=== PATIENT | male | born 1985 | race Caucasian/White ===

== ENCOUNTER 2017-07-15 12:38 | Emergency (ER) | payer BC ==
[2017-07-15 12:55] VITALS: PULSE 90; TEMP 98.9
[2017-07-15] MEDS ORDERED: ONDANSETRON 4 MG/2 ML VIAL IVP STA (13:41)
[2017-07-15] MEDS ORDERED: FAMOTIDINE 20 MG/2 ML VIAL IV STA (13:41)
[2017-07-15] MEDS ORDERED: SODIUM CHLORIDE 0.9% 1,000 ML with MVI, ADULT NO.4 WITH VIT K 10 ML, THIAMINE 100 MG, F... IV ONE ×4 (13:42)
[2017-07-15] MEDS ORDERED: HYDROmorphone 1 MG/ML 1 ML SYRINGE IVP STA (13:43)
--- NOTE | 2017-07-15 13:46 | ED ---
Alcohol HPI - General Chief Complaint: Alcohol Stated Complaint: Poss ETOH poisoning Time Seen by Provider: 07/15/17 12:56 Source: patient, RN notes reviewed Mode of arrival: ambulatory Limitations: no limitations - History of Present Illness Initial Comments: This is a 31-year-old male with a history of alcoholism was a she's been sober for 3 years who does state though he started drinking over the last week or so up to 2/5 per day over last 2 days who presents with complaints of sharp burning mid epigastric abdominal pain with nausea vomiting he has vomited up some blood. He states the pain is 8/10 severity. He also states his last drink was about 14 hours prior to admission a starting go through shakes. He does state he is never had seizures never had pancreatitis or gastritis he is aware of hematuria treatment program 3 years ago and had been clean since until this last episode. He feels shaky and lightheaded he's had no food" for the last several days. He currently is nauseated. MD Complaint: alcohol withdrawal - Related Data Home Medications Medication Instructions Recorded Confirmed Multivitamins, Thera [Multivitamin 1 tab PO DAILY 07/15/17 07/15/17 (formulary)] Previous Rx's Medication Instructions Recorded LORazepam [Ativan] 0.5 mg PO BID #7 tab 07/15/17 LORazepam [Ativan] 1 mg PO TID #9 tab 07/15/17 LORazepam [Ativan] 2 mg PO TID #9 tab 07/15/17 cloNIDine HCL [Catapres] 0.1 mg PO BID #14 tab 07/15/17 Allergies Allergy/AdvReac Type Severity Reaction Status Date / Time No Known Allergies Allergy Verified 07/15/17 13:37 Review of Systems ROS Statement: Those systems with pertinent positive or pertinent negative responses have been documented in the HPI. ROS Other: All systems not noted in ROS Statement are negative. Past Medical History Past Medical History: No Reported History History of Any Multi-Drug Resistant Organisms: MRSA Date of last positivie culture/infection: 2009 MDRO Source:: right knee Past Surgical History: No Surgical Hx Reported Past Psychological History: Anxiety, Depression Smoking Status: Never smoker Past Alcohol Use History: Daily, Heavy Past Drug Use History: None Reported General Exam - General Exam Comments Initial Comments: This is a well-developed well-nourished awake alert oriented 3 male he does demonstrate extremity tremors. Limitations: no limitations General appearance: alert, anxious Head exam: Present: atraumatic, normocephalic, normal inspection Eye exam: Present: normal appearance, PERRL, EOMI. Absent: scleral icterus, conjunctival injection, periorbital swelling ENT exam: Present: mucous membranes dry Neck exam: Present: normal inspection. Absent: tenderness, meningismus, lymphadenopathy Respiratory exam: Present: normal lung sounds bilaterally. Absent: respiratory distress, wheezes, rales, rhonchi, stridor Cardiovascular Exam: Present: regular rate, normal rhythm, normal heart sounds. Absent: systolic murmur, diastolic murmur, rubs, gallop, clicks GI/Abdominal exam: Present: soft, tenderness (Epigastric tenderness palpation no definite guarding no rebound), normal bowel sounds. Absent: distended, guarding, rebound, rigid, bruit, pulsatile mass, hernia Rectal exam: Present: deferred Extremities exam: Present: normal inspection, full ROM, normal capillary refill. Absent: tenderness, pedal edema, joint swelling, calf tenderness Back exam: Present: normal inspection Neurological exam: Present: alert, oriented X3, CN II-XII intact, other ( Tremors are noted to the extremities.) Psychiatric exam: Present: normal affect, anxious Skin exam: Present: warm, dry, intact, normal color. Absent: rash Course Vital Signs 07/15/17 12:50 Temperature 98.9 F Pulse Rate 90 Respiratory 18 Rate Blood Pressure 136/80 O2 Sat by Pulse 97 Oximetry Medical Decision Making - Medical Decision Making The patient showing much improved after the treatment that was rendered thus far. He would like to try to go home in rehab outpatient. Medication for him. We discharged after the current IV is done he will be following up with his doctor return when necessary - Lab Data Result diagrams: 07/15/17 14:09 07/15/17 14:09 Lab Results 07/15/17 07/15/17 07/15/17 Range/Units 14:09 14: 14:09 WBC 11.5 H (3.8-10.6) k/uL RBC 5.37 (4.30-5.90) m/uL Hgb 18.0 H (13.0-17.5) gm/dL Hct 53.2 H (39.0-53.0) % MCV 99.0 (80.0-100.0) fL MCH 33.5 (25.0-35.0) pg MCHC 33.8 (31.0-37.0) g/dL RDW 14.3 (11.5-15.5) % Plt Count 262 (150-450) k/uL Neutrophils % 81 % Lymphocytes % 10 % Monocytes % 6 % Eosinophils % 0 % Basophils % 1 % Neutrophils # 9.3 H (1.3-7.7) k/uL Lymphocytes # 1.1 (1.0-4.8) k/uL Monocytes # 0.6 (0-1.0) k/uL Eosinophils # 0.0 (0-0.7) k/uL Basophils # 0.1 (0-0.2) k/uL Sodium 137 (137-145) mmol/L Potassium 4.3 (3.5-5.1) mmol/L Chloride 99 (98-107) mmol/L Carbon Dioxide 23 (22-30) mmol/L Anion Gap 15 mmol/L BUN 14 (9-20) mg/dL Creatinine 1.02 (0.66-1.25) mg/dL Est GFR (MDRD) Af Amer >60 (>60 ml/min/1.73 sqM) Est GFR (MDRD) Non-Af >60 (>60 ml/min/1.73 sqM) Glucose 86 (74-99) mg/dL Calcium 9.4 (8.4-10.2) mg/dL Magnesium 1.3 L (1.6-2.3) mg/dL Total Bilirubin 0.7 (0.2-1.3) mg/dL AST 38 (17-59) U/L ALT 45 (21-72) U/L Alkaline Phosphatase 62 (38-126) U/L Total Protein 7.0 (6.3-8.2) g/dL Albumin 4.3 (3.5-5.0) g/dL Amylase 68 (30-110) U/L Lipase 72 (23-300) U/L Serum Alcohol 84 mg/dL Blood Type O Positive Blood Type Recheck No Antibody Screen NEGATIVE Spec Expiration Date 07/18/2017 - 2308 Disposition Clinical Impression: Hypomagnesemia, Alcoholic gastritis, Alcohol withdrawal syndrome Disposition: HOME SELF-CARE Condition: Good Instructions: Alcohol Withdrawal (ED), Alcohol Intoxication (ED), Hypomagnesemia (ED) Prescriptions: cloNIDine HCL [Catapres] 0.1 mg PO BID #14 tab LORazepam [Ativan] 0.5 mg PO BID #7 tab LORazepam [Ativan] 1 mg PO TID #9 tab LORazepam [Ativan] 2 mg PO TID #9 tab Referrals: None,Stated [Primary Care Provider] - 1-2 days Decision Time: 14:50
[2017-07-15] MEDS ORDERED: LORazepam 2 MG/ML SYRINGE IV STA (14:11)
[2017-07-15 14:20] LABS: Basophils # (A) 0.1 k/uL (0-0.2); Basophils % (A) 1 %; CH 35.1; CHCM 35.6; Eosinophils % (A) 0 %; HCT 53.2 % (39.0-53.0); HDW 2.33; Luc # (Auto) 0.33; Luc % (Auto) 3; Lymphocytes # (A) 1.1 k/uL (1.0-4.8); Lymphocytes % (A) 10 %; MCH 33.5 pg (25.0-35.0); MCHC 33.8 g/dL (31.0-37.0); Monocytes # (A) 0.6 k/uL (0-1.0); Monocytes % (A) 6 %; Neutrophils # (A) 9.3 k/uL (1.3-7.7); Neutrophils % (A) 81 %; RBC 5.37 m/uL (4.30-5.90); RDW 14.3 % (11.5-15.5); WBC 11.5 k/uL (3.8-10.6); WBC (Perox) 11.02
[2017-07-15 14:35] LABS: ALT 45 U/L (21-72); AST 38 U/L (17-59); Alkaline Phosphatase 62 U/L (38-126); Amylase 68 U/L (30-110); Anion Gap 15 mmol/L; Blood Urea Nitrogen 14 mg/dL (9-20); Calcium 9.4 mg/dL (8.4-10.2); Carbon Dioxide 23 mmol/L (22-30); Chloride 99 mmol/L (98-107); Glucose 86 mg/dL (74-99); Magnesium 1.3 mg/dL (1.6-2.3); Non-African American GFR(MDRD) >60 (>60 ml/min/1.73 sqM); Potassium 4.3 mmol/L (3.5-5.1); Sodium 137 mmol/L (137-145); Total Bilirubin 0.7 mg/dL (0.2-1.3)
[2017-07-15 14:37] LABS: Alcohol 84 mg/dL
--- NOTE | 2017-07-15 14:48 | XR ---
EXAMINATION TYPE: XR abdomen 1V DATE OF EXAM: 07/15/2017 COMPARISON: NONE HISTORY: Abdominal pain TECHNIQUE: 2 views FINDINGS: The bowel gas pattern is normal. There is no sign of intestinal obstruction or pneumoperito neum. Fecal pattern is normal. There are no pathologic calcifications over the kidneys. Lung bases ar e clear. Bony structures appear intact. IMPRESSION: Nonacute abdomen.
[2017-07-15 15:56] VITALS: BP 141/67; RESP 16
== END 2017-07-15 16:06 | disposition home or self-care (01) ==
LOC: EC 12:38
DX: K29.20 Alcoholic gastritis without bleeding (principal); F10.239 Alcohol dependence with withdrawal, unspecified; E83.42 Hypomagnesemia; Z79.899 Other long term (current) drug therapy
CPT/HCPCS: 82075; 36415; 86900; 86901; 80053; 82150; 83690; 83735; 85025; 86850; 80320; 74000; 99284; 96375 ×4; 96365; 96366; J2060; J3411; J2405; J1170

== ENCOUNTER 2017-07-27 14:56 | Inpatient (IN) | payer BC ==
[2017-07-27] MEDS ORDERED: LORazepam 2 MG/ML SYRINGE IV STA (15:17)
[2017-07-27] MEDS ORDERED: SODIUM CHLORIDE 0.9% 1,000 ML IV STA ×2 (15:17)
--- NOTE | 2017-07-27 15:27 | ED ---
General Adult HPI - General Chief complaint: Psychiatric Symptoms Stated complaint: ETOH Time Seen by Provider: 07/27/17 15:05 Source: patient, RN notes reviewed, old records reviewed Mode of arrival: ambulatory Limitations: no limitations - History of Present Illness Initial comments: Is a 31-year-old male chief complaint of severe alcohol abuse or the past 3 weeks. Patient reports this started after he had a dental procedure. Patient reports that he was discharged from the dental procedure with Motrin and Tylenol with codeine. Patient did not want to take pain medication, so he took multiple Motrin. Patient reports that he is having severe abdominal pain at that point. Patient reports that he decided he didn't want to deal with the pain in his teeth or stomach anymore sinusitis started drinking again. Patient reports that since he started drinking his abdominal pain is continue to worsen. Patient reports he is drinking approximately fifth day for the past 3 weeks. Patient reports his last drink was a few R's prior to arrival however he started surgical to withdrawals. Patient reports that he's had occasional visual hallucinations due to withdrawals for the past hour. Patient denies any suicidal or homicidal thoughts. He was sober for the past 15 months after going through alcohol rehab before this past 3 weeks. - Related Data Home Medications Medication Instructions Recorded Confirmed No Known Home Medications [No 07/27/17 07/27/17 Known Home Medications] Allergies Allergy/AdvReac Type Severity Reaction Status Date / Time No Known Allergies Allergy Verified 07/27/17 15:01 Review of Systems ROS Statement: Those systems with pertinent positive or pertinent negative responses have been documented in the HPI. ROS Other: All systems not noted in ROS Statement are negative. Past Medical History Past Medical History: No Reported History History of Any Multi-Drug Resistant Organisms: MRSA Date of last positivie culture/infection: 2009 MDRO Source:: right knee Past Surgical History: No Surgical Hx Reported Past Psychological History: Anxiety, Depression Smoking Status: Never smoker Past Alcohol Use History: Daily, Heavy Past Drug Use History: None Reported General Exam - General Exam Comments Initial Comments: 31-year-old male. Patient is shaking. Patient is actively going through withdrawals. Limitations: no limitations General appearance: alert, appears intoxicated Head exam: Present: atraumatic Eye exam: Present: normal appearance, PERRL, EOMI. Absent: scleral icterus, conjunctival injection, periorbital swelling ENT exam: Present: normal exam, normal oropharynx, mucous membranes moist Neck exam: Present: normal inspection. Absent: tenderness, meningismus, lymphadenopathy Respiratory exam: Present: normal lung sounds bilaterally. Absent: respiratory distress, wheezes, rales, rhonchi, stridor Cardiovascular Exam: Present: regular rate, normal rhythm, normal heart sounds. Absent: systolic murmur, diastolic murmur, rubs, gallop, clicks GI/Abdominal exam: Present: soft, tenderness (Severe epigastric tenderness. Patient is actively vomiting when entering the room.), normal bowel sounds. Absent: distended, guarding, rebound, rigid Extremities exam: Present: normal inspection, full ROM, normal capillary refill. Absent: tenderness, pedal edema, joint swelling, calf tenderness Back exam: Present: normal inspection Neurological exam: Present: alert, oriented X3, CN II-XII intact Psychiatric exam: Present: normal affect, normal mood, anxious Skin exam: Present: warm, dry, intact, normal color. Absent: rash Course Vital Signs 07/27/17 14:58 Temperature 98.5 F Pulse Rate 120 H Respiratory 20 Rate Blood Pressure 164/79 O2 Sat by Pulse 97 Oximetry Medical Decision Making - Medical Decision Making 31-year-old male chief complaint alcohol intoxication started to go through withdrawals as well as severe abdominal pain. Patient has evidence of alcohol- induced gastritis. Patient's occult blood was positive for vomit. Patient has an upper GI bleed. Vomiting is controlled this time after Zofran. Patient is given 2 L of IV fluids, as well as banana bag started. Patient was given GI cocktail, and Protonix. Discussed with Dr. Mcelroy. Patient will be admitted under Dr. Moss service. Consult to GI specialist. Patient was informed of his results. - Lab Data Result diagrams: 07/27/17 15:55 07/27/17 15:55 Lab Results 07/27/17 07/27/17 07/27/17 Range/Units 15:49 15:55 15:55 WBC 8.5 (3.8-10.6) k/uL RBC 5.99 H (4.30-5.90) m/uL Hgb 20.2 H (13.0-17.5) gm/dL Hct 57.4 H (39.0-53.0) % MCV 95.8 (80.0-100.0) fL MCH 33.8 (25.0-35.0) pg MCHC 35.2 (31.0-37.0) g/dL RDW 13.7 (11.5-15.5) % Plt Count 186 (150-450) k/uL Neutrophils % (Manual) 64 % Lymphocytes % (Manual) 28 % Monocytes % (Manual) 8 % Neutrophils # (Manual) 5.44 (1.3-7.7) k/uL Lymphocytes # (Manual) 2.38 (1.0-4.8) k/uL Monocytes # (Manual) 0.68 (0-1.0) k/uL Nucleated RBCs 0 (0-0) /100 WBC Manual Slide Review Performed RBC Morphology Normal PT (9.0-12.0) sec INR (<1.2) Sodium 142 (137-145) mmol/L Potassium 4.5 (3.5-5.1) mmol/L Chloride 99 (98-107) mmol/L Carbon Dioxide 22 (22-30) mmol/L Anion Gap 21 mmol/L BUN 17 (9-20) mg/dL Creatinine 1.20 (0.66-1.25) mg/dL Est GFR (MDRD) Af Amer >60 (>60 ml/min/1.73 sqM) Est GFR (MDRD) Non-Af >60 (>60 ml/min/1.73 sqM) Glucose 115 H (74-99) mg/dL Calcium 9.5 (8.4-10.2) mg/dL Magnesium 1.7 (1.6-2.3) mg/dL Total Bilirubin 0.9 (0.2-1.3) mg/dL AST 88 H (17-59) U/L ALT 68 (21-72) U/L Alkaline Phosphatase 85 (38-126) U/L Total Protein 8.2 (6.3-8.2) g/dL Albumin 4.8 (3.5-5.0) g/dL Amylase 95 (30-110) U/L Lipase 200 (23-300) U/L Urine Color Yellow Urine Appearance Clear (Clear) Urine pH 6.0 (5.0-8.0) Ur Specific [place] 1.020 (1.001-1.035) Urine Protein 2+ H (Negative) Urine Glucose (UA) Negative (Negative) Urine Ketones 1+ H (Negative) Urine Blood Trace H (Negative) Urine Nitrite Negative (Negative) Urine Bilirubin Negative (Negative) Urine Urobilinogen <2.0 (<2.0) mg/dL Ur Leukocyte Esterase Negative (Negative) Urine RBC 2 (0-5) /hpf Urine WBC 1 (0-5) /hpf Ur Squamous Epith Cells <1 (0-4) /hpf Amorphous Sediment Occasional H (None) /hpf Urine Bacteria Rare H (None) /hpf Hyaline Casts 4 H (0-2) /lpf Urine Mucus Moderate H (None) /hpf Stool Occult Blood (Negative) Urine Opiates Screen Not Detected (NotDetected) Ur Oxycodone Screen Not Detected (NotDetected) Urine Methadone Screen Not Detected (NotDetected) Ur Propoxyphene Screen Not Detected (NotDetected) Ur Barbiturates Screen Not Detected (NotDetected) U Tricyclic Antidepress Not Detected (NotDetected) Ur Phencyclidine Scrn Not Detected (NotDetected) Ur Amphetamines Screen Not Detected (NotDetected) U Methamphetamines Scrn Not Detected (NotDetected) U Benzodiazepines Scrn Detected H (NotDetected) Urine Cocaine Screen Not Detected (NotDetected) U Marijuana (THC) Screen Not Detected (NotDetected) Serum Alcohol 290 mg/dL 07/27/17 07/27/17 Range/Units 15:55 15:55 WBC (3.8-10.6) k/uL RBC (4.30-5.90) m/uL Hgb (13.0-17.5) gm/dL Hct (39.0-53.0) % MCV (80.0-100.0) fL MCH (25.0-35.0) pg MCHC (31.0-37.0) g/dL RDW (11.5-15.5) % Plt Count (150-450) k/uL Neutrophils % (Manual) % Lymphocytes % (Manual) % Monocytes % (Manual) % Neutrophils # (Manual) (1.3-7.7) k/uL Lymphocytes # (Manual) (1.0-4.8) k/uL Monocytes # (Manual) (0-1.0) k/uL Nucleated RBCs (0-0) /100 WBC Manual Slide Review RBC Morphology PT 11.2 (9.0-12.0) sec INR 1.1 (<1.2) Sodium (137-145) mmol/L Potassium (3.5-5.1) mmol/L Chloride (98-107) mmol/L Carbon Dioxide (22-30) mmol/L Anion Gap mmol/L BUN (9-20) mg/dL Creatinine (0.66-1.25) mg/dL Est GFR (MDRD) Af Amer (>60 ml/min/1.73 sqM) Est GFR (MDRD) Non-Af (>60 ml/min/1.73 sqM) Glucose (74-99) mg/dL Calcium (8.4-10.2) mg/dL Magnesium (1.6-2.3) mg/dL Total Bilirubin (0.2-1.3) mg/dL AST (17-59) U/L ALT (21-72) U/L Alkaline Phosphatase (38-126) U/L Total Protein (6.3-8.2) g/dL Albumin (3.5-5.0) g/dL Amylase (30-110) U/L Lipase (23-300) U/L Urine Color Urine Appearance (Clear) Urine pH (5.0-8.0) Ur Specific [place] (1.001-1.035) Urine Protein (Negative) Urine Glucose (UA) (Negative) Urine Ketones (Negative) Urine Blood (Negative) Urine Nitrite (Negative) Urine Bilirubin (Negative) Urine Urobilinogen (<2.0) mg/dL Ur Leukocyte Esterase (Negative) Urine RBC (0-5) /hpf Urine WBC (0-5) /hpf Ur Squamous Epith Cells (0-4) /hpf Amorphous Sediment (None) /hpf Urine Bacteria (None) /hpf Hyaline Casts (0-2) /lpf Urine Mucus (None) /hpf Stool Occult Blood Positive (Negative) Urine Opiates Screen (NotDetected) Ur Oxycodone Screen (NotDetected) Urine Methadone Screen (NotDetected) Ur Propoxyphene Screen (NotDetected) Ur Barbiturates Screen (NotDetected) U Tricyclic Antidepress (NotDetected) Ur Phencyclidine Scrn (NotDetected) Ur Amphetamines Screen (NotDetected) U Methamphetamines Scrn (NotDetected) U Benzodiazepines Scrn (NotDetected) Urine Cocaine Screen (NotDetected) U Marijuana (THC) Screen (NotDetected) Serum Alcohol mg/dL Disposition Clinical Impression: Alcohol abuse, Alcohol withdrawal, Alcoholic gastritis, Upper GI bleed Disposition: ADMITTED IP TO THIS [facility] Condition: Stable Referrals: None,Stated [Primary Care Provider] - 1-2 days Time of Disposition: 17:07
[2017-07-27] MEDS ORDERED: SODIUM CHLORIDE 0.9% 1,000 ML with MVI, ADULT NO.4 WITH VIT K 10 ML, THIAMINE 100 MG, F... IV ONE ×4 (15:30)
[2017-07-27 16:10] LABS: Amorphous Sediment,Urine Occasional /hpf; Appearance,Urine Clear (Clear); Bacteria,Urine Rare /hpf; Bilirubin,Urine Negative (Negative); Glucose,Urine (UA) Negative (Negative); Ketones,Urine 1+ (Negative); Leukocyte Esterase,Urine Negative (Negative); Mucus,Urine Moderate /hpf; Nitrite,Urine Negative (Negative); Particle Count 7429; Protein,Urine 2+ (Negative); RBC,Urine 2 /hpf (0-5); Squamous Epithelial Cell,Urine <1 /hpf (0-4); UA Billing (MACRO vs. MICRO) MICRO; Urobilinogen,Urine <2.0 mg/dL (<2.0); WBC,Urine 1 /hpf (0-5)
[2017-07-27 16:18] LABS: INR 1.1 (<1.2); Prothrombin Time 11.2 sec (9.0-12.0)
[2017-07-27 16:19] LABS: ALT 68 U/L (21-72); AST 88 U/L (17-59); Alkaline Phosphatase 85 U/L (38-126); Amylase 95 U/L (30-110); Anion Gap 21 mmol/L; Aty Lym Flag Slight; Blood Urea Nitrogen 17 mg/dL (9-20); CH 34.5; CHCM 36.1; Calcium 9.5 mg/dL (8.4-10.2); Carbon Dioxide 22 mmol/L (22-30); Chloride 99 mmol/L (98-107); Glucose 115 mg/dL (74-99); HCT 57.4 % (39.0-53.0); HDW 2.45; HGB 20.2 gm/dL (13.0-17.5); MCH 33.8 pg (25.0-35.0); MCHC 35.2 g/dL (31.0-37.0); MCV 95.8 fL (80.0-100.0); Magnesium 1.7 mg/dL (1.6-2.3); Mean Platelet Volume 6.7; Non-African American GFR(MDRD) >60 (>60 ml/min/1.73 sqM); Potassium 4.5 mmol/L (3.5-5.1); RBC 5.99 m/uL (4.30-5.90); RDW 13.7 % (11.5-15.5); Sodium 142 mmol/L (137-145); Total Bilirubin 0.9 mg/dL (0.2-1.3); Total Protein 8.2 g/dL (6.3-8.2); WBC 8.5 k/uL (3.8-10.6); WBC (Perox) 9.01
[2017-07-27] MEDS ORDERED: ONDANSETRON 4 MG/2 ML VIAL IVP STA (16:23)
[2017-07-27 16:41] LABS: Alcohol 290 mg/dL
[2017-07-27 16:45] LABS: Add Differential Manual Differential
[2017-07-27 16:48] LABS: Manual Review Performed; Nucleated Red Blood Cells 0 /100 WBC (0-0); RBC Morphology Normal; Total Cells Counted 100
[2017-07-27] MEDS ORDERED: PANTOPRAZOLE 40 MG/10 ML VIAL IVP STA (16:50)
[2017-07-27] MEDS ORDERED: MAG HYDROX/AL HYDROX/SIMETH 30 ML, HYOSCYAMINE ELIXIR 10 ML, CIMETIDINE HCL 300 MG, LID... PO STA ×4 (17:03)
[2017-07-27] MEDS ORDERED: THIAMINE 100 MG/ML 2 ML VIAL IM STA (17:06)
[2017-07-27] MEDS ORDERED: LORazepam 2 MG/ML SYRINGE IV PRN ×2 (17:06)
[2017-07-27] MEDS ORDERED: NALOXONE 0.4 MG/ML 1 ML VIAL IV PRN (17:08)
[2017-07-27] MEDS: LORazepam 2 MG/ML SYRINGE IV PRN ×2 (21:30→23:31)
[2017-07-27] MEDS: ONDANSETRON 4 MG/2 ML VIAL IVP PRN (23:04)
[2017-07-28] MEDS: SODIUM CHLORIDE 0.9% 1,000 ML IV SCH ×4 (01:21→18:17)
[2017-07-28] MEDS: LORazepam 2 MG/ML SYRINGE IV PRN ×6 (01:21→20:23)
[2017-07-28] MEDS: ONDANSETRON 4 MG/2 ML VIAL IVP PRN (04:38)
[2017-07-28 07:49] LABS: Aty Lym Flag Slight; CH 35.4; CHCM 36.4; HCT 45.4 % (39.0-53.0); HDW 2.39; HGB 15.7 gm/dL (13.0-17.5); MCH 33.7 pg (25.0-35.0); MCHC 34.6 g/dL (31.0-37.0); MCV 97.5 fL (80.0-100.0); Mean Platelet Volume 7.2; RBC 4.66 m/uL (4.30-5.90); RDW 14.1 % (11.5-15.5); WBC 7.3 k/uL (3.8-10.6); WBC (Perox) 7.34
--- NOTE | 2017-07-28 08:06 | P.CONS ---
History of Present Illness - Reason for Consult Consult date: 07/28/17 Upper GI bleed Requesting physician: Chiki Moss - History of Present Illness 31-year-old gentleman with a history of alcohol abuse sober over for 3 years started drinking 3 weeks ago multiple liquor drinks a day had a recent dental procedure taking Motrin Tylenol for pain. Patient presents with epigastric pain. No reports of hematemesis hematochezia melena. Serum alcohol greater than 200. Hemoglobin 15.7. Platelet 132. INR 1.1. BUN 14. Creatinine 1.0. LFTs unremarkable. Lipase 200. Stool occult blood positive. Presently he is resting comfortably. Epigastric pain improving. Tolerating clear liquids. Review of Systems Constitutional: Denies fever, chills, sweats, weight gain, or loss. HEENT: Negative for migraines, blurred vision or loss, earaches, drainage, tinnitus, oral mucosal lesions, dysphagia, or odynophagia. Cardiac: Negative for chest pain, arrhythmias, or palpitation. Respiratory: Negative for shortness of breath, hemoptysis, cough, or sputum production. Gastrointestinal: See HPI for pertinent findings. Genitourinary: Negative for hematuria, urgency, frequency, polyuria, dysuria, or penile discharge. Musculoskeletal: Negative for muscle aches, swelling, arthritis, and arthralgias. Neurologic: Negative for stroke or TIA. Endocrine: Negative for thyroid problems. Skin: Negative for rash or itching. Psychiatric: Negative history for depression and anxiety All systems: negative (See HPI) Past Medical History Past Medical History: GERD/Reflux Additional Past Medical History / Comment(s): in past took bp/cholesterol meds for few months but stopped them on his own. etoh. "recently had some episode of vomitng dark blood and stools were black in color" History of Any Multi-Drug Resistant Organisms: MRSA Year Discovered:: 2009 MDRO Source:: right knee Past Surgical History: No Surgical Hx Reported Additional Past Surgical History / Comment(s): 07/08/17 had 3 teeth extracted- post procedure pain worsened and pt went back to dr on had a 2nd procedure done for an exposed nerve. Past Anesthesia/Blood Transfusion Reactions: No Reported Reaction Smoking Status: Former smoker - Past Family History Father Additional Family Medical History / Comment(s): anxiety Mother Family Medical History: Cancer, Hyperlipidemia, Hypertension, Thyroid Disorder Additional Family Medical History / Comment(s): breast cancer, shingles, osteoporosis, anxiety Medications and Allergies Home Medications Medication Instructions Recorded Confirmed Type No Known Home Medications [No 07/27/17 07/27/17 History Known Home Medications] Allergies Allergy/AdvReac Type Severity Reaction Status Date / Time No Known Allergies Allergy Verified 07/27/17 15:01 Physical Exam Vitals: Vital Signs Temp Pulse Pulse Resp BP BP Pulse Ox 07/28/17 07:02 99.0 F 74 18 136/77 07/28/17 05:52 82 16 129/57 97 07/28/17 03:39 90 16 143/80 96 07/28/17 01:15 105 H 16 127/74 94 L 07/27/17 23:37 113 H 16 07/27/17 22:57 98.0 F 113 H 16 151/75 97 07/27/17 21:47 98.3 F 107 H 18 116/70 92 L 07/27/17 21:27 108 H 16 128/75 97 07/27/17 18:08 98.7 F 98 16 162/70 96 07/27/17 14:58 98.5 F 120 H 20 164/79 97 Intake and Output 07/27/17 07/28/17 07/28/17 22:59 06:59 14:59 Intake Total 300 680 Output Total 800 Balance 300 -120 Intake: Intake, IV Titration 300 580 Amount Sodium Chloride 0.9% 1, 300 000 ml @ 100 mls/hr IV . Q10H7M ONE with Mvi, Adult No.4 with Vit K 10 ml with Thiamine 100 mg with Folic Acid 1 mg Rx#: [id number] Sodium Chloride 0.9% 1, 580 000 ml @ 120 mls/hr IV . Q8H20M [facility] Rx#:[id number] Oral 100 Output: Urine 800 Other: Voiding Method Toilet Urinal # Voids 2 2 General appearance: The patient is alert, oriented, in no acute distress. HET: Head is normocephalic and atraumatic. Pupils are equal and reactive. Oropharynx is clear without lesions. Neck: Supple without lymphadenopathy. Trachea midline. Heart: S1 S2. Regular rate and rhythm. Lungs: No crackles or wheezes are heard. Abdomen: Soft, nontender, nondistended with bowel sounds. No peritoneal signs. No palpable organomegaly or masses. Extremities: Normal skin color and turgor. No cyanosis, rash, ulceration, clubbing, or edema. Radial and pedal pulses are 2/4 bilaterally. Neurological: No focal deficits. Strength and sensation are grossly intact. Results CBC & Chem 7: 07/28/17 07:07 07/27/17 15:55 Labs: Abnormal Lab Results - Last 24 Hours (Table) 07/27/17 07/27/17 07/27/17 Range/Units 15:49 15:55 15:55 RBC 5.99 H (4.30-5.90) m/uL Hgb 20.2 H (13.0-17.5) gm/dL Hct 57.4 H (39.0-53.0) % Plt Count (150-450) k/uL Glucose 115 H (74-99) mg/dL AST 88 H (17-59) U/L Urine Protein 2+ H (Negative) Urine Ketones 1+ H (Negative) Urine Blood Trace H (Negative) Amorphous Sediment Occasional H (None) /hpf Urine Bacteria Rare H (None) /hpf Hyaline Casts 4 H (0-2) /lpf Urine Mucus Moderate H (None) /hpf U Benzodiazepines Scrn Detected H (NotDetected) 07/28/17 Range/Units 07:07 RBC (4.30-5.90) m/uL Hgb (13.0-17.5) gm/dL Hct (39.0-53.0) % Plt Count 132 L (150-450) k/uL Glucose (74-99) mg/dL AST (17-59) U/L Urine Protein (Negative) Urine Ketones (Negative) Urine Blood (Negative) Amorphous Sediment (None) /hpf Urine Bacteria (None) /hpf Hyaline Casts (0-2) /lpf Urine Mucus (None) /hpf U Benzodiazepines Scrn (NotDetected) Assessment and Plan (1) Alcoholic gastritis Narrative/Plan: Alcohol gastritis esophagitis Status: Acute (2) Alcohol abuse Status: Acute (3) Alcohol intoxication Status: Acute Plan: 1. Protonix 40 mg IV twice daily. 2. Carafate 1 g twice daily with meals. 3. Full liquid diet advance as tolerated. 4. CBC monitoring. 5. Alcohol abstinence. No NSAIDs or aspirin. 6. Endoscopic exams not planned at this time but contingent on clinical course. Discharge per medicine. Thank you for this kind referral and the opportunity to participate in the care of your patient. This consultation was discussed with Dr. Erickson. The impression and plan of care have been directed as dictated.
[2017-07-28 08:21] LABS: ALT 53 U/L (21-72); AST 58 U/L (17-59); Alkaline Phosphatase 60 U/L (38-126); Anion Gap 6 mmol/L; Blood Urea Nitrogen 18 mg/dL (9-20); Calcium 8.7 mg/dL (8.4-10.2); Carbon Dioxide 30 mmol/L (22-30); Chloride 100 mmol/L (98-107); Glucose 94 mg/dL (74-99); Non-African American GFR(MDRD) >60 (>60 ml/min/1.73 sqM); Potassium 3.8 mmol/L (3.5-5.1); Sodium 136 mmol/L (137-145); Total Bilirubin 0.9 mg/dL (0.2-1.3)
[2017-07-28] MEDS: SUCRALFATE 1 GM TAB PO SCH ×2 (08:24→18:17)
[2017-07-28] MEDS: PANTOPRAZOLE 40 MG/10 ML VIAL IV SCH ×2 (08:25→20:26)
[2017-07-28 08:36] LABS: Add Differential Manual Differential
[2017-07-28 08:40] LABS: Manual Review Performed; Nucleated Red Blood Cells 0 /100 WBC (0-0); Total Cells Counted 100
[2017-07-28 08:41] LABS: RBC Morphology Normal
[2017-07-28] MEDS ORDERED: PANTOPRAZOLE 40 MG/10 ML VIAL IV SCH (09:00)
[2017-07-28 11:06] VITALS: BMI 27.1
--- NOTE | 2017-07-28 16:01 | HP ---
HISTORY AND PHYSICAL CHIEF COMPLAINT: A 31-year-old white male who has been sober for 15 months after being an alcoholic for many years. He had his teeth pulled, wisdom teeth x3. No pain medicine was given for him at which time he developed an alcohol addiction again. He has been drinking, like yesterday he drank a gallon of alcohol and a pint of whiskey and some beer. He denies suicidal ideation though. He is admitted with some visual hallucinations, withdrawal for the past hours, severe withdrawal. ALLERGIES: No known drug allergies. Some of the history is given by his mother. REVIEW OF SYSTEM: 14 point review of systems negative except for mentioned in HPI. PAST MEDICAL HISTORY: History of MRSA in the right knee, anxiety, depression, alcohol heavy. PHYSICAL EXAMINATION: 31-year-old white male, shaking, going through withdrawals. HEENT: Normocephalic atraumatic. OPHTHALMOLOGIC: Pupils equal and react to light and accommodation. RESPIRATORY: Normal lung sounds. No rales, rhonchi, or stridor. CARDIOVASCULAR: Regular rate and rhythm. No murmurs, rubs, gallops. GI: Soft, mild epigastric tenderness. No organomegaly. EXTREMITIES: No cyanosis, clubbing, or edema. VASCULAR: Normal dorsalis pedis, posterior tibial pulse. NEUROLOGIC: [id number] tremor. PSYCH: Giving appropriate answers. hemoglobin 20.2, hematocrit is 57.4. ASSESSMENT: 1. Primary polycythemia vera. 2. Liver enzyme elevation. 3. Alcohol withdrawal symptomatology. PLAN: [facility] protocol. Recheck CBC in the morning for polycythemia vera. MMODL / IJN: [id number] /
[2017-07-28] MEDS: THIAMINE 100 MG TAB PO SCH ×2 (16:14→16:59)
[2017-07-28] MEDS: ACETAMINOPHEN TAB 325 MG TAB PO PRN (21:15)
[2017-07-29] MEDS: SODIUM CHLORIDE 0.9% 1,000 ML IV SCH ×3 (06:50→17:27)
[2017-07-29] MEDS: LORazepam 2 MG/ML SYRINGE IV PRN ×3 (08:33→21:24)
[2017-07-29] MEDS: SUCRALFATE 1 GM TAB PO SCH ×2 (08:35→17:27)
[2017-07-29] MEDS: PANTOPRAZOLE 40 MG/10 ML VIAL IV SCH (08:35)
--- NOTE | 2017-07-29 10:41 | PN ---
PROGRESS NOTE SUBJECTIVE: 31-year-old, white male, who presents with alcohol withdrawal and tremors. Apparently the GI doctor was trying to get his history and may be making up some of his history as he goes. He is treated for alcohol withdrawal. Discussed [facility] with the patient for rehab and patient will call them today to try to get into rehab. Vital signs stable, afebrile. NEUROLOGIC: He has a moderate tremor in his extremities. CARDIOVASCULAR: S1, S2. LUNGS: Transmitted upper airway sounds. ASSESSMENT: 1. Alcohol withdrawal. 2. Alcoholism. 3. Status post teeth extraction. Continue on [facility] protocol. Electrolyte replacement. MMODL / IJN: [id number] /
[2017-07-29] MEDS: THIAMINE 100 MG TAB PO SCH ×2 (12:20→17:27)
--- NOTE | 2017-07-29 13:44 | PN ---
PROGRESS NOTE DATE OF DICTATION: July 29, 2017 Patient is a 31-year-old, white male, admitted with acute onset of severe epigastric pain followed by nausea, vomiting, for the last two days duration. He has history of heavy alcohol abuse for the last 3 years duration and the patient has been drinking 4-5 drinks a days as well as taking some Tylenol and Motrin for the pain from a recent dental procedure. He presents with epigastric pain. He states it is better today through the night. He did not sleep well because of severe nightmares and he had some nausea and vomiting. He is on a clear liquid diet, tolerating well. PHYSICAL EXAMINATION: He appears comfortable in no apparent distress. VITAL SIGNS: Stable. Blood pressure is 143/70, pulse is 70, temperature 96.8. HEENT examination unremarkable. Conjunctivae pink. Sclerae anicteric. Oral cavity no lesions. Neck: No jugular venous distention or lymph node enlargement. Chest clear to auscultation. Heart regular rate and rhythm. Abdomen is soft. Bowel sounds positive. Mild tenderness in the epigastric area. EXTREMITIES: No pedal edema. Skin no rashes. NEUROLOGIC: Alert and oriented x3. No focal deficits. LABS: His labs from yesterday: CBC and CMP are within normal limits. IMPRESSION: The patient presents with history of heavy alcohol abuse with epigastric pain associated with nausea and vomiting for the last 2 days duration. Symptoms are gradually improving. He denies any further episodes of nausea and vomiting since yesterday. Presently on IV Protonix as well as Carafate. RECOMMENDATIONS: 1. Continue IV Protonix. 2. Continue p.o. Carafate. 3. Advance diet as tolerated. 4. Hopeful discharge in the next 24-48 hours. MMODL / IJN: [id number] /
[2017-07-29] MEDS: PANTOPRAZOLE 40 MG TABLET PO SCH (17:27)
[2017-07-29] MEDS: ACETAMINOPHEN TAB 325 MG TAB PO PRN (21:24)
[2017-07-29 23:17] VITALS: RESP 16
[2017-07-30] MEDS: LORazepam 2 MG/ML SYRINGE IV PRN (01:37)
[2017-07-30] MEDS: SODIUM CHLORIDE 0.9% 1,000 ML IV SCH ×2 (07:47→08:04)
[2017-07-30] MEDS: SUCRALFATE 1 GM TAB PO SCH (08:04)
[2017-07-30] MEDS: PANTOPRAZOLE 40 MG TABLET PO SCH (08:04)
[2017-07-30 08:08] VITALS: PULSE 90
[2017-07-30 09:10] VITALS: BP 138/94; TEMP 97.7
[2017-07-30] MEDS: THIAMINE 100 MG TAB PO SCH (11:31)
--- NOTE | 2017-07-30 12:45 | PN ---
PROGRESS NOTE DATE OF SERVICE: 07/29/2017 I am covering for Dr. Chiki Moss. HISTORY OF PRESENT ILLNESS: This 31-year-old gentleman who was admitted with ETOH also had features of epigastric pain and possibly gastritis. No chest pain. No palpitations. No fever. EXAM: Alert and oriented times three. Pulse is 82, blood pressure 130/75, respiratory rate 16, temperature 98.2, pulse ox 100% on room air. HEENT: Conjunctivae normal. Neck: No jugular venous distention. Cardiovascular: S1, S2 muffled. Respiratory: Breath sound diminished at the bases. No rhonchi. No crackles. ABDOMEN: Soft, nontender. Legs: No edema. No swelling. Central nervous system: No focal deficits. LABS: Albumin 3.4, otherwise other labs are noted. ASSESSMENT: 1. Acute alcoholic alcoholism intoxication. 2. Alcohol withdrawal. 3. Acute gastritis. 4. Status post tooth extraction. RECOMMENDATIONS AND DISCUSSION: Recommended continue current medications. Continue symptomatic treatment. CIWA protocol. Increase ambulation. Increase diet. Closely follow with gastroenterology. Guarded prognosis. Further recommendations to follow. MMODL / IJN: [id number] /
--- NOTE | 2017-07-30 16:15 | PN ---
PROGRESS NOTE DATE OF SERVICE: 07/30/2017 The patient is a 31-year-old pleasant white male admitted to hospital with epigastric pain. nausea, vomiting and history of heavy alcohol abuse. He has been doing much better since being in the hospital. Abdominal pain has resolved. He is on a full liquid diet, tolerating well, requesting for more food. PHYSICAL EXAMINATION: He appears comfortable. Not apparent distress. Vital signs are stable. Blood pressure is 110/86, pulse 83, temperature 98.6. HEENT exam is remarkable. Conjunctivae pink. Sclerae anicteric. Oral cavity, no lesions. NECK: No JVD or lymph node enlargement. CHEST: Clear to auscultation. HEART: Regular rate and rhythm. ABDOMEN: Soft. Bowel sounds are positive. No organomegaly. EXTREMITIES: No pedal edema. SKIN: No rashes. NEURO: Alert and oriented x3. No focal deficits. LABS: Labs from yesterday were all normal. IMPRESSION: Epigastric pain associated with nausea and vomiting, possibly gastritis related to alcohol use. May be nonsteroid anti-inflammatory use related gastritis. Patient was taking Motrin for surgery for the last few days. Presently doing much better and symptoms are resolving. RECOMMENDATIONS: 1. Advance to soft diet. 2. Continue with Protonix 40 mg daily. 3. He can discharged home with outpatient follow up in 2 weeks. MMODL / IJN: [id number] /
--- NOTE | 2017-07-30 17:18 | P.DS ---
Providers Date of admission: 07/27/17 18:18 Attending physician: Chiki Moss Consults: 07/27/17 17:08 Consult Physician Stat Consulting Provider: Martin Bundy Consult Reason/Comments: Upper GI Bleed, Alcohol Gastritis Do you want consulting provider notified?: Yes, Notify in am Primary care physician: Stated None Hospital Course: This 31-year-old gentleman with a past medical history multiple medical problems including significant EtOH was admitted with epigastric pain. Patient had possibly gastritis. Treated symptomatically. Dr. Phillips saw the patient. Patient improved significantly. Cipro protocol was followed. Dr. Moss follow the patient closely in the hospital setting. On exam vitals stable. S1-S2 normal. Abdomen soft nontender. Chest clear no adventitious sounds. Recommended the patient to continue with the rehab efforts. Attend AA. To follow with Dr. Chiki Moss in the outpatient setting closely. Final diagnosis 1. Acute alcoholic intoxication. 2. Acute alcohol withdrawal 3. Acute gastritis 4. Status post tooth extraction Patient Condition at Discharge: Stable Plan - Discharge Summary New Discharge Prescriptions: New Acetaminophen Tab [Tylenol] 650 mg PO Q6HR PRN tab PRN Reason: Mild Pain Or Fever > 100.5 LORazepam [Ativan] 1 mg PO TID PRN #40 tab PRN Reason: Anxiety Multivitamins, Thera [Multivitamin] 1 tab PO DAILY #30 tablet Pantoprazole [Protonix] 40 mg PO DAILY #30 tab Thiamine [Vitamin B-1] 100 mg PO DAILY #30 tab Discharge Medication List Acetaminophen Tab [Tylenol] 650 mg PO Q6HR PRN tab 07/30/17 [Rx] LORazepam [Ativan] 1 mg PO TID PRN #40 tab 07/30/17 [Rx] Multivitamins, Thera [Multivitamin] 1 tab PO DAILY #30 tablet 07/30/17 [Rx] Pantoprazole [Protonix] 40 mg PO DAILY #30 tab 07/30/17 [Rx] Thiamine [Vitamin B-1] 100 mg PO DAILY #30 tab 07/30/17 [Rx] Follow up Appointment(s)/Referral(s): Chiki Moss MD [STAFF PHYSICIAN] - 3 Days Patient Instructions/Handouts: Alcohol Intoxication (DC), Abuse of Alcohol (DC) Activity/Diet/Wound Care/Special Instructions: diet reg act limited till f/u no etoh to attend aa and rehab Discharge Disposition: HOME SELF-CARE
== END 2017-07-30 14:16 | disposition home or self-care (01) | DRG 897 ==
LOC: EC 14:56 → 5MS5E 18:18
PROVIDERS: ADMIT Family Medicine; ATTEND Family Medicine
DX: F10.239 Alcohol dependence with withdrawal, unspecified (principal); D45 Polycythemia vera; F10.229 Alcohol dependence with intoxication, unspecified; K20.8 Other esophagitis; K29.20 Alcoholic gastritis without bleeding; Z87.891 Personal history of nicotine dependence; Z86.14 Personal history of Methicillin resistant Staphylococcus aureus infection; Z82.49 Family history of ischemic heart disease and other diseases of the circulatory system
CPT/HCPCS: 36415; 80053; 80306; 80320; 81001; 82150; 82272; 83690; 83735; 85025; 85610; 96365; 96366; 96372; 96375; 99285

== ENCOUNTER → 2017-08-08 | Outpatient (CLI) | payer BC ==
--- NOTE | 2017-08-08 10:57 | XR ---
EXAM TYPE: LUMBAR SPINE X RAY SERIES COMPARISON: NONE HISTORY: Right-sided back pain TECHNIQUE: 3 views are submitted. FINDINGS: Alignment is anatomic. The pedicles are intact. The transverse processes are intact. There is no s pondylolysis or spondylolisthesis. IMPRESSION: 1. No acute process. Consider MRI follow-up.
--- NOTE | 2017-08-08 10:58 | XR ---
EXAMINATION TYPE: XR thoracic spine complete DATE OF EXAM: 08/08/2017 COMPARISON: NONE HISTORY: Back pain Alignment is anatomic. There is no compression deformities. Curvature of the spine noted. Mild hyper trophic change and disc space narrowing the mid and lower thoracic spine. IMPRESSION: 1. Mild multilevel degenerative disc disease.
== END | disposition home or self-care (01) ==
LOC: RADXRMAIN 10:34
PROVIDERS: ATTEND Family Medicine
DX: M51.34 Other intervertebral disc degeneration, thoracic region (principal); M54.5 Low back pain
CPT/HCPCS: 72072; 72100

== ENCOUNTER → 2017-08-29 | Outpatient (CLI) | payer BC ==
--- NOTE | 2017-08-29 17:01 | CT ---
EXAMINATION TYPE: CT lumbar spine wo con DATE OF EXAM: 08/29/2017 COMPARISON: Lumbar spine x-ray August 08, 2017 HISTORY: low back pain X many years, hx of low back injury in 2008 CT DLP: 479.4 mGycm Automated exposure control for dose reduction was used. FINDINGS: There are 5 lumbar type vertebra identified. Lumbar spine shows satisfactory alignment without eviden ce of acute fracture or dislocation. Vertebral body heights and disc space heights are maintained. No suspicious posterior disc herniations are seen on sagittal images. Review of axial images shows the T12-L1, L1-L2, L2-L3, and L3-L4 levels to appear within normal limit s. Axial images at the L4-L5 level shows mild broad-based disc bulge with right paracentral disc protrus ion component and mild facet degenerative changes on axial image 72. Spinal canal is fairly well pres erved. Left-sided neural foramen is patent. Right side shows mild anterior inferior neural foraminal narrowing. Axial images at L5-S1 level show mild to moderate facet degenerative changes bilaterally. Spinal alcides l is preserved and bilateral neural foramina are patent. IMPRESSION: MILD DEGENERATIVE CHANGES IN LOWER LUMBAR SPINE DETAILED ABOVE
== END | disposition home or self-care (01) ==
LOC: RADCTMAIN 15:59
PROVIDERS: ATTEND Family Medicine
DX: M47.816 Spondylosis without myelopathy or radiculopathy, lumbar region (principal)
CPT/HCPCS: 72131

== ENCOUNTER 2017-09-05 23:44 | Emergency (ER) | payer BC ==
[2017-09-06] MEDS ORDERED: SODIUM CHLORIDE 0.9% 1,000 ML IV STA (00:29)
[2017-09-06] MEDS ORDERED: THIAMINE 100 MG/ML 2 ML VIAL IM STA (00:29)
--- NOTE | 2017-09-06 00:29 | ED ---
Alcohol HPI - General Chief Complaint: Alcohol Stated Complaint: Alcohol Withdrawl Time Seen by Provider: 09/05/17 23:54 Source: patient, RN notes reviewed, old records reviewed Mode of arrival: ambulatory Limitations: no limitations - History of Present Illness Initial Comments: 32-year-old male presents emergency Department chief complaint alcohol intoxication searching for help for withdrawals. Patient reports also some abdominal pain. Patient has been admitted in the past for pancreatitis and GI bleed in the past. Denies any vomiting. He reports that he was discharged a few months ago after admission for alcohol intoxication. He reports he relapsed after that. He states that he was just discharged from [place] approximately one week ago. He reports he started drinking. Drink about a pint today. Patient states that he's had no fever or chill, nausea or vomiting or any other symptoms. Patient reports he started with to feel withdrawals last night so he felt like he had to drink in order to avoid severe withdrawals and seizure. Patient states that he has Zofran at home. - Related Data Previous Rx's Medication Instructions Recorded Acetaminophen Tab [Tylenol] 650 mg PO Q6HR PRN tab 07/30/17 LORazepam [Ativan] 1 mg PO TID PRN #40 tab 07/30/17 Multivitamins, Thera [Multivitamin] 1 tab PO DAILY #30 tablet 07/30/17 Pantoprazole [Protonix] 40 mg PO DAILY #30 tab 07/30/17 Thiamine [Vitamin B-1] 100 mg PO DAILY #30 tab 07/30/17 chlordiazePOXIDE HCl [Librium] 25 mg PO QID #10 capsule 09/06/17 Allergies Allergy/AdvReac Type Severity Reaction Status Date / Time No Known Allergies Allergy Verified 09/05/17 23:50 Review of Systems ROS Statement: Those systems with pertinent positive or pertinent negative responses have been documented in the HPI. ROS Other: All systems not noted in ROS Statement are negative. Past Medical History Past Medical History: GERD/Reflux Additional Past Medical History / Comment(s): etoh History of Any Multi-Drug Resistant Organisms: MRSA Date of last positivie culture/infection: 2009 MDRO Source:: right knee Past Surgical History: No Surgical Hx Reported Additional Past Surgical History / Comment(s): 07/08/17 had 3 teeth extracted- post procedure pain worsened and pt went back to dr on had a 2nd procedure done for an exposed nerve. Past Anesthesia/Blood Transfusion Reactions: No Reported Reaction Past Psychological History: Anxiety, Depression Smoking Status: Former smoker Past Alcohol Use History: Abuse, Daily, Heavy Past Drug Use History: None Reported - Past Family History Father Additional Family Medical History / Comment(s): anxiety Mother Family Medical History: Cancer, Hyperlipidemia, Hypertension, Thyroid Disorder Additional Family Medical History / Comment(s): breast cancer, shingles, osteoporosis, anxiety General Exam - General Exam Comments Initial Comments: 32-year-old male. No acute distress. Patient does appear to be intoxicated. Limitations: no limitations General appearance: alert, in no apparent distress Head exam: Present: atraumatic, normocephalic, normal inspection Eye exam: Present: normal appearance, PERRL, EOMI. Absent: scleral icterus, conjunctival injection, periorbital swelling ENT exam: Present: normal exam, mucous membranes moist Neck exam: Present: normal inspection. Absent: tenderness, meningismus, lymphadenopathy Respiratory exam: Present: normal lung sounds bilaterally. Absent: respiratory distress, wheezes, rales, rhonchi, stridor Cardiovascular Exam: Present: regular rate, normal rhythm, normal heart sounds. Absent: systolic murmur, diastolic murmur, rubs, gallop, clicks GI/Abdominal exam: Present: soft, normal bowel sounds. Absent: distended, tenderness, guarding, rebound, rigid Extremities exam: Present: normal inspection, full ROM, normal capillary refill. Absent: tenderness, pedal edema, joint swelling, calf tenderness Back exam: Present: normal inspection Neurological exam: Present: alert, oriented X3, CN II-XII intact Psychiatric exam: Present: normal affect, normal mood Skin exam: Present: warm, dry, intact, normal color. Absent: rash Course Vital Signs 09/05/17 09/06/17 23:47 02:00 Temperature 97.6 F 97.9 F Pulse Rate 60 64 Respiratory 18 16 Rate Blood Pressure 134/84 152/64 O2 Sat by Pulse 98 99 Oximetry Medical Decision Making - Medical Decision Making This is a 32-year-old male presents emergency Department with chief complaint of alcohol intoxication and going through withdrawals. Patient's serum alcohol level is 0.457. Patient states that he is not actually going through withdrawals. I discussed that it is very likely going through withdrawals with an alcohol level at this elevated. Patient received IV fluids, and I am thiamine. Patient lipase was slightly elevated at 500. At this time patient will be treated with Librium and given a prescription for Librium taper. Discussed following up with outpatient alcohol rehab facilities. Discussed if there is any further palpitations patient can return to emergency department. Patient patient's friend understand treatment plan. Patient's friend will be driving the patient home. - Lab Data Result diagrams: 09/06/17 00:45 09/06/17 00:45 Lab Results 09/06/17 09/06/17 09/06/17 Range/Units 00:45 00:45 00:45 WBC 7.5 (3.8-10.6) k/uL RBC 4.74 (4.30-5.90) m/uL Hgb 16.5 (13.0-17.5) gm/dL Hct 47.5 (39.0-53.0) % MCV 100.2 H (80.0-100.0) fL MCH 34.8 (25.0-35.0) pg MCHC 34.8 (31.0-37.0) g/dL RDW 13.9 (11.5-15.5) % Plt Count 333 D (150-450) k/uL Neutrophils % 48 % Lymphocytes % 35 % Monocytes % 7 % Eosinophils % 2 % Basophils % 1 % Neutrophils # 3.6 (1.3-7.7) k/uL Lymphocytes # 2.6 (1.0-4.8) k/uL Monocytes # 0.5 (0-1.0) k/uL Eosinophils # 0.2 (0-0.7) k/uL Basophils # 0.0 (0-0.2) k/uL Manual Slide Review Performed Reactive Lymphocytes Present Macrocytosis Slight PT 11.3 (9.0-12.0) sec INR 1.1 (<1.2) Sodium 145 (137-145) mmol/L Potassium 4.4 (3.5-5.1) mmol/L Chloride 107 (98-107) mmol/L Carbon Dioxide 21 L (22-30) mmol/L Anion Gap 17 mmol/L BUN 18 (9-20) mg/dL Creatinine 1.00 (0.66-1.25) mg/dL Est GFR (MDRD) Af Amer >60 (>60 ml/min/1.73 sqM) Est GFR (MDRD) Non-Af >60 (>60 ml/min/1.73 sqM) Glucose 110 H (74-99) mg/dL Calcium 8.9 (8.4-10.2) mg/dL Magnesium 2.0 (1.6-2.3) mg/dL Total Bilirubin 0.4 (0.2-1.3) mg/dL AST 60 H (17-59) U/L ALT 77 H (21-72) U/L Alkaline Phosphatase 96 (38-126) U/L Total Protein 7.5 (6.3-8.2) g/dL Albumin 4.3 (3.5-5.0) g/dL Amylase 107 (30-110) U/L Lipase 510 H (23-300) U/L Serum Alcohol 447 mg/dL Disposition Clinical Impression: Alcohol intoxication, Alcohol abuse Disposition: HOME SELF-CARE Condition: Good Instructions: Alcohol Withdrawal (ED) Additional Instructions: Patient advised to follow-up with alcohol rehab facilities. Use the medicine as prescribed for withdrawal. Return to the emergency department if any alarming signs or symptoms occur. Prescriptions: chlordiazePOXIDE HCl [Librium] 25 mg PO QID #10 capsule Referrals: Chiki Moss MD [Primary Care Provider] - 1-2 days Time of Disposition: 01:43
[2017-09-06 01:05] LABS: Aty Lym Flag Slight; Basophils % (A) 1 %; CH 35.5; CHCM 35.5; Eosinophils # (A) 0.2 k/uL (0-0.7); Eosinophils % (A) 2 %; HCT 47.5 % (39.0-53.0); HGB 16.5 gm/dL (13.0-17.5); INR 1.1 (<1.2); Luc # (Auto) 0.53; Luc % (Auto) 7; Lymphocytes # (A) 2.6 k/uL (1.0-4.8); Lymphocytes % (A) 35 %; MCH 34.8 pg (25.0-35.0); MCHC 34.8 g/dL (31.0-37.0); MCV 100.2 fL (80.0-100.0); Macrocytosis Slight; Mean Platelet Volume 6.2; Monocytes # (A) 0.5 k/uL (0-1.0); Monocytes % (A) 7 %; Neutrophils # (A) 3.6 k/uL (1.3-7.7); Neutrophils % (A) 48 %; Prothrombin Time 11.3 sec (9.0-12.0); RBC 4.74 m/uL (4.30-5.90); RDW 13.9 % (11.5-15.5); WBC 7.5 k/uL (3.8-10.6); WBC (Perox) 7.12
[2017-09-06 01:09] LABS: ALT 77 U/L (21-72); AST 60 U/L (17-59); Alkaline Phosphatase 96 U/L (38-126); Amylase 107 U/L (30-110); Anion Gap 17 mmol/L; Blood Urea Nitrogen 18 mg/dL (9-20); Calcium 8.9 mg/dL (8.4-10.2); Carbon Dioxide 21 mmol/L (22-30); Chloride 107 mmol/L (98-107); Glucose 110 mg/dL (74-99); Non-African American GFR(MDRD) >60 (>60 ml/min/1.73 sqM); Potassium 4.4 mmol/L (3.5-5.1); Sodium 145 mmol/L (137-145); Total Bilirubin 0.4 mg/dL (0.2-1.3); Total Protein 7.5 g/dL (6.3-8.2)
[2017-09-06 01:19] LABS: Alcohol 447 mg/dL
[2017-09-06 01:30] LABS: Manual Review Performed
[2017-09-06 01:32] LABS: Reactive Lymphocytes Present
[2017-09-06] MEDS ORDERED: ONDANSETRON 4 MG ODT STARTER PACK 2 TAB BTL PO STA (01:42)
[2017-09-06] MEDS ORDERED: chlordiazePOXIDE 25 MG CAP PO STA (01:42)
[2017-09-06 02:02] VITALS: BP 152/64; PULSE 64; RESP 16; TEMP 97.9
== END 2017-09-06 01:59 | disposition home or self-care (01) ==
LOC: EC 23:44
DX: F10.120 Alcohol abuse with intoxication, uncomplicated (principal); Y90.8 Blood alcohol level of 240 mg/100 ml or more; Z86.14 Personal history of Methicillin resistant Staphylococcus aureus infection; Z87.891 Personal history of nicotine dependence
CPT/HCPCS: 96360 ×2; 96372 ×2; 99285 ×2; 82075; 36415; 80053; 82150; 83690; 83735; 85025; 85610; 80320; J3411; S0119

== ENCOUNTER 2018-03-05 13:39 | Emergency (ER) | payer BC ==
[2018-03-05] MEDS ORDERED: SODIUM CHLORIDE 0.9% 1,000 ML IV STA ×2 (13:58)
[2018-03-05] MEDS ORDERED: ONDANSETRON 4 MG/2 ML VIAL IVP STA (13:58)
[2018-03-05] MEDS ORDERED: RX INFO: IV CONTRAST WAS GIVEN 1 EACH MISC MISCELLANE PRN (13:58)
[2018-03-05] MEDS ORDERED: PANTOPRAZOLE 40 MG/10 ML VIAL IVP STA (13:58)
[2018-03-05] MEDS ORDERED: methylPREDNISolone SOD SUCCI 125 MG/2 ML VIAL IV STA (14:01)
[2018-03-05] MEDS ORDERED: MAG HYDROX/AL HYDROX/SIMETH 30 ML, HYOSCYAMINE ELIXIR 10 ML, CIMETIDINE HCL 300 MG, LID... PO STA ×4 (14:01)
[2018-03-05] MEDS ORDERED: diphenhydrAMINE 50 MG/ML 1 ML VIAL IVP STA (14:02)
--- NOTE | 2018-03-05 14:06 | ED ---
Abdominal Pain HPI - General Chief Complaint: Abdominal Pain Stated Complaint: nausea/vomiting/rash all over Time Seen by Provider: 03/05/18 13:52 Source: patient Mode of arrival: ambulatory Limitations: no limitations - History of Present Illness Initial Comments: This 32-year-old white male presents with a complaint of some abdominal pain, nausea, and vomiting. He states that his symptoms have been present for approximately one week. He states that he's had multiple episodes of the vomiting. The abdominal pain is in the mid abdominal region and slightly into the midepigastric area. She denies any significant diarrhea. There has not been any fevers or chills. He thinks that it may be related to increased alcohol usage. He states that he drinks 1+ pint per day for the last 2 weeks. He denies any previous similar incidents. He also complains of a rash which is diffuse throughout his body but worse on his abdomen and upper extremities. He states that this is erythematous and pruritic in nature. He has tried some Benadryl spray and Benadryl pills without any significant relief. He denies any new medications, or food, and has not been exposed to anything new that he is aware of. There is no difficulty in breathing. There is no sore throat. No other complaints or modifying factors. - Related Data Home Medications Medication Instructions Recorded Confirmed Escitalopram [Lexapro] 20 mg PO DAILY 03/05/18 03/05/18 QUEtiapine [SEROquel] 50 mg PO HS 03/05/18 03/05/18 buPROPion XL [Wellbutrin Xl] 450 mg PO DAILY 03/05/18 03/05/18 Previous Rx's Medication Instructions Recorded Dicyclomine [Bentyl] 20 mg PO QID PRN #20 tablet 03/05/18 Omeprazole [PriLOSEC] 40 mg PO DAILY #30 capsule. 03/05/18 Ondansetron [Zofran ODT] 8 mg PO Q8HR PRN #12 tab 03/05/18 predniSONE 20 mg PO BID #10 tab 03/05/18 Allergies Allergy/AdvReac Type Severity Reaction Status Date / Time No Known Allergies Allergy Verified 03/05/18 14:04 Review of Systems ROS Statement: Those systems with pertinent positive or pertinent negative responses have been documented in the HPI. ROS Other: All systems not noted in ROS Statement are negative. Past Medical History Past Medical History: GERD/Reflux Additional Past Medical History / Comment(s): etoh History of Any Multi-Drug Resistant Organisms: MRSA Date of last positivie culture/infection: 2009 MDRO Source:: right knee Past Surgical History: No Surgical Hx Reported Additional Past Surgical History / Comment(s): 07/08/17 had 3 teeth extracted- post procedure pain worsened and pt went back to dr on had a 2nd procedure done for an exposed nerve. Past Anesthesia/Blood Transfusion Reactions: No Reported Reaction Past Psychological History: Anxiety, Depression Smoking Status: Former smoker Past Alcohol Use History: Abuse, Daily, Heavy Past Drug Use History: None Reported - Past Family History Father Additional Family Medical History / Comment(s): anxiety Mother Family Medical History: Cancer, Hyperlipidemia, Hypertension, Thyroid Disorder Additional Family Medical History / Comment(s): breast cancer, shingles, osteoporosis, anxiety General Exam - General Exam Comments Initial Comments: GENERAL: The patient is well nourished and well hydrated. VITAL SIGNS: Heart rate, blood pressure, respiratory rate reviewed as recorded in nurse's notes. EYES: Pupils are round and reactive. Extraocular movements are intact. No conjunctival / lid redness or swelling. ENT: No external evidence of injury, swelling, or ecchymosis. Airway is patent. Throat is clear. NECK: Nontender. No swelling or evidence of injury. No subcutaneous emphysema. Trachea is midline. No thyroid mass. HEART: Regular rate and rhythm. Good peripheral pulses. LUNGS/CHEST: Breath sounds clear and equal bilaterally. No rales, rhonchi, or wheezes. No ecchymosis, subcutaneous emphysema, or tenderness. ABDOMEN: There is mild tenderness noted into the mid abdomen and slightly into the midepigastric region. There is no peritoneal signs. No palpable masses or organomegaly. No peritoneal signs. No abdominal wall swelling or ecchymosis. EXTREMITIES: No extremity tenderness. Normal muscle tone and function. No thoracolumbar tenderness. NEUROLOGIC: Sensation is grossly intact. Cranial nerve exam reveals face is symmetrical, tongue is midline, speech is clear. SKIN: There is a moderate diffuse erythematous rash noted which is worse on the abdomen and upper extremities but present to the lower extremities and thorax as well. No induration or masses noted. PSYCHIATRIC: Alert and oriented. Appropriate behavior and judgment. Limitations: no limitations Course Vital Signs 03/05/18 03/05/18 13:46 14:28 Temperature 98.3 F 98 F Pulse Rate 92 80 Respiratory 18 14 Rate Blood Pressure 140/87 132/85 O2 Sat by Pulse 98 98 Oximetry Medical Decision Making - Medical Decision Making The patient was seen and examined. All diagnostics were reviewed. The patient had an IV established receives some IV fluids. He also receives some Protonix intravenously, a GI cocktail, and Zofran intravenously. He is feeling improved on recheck. He has taken some Motrin in the past in regards to his symptoms and he is instructed to avoid any further nonsteroidal anti-inflammatory drug medications. He had a negative computed tomography scan of the abdomen and pelvis other than the radiologist noting that he cannot exclude a pulmonary embolism on the abdomen/pelvis computed tomography scan. He will thinks we should correlate clinically. The patient currently does not have any chest pain or shortness breath. There is no pulmonary symptoms whatsoever. Is not felt as though he has a pulmonary embolism clinically. There is no leg pain or swelling or history DVT or PE. It is felt that the patient likely does have gastritis and/or peptic ulcer disease. The laboratory overall is fairly unremarkable other than mild hypokalemia. Is counseled extensively regarding alcohol use/abuse. He states that he will stop utilizing alcohol. His alcohol level currently is 29. - Lab Data Result diagrams: 03/05/18 14:50 03/05/18 14:50 Lab Results 03/05/18 03/05/18 03/05/18 Range/Units 14:50 14:50 14:50 WBC 8.3 (3.8-10.6) k/uL RBC 4.59 (4.30-5.90) m/uL Hgb 15.3 (13.0-17.5) gm/dL Hct 43.2 (39.0-53.0) % MCV 94.2 (80.0-100.0) fL MCH 33.2 (25.0-35.0) pg MCHC 35.3 (31.0-37.0) g/dL RDW 12.7 (11.5-15.5) % Plt Count 153 (150-450) k/uL Neutrophils % 78 % Lymphocytes % 8 % Monocytes % 8 % Eosinophils % 3 % Basophils % 0 % Neutrophils # 6.5 (1.3-7.7) k/uL Lymphocytes # 0.6 L (1.0-4.8) k/uL Monocytes # 0.7 (0-1.0) k/uL Eosinophils # 0.2 (0-0.7) k/uL Basophils # 0.0 (0-0.2) k/uL PT 13.0 H (9.0-12.0) sec INR 1.4 H (<1.2) APTT 24.9 (22.0-30.0) sec Sodium 136 L (137-145) mmol/L Potassium 3.3 L (3.5-5.1) mmol/L Chloride 98 (98-107) mmol/L Carbon Dioxide 25 (22-30) mmol/L Anion Gap 13 mmol/L BUN 22 H (9-20) mg/dL Creatinine 0.91 (0.66-1.25) mg/dL Est GFR (CKD-EPI)AfAm >90 (>60 ml/min/1.73 sqM) Est GFR (CKD-EPI)NonAf >90 (>60 ml/min/1.73 sqM) Glucose 131 H (74-99) mg/dL Calcium 8.8 (8.4-10.2) mg/dL Total Bilirubin 0.9 (0.2-1.3) mg/dL AST 31 (17-59) U/L ALT 33 (21-72) U/L Alkaline Phosphatase 50 (38-126) U/L Total Protein 6.2 L (6.3-8.2) g/dL Albumin 3.6 (3.5-5.0) g/dL Amylase 54 (30-110) U/L Lipase 76 (23-300) U/L Serum Alcohol 29 mg/dL Disposition Clinical Impression: Abdominal pain, Alcohol abuse, Rash, Gastritis Disposition: HOME SELF-CARE Condition: Good Instructions: Abdominal Pain (ED), Gastritis (ED), Abuse of Alcohol (ED) Prescriptions: Dicyclomine [Bentyl] 20 mg PO QID PRN #20 tablet PRN Reason: Pain Omeprazole [PriLOSEC] 40 mg PO DAILY #30 capsule. Ondansetron [Zofran ODT] 8 mg PO Q8HR PRN #12 tab PRN Reason: Nausea predniSONE 20 mg PO BID #10 tab Referrals: Nonstaff,Physician [REFERRING] - 1-2 days Time of Disposition: 16:20
[2018-03-05 15:22] LABS: Basophils % (A) 0 %; Eosinophils # (A) 0.2 k/uL (0-0.7); Eosinophils % (A) 3 %; HCT 43.2 % (39.0-53.0); HGB 15.3 gm/dL (13.0-17.5); Lymphocytes # (A) 0.6 k/uL (1.0-4.8); Lymphocytes % (A) 8 %; MCH 33.2 pg (25.0-35.0); MCHC 35.3 g/dL (31.0-37.0); MCV 94.2 fL (80.0-100.0); Mean Platelet Volume 7.3; Monocytes # (A) 0.7 k/uL (0-1.0); Monocytes % (A) 8 %; Neutrophils # (A) 6.5 k/uL (1.3-7.7); Neutrophils % (A) 78 %; Platelet Count 153 k/uL (150-450); RBC 4.59 m/uL (4.30-5.90); RDW 12.7 % (11.5-15.5); WBC 8.3 k/uL (3.8-10.6)
[2018-03-05 15:25] LABS: ALT 33 U/L (21-72); AST 31 U/L (17-59); Albumin 3.6 g/dL (3.5-5.0); Alcohol 29 mg/dL; Alkaline Phosphatase 50 U/L (38-126); Amylase 54 U/L (30-110); Anion Gap 13 mmol/L; Blood Urea Nitrogen 22 mg/dL (9-20); Calcium 8.8 mg/dL (8.4-10.2); Carbon Dioxide 25 mmol/L (22-30); Chloride 98 mmol/L (98-107); Glucose 131 mg/dL (74-99); Lipase 76 U/L (23-300); Potassium 3.3 mmol/L (3.5-5.1); Sodium 136 mmol/L (137-145); Total Bilirubin 0.9 mg/dL (0.2-1.3); Total Protein 6.2 g/dL (6.3-8.2)
[2018-03-05 15:28] LABS: INR 1.4 (<1.2); Partial Thromboplastin Time 24.9 sec (22.0-30.0)
--- NOTE | 2018-03-05 16:00 | CT ---
EXAMINATION TYPE: CT abdomen pelvis w con DATE OF EXAM: 03/05/2018 COMPARISON: NONE HISTORY: Lower abd pain. CT DLP: 1481 mGycm Automated exposure control for dose reduction was used. TECHNIQUE: Helical acquisition of images from the lung bases through the pelvis have been completed. CONTRAST: Performed without Oral Contrast and with IV Contrast, patient injected with 100ml mL of Isovue 300. FINDINGS: Small hiatal hernia present. LUNG BASES: There is some probable dependent atelectatic changes, some peripheral increased attenuati on present at the left lung base laterally. The pulmonary artery branches are not well opacified bird tori difficult to exclude some central low attenuation in the segmental branches to the lower lobes, c orrelate to exclude pulmonary embolism. AORTA: No significant abnormality is appreciated. LIVER/GB: Margoth's lobe present, gallbladder shows no stone. PANCREAS: No significant abnormality is seen. SPLEEN: No significant abnormality is seen. ADRENALS: No significant abnormality is seen. KIDNEYS: Cortical cyst associated with the midpole the right kidney measures 13 mm. REPRODUCTIVE ORGANS: There is some calcification associated with the prostate gland BOWEL: Some diverticular changes associated with the colon, question some colonic wall thickening FREE AIR: No Free Air visible. ASCITES: None visible. PELVIC ADENOPATHY: None visualized. RETROPERITONEAL ADENOPATHY: No Retroperitoneal Adenopathy visible. URINARY BLADDER: No significant abnormality is seen. OSSEOUS STRUCTURES: No significant abnormality is seen. Increased density in the subcutaneous fat of the gluteal regions may be due to prior injections, correlate. IMPRESSION: CANNOT EXCLUDE PULMONARY EMBOLISM DESCRIBED, CORRELATE. SMALL HIATAL HERNIA. DIVERTICULOSIS. ADDIT IONAL FINDINGS ABOVE.
[2018-03-05 16:44] VITALS: BP 142/85; PULSE 63; RESP 18; TEMP 98.7
== END 2018-03-05 16:46 | disposition home or self-care (01) ==
LOC: EC 13:39
DX: K29.70 Gastritis, unspecified, without bleeding (principal); F10.10 Alcohol abuse, uncomplicated; Y90.1 Blood alcohol level of 20-39 mg/100 ml; R21 Rash and other nonspecific skin eruption; F32.9 Major depressive disorder, single episode, unspecified; F41.9 Anxiety disorder, unspecified; Z86.14 Personal history of Methicillin resistant Staphylococcus aureus infection; Z87.891 Personal history of nicotine dependence; Z79.899 Other long term (current) drug therapy
CPT/HCPCS: 99284; 96374; 96375 ×3; 96361; 36415; 80053; 82150; 83690; 85025; 85610; 85730; 80320; 74177; J1200; J2930; J2405; C9113; Q9967

== ENCOUNTER 2018-03-09 22:42 | Inpatient (IN) | payer BC ==
[2018-03-09] MEDS ORDERED: SODIUM CHLORIDE 0.9% 2,000 ML IV STA (23:01)
[2018-03-09] MEDS ORDERED: RX INFO: IV CONTRAST WAS GIVEN 1 EACH MISC MISCELLANE PRN ×2 (23:02→23:51)
[2018-03-09] MEDS ORDERED: SODIUM CHLORIDE 0.9% 1,000 ML with MVI, ADULT NO.4 WITH VIT K 10 ML, THIAMINE 100 MG, F... IV ONE ×4 (23:03)
--- NOTE | 2018-03-09 23:10 | ED ---
General Adult HPI - General Chief complaint: Alcohol Stated complaint: ETOH DETOX Time Seen by Provider: 03/09/18 22:53 Source: patient Mode of arrival: ambulatory Limitations: no limitations - History of Present Illness Initial comments: 32-year-old male patient with history significant for chronic alcohol abuse presents to the emergency department today for evaluation of abdominal pain and testicular pain. Patient states that he has been having this pain for the last week. States pain is severe in his upper abdomen and does radiate to his back. He has had associated vomiting. States he is unable to keep down any food or fluids. Denies any hematemesis, hematochezia, or melena. Patient states he is also been having left testicular pain for the last week. He denies any hematuria, dysuria, urinary frequency or urinary urgency. He states the pain worsens in his testicle when he moves. He denies any penile discharge. Denies any concern for STDs. Denies any known fever, but has been having chills. Patient reports that he does drink a fifth of whiskey daily and states he has been doing this for the last month. States that prior to that he was recovering alcoholic. Patient denies any recent rash, shortness breath, chest pain, constipation, back pain, numbness, tingling, dizziness, weakness, headache , visual changes, or any other complaints. - Related Data Home Medications Medication Instructions Recorded Confirmed Escitalopram [Lexapro] 20 mg PO DAILY 03/05/18 03/09/18 QUEtiapine [SEROquel] 50 mg PO HS 03/05/18 03/09/18 buPROPion XL [Wellbutrin Xl] 450 mg PO DAILY 03/05/18 03/09/18 Omeprazole 20 mg PO DAILY PRN 03/10/18 03/10/18 Previous Rx's Medication Instructions Recorded Dicyclomine [Bentyl] 20 mg PO QID PRN #20 tablet 03/05/18 Omeprazole [PriLOSEC] 40 mg PO DAILY #30 capsule. 03/05/18 Ondansetron [Zofran ODT] 8 mg PO Q8HR PRN #12 tab 03/05/18 predniSONE 20 mg PO BID #10 tab 03/05/18 Allergies Allergy/AdvReac Type Severity Reaction Status Date / Time No Known Allergies Allergy Verified 03/09/18 23:16 Review of Systems ROS Statement: Those systems with pertinent positive or pertinent negative responses have been documented in the HPI. ROS Other: All systems not noted in ROS Statement are negative. Past Medical History Past Medical History: GERD/Reflux Additional Past Medical History / Comment(s): etoh History of Any Multi-Drug Resistant Organisms: MRSA Date of last positivie culture/infection: 2009 MDRO Source:: right knee Past Surgical History: No Surgical Hx Reported Additional Past Surgical History / Comment(s): 07/08/17 had 3 teeth extracted- post procedure pain worsened and pt went back to dr on had a 2nd procedure done for an exposed nerve. Past Anesthesia/Blood Transfusion Reactions: No Reported Reaction Past Psychological History: Anxiety, Depression Smoking Status: Former smoker Past Alcohol Use History: Abuse, Daily, Heavy Past Drug Use History: None Reported - Past Family History Father Additional Family Medical History / Comment(s): anxiety Mother Family Medical History: Cancer, Hyperlipidemia, Hypertension, Thyroid Disorder Additional Family Medical History / Comment(s): breast cancer, shingles, osteoporosis, anxiety General Exam Limitations: no limitations General appearance: alert, in no apparent distress, other (This is a well- developed, well-nourished male patient in mild distress related to pain.) Eye exam: Present: normal appearance, PERRL, EOMI. Absent: scleral icterus, conjunctival injection, periorbital swelling ENT exam: Present: normal exam, normal oropharynx. Absent: mucous membranes moist (Mucous membranes dry) Neck exam: Present: normal inspection. Absent: tenderness, meningismus, lymphadenopathy Respiratory exam: Present: normal lung sounds bilaterally. Absent: respiratory distress, wheezes, rales, rhonchi, stridor Cardiovascular Exam: Present: regular rate, normal rhythm, normal heart sounds. Absent: systolic murmur, diastolic murmur, rubs, gallop, clicks GI/Abdominal exam: Present: soft, tenderness (Generalized abdominal tenderness, most severe in the midepigastric region), guarding, normal bowel sounds. Absent : distended, rebound, rigid Rectal exam: Present: normal inspection, normal rectal tone External exam: Present: normal external exam, other (Left testicular tenderness. No significant swelling or erythema noted. No penile discharge noted.). Absent: erythema, swelling Neurological exam: Present: alert, oriented X3, CN II-XII intact Psychiatric exam: Present: normal affect, normal mood Skin exam: Present: warm, dry, intact, normal color. Absent: rash Course Vital Signs 03/09/18 03/09/18 03/10/18 22:46 23:15 00:48 Temperature 98.4 F Pulse Rate 114 H 90 86 Respiratory 20 18 18 Rate Blood Pressure 137/99 141/84 169/71 O2 Sat by Pulse 96 98 100 Oximetry 03/10/18 01:38 Temperature Pulse Rate 89 Respiratory 18 Rate Blood Pressure 123/79 O2 Sat by Pulse 97 Oximetry Medical Decision Making - Medical Decision Making 32-year-old male patient presented to the emergency department today complaining of upper abdominal pain and left testicular pain. Physical examination did reveal diffuse abdominal tenderness with guarding. Patient also exhibited left testicular tenderness but no swelling, erythema, or evidence of penile discharge. Patient has a history of chronic alcohol abuse and has been drinking a fifth of whiskey daily for the past month. Labs were obtained and did reveal elevated white blood cell count at 16.0, hemoglobin of 19.0, INR 2.3, PTT of 31.2, sodium 136, BUN of 22, glucose 134,, lactic acid 3.8 , bilirubin of 2.0, AST 1026, ALT 782, lipase 404. Urinalysis showed a specific gravity of 1.050, trace protein, 1+ ketones, 1+ bilirubin. Serum alcohol level was 219. Hepatitis A was negative, acute hepatitis panel has been sent. We did obtain a CT of the abdomen and pelvis which did show inflammation surrounding the pancreatic head in the duodenum consistent with pancreatitis. There is also concern on previous computed tomography scan on 07/2018 for possible pulmonary embolism. We did perform CT angio of the chest which did show multiple pulmonary embolisms in the bilateral lower lobes. The patient was started on high-dose heparin. We did check an occult blood which was negative. Patient was also started on treatment for epididymitis which was found on the scrotal ultrasound. He was also treated with rocephin for STI. Alcohol withdrawal protocol with Ativan has been entered. Patient is given a banana bag and IV fluids. Pain management and nausea management has been added. My attending Dr. Van did speak to [facility] Dr. Nunn who accepts patient. - Lab Data Result diagrams: 03/09/18 22:56 03/09/18 22:56 Lab Results 03/09/18 03/09/18 03/09/18 Range/Units 22:56 22:56 22:56 WBC 16.0 H (3.8-10.6) k/uL RBC 5.68 (4.30-5.90) m/uL Hgb 19.0 H D (13.0-17.5) gm/dL Hct 53.2 H (39.0-53.0) % MCV 93.6 (80.0-100.0) fL MCH 33.5 (25.0-35.0) pg MCHC 35.8 (31.0-37.0) g/dL RDW 12.6 (11.5-15.5) % Plt Count 115 L (150-450) k/uL Neutrophils % 81 % Lymphocytes % 7 % Monocytes % 6 % Eosinophils % 3 % Basophils % 0 % Neutrophils # 13.0 H (1.3-7.7) k/uL Lymphocytes # 1.1 (1.0-4.8) k/uL Monocytes # 1.0 (0-1.0) k/uL Eosinophils # 0.5 (0-0.7) k/uL Basophils # 0.0 (0-0.2) k/uL PT 20.6 H (9.0-12.0) sec INR 2.3 H (<1.2) APTT 31.2 H (22.0-30.0) sec Sodium 136 L (137-145) mmol/L Potassium 4.0 (3.5-5.1) mmol/L Chloride 96 L (98-107) mmol/L Carbon Dioxide 23 (22-30) mmol/L Anion Gap 17 mmol/L BUN 22 H (9-20) mg/dL Creatinine 0.90 (0.66-1.25) mg/dL Est GFR (CKD-EPI)AfAm >90 (>60 ml/min/1.73 sqM) Est GFR (CKD-EPI)NonAf >90 (>60 ml/min/1.73 sqM) Glucose 134 H (74-99) mg/dL Lactic Ac Sepsis Rflx Plasma Lactic Acid Chun (0.7-2.0) mmol/L Calcium 8.7 (8.4-10.2) mg/dL Phosphorus (2.5-4.5) mg/dL Magnesium 1.7 (1.6-2.3) mg/dL Total Bilirubin 2.0 H (0.2-1.3) mg/dL AST 1026 H (17-59) U/L ALT 782 H (21-72) U/L Alkaline Phosphatase 71 (38-126) U/L Total Protein 6.8 (6.3-8.2) g/dL Albumin 3.9 (3.5-5.0) g/dL Amylase 99 (30-110) U/L Lipase 404 H (23-300) U/L Urine Color Urine Appearance (Clear) Urine pH (5.0-8.0) Ur Specific Martell (1.001-1.035) Urine Protein (Negative) Urine Glucose (UA) (Negative) Urine Ketones (Negative) Urine Blood (Negative) Urine Nitrite (Negative) Urine Bilirubin (Negative) Urine Urobilinogen (<2.0) mg/dL Ur Leukocyte Esterase (Negative) Stool Occult Blood (Negative) Urine Opiates Screen (NotDetected) Ur Oxycodone Screen (NotDetected) Urine Methadone Screen (NotDetected) Ur Propoxyphene Screen (NotDetected) Ur Barbiturates Screen (NotDetected) U Tricyclic Antidepress (NotDetected) Ur Phencyclidine Scrn (NotDetected) Ur Amphetamines Screen (NotDetected) U Methamphetamines Scrn (NotDetected) U Benzodiazepines Scrn (NotDetected) Urine Cocaine Screen (NotDetected) U Marijuana (THC) Screen (NotDetected) Serum Alcohol 219 mg/dL Hepatitis A IgM Ab 03/09/18 03/09/18 03/09/18 Range/Units 22:56 23:12 23:33 WBC (3.8-10.6) k/uL RBC (4.30-5.90) m/uL Hgb (13.0-17.5) gm/dL Hct (39.0-53.0) % MCV (80.0-100.0) fL MCH (25.0-35.0) pg MCHC (31.0-37.0) g/dL RDW (11.5-15.5) % Plt Count (150-450) k/uL Neutrophils % % Lymphocytes % % Monocytes % % Eosinophils % % Basophils % % Neutrophils # (1.3-7.7) k/uL Lymphocytes # (1.0-4.8) k/uL Monocytes # (0-1.0) k/uL Eosinophils # (0-0.7) k/uL Basophils # (0-0.2) k/uL PT (9.0-12.0) sec INR (<1.2) APTT (22.0-30.0) sec Sodium (137-145) mmol/L Potassium (3.5-5.1) mmol/L Chloride (98-107) mmol/L Carbon Dioxide (22-30) mmol/L Anion Gap mmol/L BUN (9-20) mg/dL Creatinine (0.66-1.25) mg/dL Est GFR (CKD-EPI)AfAm (>60 ml/min/1.73 sqM) Est GFR (CKD-EPI)NonAf (>60 ml/min/1.73 sqM) Glucose (74-99) mg/dL Lactic Ac Sepsis Rflx Y Plasma Lactic Acid Chun 3.8 H* (0.7-2.0) mmol/L Calcium (8.4-10.2) mg/dL Phosphorus 2.5 (2.5-4.5) mg/dL Magnesium (1.6-2.3) mg/dL Total Bilirubin (0.2-1.3) mg/dL AST (17-59) U/L ALT (21-72) U/L Alkaline Phosphatase (38-126) U/L Total Protein (6.3-8.2) g/dL Albumin (3.5-5.0) g/dL Amylase (30-110) U/L Lipase (23-300) U/L Urine Color Urine Appearance (Clear) Urine pH (5.0-8.0) Ur Specific Martell (1.001-1.035) Urine Protein (Negative) Urine Glucose (UA) (Negative) Urine Ketones (Negative) Urine Blood (Negative) Urine Nitrite (Negative) Urine Bilirubin (Negative) Urine Urobilinogen (<2.0) mg/dL Ur Leukocyte Esterase (Negative) Stool Occult Blood (Negative) Urine Opiates Screen (NotDetected) Ur Oxycodone Screen (NotDetected) Urine Methadone Screen (NotDetected) Ur Propoxyphene Screen (NotDetected) Ur Barbiturates Screen (NotDetected) U Tricyclic Antidepress (NotDetected) Ur Phencyclidine Scrn (NotDetected) Ur Amphetamines Screen (NotDetected) U Methamphetamines Scrn (NotDetected) U Benzodiazepines Scrn (NotDetected) Urine Cocaine Screen (NotDetected) U Marijuana (THC) Screen (NotDetected) Serum Alcohol mg/dL Hepatitis A IgM Ab 03/09/18 03/10/18 03/10/18 Range/Units 23:56 00:55 01:50 WBC (3.8-10.6) k/uL RBC (4.30-5.90) m/uL Hgb (13.0-17.5) gm/dL Hct (39.0-53.0) % MCV (80.0-100.0) fL MCH (25.0-35.0) pg MCHC (31.0-37.0) g/dL RDW (11.5-15.5) % Plt Count (150-450) k/uL Neutrophils % % Lymphocytes % % Monocytes % % Eosinophils % % Basophils % % Neutrophils # (1.3-7.7) k/uL Lymphocytes # (1.0-4.8) k/uL Monocytes # (0-1.0) k/uL Eosinophils # (0-0.7) k/uL Basophils # (0-0.2) k/uL PT (9.0-12.0) sec INR (<1.2) APTT (22.0-30.0) sec Sodium (137-145) mmol/L Potassium (3.5-5.1) mmol/L Chloride (98-107) mmol/L Carbon Dioxide (22-30) mmol/L Anion Gap mmol/L BUN (9-20) mg/dL Creatinine (0.66-1.25) mg/dL Est GFR (CKD-EPI)AfAm (>60 ml/min/1.73 sqM) Est GFR (CKD-EPI)NonAf (>60 ml/min/1.73 sqM) Glucose (74-99) mg/dL Lactic Ac Sepsis Rflx Plasma Lactic Acid Chun (0.7-2.0) mmol/L Calcium (8.4-10.2) mg/dL Phosphorus (2.5-4.5) mg/dL Magnesium (1.6-2.3) mg/dL Total Bilirubin (0.2-1.3) mg/dL AST (17-59) U/L ALT (21-72) U/L Alkaline Phosphatase (38-126) U/L Total Protein (6.3-8.2) g/dL Albumin (3.5-5.0) g/dL Amylase (30-110) U/L Lipase (23-300) U/L Urine Color Yellow Urine Appearance Clear (Clear) Urine pH 7.0 (5.0-8.0) Ur Specific Martell 1.050 H (1.001-1.035) Urine Protein Trace H (Negative) Urine Glucose (UA) Negative (Negative) Urine Ketones 1+ H (Negative) Urine Blood Negative (Negative) Urine Nitrite Negative (Negative) Urine Bilirubin 1+ H (Negative) Urine Urobilinogen <2.0 (<2.0) mg/dL Ur Leukocyte Esterase Negative (Negative) Stool Occult Blood Negative (Negative) Urine Opiates Screen Detected H (NotDetected) Ur Oxycodone Screen Not Detected (NotDetected) Urine Methadone Screen Not Detected (NotDetected) Ur Propoxyphene Screen Not Detected (NotDetected) Ur Barbiturates Screen Not Detected (NotDetected) U Tricyclic Antidepress Detected H (NotDetected) Ur Phencyclidine Scrn Not Detected (NotDetected) Ur Amphetamines Screen Not Detected (NotDetected) U Methamphetamines Scrn Not Detected (NotDetected) U Benzodiazepines Scrn Not Detected (NotDetected) Urine Cocaine Screen Not Detected (NotDetected) U Marijuana (THC) Screen Not Detected (NotDetected) Serum Alcohol mg/dL Hepatitis A IgM Ab NEGATIVE - EKG Data -: EKG Interpreted by Me EKG Comments: EKG obtained at 00 15 shows normal sinus rhythm with a ventricular rate of 98, SD interval 148, QR sabianism 86, QT 360, QTC 459. No evidence of ST elevation or depression. - Radiology Data Radiology results: report reviewed, image reviewed CT of the chest was reviewed in its entirety. Impression by Dr. Mcintyre shows multiple bilateral lower lobe pulmonary emboli. CT of the abdomen and pelvis with contrast was obtained, report was reviewed in its entirety. Impression by Dr. Mcintyre shows minimal inflammatory changes around the pancreatic head in the descending duodenum and anterior pararenal space. This could relate to minimal pancreatitis. Small right renal cyst. Normal appendix. Scrotal ultrasound was obtained. Report was reviewed in its entirety. Impression by Dr. Mcintyre shows no testicular torsion or mass. No free fluid. There is hyperemia on the Doppler images lateral to the left testicle that is suspicious for epididymitis. Disposition Clinical Impression: Acute alcoholic hepatitis, Bilateral pulmonary embolism, Epididymitis Disposition: ADMITTED IP TO THIS HOSP Decision to Admit Reason: Admit from EC Decision Date: 03/10/18 Decision Time: 01:49
[2018-03-09 23:13] LABS: Basophils % (A) 0 %; Eosinophils # (A) 0.5 k/uL (0-0.7); Eosinophils % (A) 3 %; HCT 53.2 % (39.0-53.0); Lymphocytes # (A) 1.1 k/uL (1.0-4.8); Lymphocytes % (A) 7 %; MCH 33.5 pg (25.0-35.0); MCHC 35.8 g/dL (31.0-37.0); MCV 93.6 fL (80.0-100.0); Mean Platelet Volume 7.5; Monocytes % (A) 6 %; Neutrophils % (A) 81 %; Platelet Count 115 k/uL (150-450); RBC 5.68 m/uL (4.30-5.90); RDW 12.6 % (11.5-15.5)
[2018-03-09 23:23] LABS: ALT 782 U/L (21-72); Albumin 3.9 g/dL (3.5-5.0); Alkaline Phosphatase 71 U/L (38-126); Amylase 99 U/L (30-110); Anion Gap 17 mmol/L; Blood Urea Nitrogen 22 mg/dL (9-20); Calcium 8.7 mg/dL (8.4-10.2); Carbon Dioxide 23 mmol/L (22-30); Chloride 96 mmol/L (98-107); Glucose 134 mg/dL (74-99); Lipase 404 U/L (23-300); Magnesium 1.7 mg/dL (1.6-2.3); Sodium 136 mmol/L (137-145); Total Protein 6.8 g/dL (6.3-8.2)
[2018-03-09 23:26] LABS: INR 2.3 (<1.2); Partial Thromboplastin Time 31.2 sec (22.0-30.0); Prothrombin Time 20.6 sec (9.0-12.0)
[2018-03-09 23:31] LABS: AST 1026 U/L (17-59); Alcohol 219 mg/dL
[2018-03-10] MEDS ORDERED: ONDANSETRON 4 MG/2 ML VIAL IVP STA (00:11)
--- NOTE | 2018-03-10 00:22 | CT ---
EXAMINATION TYPE: CT chest angio for PE DATE OF EXAM: 03/10/2018 COMPARISON: NONE HISTORY: Epigastric pain. Chest pain CT DLP: 1153.00 mGycm Automated exposure control for dose reduction was used. CONTRAST: CT Chest for pulmonary embolism performed with with IV Contrast, patient injected with 100 mL of Isov ue 300. FINDINGS: There are 3-D post processed images. The lungs are clear of infiltrate. There is no evidence of a pulmonary mass. There is minimal subsegm ental atelectasis at the right posterior lung base. There is no pleural effusion. Heart size is mar l. There is no pericardial effusion. There are multiple filling defects in the lower lobe pulmonary a rteries bilaterally. Pulmonary arteries have normal size. Thoracic aorta has normal size and contour. There is no evidence of aneurysm or dissection. The bony thorax is intact. IMPRESSION: Multiple bilateral lower lobe pulmonary emboli. This exam was discussed with ER physician at 12:20 AM .
[2018-03-10] MEDS ORDERED: PANTOPRAZOLE 40 MG/10 ML VIAL IVP STA (00:23)
--- NOTE | 2018-03-10 00:28 | CT ---
EXAMINATION TYPE: CT abdomen pelvis w con DATE OF EXAM: 03/10/2018 COMPARISON: NONE HISTORY: Epigastric pain CT DLP: 1153.00 mGycm Automated exposure control for dose reduction was used. TECHNIQUE: Helical acquisition of images was performed from the lung bases through the pelvis. CONTRAST: Performed without Oral Contrast and with IV Contrast, patient injected with 100 mL of Isovue 370. FINDINGS: Lung bases are clear of consolidation. There is no pleural effusion. Liver spleen appear normal. Gal lbladder is large. Bile ducts are not dilated. Gallbladder measures 4.2 cm in diameter. There is no adrenal mass. Kidneys show satisfactory contrast opacification. There is no hydronephrosi s. There is a 1 cm cortical cyst on the lateral right kidney. There is no retroperitoneal adenopathy. There is minimal thickening of the anterior pararenal space on the right side. Ureters are not dilat ed. Bladder distends smoothly. I see no intestinal wall thickening. There are no dilated loops. Appendix appears normal. There appears to be minimal fat stranding around the pancreas. There is no evidence o f pancreatic mass. I see no bony destructive process. IMPRESSION: THERE ARE MINIMAL INFLAMMATORY CHANGES AROUND THE PANCREATIC HEAD AND THE DESCENDING DUODENUM AND THE ANTERIOR PARARENAL SPACE. THIS COULD RELATE TO MINIMAL PANCREATITIS. SMALL RIGHT RENAL CYST. NORMAL APPENDIX.
[2018-03-10 00:40] LABS: Hepatitis A AB IgM Index 0.01; Hepatitis A Antibody IgM NEGATIVE
[2018-03-10] MEDS ORDERED: MORPHINE SULFATE 4MG/4ML SYRG IVP STA (00:41)
[2018-03-10] MEDS ORDERED: THIAMINE 100 MG/ML 2 ML VIAL IM STA (00:43)
[2018-03-10] MEDS ORDERED: LORazepam 2 MG/ML INJ IV PRN ×2 (00:43)
--- NOTE | 2018-03-10 01:04 | US ---
EXAMINATION TYPE: US scrotum with doppler. Grayscale and color Doppler Duplex imaging performed of bart weir scrotum. DATE OF EXAM: 03/10/2018 COMPARISON: NONE CLINICAL HISTORY: Pain. Pt states left testicle pain x 1 week EXAM MEASUREMENTS: TESTICLES: Right Testicle: 3.2 x 1.8 x 2.9 cm Left Testicle: 3.9 x 1.8 x 2.8 cm EPIDIDYMIS HEAD: Right Epididymis: 1.2 cm Left Epididymis: 1.1 cm Doppler performed to assess for testicular vascularity; good bilateral color flow and waveforms are s een. There is no evidence of testicular torsion. Presence of hydroceles: No Presence of varicoceles: No Possible epididymitis left, lateral to testicle IMPRESSION: No testicular torsion or mass. No free fluid. There is hyperemia on the Doppler images lateral to the left testicle that is suspicious for epididym itis.
[2018-03-10] MEDS ORDERED: NALOXONE 0.4 MG/ML 1 ML VIAL IV PRN (01:42)
[2018-03-10] MEDS ORDERED: ONDANSETRON 4 MG/2 ML VIAL IVP PRN (01:42)
[2018-03-10] MEDS ORDERED: HEPARIN SODIUM,PORCINE 10,000 UNIT/ML 1 ML VIAL IV ONE (01:45)
[2018-03-10] MEDS ORDERED: HEPARIN SODIUM,PORCINE 5,000 UNIT/ML 1 ML VIAL IV PRN (01:45)
[2018-03-10] MEDS ORDERED: cefTRIAXone 250 MG VIAL IM STA (01:46)
[2018-03-10] MEDS ORDERED: AZITHROMYCIN 500 MG TAB PO STA (01:46)
[2018-03-10] MEDS ORDERED: DOXYCYCLINE 50 MG CAP PO STA (01:47)
[2018-03-10] MEDS ORDERED: METOCLOPRAMIDE 5 MG/ML 2 ML VIAL IVP STA (01:53)
[2018-03-10 01:59] LABS: Appearance,Urine Clear (Clear); Bilirubin,Urine 1+ (Negative); Blood,Urine Negative (Negative); Color,Urine Yellow; Glucose,Urine (UA) Negative (Negative); Ketones,Urine 1+ (Negative); Leukocyte Esterase,Urine Negative (Negative); Nitrite,Urine Negative (Negative); Protein,Urine Trace (Negative); Urobilinogen,Urine <2.0 mg/dL (<2.0)
[2018-03-10 02:12] LABS: Amphetamine Screen,Urine Not Detected (NotDetected); Barbiturate Screen,Urine Not Detected (NotDetected); Benzodiazepines Screen,Urine Not Detected (NotDetected); Cocaine Screen,Urine Not Detected (NotDetected); Methadone Screen, Urine Not Detected (NotDetected); Opiate Screen,Urine Detected (NotDetected); Oxycodone Screen, Urine Not Detected (NotDetected); Phencyclidine Screen,Urine Not Detected (NotDetected); Tricyclic Antidepressant,Urine Detected (NotDetected); Urn Cannabinoid Scrn Not Detected (NotDetected)
[2018-03-10] MEDS: HEPARIN SOD,PORK IN 0.45% NACL 25,000 UNIT in 0.45% NACL 1 500ML.BAG IV SCH ×2 (02:15→17:31)
[2018-03-10] MEDS: MORPHINE SULFATE 4MG/4ML SYRG IV PRN ×2 (03:49→22:25)
--- NOTE | 2018-03-10 03:50 | P.HPIM ---
History of Present Illness H&P Date: 03/10/18 Chief Complaint: testicle and abdominal pain 32-year-old male patient with history significant for chronic alcohol abuse presents to the emergency department today for evaluation of abdominal pain and testicular pain. Patient states that he has been having this pain for the last week. States pain is severe in his upper abdomen and does radiate to his back. He has had associated bilious nonbloody vomiting. States he is unable to keep down any food, but had continued drinking. Denies any hematemesis, hematochezia, or melena. Patient states he is also been having left testicular pain for the last week. He denies any hematuria, dysuria, urinary frequency or urinary urgency. He states the pain worsens in his testicle when he moves. He denies any penile discharge. Denies any concern for STDs, is sexually active with a girlfriend. Denies any known fever, but has been having chills. Patient reports that he does drink a fifth of whiskey daily and states he has been doing this for the last month. States that prior to that he was recovering alcoholic and was previously sober for 2 years. Patient reports recent rash that began approximately a week ago on his lower abdomen and spread to his forearms and legs with pretty bad itchiness. Reports seeing his PCP who placed him on prednisone reports taking 2-3 doses, he does report shortness breath, denies chest pain, constipation, back pain, numbness, tingling, dizziness, weakness, headache, visual changes, or any other complaints. In the ER the patient had admission labs CBC CMP, CTA of the chest CT abdomen and pelvis/testicular ultrasound was given morphine for pain azithromycin and Rocephin and a liter of normal saline and recommended for admission acute hepatitis, bilateral PE and epididymitis Past Medical History Past Medical History: GERD/Reflux Additional Past Medical History / Comment(s): etoh History of Any Multi-Drug Resistant Organisms: MRSA Date of last positivie culture/infection: 2009 MDRO Source:: right knee Past Surgical History: No Surgical Hx Reported Additional Past Surgical History / Comment(s): 07/08/17 had 3 teeth extracted- post procedure pain worsened and pt went back to dr on had a 2nd procedure done for an exposed nerve. Past Anesthesia/Blood Transfusion Reactions: No Reported Reaction Past Psychological History: Anxiety, Depression, PTSD Additional Psychological History / Comment(s): pt had been to rehab. sober 15 months . started drinking 3 weeks ago after dental sx, "started out 1 to 1.5 fifths a day but kiki last week or so started drinking 1/2 to 1 gallon per day". pt lives alone in an apt-no steps. no pets. no outside services recieved. no medical equipment. no service in past. 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 Status: Former smoker Past Alcohol Use History: Abuse, Daily, Heavy Additional Past Alcohol Use History / Comment(s): started smoking at age 18 and quit cigaretts in 2016 now uses vapor Past Drug Use History: None Reported - Past Family History Father Additional Family Medical History / Comment(s): anxiety Mother Family Medical History: Cancer, Hyperlipidemia, Hypertension, Thyroid Disorder Additional Family Medical History / Comment(s): breast cancer, shingles, osteoporosis, anxiety Medications and Allergies Home Medications Medication Instructions Recorded Confirmed Type Dicyclomine [Bentyl] 20 mg PO QID PRN #20 tablet 03/05/18 03/09/18 Rx Escitalopram [Lexapro] 20 mg PO DAILY 03/05/18 03/09/18 History Omeprazole [PriLOSEC] 40 mg PO DAILY #30 capsule. 03/05/18 03/09/18 Rx Ondansetron [Zofran ODT] 8 mg PO Q8HR PRN #12 tab 03/05/18 03/09/18 Rx QUEtiapine [SEROquel] 50 mg PO HS 03/05/18 03/09/18 History buPROPion XL [Wellbutrin Xl] 450 mg PO DAILY 03/05/18 03/09/18 History predniSONE 20 mg PO BID #10 tab 03/05/18 03/09/18 Rx Omeprazole 20 mg PO DAILY PRN 03/10/18 03/10/18 History Allergies Allergy/AdvReac Type Severity Reaction Status Date / Time No Known Allergies Allergy Verified 03/09/18 23:16 Physical Exam Vitals: Vital Signs Temp Pulse Pulse Resp BP BP Pulse Ox 03/10/18 03:15 100.0 F H 96 16 126/88 98 03/10/18 01:38 89 18 123/79 97 03/10/18 00:48 86 18 169/71 100 03/09/18 23:15 90 18 141/84 98 03/09/18 22:46 98.4 F 114 H 20 137/99 96 Intake and Output 03/09/18 03/09/18 03/10/18 14:59 22:59 06:59 Other: Weight 95.254 kg Constitutional: No acute distress, conversant, pleasant Eyes: Anicteric sclerae, moist conjunctiva, no lid-lag, PERRLA ENMT: NC/AT,Oropharynx clear, no erythema, exudates, dry mucous membranes Neck:Supple, FROM, no masses, or JVD, No carotid bruits; No thyromegaly Lungs: Clear to auscultation, Clear to percussion, Normal respiratory effort, no accessory muscle use Cardiovascular: Heart regular in rate and rhythm, No murmurs, gallops, or rubs no peripheral edema Abdominal: Generalized abdominal tenderness worse in the mid epigastrium with voluntary guarding non distended, no guarding, no rebound or rigidity, Normoactive bowel sounds No hepatomegaly, No splenomegaly, No palpable mass No abdominal wall hernia noted Skin: Normal temperature, tone, texture, turgor, No induration No subcutaneous nodules, exanthemous rash Extremities/ :No digital cyanosis No clubbing, Pedal pulses intact and symmetrical Radial pulses intact with intact capillary refill and symmetrical Normal gait and station, No calf tenderness, Left testicular tenderness. No significant swelling or erythema noted. No penile discharge noted Psychiatric: Alert and oriented to person, place and time, Appropriate affect Intact judgement Neuro: Muscles Strength 5/5 in all 4 extremities, Sensation to light touch grossly present throughout, Cranial nerves II-XII grossly intact. No focal sensory deficits Results CBC & Chem 7: 03/09/18 22:56 03/09/18 22:56 Labs: Abnormal Lab Results - Last 24 Hours (Table) 03/09/18 03/09/18 03/09/18 Range/Units 22:56 22:56 22:56 WBC 16.0 H (3.8-10.6) k/uL Hgb 19.0 H D (13.0-17.5) gm/dL Hct 53.2 H (39.0-53.0) % Plt Count 115 L (150-450) k/uL Neutrophils # 13.0 H (1.3-7.7) k/uL PT 20.6 H (9.0-12.0) sec INR 2.3 H (<1.2) APTT 31.2 H (22.0-30.0) sec Sodium 136 L (137-145) mmol/L Chloride 96 L (98-107) mmol/L BUN 22 H (9-20) mg/dL Glucose 134 H (74-99) mg/dL Plasma Lactic Acid Chun (0.7-2.0) mmol/L Total Bilirubin 2.0 H (0.2-1.3) mg/dL AST 1026 H (17-59) U/L ALT 782 H (21-72) U/L Lipase 404 H (23-300) U/L Ur Specific [place] (1.001-1.035) Urine Protein (Negative) Urine Ketones (Negative) Urine Bilirubin (Negative) Urine Opiates Screen (NotDetected) U Tricyclic Antidepress (NotDetected) 03/09/18 03/10/18 03/10/18 Range/Units 23:12 01:50 02:54 WBC (3.8-10.6) k/uL Hgb (13.0-17.5) gm/dL Hct (39.0-53.0) % Plt Count (150-450) k/uL Neutrophils # (1.3-7.7) k/uL PT (9.0-12.0) sec INR (<1.2) APTT (22.0-30.0) sec Sodium (137-145) mmol/L Chloride (98-107) mmol/L BUN (9-20) mg/dL Glucose (74-99) mg/dL Plasma Lactic Acid Chun 3.8 H* 3.5 H* (0.7-2.0) mmol/L Total Bilirubin (0.2-1.3) mg/dL AST (17-59) U/L ALT (21-72) U/L Lipase (23-300) U/L Ur Specific [place] 1.050 H (1.001-1.035) Urine Protein Trace H (Negative) Urine Ketones 1+ H (Negative) Urine Bilirubin 1+ H (Negative) Urine Opiates Screen Detected H (NotDetected) U Tricyclic Antidepress Detected H (NotDetected) Thrombosis Risk Factor Assmnt - Choose All That Apply Any of the Below Risk Factors Present?: No Other Risk Factors: No Other congenital or acquired thrombophilia - If yes, enter type in comment: No Thrombosis Risk Factor Assessment Level: Very Low Risk Assessment and Plan (1) Severe sepsis Current Visit: Yes Status: Acute Code(s): A41.9 - SEPSIS, UNSPECIFIED ORGANISM; R65.20 - SEVERE SEPSIS WITHOUT SEPTIC SHOCK SNOMED Code(s): 17359614 (2) Acute pancreatitis Current Visit: Yes Status: Acute Code(s): K85.90 - ACUTE PANCREATITIS WITHOUT NECROSIS OR INFECTION, UNSP SNOMED Code(s): 158804628 (3) Epididymitis Current Visit: Yes Status: Acute Code(s): N45.1 - EPIDIDYMITIS SNOMED Code (s): 48427479 (4) Acute hepatitis Current Visit: Yes Status: Acute Code(s): B17.9 - ACUTE VIRAL HEPATITIS, UNSPECIFIED SNOMED Code(s): 79719429 (5) Bilateral pulmonary embolism Current Visit: Yes Status: Acute Code(s): I26.99 - OTHER PULMONARY EMBOLISM WITHOUT ACUTE COR PULMONALE SNOMED Code(s): 11336691 (6) Coagulopathy Current Visit: Yes Status: Acute Code(s): D68.9 - COAGULATION DEFECT, UNSPECIFIED SNOMED Code(s): 35004660 (7) Chronic alcohol dependence, continuous Current Visit: Yes Status: Acute Code(s): F10.20 - ALCOHOL DEPENDENCE, UNCOMPLICATED SNOMED Code(s): 950384488 Plan: The patient is admitted with severe sepsis, bilateral PE, epididymitis, acute hepatitis, and pancreatitis anticipated greater than 2 midnight stay after presenting with severe abdominal pain CT of the abdomen and pelvis indicating inflammatory changes around the pancreatic head with elevated serum lipase at 44 and transaminitis ast/alt of 1026/782 with a leukocytosis of 16, low-grade fever and elevated serum lactate a scrotal ultrasound suggesting left epididymitis, will order stat blood and urine culture, GC/chlamydia/ acute hep panel and HIV. initiate aggressive IV fluid resuscitation 30cc/kg per sepsis protocol along with IV antibiotics Rocephin/azithromycin and doxycycline consult GI & ID for further recommendations, continue patient's nothing by mouth status, IV morphine and fluids for his pancreatitis. Patient found to have bilateral PE and started on heparin drip from the ER, will plan to consult hematology as this patient is 32 yo with no known risk factors and also has a coagulopathy (possibly secondary to underlying alcohol abuse). Initiate alcohol withdrawal CIWA Protocol. Continue to follow his clinical course
[2018-03-10] MEDS: SODIUM CHLORIDE 0.9% 500 ML IV SCH ×4 (04:22→06:01)
[2018-03-10] MEDS: LORazepam 2 MG/ML INJ IV PRN (06:02)
[2018-03-10] MEDS ORDERED: diphenhydrAMINE 50 MG/ML 1 ML VIAL IVP PRN (06:17)
[2018-03-10 07:04] LABS: Appearance,Urine Clear (Clear); Bilirubin,Urine 1+ (Negative); Blood,Urine Negative (Negative); Color,Urine Yellow; Glucose,Urine (UA) Negative (Negative); Ketones,Urine 1+ (Negative); Leukocyte Esterase,Urine Negative (Negative); Nitrite,Urine Negative (Negative); Protein,Urine Trace (Negative); Specific Gravity,Urine 1.043 (1.001-1.035)
[2018-03-10] MEDS: PANTOPRAZOLE 40 MG/10 ML VIAL IV SCH (08:10)
[2018-03-10] MEDS: DOXYCYCLINE 50 MG CAP PO SCH ×2 (08:10→20:43)
[2018-03-10 08:15] LABS: Basophils % (A) 0 %; Eosinophils # (A) 0.5 k/uL (0-0.7); Eosinophils % (A) 4 %; HCT 42.1 % (39.0-53.0); Lymphocytes % (A) 8 %; MCHC 35.9 g/dL (31.0-37.0); MCV 94.9 fL (80.0-100.0); Mean Platelet Volume 7.3; Monocytes # (A) 0.9 k/uL (0-1.0); Monocytes % (A) 7 %; Neutrophils # (A) 10.6 k/uL (1.3-7.7); Neutrophils % (A) 79 %; Platelet Count 109 k/uL (150-450); RBC 4.44 m/uL (4.30-5.90); RDW 13.1 % (11.5-15.5); WBC 13.4 k/uL (3.8-10.6)
[2018-03-10 08:20] LABS: HGB 15.1 gm/dL (13.0-17.5)
[2018-03-10] MEDS: cefTRIAXone IN SWFI 1,000 MG/10 ML SYRINGE IVP SCH (08:46)
[2018-03-10 09:26] LABS: ALT 496 U/L (21-72); AST 550 U/L (17-59); Acetaminophen <10.0 ug/mL; Albumin 2.5 g/dL (3.5-5.0); Alkaline Phosphatase 56 U/L (38-126); Anion Gap 15 mmol/L; Blood Urea Nitrogen 18 mg/dL (9-20); Calcium 7.5 mg/dL (8.4-10.2); Carbon Dioxide 18 mmol/L (22-30); Chloride 105 mmol/L (98-107); Glucose 81 mg/dL (74-99); Lipase 462 U/L (23-300); Potassium 3.8 mmol/L (3.5-5.1); Sodium 138 mmol/L (137-145); Total Bilirubin 1.3 mg/dL (0.2-1.3); Total Protein 4.9 g/dL (6.3-8.2)
[2018-03-10] MEDS ORDERED: PHYTONADIONE 5 MG in SODIUM CHLORIDE 0.9% 50 ML IVPB STA (11:48)
--- NOTE | 2018-03-10 11:48 | P.CONS ---
History of Present Illness - Reason for Consult Consult date: 03/10/18 Pulmonary embolus, coagulopathy - History of Present Illness The patient is a 32-year-old male, with a long-standing history of heavy alcohol use and related complications. These include episodes of peritonitis, and alcohol withdrawal requiring hospitalizations. The patient had developed severe abdominal pain, ranging in severity from 7-10/10 over the past week. He had come into the emergency room on 03/05/18 and was discharged with supportive care. Symptoms were also associated with nausea and vomiting, with radiation to the back. The patient reported marked decrease in appetite and states that he had not eaten anything for at least 3-4 days if not more. However he had continued to drink alcohol. In addition he was complaining of pain related to the left testicle. He therefore came back to the emergency room and had repeat imaging done with computed tomography scan of the abdomen and pelvis showing evidence of pancreatitis. Liver enzymes were significantly elevated. In addition scrotal ultrasound showed evidence of left epididymitis. CT of the abdomen and pelvis on 03/05/18 had raised the possibility of pulmonary emboli in the lower lobe. He therefore had a CT of the chest on this admission which confirmed the evidence of bilateral emboli in both lower lobes. During this admission his INR was high at baseline at 2.3. However during his ER visit on 03/05/18, when the PE appeared to be already present, INR was 1.4. The patient denied any history of chest pain or shortness of breath whatsoever. He denied any prior history of PE or DVT, or family history of the same. Previous inpatient hospitalization was for pancreatitis, about a year ago. Since then he has had additional ER visits for alcohol-related complications. He does smoke, and does have periods of prolonged inactivity, again related to degree of alcohol use and symptoms. Review of Systems Constitutional: Reports chronic pain, Reports fatigue, Reports poor appetite, Reports weight loss Eyes: denies blurred vision, denies pain Ears: deny: decreased hearing, ear discharge, earache, tinnitus Ears, nose, mouth and throat: Denies headache, Denies sore throat Cardiovascular: Reports decreased exercise tolerance Respiratory: Denies cough Gastrointestinal: Reports abdominal pain, Reports nausea, Reports vomiting Genitourinary: Reports genital pain Musculoskeletal: Denies myalgias Integumentary: Reports rash (Lower trunk and upper legs noted during previous admission, which has improved significantly) Neurological: Reports as per HPI (Prior history of alcohol withdrawal episodes) , Denies numbness, Denies weakness Psychiatric: Reports as per HPI Endocrine: Reports fatigue Hematologic/Lymphatic: Reports as per HPI Past Medical History Past Medical History: GERD/Reflux Additional Past Medical History / Comment(s): etoh History of Any Multi-Drug Resistant Organisms: MRSA Year Discovered:: 2009 MDRO Source:: right knee Past Surgical History: No Surgical Hx Reported Additional Past Surgical History / Comment(s): 07/08/17 had 3 teeth extracted- post procedure pain worsened and pt went back to on had a 2nd procedure done for an exposed nerve. Past Anesthesia/Blood Transfusion Reactions: No Reported Reaction Past Psychological History: Anxiety, Depression, PTSD Additional Psychological History / Comment(s): pt had been to rehab. sober 15 months . started drinking 3 weeks ago after dental sx, "started out 1 to 1.5 fifths a day but kiki last week or so started drinking 1/2 to 1 gallon per day". pt lives alone in an apt-no steps. no pets. no outside services recieved. no medical equipment. no service in past. 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 Status: Former smoker Past Alcohol Use History: Abuse, Daily, Heavy Additional Past Alcohol Use History / Comment(s): started smoking at age 18 and quit cigaretts in 2016 now uses vapor Past Drug Use History: None Reported - Past Family History Father Additional Family Medical History / Comment(s): anxiety Mother Family Medical History: Cancer, Hyperlipidemia, Hypertension, Thyroid Disorder Additional Family Medical History / Comment(s): breast cancer, shingles, osteoporosis, anxiety Medications and Allergies Home Medications Medication Instructions Recorded Confirmed Type Dicyclomine [Bentyl] 20 mg PO QID PRN #20 tablet 03/05/18 03/09/18 Rx Escitalopram [Lexapro] 20 mg PO DAILY 03/05/18 03/09/18 History Omeprazole [PriLOSEC] 40 mg PO DAILY #30 capsule. 03/05/18 03/09/18 Rx Ondansetron [Zofran ODT] 8 mg PO Q8HR PRN #12 tab 03/05/18 03/09/18 Rx QUEtiapine [SEROquel] 50 mg PO HS 03/05/18 03/09/18 History buPROPion XL [Wellbutrin Xl] 450 mg PO DAILY 03/05/18 03/09/18 History predniSONE 20 mg PO BID #10 tab 03/05/18 03/09/18 Rx Omeprazole 20 mg PO DAILY PRN 03/10/18 03/10/18 History Allergies Allergy/AdvReac Type Severity Reaction Status Date / Time No Known Allergies Allergy Verified 03/09/18 23:16 Physical Exam Vitals: Vital Signs Temp Pulse Pulse Resp BP BP Pulse Ox 03/10/18 08:00 16 03/10/18 05:35 98.5 F 89 16 130/69 97 03/10/18 03:15 100.0 F H 96 16 126/88 98 03/10/18 01:38 89 18 123/79 97 03/10/18 00:48 86 18 169/71 100 03/09/18 23:15 90 18 141/84 98 03/09/18 22:46 98.4 F 114 H 20 137/99 96 Intake and Output 03/09/18 03/10/18 03/10/18 22:59 06:59 14:59 Intake Total 284.035 Balance 284.035 Intake: Intake, IV Titration 284.035 Amount Heparin Sod,Pork in 0.45% 284.035 NaCl 25,000 unit In 0.45 % NaCl 1 500ml.bag @ 18 UNITS/KG/HR 34.29 mls/hr IV .[id number] [facility] Rx#: [id number] Other: Voiding Method Urinal # Voids 1 Weight 95.254 kg - Constitutional General appearance: no acute distress - EENT Eyes: EOMI, PERRLA ENT: hearing grossly normal, normal oropharynx - Neck Neck: no lymphadenopathy Thyroid: bilateral: normal size - Respiratory Respiratory: bilateral: CTA - Cardiovascular Rhythm: regular Heart sounds: normal: S1, S2 - Gastrointestinal General gastrointestinal: normal bowel sounds, soft Localized gastrointestinal: tender: RUQ, epigastric periumbilical - Integumentary Integumentary: normal - Neurologic Neurologic: CNII-XII intact - Musculoskeletal Musculoskeletal: generalized weakness, strength equal bilaterally - Psychiatric Psychiatric: A&O x's 3, intact judgment & insight Results CBC & Chem 7: 03/10/18 07:45 03/10/18 07:45 Labs: Abnormal Lab Results - Last 24 Hours (Table) 03/09/18 03/09/18 03/09/18 Range/Units 22:56 22:56 22:56 WBC 16.0 H (3.8-10.6) k/uL Hgb 19.0 H D (13.0-17.5) gm/dL Hct 53.2 H (39.0-53.0) % Plt Count 115 L (150-450) k/uL Neutrophils # 13.0 H (1.3-7.7) k/uL PT 20.6 H (9.0-12.0) sec INR 2.3 H (<1.2) APTT 31.2 H (22.0-30.0) sec Sodium 136 L (137-145) mmol/L Chloride 96 L (98-107) mmol/L Carbon Dioxide (22-30) mmol/L BUN 22 H (9-20) mg/dL Glucose 134 H (74-99) mg/dL Plasma Lactic Acid Chun (0.7-2.0) mmol/L Calcium (8.4-10.2) mg/dL Total Bilirubin 2.0 H (0.2-1.3) mg/dL AST 1026 H (17-59) U/L ALT 782 H (21-72) U/L Total Protein (6.3-8.2) g/dL Albumin (3.5-5.0) g/dL Lipase 404 H (23-300) U/L Ur Specific [place] (1.001-1.035) Urine Protein (Negative) Urine Ketones (Negative) Urine Bilirubin (Negative) Urine Opiates Screen (NotDetected) U Tricyclic Antidepress (NotDetected) 03/09/18 03/10/18 03/10/18 Range/Units 23:12 01:50 02:54 WBC (3.8-10.6) k/uL Hgb (13.0-17.5) gm/dL Hct (39.0-53.0) % Plt Count (150-450) k/uL Neutrophils # (1.3-7.7) k/uL PT (9.0-12.0) sec INR (<1.2) APTT (22.0-30.0) sec Sodium (137-145) mmol/L Chloride (98-107) mmol/L Carbon Dioxide (22-30) mmol/L BUN (9-20) mg/dL Glucose (74-99) mg/dL Plasma Lactic Acid Chun 3.8 H* 3.5 H* (0.7-2.0) mmol/L Calcium (8.4-10.2) mg/dL Total Bilirubin (0.2-1.3) mg/dL AST (17-59) U/L ALT (21-72) U/L Total Protein (6.3-8.2) g/dL Albumin (3.5-5.0) g/dL Lipase (23-300) U/L Ur Specific [place] 1.050 H (1.001-1.035) Urine Protein Trace H (Negative) Urine Ketones 1+ H (Negative) Urine Bilirubin 1+ H (Negative) Urine Opiates Screen Detected H (NotDetected) U Tricyclic Antidepress Detected H (NotDetected) 03/10/18 03/10/18 03/10/18 Range/Units 06:36 07:45 07:45 WBC 13.4 H (3.8-10.6) k/uL Hgb (13.0-17.5) gm/dL Hct (39.0-53.0) % Plt Count 109 L (150-450) k/uL Neutrophils # 10.6 H (1.3-7.7) k/uL PT (9.0-12.0) sec INR (<1.2) APTT (22.0-30.0) sec Sodium (137-145) mmol/L Chloride (98-107) mmol/L Carbon Dioxide 18 L (22-30) mmol/L BUN (9-20) mg/dL Glucose (74-99) mg/dL Plasma Lactic Acid Chun (0.7-2.0) mmol/L Calcium 7.5 L (8.4-10.2) mg/dL Total Bilirubin (0.2-1.3) mg/dL AST 550 H (17-59) U/L ALT 496 H (21-72) U/L Total Protein 4.9 L (6.3-8.2) g/dL Albumin 2.5 L (3.5-5.0) g/dL Lipase 462 H (23-300) U/L Ur Specific [place] 1.043 H (1.001-1.035) Urine Protein Trace H (Negative) Urine Ketones 1+ H (Negative) Urine Bilirubin 1+ H (Negative) Urine Opiates Screen (NotDetected) U Tricyclic Antidepress (NotDetected) 03/10/18 03/10/18 Range/Units 07:45 09:22 WBC (3.8-10.6) k/uL Hgb (13.0-17.5) gm/dL Hct (39.0-53.0) % Plt Count (150-450) k/uL Neutrophils # (1.3-7.7) k/uL PT (9.0-12.0) sec INR (<1.2) APTT >200.0 H* (22.0-30.0) sec Sodium (137-145) mmol/L Chloride (98-107) mmol/L Carbon Dioxide (22-30) mmol/L BUN (9-20) mg/dL Glucose (74-99) mg/dL Plasma Lactic Acid Chun 3.5 H* (0.7-2.0) mmol/L Calcium (8.4-10.2) mg/dL Total Bilirubin (0.2-1.3) mg/dL AST (17-59) U/L ALT (21-72) U/L Total Protein (6.3-8.2) g/dL Albumin (3.5-5.0) g/dL Lipase (23-300) U/L Ur Specific [place] (1.001-1.035) Urine Protein (Negative) Urine Ketones (Negative) Urine Bilirubin (Negative) Urine Opiates Screen (NotDetected) U Tricyclic Antidepress (NotDetected) Comments: Scrotal ultrasound report reviewed CT scan - abdomen: report reviewed CT scan - chest: report reviewed CT scan - pelvis: report reviewed Assessment and Plan (1) Bilateral pulmonary embolism Narrative/Plan: The consult was placed for the finding of bilateral pulmonary emboli during this admission, in the setting of coagulopathy. However his computed tomography scan on 03/05/18 had shown the presence of emboli, which actually lead to the CTA this admission. On 03/05/18, as noted, the patient was not coagulopathic with INR of 1.4. The patient denies any pulmonary symptoms. Therefore the age of the PE is unknown, and these could be remote. The patient actually does have risk factor for thrombo-embolism, with recurrent episodes of severe inflammation ( pancreatitis), prior hospitalizations and ER visits, as well as smoking. Therefore this clot can be considered provoked. During this admission the patient has developed new coagulopathy, likely due to acute liver injury, as well as malnutrition. I agree with IV heparin for anticoagulation currently, as best would be the safest option. In this setting , to reduce the risk of bleeding from the coagulopathy from liver disease, the patient will be supplemented with vitamin K. Continue IV heparin. If the patient's PT/INR improves with vitamin K and ongoing supportive care, he can subsequently be transitioned to orals. The patient was strongly advised that he could develop coagulopathy again in the future, in the setting of recurrent heavy alcohol use and malnutrition, which could put him at risk for bleeding if he is on anticoagulation. On the other hand, no anticoagulation could potentially put him at risk of recurrent clotting given his history of inflammation and hospitalization. The patient indicated that he is determined to quit alcohol. Given the patient's history, and lack of family history, at this time I feel that a hypercoagulable workup is not indicated. I will check bilateral lower extremity venous Dopplers for baseline Current Visit: Yes Status: Acute Code(s): I26.99 - OTHER PULMONARY EMBOLISM WITHOUT ACUTE COR PULMONALE SNOMED Code(s): 46659252
[2018-03-10 13:03] LABS: Hepatitis B Core IgM Non-Reactive (Non-Reactive)
--- NOTE | 2018-03-10 13:11 | US ---
EXAMINATION TYPE: US venous doppler duplex LE DATE OF EXAM: 03/10/2018 12:55 PM COMPARISON: NONE CLINICAL HISTORY: Pulmonary embolus. PE, on heparin. No leg pain, swelling or redness. SIDE PERFORMED: Bilateral TECHNIQUE: The lower extremity deep venous system is examined utilizing real time linear array sonog xin with graded compression, doppler sonography and color-flow sonography. VESSELS IMAGED: External Iliac Vein (EIV) Common Femoral Vein Deep Femoral Vein Greater Saphenous Vein * Femoral Vein Popliteal Vein Small Saphenous Vein * Proximal Calf Veins (* superficial vessels) Right Leg: Negative for DVT Left Leg: Negative for DVT No popliteal fossa lesion is seen. IMPRESSION: THIS EXAMINATION IS NEGATIVE FOR DVT IN BOTH LEGS.
--- NOTE | 2018-03-10 14:31 | P.PN ---
Progress Note - Text Progress Note Date: 03/10/18 Hospitalist Interval Note Patient seen and examined at bedside. States that his abdominal pain is getting better. No nausea. No vomiting. He is hungry and would like something to eat. No chest pain or shortness of breath. No family history of DVT/PE. His mother did have a history of breast cancer but no other known malignancies. Vital signs reviewed General: non toxic, no distress, appears at stated age Derm: warm, dry Head: atraumatic, normocephalic, symmetric Eyes: EOMI, no lid lag, anicteric sclera Mouth: no lip lesion, mucus membranes moist Cardiovascular: S1S2 reg, no murmur, positive posterior tibial pulse bilateral, Lungs: Decreased breath sounds bilateral bases, no rhonchi, no rales , no accessory muscle use Abdominal: soft, + tender to palpation right upper quadrant, no guarding, no appreciable organomegaly Ext: no gross muscle atrophy, no edema, no contractures Neuro: CN II-XI grossly intact, no focal neuro deficits Psych: Alert, oriented, appropriate affect Assessment/Plan: Hepatitis -Likely alcoholic -Tylenol level is negative -No liver enlargement -Await GI recommendations -Improved with IV fluids and abstinent from alcohol -Await hepatitis profile Pancreatitis, likely alcohol induced -IV fluids -Clear liquid diet -Pain control Pulmonary embolism -Duration unknown -Heparin drip -Heme/Onc recommendations appreciated - venous doppler pending Epididymitis -Gonorrhea and chlamydia pending -Received Zithromax and is now on doxycycline -Received Rocephin -Await infectious disease recommendations. Coagulopathy likely related to liver dysfunction -Oncology did recommend replacement of vitamin K so that we do not have more than 1 Affected and can adequately titrate his PTT Thrombocytopenia, likely reactive to liver disease -Follow CBC Dermatitis, nonspecific -Has been taking steroids as an outpatient -Continue to monitor Elevated lactic acid -Likely secondary to liver dysfunction -Has been off IV fluids This is an update note for patient , for full note on 03/10 see H and P . There is no charge associated with this note.
[2018-03-10] MEDS: SODIUM CHLORIDE 0.9% 1,000 ML IV SCH ×2 (14:50→23:50)
[2018-03-10] MEDS: THIAMINE 100 MG TAB PO SCH (16:18)
[2018-03-10] MEDS ORDERED: INFLUENZA VACCINE (6 MOS+) 60 MCG/0.5 ML SYRINGE IM ONE (17:26)
--- NOTE | 2018-03-10 18:29 | CONS ---
CONSULTATION DATE OF SERVICE: 03/10/2018. REASON FOR CONSULTATION: Epididymo-orchitis. HISTORY OF PRESENT ILLNESS: The patient is a 32-year-old male with a past medical history significant for alcoholism presenting to the ER at [facility] on 03/09/2018 with chief complaints of pain in the abdominal area and testicular pain. His symptoms have been going on for about a week before he presented to the hospital. Pain has been in the upper abdominal area with some radiation to the back and did have some vomiting. No hematemesis or hematochezia. The patient also had been complaining of pain in his left testicular area for about a few days' duration. The patient denies having any urethral drainage or discharge. He has been in a relationship with only 1 female and the last sexual activity has been about a week ago. The patient on arrival to the ER was afebrile, subsequently did have a low-grade fever of 100 around 3:00 in the morning. The patient did have elevated white count of 13,000. His lactic acid was elevated at 3.5 with elevated liver enzymes, though his bilirubin was 1.3. Lipase was 462. His UA has been negative. Tylenol level is less than 10. Hepatitis A antibody was negative. The patient did have a workup in the ER, including a CT of abdomen and pelvis which did show minimal inflammatory changes around the pancreatic head and the descending duodenum and anterior pararenal space. This could be related to minimal pancreatitis. The patient did have a scrotum ultrasound which shows no testicular torsion, no mass, possible epididymitis left, not into the testicle. A CT angiogram has been showing multiple bilateral lower lobe pulmonary emboli. No pneumonia. The patient subsequently has been admitted to the hospital for management of underlying pulmonary emboli, possible pancreatitis as well as epididymitis. Infectious Disease was consulted for further recommendation regarding his epididymitis. Patient's abdominal pain has currently improved. No nausea, no vomiting. His testicular swelling has significantly decreased. He denies having any urethral drainage or discharge. The patient did have a gonococcal and chlamydia PCR sent, which is currently pending. REVIEW OF SYSTEMS: CONSTITUTIONALLY: Positive for weakness and low-grade fever. EYES: No complaint. ENT: No complaint. RESPIRATORY: No complaint. CARDIOVASCULAR: No complaint. GENITOURINARY: As per HPI gases: GASTROINTESTINAL: As per HPI. MUSCULOSKELETAL: No complaint. INTEGUMENTARY: No complaint. PSYCHOLOGICAL: No complaint. ENDOCRINE: No complaint. NEUROLOGIC: No complaint. PAST MEDICAL HISTORY: Significant for gastroesophageal reflux disease, alcoholism, previous history of MRSA infection of the right knee area, history of anxiety, depression, PTSD. SOCIAL HISTORY: Positive for heavy drinking. Quit smoking back in 2016. He is a vaper. FAMILY HISTORY: Mother with history of breast cancer, osteoporosis and hypertension. Father with history of anxiety. ALLERGIES: No known drug allergies. MEDICATION: Include the patient is currently on: 1. Rocephin 1 g daily. 2. He is on Benadryl. 3. Doxycycline. 4. Heparin. 5. Ativan. 6. Morphine sulfate. 7. Narcan. 8. Zofran. 9. Protonix. 10.Vitamin B1. EXAMINATION: Blood pressure 144/84 with a pulse of 66, temperature of 98.1. He is 97% on room air. General description is a young male lying in bed in no distress. HEENT shows no pallor or scleral icterus. Oral mucous membranes dry. No thrush was noticed. NECK: Trachea central. There was no thyromegaly. LUNGS: Unlabored breathing. Clear to auscultation anteriorly. No wheeze or crackle. HEART: S1, S2. Regular rate and rhythm. ABDOMEN: Soft. Very minimally tender in the epigastric area. No guarding or rigidity. No organomegaly. GENITOURINARY: The testicles reveals to be normal. There was no redness, not tender to touch. No urethral drainage. EXTREMITIES: No edema of the feet. SKIN: No rash or masses palpable. NEUROLOGICAL: Patient is awake, alert, oriented x3. Mood and affect normal. LABS: Hemoglobin is 15.1, white count 13.4 with a BUN of 18, creatinine 0.76. Electrolytes have been normal. Lactic acid 3.5 down to 1.2. Liver enzymes were elevated. Hepatitis A serology came back negative. DIAGNOSTIC IMPRESSION: 1. Patient admitted to the hospital with significant abdominal pain, also with vomiting, with elevated lipase and abnormal CT, likely secondary to underlying acute pancreatitis related to his alcoholism with no evidence of any gallstone or elevated bilirubin on admission. 2. Patient complaining of testicular pain. Ultrasound was suspicious for epididymitis. No findings on clinical examination at the time of my evaluation. His urinalysis was negative. In a patient who is sexually active, underlying STD needs to be ruled out for which gonococcal and chlamydia testing has been sent, currently pending. 3. Patient with elevated liver enzymes, more likely secondary to alcoholism. Hepatitis A was negative. The patient did have a history of IV drug use. We will check hepatitis C serology as well as HIV testing: PLAN: 1. Will recommend keeping the patient on Rocephin 1 g daily along with oral doxycycline. 2. Will wait for the gonococcal and the chlamydia testing to finalize. 3. Depending upon his clinical response as well as the tests, will adjust his medications further if needed. Thank you for this consultation. Will follow the patient along with you. MMSHANNONL / IJN: [id number] /
[2018-03-11] MEDS: MORPHINE SULFATE 4MG/4ML SYRG IV PRN (02:49)
[2018-03-11 03:44] LABS: Basophils % (A) 0 %; Eosinophils # (A) 0.8 k/uL (0-0.7); Eosinophils % (A) 9 %; HCT 41.6 % (39.0-53.0); HGB 14.7 gm/dL (13.0-17.5); INR 1.2 (<1.2); Lymphocytes # (A) 1.2 k/uL (1.0-4.8); Lymphocytes % (A) 13 %; MCH 33.7 pg (25.0-35.0); MCHC 35.4 g/dL (31.0-37.0); MCV 95.3 fL (80.0-100.0); Monocytes # (A) 0.8 k/uL (0-1.0); Monocytes % (A) 8 %; Neutrophils # (A) 6.1 k/uL (1.3-7.7); Neutrophils % (A) 65 %; Prothrombin Time 11.5 sec (9.0-12.0); RBC 4.36 m/uL (4.30-5.90); RDW 13.1 % (11.5-15.5); WBC 9.3 k/uL (3.8-10.6)
[2018-03-11 03:54] LABS: ALT 380 U/L (21-72); AST 305 U/L (17-59); Albumin 2.7 g/dL (3.5-5.0); Alkaline Phosphatase 68 U/L (38-126); Anion Gap 9 mmol/L; Blood Urea Nitrogen 12 mg/dL (9-20); Calcium 8.2 mg/dL (8.4-10.2); Carbon Dioxide 27 mmol/L (22-30); Chloride 100 mmol/L (98-107); Glucose 96 mg/dL (74-99); Sodium 136 mmol/L (137-145); Total Bilirubin 1.7 mg/dL (0.2-1.3); Total Protein 5.3 g/dL (6.3-8.2)
[2018-03-11 04:04] LABS: Platelet Count 99 k/uL (150-450)
[2018-03-11] MEDS: SODIUM CHLORIDE 0.9% 1,000 ML IV SCH ×3 (06:35→22:25)
[2018-03-11] MEDS: cefTRIAXone IN SWFI 1,000 MG/10 ML SYRINGE IVP SCH (08:42)
[2018-03-11] MEDS: DOXYCYCLINE 50 MG CAP PO SCH ×2 (08:43→22:24)
[2018-03-11] MEDS: PANTOPRAZOLE 40 MG/10 ML VIAL IV SCH (08:43)
[2018-03-11 09:19] LABS: INR 1.1 (<1.2); Partial Thromboplastin Time 50.8 sec (22.0-30.0); Prothrombin Time 10.8 sec (9.0-12.0)
[2018-03-11] MEDS: HEPARIN SOD,PORK IN 0.45% NACL 25,000 UNIT in 0.45% NACL 1 500ML.BAG IV SCH ×2 (09:24→22:25)
--- NOTE | 2018-03-11 11:08 | P.CONS ---
History of Present Illness - Reason for Consult Consult date: 03/10/18 Hepatitis - History of Present Illness The patient is a 32-year-old male who presented to the emergency room with abdominal pain, nausea and vomiting. The patient has history of alcohol dependency and has been sober for around 2 years then started to drink heavy over the last month up to a pint of liquor daily. He was in the emergency room earlier this month and returns because of worsening of his symptoms. His pain radiates to the back. He also is experiencing testicular pain. The patient was found to have significant elevations in his transaminases with AST at 550 and ALT at 492 with bilirubin at 1.3 and normal alkaline phosphatase. Ultrasound of the testicle showed left epididymitis. There is also evidence of pulmonary embolization on CT of the chest. No extrahepatic biliary obstruction on CT of the abdomen. The patient denies abdominal swelling or leg swelling, no hematemesis, jaundice fever or chills. He has been started on antibiotics and IV heparin. Review of Systems Constitutional: Denies fever, chills, sweats, weight gain, or loss. HEENT: Negative for migraines, blurred vision or loss, earaches, drainage, tinnitus, oral mucosal lesions, dysphagia, or odynophagia. CARDIAC: Negative for chest pain, arrhythmias, or palpitation. RESPIRATORY: Negative for shortness of breath, hemoptysis, cough, or sputum production. GI: See HPI for pertinent findings. : Negative for hematuria, urgency, frequency, polyuria, or dysuria. GYNc: Denies possibility of . MUSCULOSKELETAL: Negative for muscle aches, swelling, arthritis, and arthralgias. NEUROLOGIC: Negative for stroke or TIA. ENDOCRINE: Negative for thyroid problems. SKIN: Negative for rash or itching. PSYCHIATRIC: Negative history for depression and anxiety Past Medical History Past Medical History: GERD/Reflux Additional Past Medical History / Comment(s): etoh History of Any Multi-Drug Resistant Organisms: MRSA Year Discovered:: 2009 MDRO Source:: right knee Past Surgical History: No Surgical Hx Reported Additional Past Surgical History / Comment(s): 07/08/17 had 3 teeth extracted- post procedure pain worsened and pt went back to dr on had a 2nd procedure done for an exposed nerve. Past Anesthesia/Blood Transfusion Reactions: No Reported Reaction Past Psychological History: Anxiety, Depression, PTSD Additional Psychological History / Comment(s): pt had been to rehab. sober 15 months . started drinking 3 weeks ago after dental sx, "started out 1 to 1.5 fifths a day but kiki last week or so started drinking 1/2 to 1 gallon per day". pt lives alone in an apt-no steps. no pets. no outside services recieved. no medical equipment. no service in past. 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 Status: Former smoker Past Alcohol Use History: Abuse, Daily, Heavy Additional Past Alcohol Use History / Comment(s): started smoking at age 18 and quit cigaretts in 2016 now uses vapor Past Drug Use History: None Reported - Past Family History Father Additional Family Medical History / Comment(s): anxiety Mother Family Medical History: Cancer, Hyperlipidemia, Hypertension, Thyroid Disorder Additional Family Medical History / Comment(s): breast cancer, shingles, osteoporosis, anxiety Medications and Allergies Home Medications Medication Instructions Recorded Confirmed Type Dicyclomine [Bentyl] 20 mg PO QID PRN #20 tablet 03/05/18 03/09/18 Rx Escitalopram [Lexapro] 20 mg PO DAILY 03/05/18 03/09/18 History Omeprazole [PriLOSEC] 40 mg PO DAILY #30 capsule. 03/05/18 03/09/18 Rx Ondansetron [Zofran ODT] 8 mg PO Q8HR PRN #12 tab 03/05/18 03/09/18 Rx QUEtiapine [SEROquel] 50 mg PO HS 03/05/18 03/09/18 History buPROPion XL [Wellbutrin Xl] 450 mg PO DAILY 03/05/18 03/09/18 History predniSONE 20 mg PO BID #10 tab 03/05/18 03/09/18 Rx Omeprazole 20 mg PO DAILY PRN 03/10/18 03/10/18 History Allergies Allergy/AdvReac Type Severity Reaction Status Date / Time No Known Allergies Allergy Verified 03/09/18 23:16 Physical Exam Vitals: Vital Signs Temp Pulse Pulse Resp BP BP Pulse Ox 03/10/18 05:35 98.5 F 89 16 130/69 97 03/10/18 03:15 100.0 F H 96 16 126/88 98 03/10/18 01:38 89 18 123/79 97 03/10/18 00:48 86 18 169/71 100 03/09/18 23:15 90 18 141/84 98 03/09/18 22:46 98.4 F 114 H 20 137/99 96 Intake and Output 03/09/18 03/10/18 03/10/18 22:59 06:59 14:59 Other: # Voids 1 Weight 95.254 kg General appearance: The patient is alert, oriented, in abdominal distress. HET: Head is normocephalic and atraumatic. Conjunctivae pink, sclerae not icteric. Pupils are equal and reactive. Oropharynx is clear without lesions. Neck: Supple without lymphadenopathy. Trachea midline. Heart: S1 S2. Regular rate and rhythm. Lungs: No crackles or wheezes are heard. Abdomen: Soft, nondistended bowel sounds present. Tender in the epigastric area with no guarding or rebound. No palpable organomegaly or masses. Extremities: Normal skin color and turgor. No cyanosis, rash, ulceration, clubbing, or edema. Radial and pedal pulses are 2/4 bilaterally. Neurological: No focal deficits. Strength and sensation are grossly intact. Results CBC & Chem 7: 03/11/18 02:28 03/11/18 02:28 Labs: Abnormal Lab Results - Last 24 Hours (Table) 03/09/18 03/09/18 03/09/18 Range/Units 22:56 22:56 22:56 WBC 16.0 H (3.8-10.6) k/uL Hgb 19.0 H D (13.0-17.5) gm/dL Hct 53.2 H (39.0-53.0) % Plt Count 115 L (150-450) k/uL Neutrophils # 13.0 H (1.3-7.7) k/uL PT 20.6 H (9.0-12.0) sec INR 2.3 H (<1.2) APTT 31.2 H (22.0-30.0) sec Sodium 136 L (137-145) mmol/L Chloride 96 L (98-107) mmol/L Carbon Dioxide (22-30) mmol/L BUN 22 H (9-20) mg/dL Glucose 134 H (74-99) mg/dL Plasma Lactic Acid Chun (0.7-2.0) mmol/L Calcium (8.4-10.2) mg/dL Total Bilirubin 2.0 H (0.2-1.3) mg/dL AST 1026 H (17-59) U/L ALT 782 H (21-72) U/L Total Protein (6.3-8.2) g/dL Albumin (3.5-5.0) g/dL Lipase 404 H (23-300) U/L Ur Specific [place] (1.001-1.035) Urine Protein (Negative) Urine Ketones (Negative) Urine Bilirubin (Negative) Urine Opiates Screen (NotDetected) U Tricyclic Antidepress (NotDetected) 03/09/18 03/10/18 03/10/18 Range/Units 23:12 01:50 02:54 WBC (3.8-10.6) k/uL Hgb (13.0-17.5) gm/dL Hct (39.0-53.0) % Plt Count (150-450) k/uL Neutrophils # (1.3-7.7) k/uL PT (9.0-12.0) sec INR (<1.2) APTT (22.0-30.0) sec Sodium (137-145) mmol/L Chloride (98-107) mmol/L Carbon Dioxide (22-30) mmol/L BUN (9-20) mg/dL Glucose (74-99) mg/dL Plasma Lactic Acid Chun 3.8 H* 3.5 H* (0.7-2.0) mmol/L Calcium (8.4-10.2) mg/dL Total Bilirubin (0.2-1.3) mg/dL AST (17-59) U/L ALT (21-72) U/L Total Protein (6.3-8.2) g/dL Albumin (3.5-5.0) g/dL Lipase (23-300) U/L Ur Specific [place] 1.050 H (1.001-1.035) Urine Protein Trace H (Negative) Urine Ketones 1+ H (Negative) Urine Bilirubin 1+ H (Negative) Urine Opiates Screen Detected H (NotDetected) U Tricyclic Antidepress Detected H (NotDetected) 03/10/18 03/10/18 03/10/18 Range/Units 06:36 07:45 07:45 WBC 13.4 H (3.8-10.6) k/uL Hgb (13.0-17.5) gm/dL Hct (39.0-53.0) % Plt Count 109 L (150-450) k/uL Neutrophils # 10.6 H (1.3-7.7) k/uL PT (9.0-12.0) sec INR (<1.2) APTT (22.0-30.0) sec Sodium (137-145) mmol/L Chloride (98-107) mmol/L Carbon Dioxide 18 L (22-30) mmol/L BUN (9-20) mg/dL Glucose (74-99) mg/dL Plasma Lactic Acid Chun (0.7-2.0) mmol/L Calcium 7.5 L (8.4-10.2) mg/dL Total Bilirubin (0.2-1.3) mg/dL AST 550 H (17-59) U/L ALT 496 H (21-72) U/L Total Protein 4.9 L (6.3-8.2) g/dL Albumin 2.5 L (3.5-5.0) g/dL Lipase 462 H (23-300) U/L Ur Specific [place] 1.043 H (1.001-1.035) Urine Protein Trace H (Negative) Urine Ketones 1+ H (Negative) Urine Bilirubin 1+ H (Negative) Urine Opiates Screen (NotDetected) U Tricyclic Antidepress (NotDetected) 03/10/18 Range/Units 07:45 WBC (3.8-10.6) k/uL Hgb (13.0-17.5) gm/dL Hct (39.0-53.0) % Plt Count (150-450) k/uL Neutrophils # (1.3-7.7) k/uL PT (9.0-12.0) sec INR (<1.2) APTT (22.0-30.0) sec Sodium (137-145) mmol/L Chloride (98-107) mmol/L Carbon Dioxide (22-30) mmol/L BUN (9-20) mg/dL Glucose (74-99) mg/dL Plasma Lactic Acid Chun 3.5 H* (0.7-2.0) mmol/L Calcium (8.4-10.2) mg/dL Total Bilirubin (0.2-1.3) mg/dL AST (17-59) U/L ALT (21-72) U/L Total Protein (6.3-8.2) g/dL Albumin (3.5-5.0) g/dL Lipase (23-300) U/L Ur Specific [place] (1.001-1.035) Urine Protein (Negative) Urine Ketones (Negative) Urine Bilirubin (Negative) Urine Opiates Screen (NotDetected) U Tricyclic Antidepress (NotDetected) Assessment and Plan Assessment: The presentation of this patient and his history is consistent with acute pancreatitis and alcoholic hepatitis. Other issues include left-sided epididymitis and the findings of evidence of pulmonary embolization on CT. the patient has no evidence of hepatic encephalopathy. His Maddery score on admission is elevated on the account of the elevation of his PT, however, the absence of encephalopathy and the possible presence of infection makes him not likely candidate for steroid therapy and this can be reassessed in the next 24 hours or so based on his course and his repeat PT and bilirubin. Plan: Agree with your current management. Would keep nothing by mouth until his pain subsides and his pancreas enzymes normalize. We will follow closely with you and reevaluate frequently in the next 24 hours.
[2018-03-11] MEDS: THIAMINE 100 MG TAB PO SCH ×2 (11:46→18:00)
--- NOTE | 2018-03-11 12:51 | P.PN ---
Subjective Progress Note Date: 03/11/18 Principal diagnosis: abdominal pain Patient is a 32-year-old male with a past medical history of GERD, alcohol abuse, and prior MRSA who presented with complaints of abdominal pain and testicular pain. In the emergency department he was found to be tachycardic on arrival but his other vital signs were within normal limits. Initial laboratory analysis showed an elevated white blood cell count of 16. Elevated hematocrit at 653 and low platelets at 1:15. He was also found to be coagulopathic with an INR of 2.3. His liver enzymes were significantly elevated with an AST of greater than 1000. Alcohol level is 216. CTA of the chest revealed bilateral lower lobe small pulmonary emboli. Abdominal ultrasound of the left testicle revealed possible epididymitis. CT abdomen and pelvis revealed pancreatitis.. He was admitted for hepatitis, pulmonary embolism, and epididymitis. He was started on Rocephin and doxycycline. Infectious disease, oncology, and GI were consulted. He was made nothing by mouth, started on CIWA protocol, pain control, antibiotics were continued. There was unknown timing for his pulmonary emboli but oncology recommended treating as provoked. GI felt that his hepatitis is likely alcohol induced as his viral hepatitis profile is negative, Tylenol level was negative. Infectious disease felt that epididymitis was unlikely we are currently awaiting gonorrhea and chlamydia testing. He started experiencing increasing alcohol withdrawal on 03/11/18 and was started on Librium. Patient seen and examined at bedside. Abdominal pain is slightly improved from yesterday. No longer feeling nauseous. Is hungry and wants to eat more. Was having some diaphoresis, fidgeting, and tremors this morning prior to Ativan exposure. No shortness of breath or chest pain. We discussed that his alcohol withdrawal will be increasing over the next 24-48 hours and will try to light and with medicines. Also discussed results of his lower extremity Dopplers and most recent blood work. Objective - Vital Signs Vital signs: Vital Signs Temp 98.7 F 03/11/18 06:18 Pulse 70 03/11/18 06:18 Resp 16 03/11/18 06:18 BP 134/87 03/11/18 06:18 Pulse Ox 98 03/11/18 06:18 Intake & Output 03/10/18 03/11/18 03/11/18 18:59 06:59 18:59 Intake Total 482.120 146.685 146.304 Output Total 1200 Balance -717.880 146.685 146.304 Intake: Intake, IV Titration 482.120 146.685 146.304 Amount Heparin Sod,Pork in 0.45% 482.120 146.685 146.304 NaCl 25,000 unit In 0.45 % NaCl 1 500ml.bag @ 18 UNITS/KG/HR 34.29 mls/hr IV .[id number] MARY Rx#: [id number] Output: Urine 1200 Other: Voiding Method Urinal Urinal Urinal # Voids 3 2 - Exam General: non toxic, mild distress, appears older than stated age Derm: warm, dry Head: atraumatic, normocephalic, symmetric Eyes: EOMI, no lid lag, anicteric sclera Mouth: no lip lesion, mucus membranes moist Cardiovascular: S1S2 reg, no murmur, positive posterior tibial pulse bilateral, Lungs: Decreased breath sounds bilateral bases, no rhonchi, no rales , no accessory muscle use Abdominal: soft, tender to palpation epigastric, no guarding, no appreciable organomegaly Ext: no gross muscle atrophy, no edema, no contractures Neuro: CN II-XI grossly intact, no focal neuro deficits Psych: Alert, oriented, appropriate affect - Labs CBC & Chem 7: 03/11/18 02:28 03/11/18 02:28 Labs: Abnormal Lab Results - Last 24 Hours (Table) 03/10/18 03/11/18 03/11/18 Range/Units 17:16 02:28 02:28 Plt Count 99 L (150-450) k/uL Eosinophils # 0.8 H (0-0.7) k/uL INR (<1.2) APTT 134.8 H* (22.0-30.0) sec Sodium 136 L (137-145) mmol/L Calcium 8.2 L (8.4-10.2) mg/dL Total Bilirubin 1.7 H (0.2-1.3) mg/dL AST 305 H (17-59) U/L ALT 380 H (21-72) U/L Total Protein 5.3 L (6.3-8.2) g/dL Albumin 2.7 L (3.5-5.0) g/dL 03/11/18 03/11/18 03/11/18 Range/Units 02:28 02:28 08:47 Plt Count (150-450) k/uL Eosinophils # (0-0.7) k/uL INR 1.2 H (<1.2) APTT 55.6 H 50.8 H (22.0-30.0) sec Sodium (137-145) mmol/L Calcium (8.4-10.2) mg/dL Total Bilirubin (0.2-1.3) mg/dL AST (17-59) U/L ALT (21-72) U/L Total Protein (6.3-8.2) g/dL Albumin (3.5-5.0) g/dL Microbiology - Last 24 Hours (Table) 03/10/18 06:36 Urine Culture - Final Urine,Voided 03/10/18 04:11 Blood Culture - Preliminary Blood No Growth after 24 hours 03/10/18 02:54 Blood Culture - Preliminary Blood No Growth after 24 hours Assessment and Plan Assessment: Hepatitis, Alcoholic -Tylenol level is negative, viral hepatitis profile negative -No liver enlargement -GI recommendations appreciated -Improved with IV fluids and abstinent from alcohol Pancreatitis, likely alcohol induced -IV fluids -full liquid diet -Pain control Delirium tremens - CIWA, add librium - thiamine - folic acid - will need to meet with social work prior to discharge. Pulmonary embolism -Duration unknown -Heparin drip -Heme/Onc recommendations appreciated, treat as provoked clot and hope for oral AC - venous dopple negative pending Epididymitis -Gonorrhea and chlamydia pending -Received Zithromax and is now on doxycycline -Rocephin -infectious disease recommendations apprecaited Coagulopathy likely related to liver dysfunction -follow INR daily Thrombocytopenia, likely reactive to liver disease -Follow CBC Dermatitis, nonspecific, improved -Has been taking steroids as an outpatient -Continue to monitor Elevated lactic acid, resolved DVT prophylaxis: heparin gtt Discussed with: Patient, significant other, RN Anticipated discharge: 2-[address]: home A total of 35 minutes was spent on the care of this complex patient more than 50 % of the time was spent in counseling and care coordination.
[2018-03-11 19:42] LABS: HIV AB P24 Non-Reactive (Non-Reactive); HIV P24 AG Non-Reactive (Non-Reactive)
--- NOTE | 2018-03-11 20:33 | PN ---
PROGRESS NOTE DATE OF SERVICE: 03/11/2018. REASON FOR FOLLOW UP: 1. Left epididymitis, possible STD. 2. Alcohol induced pancreatitis. 3. Elevated liver enzymes likely secondary to alcohol. INTERVAL HISTORY: The patient is afebrile. He is breathing comfortably. Denies having any chest pain, shortness of breath or cough. Abdominal pain slightly improved. No nausea, vomiting. Currently no pain referable to left testicle area. Denies having any urethral drainage. EXAMINATION: Blood pressure 134/85, pulse of 56, temperature 98.8. She is 98% on room air. General description is a middle-aged male lying in bed in no distress. Respiratory system: Unlabored breathing. Clear to auscultation anteriorly. Heart S1, S2. Regular rate and rhythm. Abdomen soft, minimally tender in the epigastric area. Examination anteriorly currently with no swelling. No redness. Extremities: No edema of feet. LABS: Hemoglobin is 14.7, white count 9.3 with a BUN of 12, creatinine 0.90. DIAGNOSTIC IMPRESSION AND PLAN: 1. Patient presented with multiple symptoms including epigastric pain, more likely related to alcohol related pancreatitis. 2. Patient with left testicular pain ultrasound suggests possible epididymitis, currently no feature with no swelling, no redness. We are waiting for the chlamydia as well as the testing. The patient will be continued on Rocephin and doxy at this point while waiting for the blood culture to be completed and seemed to have clinically responding to it. Continue supportive care. MMODL / IJN: [id number] /
[2018-03-11] MEDS: chlordiazePOXIDE 5 MG CAPSULE PO SCH (22:24)
[2018-03-11] MEDS: MORPHINE ORAL SOLN 10 MG/5 ML CUP PO PRN (22:25)
[2018-03-11] MEDS: LORazepam 2 MG/ML INJ IV PRN (22:25)
[2018-03-12] MEDS: LORazepam 2 MG/ML INJ IV PRN ×2 (01:15→05:32)
[2018-03-12] MEDS: SODIUM CHLORIDE 0.9% 1,000 ML IV SCH ×3 (05:32→23:38)
[2018-03-12 09:19] LABS: Partial Thromboplastin Time 36.7 sec (22.0-30.0); Prothrombin Time 10.1 sec (9.0-12.0)
[2018-03-12] MEDS: cefTRIAXone IN SWFI 1,000 MG/10 ML SYRINGE IVP SCH (09:23)
[2018-03-12] MEDS: DOXYCYCLINE 50 MG CAP PO SCH ×2 (09:23→22:17)
[2018-03-12] MEDS: PANTOPRAZOLE 40 MG TABLET PO SCH (09:23)
[2018-03-12 09:25] LABS: HCT 38.5 % (39.0-53.0); HGB 14.1 gm/dL (13.0-17.5); MCH 35.1 pg (25.0-35.0); MCHC 36.7 g/dL (31.0-37.0); MCV 95.5 fL (80.0-100.0); Mean Platelet Volume 7.9; RBC 4.04 m/uL (4.30-5.90); RDW 13.4 % (11.5-15.5); WBC 7.1 k/uL (3.8-10.6)
[2018-03-12] MEDS: chlordiazePOXIDE 5 MG CAPSULE PO SCH ×2 (09:25→22:22)
[2018-03-12 09:45] LABS: Platelet Count 88 k/uL (150-450)
[2018-03-12 09:47] LABS: ALT 249 U/L (21-72); AST 105 U/L (17-59); Albumin 2.7 g/dL (3.5-5.0); Alkaline Phosphatase 86 U/L (38-126); Anion Gap 6 mmol/L; Blood Urea Nitrogen 10 mg/dL (9-20); Calcium 8.3 mg/dL (8.4-10.2); Carbon Dioxide 29 mmol/L (22-30); Chloride 102 mmol/L (98-107); Glucose 102 mg/dL (74-99); Potassium 3.5 mmol/L (3.5-5.1); Sodium 137 mmol/L (137-145); Total Bilirubin 0.9 mg/dL (0.2-1.3); Total Protein 5.3 g/dL (6.3-8.2)
--- NOTE | 2018-03-12 10:23 | P.PN ---
Subjective Progress Note Date: 03/12/18 Principal diagnosis: Alcohol hepatitis pancreatitis Admitted with acute alcohol hepatitis pancreatitis. Feeling better. LFTs improving. Mild abdominal pain. Tolerating full liquids. Afebrile. Objective - Vital Signs Vital signs: Vital Signs Temp 98.1 F 03/12/18 07:00 Pulse 70 03/12/18 07:00 Resp 18 03/12/18 07:00 BP 137/88 03/12/18 07:00 Pulse Ox 100 03/12/18 07:00 Intake & Output 03/11/18 03/12/18 03/12/18 18:59 06:59 18:59 Intake Total 5565.418 0607.561 256.032 Output Total 2300 Balance 1346.304 -802.439 256.032 Intake: Intake, IV Titration 146.304 297.561 256.032 Amount Heparin Sod,Pork in 0.45% 146.304 297.561 256.032 NaCl 25,000 unit In 0.45 % NaCl 1 500ml.bag @ 18 UNITS/KG/HR 34.29 mls/hr IV .[id number] MARY Rx#: [id number] Oral 1200 1200 Output: Urine 2300 Other: Voiding Method Urinal Urinal # Voids 6 - Exam General appearance: The patient is alert, oriented, in no acute distress. HET: Head is normocephalic and atraumatic. Pupils are equal and reactive. Oropharynx is clear without lesions. Neck: Supple without lymphadenopathy. Trachea midline. Heart: S1 S2. Regular rate and rhythm. Lungs: No crackles or wheezes are heard. Abdomen: Soft, mild midepigastric left upper quadrant tenderness, nondistended with bowel sounds. No peritoneal signs. No palpable organomegaly or masses. Extremities: Normal skin color and turgor. No cyanosis, rash, ulceration, clubbing, or edema. Radial and pedal pulses are 2/4 bilaterally. Neurological: No focal deficits. Strength and sensation are grossly intact. - Labs CBC & Chem 7: 03/12/18 08:34 03/12/18 08:34 Labs: Abnormal Lab Results - Last 24 Hours (Table) 03/12/18 03/12/18 03/12/18 Range/Units 08:34 08:34 08:34 RBC 4.04 L (4.30-5.90) m/uL Hct 38.5 L (39.0-53.0) % MCH 35.1 H (25.0-35.0) pg Plt Count 88 L (150-450) k/uL APTT 36.7 H (22.0-30.0) sec Glucose 102 H (74-99) mg/dL Calcium 8.3 L (8.4-10.2) mg/dL AST 105 H (17-59) U/L ALT 249 H (21-72) U/L Total Protein 5.3 L (6.3-8.2) g/dL Albumin 2.7 L (3.5-5.0) g/dL Microbiology - Last 24 Hours (Table) 03/10/18 04:11 Blood Culture - Preliminary Blood No Growth after 48 hours 03/10/18 02:54 Blood Culture - Preliminary Blood No Growth after 48 hours 03/10/18 06:36 Urine Culture - Final Urine,Voided Assessment and Plan (1) Acute alcoholic hepatitis Current Visit: Yes Status: Acute Code(s): K70.10 - ALCOHOLIC HEPATITIS WITHOUT ASCITES SNOMED Code(s): 1991569 (2) Acute pancreatitis Narrative/Plan: Suspect alcohol-induced Current Visit: Yes Status: Acute Code(s): K85.90 - ACUTE PANCREATITIS WITHOUT NECROSIS OR INFECTION, UNSP SNOMED Code(s): 612069564 (3) ETOH abuse Current Visit: Yes Status: Acute Code(s): F10.10 - ALCOHOL ABUSE, UNCOMPLICATED SNOMED Code(s): 90843408 (4) History of ETOH abuse Current Visit: Yes Status: Acute Code(s): Z87.898 - PERSONAL HISTORY OF OTHER SPECIFIED CONDITIONS SNOMED Code(s): 912380423 (5) Pulmonary embolism Narrative/Plan: History of pulmonary embolism Current Visit: Yes Status: Resolved Code(s): I26.99 - OTHER PULMONARY EMBOLISM WITHOUT ACUTE COR PULMONALE SNOMED Code(s): 95385822 (6) Thrombocytopenia Narrative/Plan: Suspect secondary to underlying alcohol liver disease Current Visit: Yes Status: Acute Code(s): D69.6 - THROMBOCYTOPENIA, UNSPECIFIED SNOMED Code(s): 661288845 Plan: 1. Will advance to low-fat diet. Alcohol abstinence is strongly advised. Continue with supportive measures. From a GI standpoint no further workup. We' ll follow as needed. Discharge per medicine and consultants. Assessment and plan of care discussed with Dr. Bundy
[2018-03-12] MEDS: THIAMINE 100 MG TAB PO SCH ×2 (12:50→16:54)
--- NOTE | 2018-03-12 13:00 | P.PN ---
Subjective Progress Note Date: 03/12/18 Principal diagnosis: abdominal pain Patient is a 32-year-old male with a past medical history of GERD, alcohol abuse, and prior MRSA who presented with complaints of abdominal pain and testicular pain. In the emergency department he was found to be tachycardic on arrival but his other vital signs were within normal limits. Initial laboratory analysis showed an elevated white blood cell count of 16. Elevated hematocrit at 653 and low platelets at 1:15. He was also found to be coagulopathic with an INR of 2.3. His liver enzymes were significantly elevated with an AST of greater than 1000. Alcohol level is 216. CTA of the chest revealed bilateral lower lobe small pulmonary emboli. Abdominal ultrasound of the left testicle revealed possible epididymitis. CT abdomen and pelvis revealed pancreatitis.. He was admitted for hepatitis, pulmonary embolism, and epididymitis. He was started on Rocephin and doxycycline. Infectious disease, oncology, and GI were consulted. He was made nothing by mouth, started on CIWA protocol, pain control, antibiotics were continued. There was unknown timing for his pulmonary emboli but oncology recommended treating as provoked. GI felt that his hepatitis is likely alcohol induced as his viral hepatitis profile is negative, Tylenol level was negative. Infectious disease felt that epididymitis was unlikely we are currently awaiting gonorrhea and chlamydia testing. He started experiencing increasing alcohol withdrawal on 03/11/18 and was started on Librium. He's been followed by GI and they felt that his pancreatitis and hepatitis were secondary to alcohol-induced cleared him for discharge. However he still requiring IV Ativan has had worsening of his seawater scores despite Librium use. We are also still awaiting his gonorrhea and chlamydia testing. I have suggested that we keep him in the hospital 1 additional day to ensure that his alcohol withdrawal does not worsen. He will also meet with social work. Patient seen and examined at bedside. Abdominal pain is much better. Tolerating diet. Excited to eat more. No chest pain or shortness of breath. This morning around 6 AM he was very diaphoretic, shaky, nauseous and did not feel good. Received a dose of Ativan and felt slightly better. No longer having hallucinations. Wants to quit and he leaves the hospital. Objective - Vital Signs Vital signs: Vital Signs Temp 98.1 F 03/12/18 07:00 Pulse 70 03/12/18 07:00 Resp 18 03/12/18 07:00 BP 137/88 03/12/18 07:00 Pulse Ox 100 03/12/18 07:00 Intake & Output 03/11/18 03/12/18 03/12/18 18:59 06:59 18:59 Intake Total 7844.219 4983.561 256.032 Output Total 2300 Balance 1346.304 -802.439 256.032 Intake: Intake, IV Titration 146.304 297.561 256.032 Amount Heparin Sod,Pork in 0.45% 146.304 297.561 256.032 NaCl 25,000 unit In 0.45 % NaCl 1 500ml.bag @ 18 UNITS/KG/HR 34.29 mls/hr IV .[id number] MARY Rx#: [id number] Oral 1200 1200 Output: Urine 2300 Other: Voiding Method Urinal Urinal # Voids 6 - Exam General: non toxic, mild distress, appears older than stated age Derm: warm, dry Head: atraumatic, normocephalic, symmetric Eyes: EOMI, no lid lag, anicteric sclera Mouth: no lip lesion, mucus membranes moist Cardiovascular: S1S2 reg, no murmur, positive posterior tibial pulse bilateral, Lungs: CTA b/l, no rhonchi, no rales , no accessory muscle use Abdominal: soft, tender to palpation epigastric, no guarding, no appreciable organomegaly Ext: no gross muscle atrophy, no edema, no contractures Neuro: CN II-XI grossly intact, no focal neuro deficits, + tremors Psych: Alert, oriented, appropriate affect, fidigity - Labs CBC & Chem 7: 03/12/18 08:34 03/12/18 08:34 Labs: Abnormal Lab Results - Last 24 Hours (Table) 03/12/18 03/12/18 03/12/18 Range/Units 08:34 08:34 08:34 RBC 4.04 L (4.30-5.90) m/uL Hct 38.5 L (39.0-53.0) % MCH 35.1 H (25.0-35.0) pg Plt Count 88 L (150-450) k/uL APTT 36.7 H (22.0-30.0) sec Glucose 102 H (74-99) mg/dL Calcium 8.3 L (8.4-10.2) mg/dL AST 105 H (17-59) U/L ALT 249 H (21-72) U/L Total Protein 5.3 L (6.3-8.2) g/dL Albumin 2.7 L (3.5-5.0) g/dL Microbiology - Last 24 Hours (Table) 03/10/18 04:11 Blood Culture - Preliminary Blood No Growth after 48 hours 03/10/18 02:54 Blood Culture - Preliminary Blood No Growth after 48 hours Assessment and Plan Assessment: Hepatitis, Alcoholic, improving -Tylenol level is negative, viral hepatitis profile negative -No liver enlargement -GI recommendations appreciated -Improved with IV fluids and abstinent from alcohol Pancreatitis, likely alcohol induced -IV fluids -soft diet -Pain control Delirium tremens - CIWA, librium - thiamine - folic acid Pulmonary embolism -Duration unknown -Heparin drip change to xarelto -Heme/Onc recommendations appreciated, treat as provoked clot and hope for oral AC for 6 months, check xarelto coverage - venous doppler negative pending Epididymitis -Gonorrhea and chlamydia pending -Received Zithromax and is now on doxycycline -Rocephin -infectious disease recommendations apprecaited Coagulopathy likely related to liver dysfunction -follow INR daily Thrombocytopenia, likely reactive to liver disease -Follow CBC - heparin gtt stopped Dermatitis, nonspecific, improved -Has been taking steroids as an outpatient -Continue to monitor Elevated lactic acid, resolved - However he still requiring IV Ativan despite Librium use. We are also still awaiting his gonorrhea and chlamydia testing. I have suggested that we keep him in the hospital 1 additional day to ensure that his alcohol withdrawal does not worsen. He will also meet with social work. DVT prophylaxis: heparin gtt Discussed with: Patient, significant other, RN Anticipated discharge: 24-[address]: home A total of 35 minutes was spent on the care of this complex patient more than 50 % of the time was spent in counseling and care coordination.
[2018-03-12] MEDS: HEPARIN SOD,PORK IN 0.45% NACL 25,000 UNIT in 0.45% NACL 1 500ML.BAG IV SCH (13:08)
[2018-03-12 15:15] LABS: N. gonorrhoeae,PCR Negative (Neg,Equiv); Neisseria Source Urine
[2018-03-12 15:16] LABS: C. trachomatis,PCR Negative (Neg,Equiv); Chlamydia trachomatis Source Urine
[2018-03-12] MEDS: RIVAROXABAN 15 MG TAB PO SCH (16:54)
--- NOTE | 2018-03-12 17:25 | PN ---
PROGRESS NOTE DATE OF SERVICE: 03/12/2018. REASON FOR FOLLOWUP: Left epididymitis. INTERVAL HISTORY: The patient is afebrile. He is feeling better. His abdominal pain has improved. Denies any chest pain, shortness of breath or cough. No abdominal pain and denies any pain in the testicular area or any noticeable drainage. EXAMINATION: Blood pressure 134/77 with a pulse of 79. Temperature 97.9. He is 97% on room air. General description is a young male lying in bed in no distress. RESPIRATORY SYSTEM: Unlabored breathing. Clear to auscultation anteriorly. HEART: S1, S2. Regular rate and rhythm. ABDOMEN: Soft, no tenderness. Left testicular: No swelling, no redness or any drainage. LAB: HIV test came back to be negative. Urine culture has been negative. DIAGNOSTIC IMPRESSION AND PLAN: Patient with left epididymitis, mild, overall responding to Rocephin and doxycycline. To finish therapy with oral doxycycline for another week. Continue with supportive care. MMODL / IJN: [id number] /
[2018-03-13 02:51] VITALS: RESP 18
[2018-03-13] MEDS: SODIUM CHLORIDE 0.9% 1,000 ML IV SCH (06:50)
[2018-03-13 07:39] VITALS: BP 121/71; PULSE 60; TEMP 98.1
[2018-03-13 08:20] LABS: HCT 42.7 % (39.0-53.0); HGB 14.6 gm/dL (13.0-17.5); MCH 33.5 pg (25.0-35.0); MCHC 34.3 g/dL (31.0-37.0); MCV 97.6 fL (80.0-100.0); Mean Platelet Volume 7.8; Platelet Count 122 k/uL (150-450); RBC 4.37 m/uL (4.30-5.90); RDW 13.4 % (11.5-15.5)
[2018-03-13 08:33] LABS: ALT 222 U/L (21-72); AST 76 U/L (17-59); Albumin 3.1 g/dL (3.5-5.0); Alkaline Phosphatase 107 U/L (38-126); Anion Gap 9 mmol/L; Blood Urea Nitrogen 9 mg/dL (9-20); Calcium 8.6 mg/dL (8.4-10.2); Carbon Dioxide 29 mmol/L (22-30); Chloride 102 mmol/L (98-107); Glucose 90 mg/dL (74-99); Magnesium 1.8 mg/dL (1.6-2.3); Potassium 4.1 mmol/L (3.5-5.1); Sodium 140 mmol/L (137-145); Total Bilirubin 0.6 mg/dL (0.2-1.3); Total Protein 5.9 g/dL (6.3-8.2)
[2018-03-13] MEDS: cefTRIAXone IN SWFI 1,000 MG/10 ML SYRINGE IVP SCH (08:44)
[2018-03-13] MEDS: chlordiazePOXIDE 5 MG CAPSULE PO SCH (08:45)
[2018-03-13] MEDS: RIVAROXABAN 15 MG TAB PO SCH (08:46)
[2018-03-13] MEDS: DOXYCYCLINE 50 MG CAP PO SCH (08:46)
[2018-03-13] MEDS: PANTOPRAZOLE 40 MG TABLET PO SCH (08:46)
[2018-03-13] MEDS: MORPHINE ORAL SOLN 10 MG/5 ML CUP PO PRN (10:58)
[2018-03-13] MEDS: THIAMINE 100 MG TAB PO SCH (10:58)
[2018-03-13] MEDS ORDERED: INFLUENZA VACCINE (6 MOS+) 60 MCG/0.5 ML SYRINGE IM ONE (13:30)
--- NOTE | 2018-03-13 13:48 | P.DS ---
Providers Date of admission: 03/10/18 02:06 Expected date of discharge: 03/13/18 Attending physician: Yobani Nunn MD Consults: 03/10/18 06:06 Consult Physician Routine Consulting Provider: Satya Arreola Consult Reason/Comments: PE Do you want consulting provider notified?: Yes 03/10/18 06:07 Consult Physician Routine Consulting Provider: Marilou Washington Consult Reason/Comments: sepsis/epididymitis Do you want consulting provider notified?: Yes Primary care physician: Rinku Vega - Discharge Diagnosis(es) (1) Severe sepsis Current Visit: Yes Status: Acute (2) Acute pancreatitis Current Visit: Yes Status: Acute (3) Epididymitis Current Visit: Yes Status: Acute (4) Acute hepatitis Current Visit: Yes Status: Acute (5) Bilateral pulmonary embolism Current Visit: Yes Status: Acute (6) Coagulopathy Current Visit: Yes Status: Acute (7) Chronic alcohol dependence, continuous Current Visit: Yes Status: Acute Hospital Course: Patient is a 32-year-old male with a past medical history of GERD, alcohol abuse, and prior MRSA who presented with complaints of abdominal pain and testicular pain. In the emergency department he was found to be tachycardic on arrival but his other vital signs were within normal limits. Initial laboratory analysis showed an elevated white blood cell count of 16. Elevated hematocrit at 653 and low platelets at 1:15. He was also found to be coagulopathic with an INR of 2.3. His liver enzymes were significantly elevated with an AST of greater than 1000. Alcohol level is 216. CTA of the chest revealed bilateral lower lobe small pulmonary emboli. Abdominal ultrasound of the left testicle revealed possible epididymitis. CT abdomen and pelvis revealed pancreatitis.. He was admitted for hepatitis, pulmonary embolism, and epididymitis. He was started on Rocephin and doxycycline. Infectious disease, oncology, and GI were consulted. He was made nothing by mouth, started on CIWA protocol, pain control, antibiotics were continued. There was unknown timing for his pulmonary emboli but oncology recommended treating as provoked. GI felt that his hepatitis is likely alcohol induced as his viral hepatitis profile is negative, Tylenol level was negative. Infectious disease felt that epididymitis was unlikely we are currently awaiting gonorrhea and chlamydia testing. He started experiencing increasing alcohol withdrawal on 03/11/18 and was started on Librium. He's been followed by GI and they felt that his pancreatitis and hepatitis were secondary to alcohol-induced cleared him for discharge. He was subsequently discharged in stable condition with new prescriptions for doxycycline 100 mg by mouth twice a day and Xarelto 50 mg by mouth twice a day. The patient was instructed to follow-up with primary care provider and Dr. Arreola. This discharge process took approximately 35 minutes Patient Condition at Discharge: Good Plan - Discharge Summary Discharge Rx Participant: No New Discharge Prescriptions: New Doxycycline [Vibramycin] 100 mg PO BID #14 cap Rivaroxaban [Xarelto] 15 mg PO BID-W/MEALS #60 tab Continue QUEtiapine [SEROquel] 50 mg PO HS buPROPion XL [Wellbutrin XL] 450 mg PO DAILY Escitalopram [Lexapro] 20 mg PO DAILY Dicyclomine [Bentyl] 20 mg PO QID PRN #20 tablet PRN Reason: Pain Omeprazole [PriLOSEC] 40 mg PO DAILY #30 capsule. Ondansetron [Zofran ODT] 8 mg PO Q8HR PRN #12 tab PRN Reason: Nausea Omeprazole 20 mg PO DAILY PRN PRN Reason: GERD Discontinued predniSONE 20 mg PO BID #10 tab Discharge Medication List Dicyclomine [Bentyl] 20 mg PO QID PRN #20 tablet 03/05/18 [Rx] Escitalopram [Lexapro] 20 mg PO DAILY 03/05/18 [History] Omeprazole [PriLOSEC] 40 mg PO DAILY #30 capsule. 03/05/18 [Rx] Ondansetron [Zofran ODT] 8 mg PO Q8HR PRN #12 tab 03/05/18 [Rx] QUEtiapine [SEROquel] 50 mg PO HS 03/05/18 [History] buPROPion XL [Wellbutrin XL] 450 mg PO DAILY 03/05/18 [History] Omeprazole 20 mg PO DAILY PRN 03/10/18 [History] Doxycycline [Vibramycin] 100 mg PO BID #14 cap 03/13/18 [Rx] Rivaroxaban [Xarelto] 15 mg PO BID-W/MEALS #60 tab 03/13/18 [Rx] Follow up Appointment(s)/Referral(s): Satya Arreola MD [STAFF PHYSICIAN] - 04/10/18 3:00 pm Rinku Vega DO [Primary Care Provider] - 1 Week (Office closed for lunch till 2 pm. Please call to schedule appointment. [phone]) Patient Instructions/Handouts: Pulmonary Embolism (DC), Alcoholic Hepatitis (DC ) Activity/Diet/Wound Care/Special Instructions: Regular diet. Activity as tolerated. NO alcohol use. References provided. Discharge Disposition: HOME SELF-CARE
--- NOTE | 2018-03-13 14:11 | PN ---
PROGRESS NOTE DATE OF SERVICE: 03/13/2018. REASON FOR FOLLOWUP: Left epididymitis. INTERVAL HISTORY: The patient is afebrile. He is breathing comfortably. Abdominal pain has improved. No nausea, vomiting. No diarrhea. Overall pain and swelling to the left scrotal area has resolved. Denies having any urethral drainage. EXAMINATION: Blood pressure 121/71 with a pulse of 53, temperature 98.1. He is 100% on room air. General description is a middle-aged male lying in bed in no distress. RESPIRATORY SYSTEM: Unlabored breathing. Clear to auscultation anteriorly. HEART: S1, S2. Regular rate and rhythm. No tenderness. Examination of the testicular area. There was no swelling, no redness. No drainage was noticed. LABS: White count 7.0, creatinine 0.72. DIAGNOSTIC IMPRESSION AND PLAN: Patient with left testicular pain with concern for possible epididymitis. His chlamydia and gonorrhea for came back negative. Overall improvement on Rocephin and doxycycline. Will get another week of oral doxycycline. Continue supportive care. MMODL / IJN: [id number] /
== END 2018-03-13 15:24 | disposition home or self-care (01) | DRG 871 ==
LOC: EC 22:42 → 4MS4W 03-10 02:06
PROVIDERS: ADMIT Family Medicine; ATTEND Family Medicine
DX: A41.9 Sepsis, unspecified organism (principal); I26.99 Other pulmonary embolism without acute cor pulmonale; K85.20 Alcohol induced acute pancreatitis without necrosis or infection; F10.231 Alcohol dependence with withdrawal delirium; E46 Unspecified protein-calorie malnutrition; D68.9 Coagulation defect, unspecified; K70.10 Alcoholic hepatitis without ascites; R65.20 Severe sepsis without septic shock; F17.290 Nicotine dependence, other tobacco product, uncomplicated; F43.10 Post-traumatic stress disorder, unspecified; F41.9 Anxiety disorder, unspecified; F32.9 Major depressive disorder, single episode, unspecified; K21.9 Gastro-esophageal reflux disease without esophagitis; R21 Rash and other nonspecific skin eruption; Y90.7 Blood alcohol level of 200-239 mg/100 ml; D69.6 Thrombocytopenia, unspecified; L30.9 Dermatitis, unspecified; N45.1 Epididymitis; Z79.899 Other long term (current) drug therapy; Z79.52 Long term (current) use of systemic steroids; Z82.49 Family history of ischemic heart disease and other diseases of the circulatory system; Z86.14 Personal history of Methicillin resistant Staphylococcus aureus infection; Z86.19 Personal history of other infectious and parasitic diseases; Z80.3 Family history of malignant neoplasm of breast; Z82.62 Family history of osteoporosis; Z86.59 Personal history of other mental and behavioral disorders; Z83.49 Family history of other endocrine, nutritional and metabolic diseases; Z86.711 Personal history of pulmonary embolism
CPT/HCPCS: 36415; 71275; 74177; 76870; 80053; 80074; 80306; 80320; 81003; 82150; 82272; 83520; 83605; 83690; 83735; 84100; 85025; 85027; 85610; 85730; 87040; 87086; 87390; 87491; 87591; 90686; 93005; 93970; 93975

== ENCOUNTER 2018-03-25 05:57 | Inpatient (IN) | payer BC ==
[2018-03-25] MEDS ORDERED: THIAMINE 100 MG/ML 2 ML VIAL IM STA (06:03)
[2018-03-25] MEDS ORDERED: LORazepam 2 MG/ML INJ IV PRN (06:03)
[2018-03-25] MEDS ORDERED: SODIUM CHLORIDE 0.9% 1,000 ML IV STA (06:04)
[2018-03-25] MEDS ORDERED: ONDANSETRON 4 MG/2 ML VIAL IVP STA ×2 (06:09→06:20)
[2018-03-25] MEDS ORDERED: PANTOPRAZOLE 40 MG/10 ML VIAL IVP STA (06:09)
[2018-03-25] MEDS: LORazepam 2 MG/ML INJ IV PRN ×5 (06:11→23:09)
[2018-03-25 06:14] LABS: HCT 43.6 % (39.0-53.0); HGB 15.5 gm/dL (13.0-17.5); MCH 32.8 pg (25.0-35.0); MCHC 35.5 g/dL (31.0-37.0); Mean Platelet Volume 6.7; Platelet Count 224 k/uL (150-450); RBC 4.72 m/uL (4.30-5.90); WBC 6.7 k/uL (3.8-10.6)
[2018-03-25 06:23] LABS: INR 1.2 (<1.2); Partial Thromboplastin Time 23.3 sec (22.0-30.0); Prothrombin Time 11.2 sec (9.0-12.0)
[2018-03-25 06:25] LABS: ALT 132 U/L (21-72); AST 210 U/L (17-59); Albumin 3.3 g/dL (3.5-5.0); Alkaline Phosphatase 104 U/L (38-126); Anion Gap 16 mmol/L; Blood Urea Nitrogen 18 mg/dL (9-20); Calcium 8.6 mg/dL (8.4-10.2); Carbon Dioxide 23 mmol/L (22-30); Chloride 93 mmol/L (98-107); Glucose 108 mg/dL (74-99); Potassium 3.3 mmol/L (3.5-5.1); Sodium 132 mmol/L (137-145); Total Bilirubin 1.2 mg/dL (0.2-1.3)
--- NOTE | 2018-03-25 06:25 | ED ---
General Adult HPI - General Chief complaint: Anxiety Stated complaint: withdrawals Time Seen by Provider: 03/25/18 06:01 Source: patient Mode of arrival: ambulatory Limitations: no limitations - History of Present Illness Initial comments: 32 years old male comes in with the shakes and nausea vomiting. He has been drinking heavily for the last 1 month last drink was about 12 hours ago now he feels that he needs help with his drinking.. He denies any headache no neck stiffness no chest pain no shortness of breath mild discomfort in the epigastric area no abdominal pain no frequency urgency dysuria no symptoms of TIA or CVA - Related Data Home Medications Medication Instructions Recorded Confirmed Escitalopram [Lexapro] 20 mg PO DAILY 03/05/18 03/25/18 QUEtiapine [SEROquel] 50 mg PO HS 03/05/18 03/25/18 buPROPion XL [Wellbutrin XL] 450 mg PO DAILY 03/05/18 03/25/18 Omeprazole 20 mg PO DAILY PRN 03/10/18 03/25/18 Previous Rx's Medication Instructions Recorded Dicyclomine [Bentyl] 20 mg PO QID PRN #20 tablet 03/05/18 Omeprazole [PriLOSEC] 40 mg PO DAILY #30 capsule. 03/05/18 Ondansetron [Zofran ODT] 8 mg PO Q8HR PRN #12 tab 03/05/18 Rivaroxaban [Xarelto] 15 mg PO BID-W/MEALS #60 tab 03/13/18 Allergies Allergy/AdvReac Type Severity Reaction Status Date / Time No Known Allergies Allergy Verified 03/25/18 06:04 Review of Systems ROS Statement: Those systems with pertinent positive or pertinent negative responses have been documented in the HPI. ROS Other: All systems not noted in ROS Statement are negative. Past Medical History Past Medical History: GERD/Reflux Additional Past Medical History / Comment(s): etoh History of Any Multi-Drug Resistant Organisms: MRSA Date of last positivie culture/infection: 2009 MDRO Source:: right knee Past Surgical History: No Surgical Hx Reported Additional Past Surgical History / Comment(s): 07/08/17 had 3 teeth extracted- post procedure pain worsened and pt went back to on had a 2nd procedure done for an exposed nerve. Past Anesthesia/Blood Transfusion Reactions: No Reported Reaction Past Psychological History: Anxiety, Depression, PTSD Smoking Status: Former smoker Past Alcohol Use History: Abuse, Daily, Heavy Past Drug Use History: None Reported - Past Family History Father Additional Family Medical History / Comment(s): anxiety Mother Family Medical History: Cancer, Hyperlipidemia, Hypertension, Thyroid Disorder Additional Family Medical History / Comment(s): breast cancer, shingles, osteoporosis, anxiety General Exam - General Exam Comments Initial Comments: General: The patient is awake and alert, in no obvious distress GCS is 15 Skin: Skin is warm and dry and no rashes or lesions are noted. Eye: Pupils are equal, round and reactive to light, extra-ocular movements are intact; there is normal conjunctiva bilaterally. Ears, nose, mouth and throat: Mucosa looks dry Neck: The neck is supple, there is no tenderness, or signs of any meningitis he could move his neck with full range of motion. Cardiovascular: There is a regular rate and rhythm. No murmur, rub or gallop is appreciated. Respiratory: To auscultation bilateral, no wheezing no rhonchi no distress respiratory yang noticed Gastrointestinal: Soft, non-distended, non-tender abdomen without masses or organomegaly noted. There is no rebound or guarding present. Bowel sounds are unremarkable. Back: There is no tenderness to palpation in the midline. There is no obvious deformity. Musculoskeletal: Normal ROM, no tenderness, There is no pedal edema. There is no calf tenderness or swelling. No cords were appreciated. Neurological: CN II-XII intact, Cranial nerves III through XII are intact. There are no obvious motor or sensory deficits. Coordination appears grossly intact. Speech is normal. Psychiatric: Cooperative, appropriate mood & affect, normal judgment. Anxious denies any suicidal or homicidal ideation Limitations: no limitations Course Vital Signs 03/25/18 05:59 Temperature 97.8 F Pulse Rate 96 Respiratory 18 Rate Blood Pressure 129/87 O2 Sat by Pulse 98 Oximetry EKG Findings - EKG Comments: EKG Findings:: EKG is normal sinus rhythm ventricular rate is 74 PA interval is 162 QRS duration is 100 QT/QTc is 468/51. Review of this EKG does not reveal any ST elevation or ST depression Disposition Clinical Impression: Alcohol withdrawal Disposition: ADMITTED IP TO THIS HOSP Condition: Good Instructions: Generalized Anxiety Disorder (ED) Referrals: Rinku Vega DO [Primary Care Provider] - 1-2 days
[2018-03-25 06:30] LABS: MCV 92.4 fL (80.0-100.0)
[2018-03-25] MEDS ORDERED: NALOXONE 0.4 MG/ML 1 ML VIAL IV PRN (06:30)
[2018-03-25] MEDS ORDERED: ACETAMINOPHEN TAB 325 MG TAB PO PRN (06:30)
[2018-03-25] MEDS ORDERED: ONDANSETRON 4 MG/2 ML VIAL IVP PRN (06:30)
[2018-03-25 07:01] LABS: Basophils # (M) 0.07 k/uL (0-0.2); Eosinophils # (M) 0.27 k/uL (0-0.7); Lymphocytes # (M) 0.47 k/uL (1.0-4.8); Monocytes # (M) 0.13 k/uL (0-1.0); Neutrophils # (M) 5.76 k/uL (1.3-7.7); Neutrophils % (M) 86 %; Nucleated Red Blood Cells 0 /100 WBC (0-0); Total Cells Counted 100
--- NOTE | 2018-03-25 07:07 | XR ---
EXAM: XR Chest, 2 Views. CLINICAL HISTORY: Reason: Pain TECHNIQUE: Frontal and lateral views of the chest. COMPARISON: No relevant prior studies available. FINDINGS: Lungs: Unremarkable. No consolidation. Pleural spaces: Unremarkable. No pneumothorax. Heart: Unremarkable. No cardiomegaly. Mediastinum: Unremarkable. Bones: Unremarkable. No acute fracture. IMPRESSION: Normal chest.
[2018-03-25] MEDS: RIVAROXABAN 15 MG TAB PO SCH ×2 (08:26→17:42)
[2018-03-25] MEDS: buPROPion XL 150 MG TAB.ER.24H PO SCH (08:26)
[2018-03-25] MEDS: ESCITALOPRAM 20 MG TAB PO SCH (08:26)
[2018-03-25] MEDS: THIAMINE 100 MG TAB PO SCH (17:42)
--- NOTE | 2018-03-25 19:06 | PN ---
PROGRESS NOTE CHIEF COMPLAINT: A 32-year-old white male admitted came in with shakes, nausea, vomiting. He has been drinking heavily for the past 1 month due to severe stress, at home paying bills. No chest pain. No shortness of breath. Mild discomfort in the epigastric area. No abdominal pain. No frequency, urgency or hesitancy. No TIA. HOME MEDICINES: Include Lexapro 20 mg daily, Seroquel 50 daily, Wellbutrin XL 450 daily, omeprazole 20 daily, Xarelto 15 b.i.d., Zofran [id number] . REVIEW OF SYSTEMS: Fourteen point review of systems negative except for mentioned in HPI. MEDICAL HISTORY: History of GERD, MRSA, 3 teeth extracted, anxiety and depression, former smoker, heavy alcohol abuse. FAMILY HISTORY: Father anxiety. Mother cancer, dyslipidemia, hypertension, hypothyroidism, breast cancer. Family history of breast cancer. PHYSICAL EXAM: Temp 97.8, pulse 96, respiration 18, blood pressure 130s over 80s, O2 98% on room air. Cardiovascular S1, S2. LUNGS: Clear. GI soft. Hematology negative Homans. Psych: He as tremors x4 extremities, [id number]. Psych: Poor mood and affect. Appears very anxious and nervous. ENT external ear canals within normal limits. Ophthalmologic: Pupils equal, round, reactive to light and accommodation. GI soft, nontender. NEUROLOGIC: Cranial nerves are intact. EKG shows sinus rhythm. ASSESSMENT: Alcohol withdrawal, anxiety, depression. Continue on current [facility] protocol. Alcohol withdrawal protocol and follow up in next next 24 to 48 hours for further orders. MMODL / IJN: [id number] /
[2018-03-25] MEDS: DICYCLOMINE 20 MG TAB PO PRN (20:22)
[2018-03-25] MEDS: QUEtiapine 50 MG TAB PO SCH (20:23)
--- NOTE | 2018-03-25 21:41 | P.CNNES ---
History of Present Illness Consult date: 03/25/18 Reason for Consult: Patient admitted with alcohol withdrawal syndrome. History of Present Illness: This patient is a 32-year-old right-handed white male has a long-standing history of heavy alcohol use and related complications. He has had multiple episodes of peritonitis and alcohol withdrawal syndrome requiring hospitalization. Patient has been admitted recently for abdominal pain and possibility of pancreatitis. His liver enzymes have been significantly elevated on several occasions during his hospital evaluations. He was admitted to Hospital on 03/09/2018 for bilateral pulmonary embolism. He is currently been placed on Xarelto by Dr. Arreola. The patient apparently continues to have difficulty with his alcohol is him. He has been noticing increasing tremors and signs of alcohol withdrawal. He had been drinking heavily for the last 1 month and his last drink was about 12 hours ago. He was admitted to hospital today and was placed on a CIWA protocol for further treatment of alcohol withdrawal. Patient denies any headache or focal weakness. We have recommended a computed tomography scan of the brain to be done as a baseline study. The patient would strongly benefit from a referral to the [facility] for alcoholism. Patient states he was there about a year and a half ago and it was of some help. Patient denies any alcohol withdrawal seizures. The patient denies any focal weakness at this time but does have signs of anxiety and tremulousness possibly once again due to alcohol withdrawal. He should be closely monitored for delirium tremens. He is to continue on his CIWA protocol with close monitoring. Patient is now admitted and neurology has been consulted for further evaluation and recommendations. we will obtain routine EEG for further evaluation. Review of Systems Constitutional: Denies chills, Denies fever Eyes: denies blurred vision, denies pain Ears, nose, mouth and throat: Denies headache, Denies sore throat Cardiovascular: Denies chest pain, Denies shortness of breath Respiratory: Denies cough Gastrointestinal: Denies abdominal pain, Denies diarrhea, Denies nausea, Denies vomiting Musculoskeletal: Denies myalgias Integumentary: Denies pruritus, Denies rash Neurological: Reports balance difficulties, Reports change in mentation, Reports confusion, Reports headaches, Reports paresthesias, Denies numbness, Denies weakness Psychiatric: Denies anxiety, Denies depression Endocrine: Denies fatigue, Denies weight change Past Medical History Past Medical History: GERD/Reflux, Pulmonary Embolus (PE) Additional Past Medical History / Comment(s): etoh History of Any Multi-Drug Resistant Organisms: MRSA Date of last positivie culture/infection: 2009 MDRO Source:: right knee Past Surgical History: No Surgical Hx Reported Additional Past Surgical History / Comment(s): 07/08/17 had 3 teeth extracted- post procedure pain worsened and pt went back to on had a 2nd procedure done for an exposed nerve. Past Anesthesia/Blood Transfusion Reactions: No Reported Reaction Past Psychological History: Anxiety, Depression, PTSD Additional Psychological History / Comment(s): pt had been to rehab. sober 15 months . started drinking 3 weeks ago after dental sx, "started out 1 to 1.5 fifths a day but kiki last week or so started drinking 1/2 to 1 gallon per day". pt lives alone in an apt-no steps. no pets. no outside services recieved. no medical equipment. no service in past. 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 Status: Former smoker Past Alcohol Use History: Abuse, Daily, Heavy Additional Past Alcohol Use History / Comment(s): started smoking at age 18 and quit cigaretts in 2016 now uses vapor Past Drug Use History: None Reported - Past Family History Father Additional Family Medical History / Comment(s): anxiety Mother Family Medical History: Cancer, Hyperlipidemia, Hypertension, Thyroid Disorder Additional Family Medical History / Comment(s): breast cancer, shingles, osteoporosis, anxiety Medications and Allergies Home Medications Medication Instructions Recorded Confirmed Type Dicyclomine [Bentyl] 20 mg PO QID PRN #20 tablet 03/05/18 03/25/18 Rx Escitalopram [Lexapro] 20 mg PO DAILY 03/05/18 03/25/18 History Omeprazole [PriLOSEC] 40 mg PO DAILY #30 capsule. 03/05/18 03/25/18 Rx Ondansetron [Zofran ODT] 8 mg PO Q8HR PRN #12 tab 03/05/18 03/25/18 Rx QUEtiapine [SEROquel] 50 mg PO HS 03/05/18 03/25/18 History buPROPion XL [Wellbutrin XL] 450 mg PO DAILY 03/05/18 03/25/18 History Rivaroxaban [Xarelto] 15 mg PO BID-W/MEALS #60 tab 03/13/18 03/25/18 Rx Allergies Allergy/AdvReac Type Severity Reaction Status Date / Time No Known Allergies Allergy Verified 03/25/18 11:35 Physical Examination - Vital Signs Vital Signs: Vital Signs Temp Pulse Pulse Resp BP BP Pulse Ox 03/25/18 14:42 98.5 F 74 18 136/75 99 03/25/18 07:10 97.0 F L 99 18 126/78 99 03/25/18 07:08 97.7 F 90 18 120/70 96 03/25/18 05:59 97.8 F 96 18 129/87 98 Intake and Output 03/25/18 03/25/18 03/25/18 06:59 14:59 22:59 Intake Total 1800 600 Balance 1800 600 Intake: Oral 1800 600 Other: # Voids 3 1 # Bowel Movements 1 Weight 90.718 kg - Constitutional General appearance: average body habitus, cooperative - EENT EENT: PERRL, mucous membranes moist - Respiratory Respiratory: lungs clear, normal breath sounds - Cardiovascular Cardiovascular: regular rate, normal S1, normal S2 Extremities: no peripheral edema bilaterally - Gastrointestinal Gastrointestinal: normoactive bowel sounds - Integumentary Integumentary: normal - Neurologic Cranial nerve examination: PERRL, EOMI, VFF, V1/V2/V3 grossly intact, face symmetric, tongue midline, intact gag reflex, intact corneal reflex, normal palatal elevation Speech examination: intact Sensorimotor examination: intact Detailed motor examination: grossly full strength in all extremities Motor examination - right side: 4/5: biceps, triceps, wrist flexion, wrist extension, converter supervisor, hip flexors, knee extensors, dorsiflexion, toe extension (EHL) , plantarflexion Motor examination - left side: 4/5: biceps, triceps, wrist flexion, wrist extension, converter supervisor, hip flexors, knee extensors, dorsiflexion, toe extension (EHL) , plantarflexion Detailed sensory examination: intact Reflex and gait examination: intact Reflexes: 1+: ankle, bicep, knee, tricep - Musculoskeletal Musculoskeletal: no pain - Psychiatric Psychiatric: mood/affect appropriate, cooperative Results - Laboratory Findings CBC and BMP: 03/25/18 06:03 03/25/18 06:03 Abnormal Lab Findings: Abnormal Labs 03/25/18 03/25/18 03/25/18 06:03 06:03 06:03 Lymphocytes # (Manual) 0.47 L INR 1.2 H Sodium 132 L Potassium 3.3 L Chloride 93 L Glucose 108 H AST 210 H ALT 132 H Total Protein 6.0 L Albumin 3.3 L Assessment and Plan (1) Alcohol withdrawal Current Visit: Yes Status: Acute Code(s): F10.239 - ALCOHOL DEPENDENCE WITH WITHDRAWAL, UNSPECIFIED SNOMED Code(s): 394359479 (2) Acute alcoholic hepatitis Current Visit: No Status: Acute Code(s): K70.10 - ALCOHOLIC HEPATITIS WITHOUT ASCITES SNOMED Code(s): 4387027 (3) Coagulopathy Current Visit: No Status: Acute Code(s): D68.9 - COAGULATION DEFECT, UNSPECIFIED SNOMED Code(s): 00404309 (4) ETOH abuse Current Visit: No Status: Acute Code(s): F10.10 - ALCOHOL ABUSE, UNCOMPLICATED SNOMED Code(s): 54642188 Plan: This patient is a 32-year-old male who was admitted to hospital today for signs and symptoms of alcohol withdrawal. Patient has been drinking heavily for the past 1 month. He has been drinking a fifth of liquor daily. He has a history of alcohol is him over the years. He was treated for this condition about a year and a half ago at [facility]. He was just recently admitted to Hospital after having evidence of pulmonary emboli. He was started on oral anticoagulant for further treatment. He has been followed in the hematology clinic by Dr. almazan. The patient denies having any history of alcohol related seizures. We will obtain a computed tomography scan of the brain and a routine EEG for further evaluation. Would strongly recommend he be continued on a [facility] protocol for alcohol withdrawal. Patient strongly recommended to seek further evaluation and treatment at [facility] once he is discharged. We will continue close neurological follow-up for the patient during this admission. His overall prognosis at this time remains very guarded. Time with Patient: Greater than 30
[2018-03-26] MEDS: LORazepam 2 MG/ML INJ IV PRN ×6 (04:11→23:00)
--- NOTE | 2018-03-26 09:43 | CT ---
EXAMINATION TYPE: CT brain wo con DATE OF EXAM: 03/26/2018 COMPARISON: NONE HISTORY: ETOH withdraw syndrome CT DLP: 1058 mGycm. Automated Exposure Control for Dose Reduction was Utilized. TECHNIQUE: CT scan of the head is performed without contrast. FINDINGS: There is no acute intracranial hemorrhage, mass effect, or midline shift identified. The ventricles and sulci are within normal limits in size. The globes are intact and the visualized sin uses are clear. IMPRESSION: No acute intracranial hemorrhage, mass effect, or midline shift is seen.
[2018-03-26] MEDS: ESCITALOPRAM 20 MG TAB PO SCH (09:56)
[2018-03-26] MEDS: PANTOPRAZOLE 40 MG/10 ML VIAL IV SCH (09:56)
[2018-03-26] MEDS: RIVAROXABAN 15 MG TAB PO SCH ×2 (09:56→15:58)
[2018-03-26 10:16] LABS: Basophils % (A) 1 %; Eosinophils % (A) 16 %; HCT 44.5 % (39.0-53.0); HGB 15.5 gm/dL (13.0-17.5); Lymphocytes # (A) 1.3 k/uL (1.0-4.8); Lymphocytes % (A) 22 %; MCH 33.7 pg (25.0-35.0); MCV 96.4 fL (80.0-100.0); Mean Platelet Volume 7.1; Monocytes # (A) 0.3 k/uL (0-1.0); Monocytes % (A) 6 %; Neutrophils # (A) 3.1 k/uL (1.3-7.7); Neutrophils % (A) 53 %; Platelet Count 198 k/uL (150-450); RBC 4.61 m/uL (4.30-5.90); RDW 13.3 % (11.5-15.5)
[2018-03-26 10:27] LABS: Albumin 3.7 g/dL (3.5-5.0); Calcium 9.3 mg/dL (8.4-10.2); Chloride 100 mmol/L (98-107); Potassium 3.3 mmol/L (3.5-5.1); Total Bilirubin 1.7 mg/dL (0.2-1.3)
[2018-03-26 10:38] LABS: ALT 114 U/L (21-72); AST 148 U/L (17-59); Alkaline Phosphatase 99 U/L (38-126); Anion Gap 13 mmol/L; Blood Urea Nitrogen 7 mg/dL (9-20); Carbon Dioxide 28 mmol/L (22-30); Glucose 100 mg/dL (74-99); Sodium 141 mmol/L (137-145); Total Protein 6.7 g/dL (6.3-8.2)
[2018-03-26] MEDS: buPROPion XL 150 MG TAB.ER.24H PO SCH (10:40)
[2018-03-26] MEDS ORDERED: Potassium Replacement Protocol 1 EACH MISC MISCELLANE PRN (11:58)
[2018-03-26] MEDS: THIAMINE 100 MG TAB PO SCH ×2 (12:37→15:58)
[2018-03-26] MEDS: POTASSIUM CHLORIDE ER 20 MEQ TAB.ER PO SCH ×2 (12:37→15:58)
[2018-03-26] MEDS: DICYCLOMINE 20 MG TAB PO PRN ×2 (15:57→23:02)
[2018-03-26] MEDS: QUEtiapine 50 MG TAB PO SCH (20:48)
--- NOTE | 2018-03-26 22:44 | PN ---
PROGRESS NOTE SUBJECTIVE: A 32-year-old white male still having nightmares, some tremors. He is on alcohol withdrawal protocol. He remains on his psychiatric drugs. CARDIOVASCULAR: S1 to S2. LUNGS: Clear. GI: Soft. NEUROLOGIC: Mild tremor. ASSESSMENT: Alcohol withdrawal and acute neurologic change. Continue current treatments. Continue alcohol withdrawal protocol. MMODL / IJN: [id number] /
--- NOTE | 2018-03-27 00:16 | P.PN ---
Subjective Progress Note Date: 03/26/18 This patient is a 32-year-old male who was admitted to hospital for treatment of alcohol withdrawal. Patient was sent for computed tomography scan of the brain today which revealed no acute intracranial hemorrhage, mass effect, or midline shift. No acute changes were noted. We reviewed the results of the CAT scan today with the patient. He remains on a CIWA protocol for treatment of alcohol withdrawal. He also was able to complete routine EEG today which was reviewed and is normal for his age. There was a moderate degree of muscle artifact seen during the tracing. We reviewed the results of the CAT scan and EEG today with the patient. He seems to clearly understand these results. We recommend he continue on a CIWA protocol at this time. We will continue close neurological follow-up for the patient during this admission. Objective - Vital Signs Vital signs: Vital Signs Temp 99.4 F 03/26/18 14:15 Pulse 89 03/26/18 14:15 Resp 16 03/26/18 14:15 BP 133/84 03/26/18 14:15 Pulse Ox 98 03/26/18 14:15 Intake & Output 03/26/18 03/26/18 03/27/18 06:59 18:59 06:59 Intake Total 1000 600 Balance 1000 600 Intake: Oral 1000 600 Other: # Voids 2 1 0 # Bowel Movements 0 1 1 - Exam Physical examination: PHYSICAL EXAMINATION: Patient is resting comfortably in bed. VITAL SIGNS: Blood pressure is [133/84]. Heart rate is [89]. Respiration is [16] . Temperature is [99.4]. HEENT: Head is atraumatic, neck is supple, there were no carotid bruits. CHEST: Lungs are clear to auscultation and percussion. CARDIAC: S1, S2 normal rate and rhythm. There is no murmur. ABDOMEN: Soft and nontender. Bowel sounds are present. EXTREMITIES: There is no pedal edema. Peripheral pulses are present. Neurological examination: Patient's neurological examination is unchanged from yesterday. - Labs CBC & Chem 7: 03/26/18 09:53 03/26/18 09:53 Labs: Abnormal Lab Results - Last 24 Hours (Table) 03/26/18 03/26/18 Range/Units 09:53 09:53 Eosinophils # 1.0 H (0-0.7) k/uL Potassium 3.3 L (3.5-5.1) mmol/L BUN 7 L (9-20) mg/dL Glucose 100 H (74-99) mg/dL Total Bilirubin 1.7 H (0.2-1.3) mg/dL AST 148 H (17-59) U/L ALT 114 H (21-72) U/L Assessment and Plan (1) Alcohol withdrawal Current Visit: Yes Status: Acute Code(s): F10.239 - ALCOHOL DEPENDENCE WITH WITHDRAWAL, UNSPECIFIED SNOMED Code(s): 830252960 (2) Acute alcoholic hepatitis Current Visit: No Status: Acute Code(s): K70.10 - ALCOHOLIC HEPATITIS WITHOUT ASCITES SNOMED Code(s): 2601723 (3) Coagulopathy Current Visit: No Status: Acute Code(s): D68.9 - COAGULATION DEFECT, UNSPECIFIED SNOMED Code(s): 64203995 (4) ETOH abuse Current Visit: No Status: Acute Code(s): F10.10 - ALCOHOL ABUSE, UNCOMPLICATED SNOMED Code(s): 22872993 Plan: This patient is a 32-year-old male who is being evaluated for alcohol withdrawal syndrome. He underwent a computed tomography scan of the brain today which came back normal. He had a routine EEG performed today which was reviewed. EEG is within normal limits for his age. Excessive amount of muscle artifact was noted during the testing. Patient is continuing on a [facility] protocol for alcohol withdrawal syndrome. He seems to be doing fairly well in his recovery. Once again we have advised the patient to consider placement into the [facility] program. Apparently he has been in this program previously. Neurologically his exam remains stable and we will continue close follow-up for him during this admission. His overall prognosis at this time remains guarded.
[2018-03-27] MEDS: LORazepam 2 MG/ML INJ IV PRN ×5 (01:46→08:37)
[2018-03-27 08:10] VITALS: BP 158/92; PULSE 65; RESP 20; TEMP 97.1
[2018-03-27] MEDS: PANTOPRAZOLE 40 MG/10 ML VIAL IV SCH (08:37)
[2018-03-27] MEDS: RIVAROXABAN 15 MG TAB PO SCH (08:38)
[2018-03-27] MEDS: ESCITALOPRAM 20 MG TAB PO SCH (08:38)
[2018-03-27] MEDS: buPROPion XL 150 MG TAB.ER.24H PO SCH (08:38)
--- NOTE | 2018-03-27 12:39 | EEG ---
ELECTROENCEPHALOGRAM REPORT DATE OF EE03/26/2018 ELECTROENCEPHALOGRAPHIC EXAMINATION REPORT: INDICATION FOR EXAMINATION: This patient is a 32-year-old male being evaluated for alcohol withdrawal syndrome. AGE: 32. EEG FINDINGS: A routine 21 channel awake digital EEG recording was accomplished utilizing the 10-20 international system with bipolar and referential montages. The background activity in the most alert resting state consists of a low to medium amplitude, fairly well developed and well sustained 8 Hz activity over the posterior head regions. This posterior rhythm attenuates to eye opening. There is a moderate amount of 18-20 Hz beta activity seen in a generalized fashion. Muscle and movement artifact was observed on a few occasions during the tracing. Hyperventilation was not performed. Photic stimulation at flash frequencies of 2-30 Hz produced a good symmetrical occipital driving response. No epileptiform discharges were seen. IMPRESSION: This EEG is within normal limits for the patient's age. The EEG failed to reveal any focal, lateralized, or epileptiform abnormalities. Clinical correlation is recommended. MMEVA / KETANN: [id number] /
== END 2018-03-27 09:40 | disposition home or self-care (01) | DRG 897 ==
LOC: EC 05:57 → 4MS4W 06:30
PROVIDERS: ADMIT Family Medicine; ATTEND Family Medicine
DX: F10.239 Alcohol dependence with withdrawal, unspecified (principal); D68.9 Coagulation defect, unspecified; Y90.5 Blood alcohol level of 100-119 mg/100 ml; K21.9 Gastro-esophageal reflux disease without esophagitis; F41.9 Anxiety disorder, unspecified; F32.9 Major depressive disorder, single episode, unspecified; F43.10 Post-traumatic stress disorder, unspecified; K70.10 Alcoholic hepatitis without ascites; F17.290 Nicotine dependence, other tobacco product, uncomplicated; Z79.899 Other long term (current) drug therapy; Z79.01 Long term (current) use of anticoagulants; Z86.14 Personal history of Methicillin resistant Staphylococcus aureus infection; Z81.8 Family history of other mental and behavioral disorders; Z82.49 Family history of ischemic heart disease and other diseases of the circulatory system; Z80.3 Family history of malignant neoplasm of breast; Z82.62 Family history of osteoporosis; Z86.711 Personal history of pulmonary embolism
CPT/HCPCS: 36415; 70450; 71046; 80053; 80320; 84484; 85025; 85610; 85730; 93005; 95816; 96361; 96372; 96374; 96375; 99285

== ENCOUNTER 2018-04-27 17:26 | Emergency (ER) | payer BC ==
[~2018-04-27 17:26] MED LIST: THIAMINE 100 MG TAB PO SCH
[2018-04-27] MEDS ORDERED: ONDANSETRON 4 MG/2 ML VIAL IVP STA (17:39)
[2018-04-27] MEDS ORDERED: SODIUM CHLORIDE 0.9% 2,000 ML IV STA (17:39)
[2018-04-27] MEDS ORDERED: KETOROLAC 30 MG/ML 1 ML VIAL IVP STA (18:13)
[2018-04-27 18:23] LABS: HCT 54.1 % (39.0-53.0); HGB 18.3 gm/dL (13.0-17.5); MCH 33.4 pg (25.0-35.0); MCHC 33.8 g/dL (31.0-37.0); MCV 98.8 fL (80.0-100.0); Mean Platelet Volume 7.4; Platelet Count 302 k/uL (150-450); RBC 5.48 m/uL (4.30-5.90); RDW 13.7 % (11.5-15.5)
[2018-04-27 18:36] LABS: Albumin 4.3 g/dL (3.5-5.0); Alkaline Phosphatase 91 U/L (38-126); Amylase 72 U/L (30-110); Anion Gap 18 mmol/L; Calcium 9.8 mg/dL (8.4-10.2); Carbon Dioxide 23 mmol/L (22-30); Chloride 99 mmol/L (98-107); Glucose 149 mg/dL (74-99); Lipase 149 U/L (23-300); Sodium 140 mmol/L (137-145); Total Bilirubin 1.7 mg/dL (0.2-1.3); Total Protein 7.2 g/dL (6.3-8.2)
[2018-04-27 18:51] LABS: Blood Urea Nitrogen 14 mg/dL (9-20); Potassium 4.5 mmol/L (3.5-5.1)
[2018-04-27 19:02] LABS: AST 8031 U/L (17-59)
[2018-04-27 19:03] LABS: ALT 5959 U/L (21-72)
--- NOTE | 2018-04-27 19:03 | ED ---
Nausea/Vomiting/Diarrhea HPI - General Source: patient, RN notes reviewed Mode of arrival: ambulatory Limitations: no limitations <Navi Meek - Last Filed: 04/27/18 19:27> <Alonso Salazar - Last Filed: 04/27/18 20:54> - General Chief complaint: Nausea/Vomiting/Diarrhea Stated complaint: Etoh/pancreatitis Time Seen by Provider: 04/27/18 17:39 - History of Present Illness Initial comments: This a 32-year-old male presents emergency from chief complaint of abdominal pain. Patient states he believes he has pancreatitis. Patient has chronic alcoholic drink per. Patient states she's felt pain last few days. Patient admits nausea vomiting. Patient states he'll drink a pint of liquor today. Patient denies any fever, chills, chest pain, headache, dizziness. Patient denies any seizures. Patient states he feels slightly shaky but not there is in severe withdrawal at this time. Patient dysuria hematuria. (Navi Meek) - Related Data Home Medications Medication Instructions Recorded Confirmed QUEtiapine [SEROquel] 50 mg PO HS 03/05/18 04/27/18 Previous Rx's Medication Instructions Recorded Rivaroxaban [Xarelto] 15 mg PO BID-W/MEALS #60 tab 03/13/18 Allergies Allergy/AdvReac Type Severity Reaction Status Date / Time No Known Allergies Allergy Verified 04/27/18 19:05 Review of Systems ROS Other: All systems not noted in ROS Statement are negative. <Navi Meek - Last Filed: 04/27/18 19:27> ROS Other: All systems not noted in ROS Statement are negative. <Alonso Salazar - Last Filed: 04/27/18 20:54> ROS Statement: Those systems with pertinent positive or pertinent negative responses have been documented in the HPI. Past Medical History Past Medical History: GERD/Reflux, Pulmonary Embolus (PE) Additional Past Medical History / Comment(s): etoh History of Any Multi-Drug Resistant Organisms: MRSA Date of last positivie culture/infection: 2009 MDRO Source:: right knee Past Surgical History: No Surgical Hx Reported Additional Past Surgical History / Comment(s): 07/08/17 had 3 teeth extracted- post procedure pain worsened and pt went back to dr on had a 2nd procedure done for an exposed nerve. Past Anesthesia/Blood Transfusion Reactions: No Reported Reaction Past Psychological History: Anxiety, Depression, PTSD Smoking Status: Former smoker Past Alcohol Use History: Abuse, Daily, Heavy Past Drug Use History: None Reported - Past Family History Father Additional Family Medical History / Comment(s): anxiety Mother Family Medical History: Cancer, Hyperlipidemia, Hypertension, Thyroid Disorder Additional Family Medical History / Comment(s): breast cancer, shingles, osteoporosis, anxiety <Navi Meek - Last Filed: 04/27/18 19:27> General Exam Limitations: no limitations General appearance: alert, in no apparent distress Head exam: Present: atraumatic, normocephalic, normal inspection Respiratory exam: Present: normal lung sounds bilaterally. Absent: respiratory distress, wheezes, rales, rhonchi, stridor Cardiovascular Exam: Present: regular rate, normal rhythm, normal heart sounds. Absent: systolic murmur, diastolic murmur, rubs, gallop, clicks GI/Abdominal exam: Present: soft, tenderness (Moderate epigastric/mid abdominal tenderness), normal bowel sounds. Absent: distended, guarding, rebound, rigid Back exam: Absent: CVA tenderness (R), CVA tenderness (L) Skin exam: Present: warm, dry, intact, normal color. Absent: rash <Navi Meek - Last Filed: 04/27/18 19:27> Vital Signs 04/27/18 17:33 Temperature 97.7 F Pulse Rate 100 Respiratory 18 Rate Blood Pressure 123/65 O2 Sat by Pulse 98 Oximetry Medical Decision Making - Lab Data Result diagrams: 04/27/18 18:00 04/27/18 18:00 <Navi Meek - Last Filed: 04/27/18 19:27> - Lab Data Result diagrams: 04/27/18 18:00 04/27/18 18:00 <Alonso Salazar - Last Filed: 04/27/18 20:54> - Medical Decision Making 32-year-old male with nausea vomiting and daily alcohol abuse. Patient's laboratory studies reveal significant abnormalities suggestive of acute liver failure. AST is 8000 and ALT is 6000. INR 2.5 without any history of anticoagulants. Tylenol level is negative and the patient denies any Tylenol ingestion in the past week. Ultrasound is obtained and is negative for any acute findings. Patient's total bili is 1.7. Hepatitis panel is pending. Case discussed with gastroenterology Dr. Erickson, she recommends transfer to [facility]. (Alonso Salazar) - Lab Data Lab Results 04/27/18 04/27/18 04/27/18 Range/Units 18:00 18:00 19:08 WBC 7.0 (3.8-10.6) k/uL RBC 5.48 (4.30-5.90) m/uL Hgb 18.3 H (13.0-17.5) gm/dL Hct 54.1 H (39.0-53.0) % MCV 98.8 (80.0-100.0) fL MCH 33.4 (25.0-35.0) pg MCHC 33.8 (31.0-37.0) g/dL RDW 13.7 (11.5-15.5) % Plt Count 302 (150-450) k/uL Neutrophils % [employer] Neutrophils % (Manual) 70 % Lymphocytes % [employer] Lymphocytes % (Manual) 16 % Monocytes % [employer] Monocytes % (Manual) 13 % Eosinophils % [employer] Eosinophils % (Manual) 1 % Basophils % [employer] Neutrophils # [employer] Neutrophils # (Manual) 4.90 (1.3-7.7) k/uL Lymphocytes # [employer] Lymphocytes # (Manual) 1.12 (1.0-4.8) k/uL Monocytes # [employer] Monocytes # (Manual) 0.91 (0-1.0) k/uL Eosinophils # [employer] Eosinophils # (Manual) 0.07 (0-0.7) k/uL Basophils # [employer] Nucleated RBCs 0 (0-0) /100 WBC Polychromasia Present PT (9.0-12.0) sec INR (<1.2) APTT (22.0-30.0) sec Sodium 140 (137-145) mmol/L Potassium 4.5 (3.5-5.1) mmol/L Chloride 99 (98-107) mmol/L Carbon Dioxide 23 (22-30) mmol/L Anion Gap 18 mmol/L BUN 14 (9-20) mg/dL Creatinine 0.90 (0.66-1.25) mg/dL Est GFR (CKD-EPI)AfAm >90 (>60 ml/min/1.73 sqM) Est GFR (CKD-EPI)NonAf >90 (>60 ml/min/1.73 sqM) Glucose 149 H (74-99) mg/dL Calcium 9.8 (8.4-10.2) mg/dL Magnesium (1.6-2.3) mg/dL Total Bilirubin 1.7 H (0.2-1.3) mg/dL AST 8031 H (17-59) U/L ALT 5959 H (21-72) U/L Alkaline Phosphatase 91 (38-126) U/L Ammonia (<30) umol/L Total Protein 7.2 (6.3-8.2) g/dL Albumin 4.3 (3.5-5.0) g/dL Amylase 72 (30-110) U/L Lipase 149 (23-300) U/L Urine Color Yellow Urine Appearance Clear (Clear) Urine pH 6.5 (5.0-8.0) Ur Specific [place] 1.014 (1.001-1.035) Urine Protein Negative (Negative) Urine Glucose (UA) Negative (Negative) Urine Ketones Negative (Negative) Urine Blood Negative (Negative) Urine Nitrite Negative (Negative) Urine Bilirubin 1+ H (Negative) Urine Urobilinogen <2.0 (<2.0) mg/dL Ur Leukocyte Esterase Negative (Negative) Acetaminophen ug/mL Serum Alcohol mg/dL 04/27/18 04/27/18 04/27/18 Range/Units 19:55 19:55 19:55 WBC (3.8-10.6) k/uL RBC (4.30-5.90) m/uL Hgb (13.0-17.5) gm/dL Hct (39.0-53.0) % MCV (80.0-100.0) fL MCH (25.0-35.0) pg MCHC (31.0-37.0) g/dL RDW (11.5-15.5) % Plt Count (150-450) k/uL Neutrophils % Neutrophils % (Manual) % Lymphocytes % Lymphocytes % (Manual) % Monocytes % Monocytes % (Manual) % Eosinophils % Eosinophils % (Manual) % Basophils % Neutrophils # Neutrophils # (Manual) (1.3-7.7) k/uL Lymphocytes # Lymphocytes # (Manual) (1.0-4.8) k/uL Monocytes # Monocytes # (Manual) (0-1.0) k/uL Eosinophils # Eosinophils # (Manual) (0-0.7) k/uL Basophils # Nucleated RBCs (0-0) /100 WBC Polychromasia PT 22.6 H (9.0-12.0) sec INR 2.5 H (<1.2) APTT 30.9 H (22.0-30.0) sec Sodium (137-145) mmol/L Potassium (3.5-5.1) mmol/L Chloride (98-107) mmol/L Carbon Dioxide (22-30) mmol/L Anion Gap mmol/L BUN (9-20) mg/dL Creatinine (0.66-1.25) mg/dL Est GFR (CKD-EPI)AfAm (>60 ml/min/1.73 sqM) Est GFR (CKD-EPI)NonAf (>60 ml/min/1.73 sqM) Glucose (74-99) mg/dL Calcium (8.4-10.2) mg/dL Magnesium 1.6 (1.6-2.3) mg/dL Total Bilirubin (0.2-1.3) mg/dL AST (17-59) U/L ALT (21-72) U/L Alkaline Phosphatase (38-126) U/L Ammonia <9 (<30) umol/L Total Protein (6.3-8.2) g/dL Albumin (3.5-5.0) g/dL Amylase (30-110) U/L Lipase (23-300) U/L Urine Color Urine Appearance (Clear) Urine pH (5.0-8.0) Ur Specific [place] (1.001-1.035) Urine Protein (Negative) Urine Glucose (UA) (Negative) Urine Ketones (Negative) Urine Blood (Negative) Urine Nitrite (Negative) Urine Bilirubin (Negative) Urine Urobilinogen (<2.0) mg/dL Ur Leukocyte Esterase (Negative) Acetaminophen <10.0 ug/mL Serum Alcohol 221 mg/dL Critical Care Time Critical Care Time: Yes Total Critical Care Time: 35 <Alonso Salazar N - Last Filed: 04/27/18 20:54> Disposition <Navi Meek - Last Filed: 04/27/18 19:27> Is patient prescribed a controlled substance at d/c from ED?: No Time of Disposition: 20:43 - Out of Hospital Transfer - Req. Specs Out of Hospital Transfer - Requested Specifics: Other Non-Acute (Transfer to [facility] accepting physician Dr. Rivero) <Alonso Salazar - Last Filed: 04/27/18 20:54> Clinical Impression: Acute alcoholic hepatitis, Chronic alcohol dependence, continuous, ETOH abuse, Alcohol intoxication, Alcoholic gastritis, Liver failure, acute Disposition: OTHER INSTITUTION NOT DEFINED Condition: Serious Referrals: Clarence Feliz DO [Primary Care Provider] - 1-2 days
[2018-04-27 19:04] LABS: Eosinophils # (M) 0.07 k/uL (0-0.7); Lymphocytes # (M) 1.12 k/uL (1.0-4.8); Monocytes # (M) 0.91 k/uL (0-1.0); Neutrophils % (M) 70 %; Nucleated Red Blood Cells 0 /100 WBC (0-0); Polychromasia Present; Total Cells Counted 100
[2018-04-27 19:15] LABS: Appearance,Urine Clear (Clear); Bilirubin,Urine 1+ (Negative); Blood,Urine Negative (Negative); Color,Urine Yellow; Glucose,Urine (UA) Negative (Negative); Ketones,Urine Negative (Negative); Leukocyte Esterase,Urine Negative (Negative); Nitrite,Urine Negative (Negative); PH, Urine 6.5 (5.0-8.0); Protein,Urine Negative (Negative); Specific Gravity,Urine 1.014 (1.001-1.035); Urobilinogen,Urine <2.0 mg/dL (<2.0)
[2018-04-27] MEDS ORDERED: ONDANSETRON 4 MG/2 ML VIAL IVP PRN (19:27)
[2018-04-27] MEDS ORDERED: SODIUM CHLORIDE 0.9% 1,000 ML IV SCH (19:30)
[2018-04-27] MEDS ORDERED: LORazepam 2 MG/ML INJ IV PRN ×3 (19:30)
[2018-04-27] MEDS ORDERED: LORazepam 2 MG/ML INJ IV STA (19:30)
[2018-04-27 20:14] LABS: Acetaminophen <10.0 ug/mL; Magnesium 1.6 mg/dL (1.6-2.3)
[2018-04-27 20:16] LABS: INR 2.5 (<1.2); Partial Thromboplastin Time 30.9 sec (22.0-30.0); Prothrombin Time 22.6 sec (9.0-12.0)
--- NOTE | 2018-04-27 20:16 | US ---
EXAMINATION TYPE: US abdomen limited DATE OF EXAM: 04/27/2018 COMPARISON: CT abdomen and pelvis March 09, 2018 CLINICAL HISTORY: Pain. Alcohol detox. Elevated enzymes. No surgeries. Not NPO. EXAM MEASUREMENTS: Liver Length: 17.3 cm Gallbladder Wall: 0.1 cm CBD: 0.2 cm Right Kidney: 10.5 x 5.2 x 5.2 cm Limited exam due to patient shaking Pancreas: Body and tail obscured by bowel gas. Limited visualization of pancreatic head due to over lying bowel gas Liver: wnl as visualized Gallbladder: wnl Evidence for sonographic Lu's sign: neg CBD: Obscured by overlying bowel gas CHD: wnl Right Kidney: Lateral cystic appearing lesion = 1.4 x 1.6 x 1.2 cm. Exam suboptimal due to patient inability to hold still. Portions of pancreas are obscured by overlyin g bowel gas. Visualized portions are felt within normal limits. Visualized liver shows no worrisome m ass or ductal dilatation. Gallbladder shows no shadowing mobile gallstones. Simple appearing 1.3 cm c yst in right kidney upper pole level is redemonstrated. IMPRESSION: No worrisome intrahepatic mass or intrahepatic ductal dilatation is seen.
[2018-04-27 20:53] LABS: Alcohol 221 mg/dL
[2018-04-27 20:58] LABS: Hepatitis A AB IgM Index 0.01; Hepatitis A Antibody IgM NEGATIVE
[2018-04-27 23:41] VITALS: BP 129/74; PULSE 89; RESP 18; TEMP 97.3
[2018-04-28 01:11] LABS: Hepatitis B Core IgM Non-Reactive (Non-Reactive)
[2018-04-28] MEDS ORDERED: PANTOPRAZOLE 40 MG/10 ML VIAL IV SCH (09:00)
== END 2018-04-27 23:40 | disposition other institution (70) ==
LOC: EC 17:26
DX: K70.10 Alcoholic hepatitis without ascites (principal); K29.20 Alcoholic gastritis without bleeding; F10.229 Alcohol dependence with intoxication, unspecified; K72.90 Hepatic failure, unspecified without coma; F32.9 Major depressive disorder, single episode, unspecified; F41.9 Anxiety disorder, unspecified; F43.10 Post-traumatic stress disorder, unspecified; Z86.14 Personal history of Methicillin resistant Staphylococcus aureus infection; Z87.891 Personal history of nicotine dependence; Z79.899 Other long term (current) drug therapy
CPT/HCPCS: 36415; 80053; 80074; 82140; 82150; 83690; 83735; 85025; 85610; 85730; 81003; 83520; 80320; 76705; 99291; 96374; 96375 ×3; 96376; 96361 ×6; J2060; J2405; J1885; C9113

== ENCOUNTER 2018-05-05 15:55 | Emergency (ER) | payer BC ==
[2018-05-05 16:03] VITALS: RESP 18
[2018-05-05] MEDS ORDERED: LORazepam 2 MG/ML INJ IM STA (16:16)
--- NOTE | 2018-05-05 16:19 | ED ---
General Adult HPI - General Chief complaint: Alcohol Stated complaint: alcoholism dt's Time Seen by Provider: 05/05/18 16:07 Source: patient, RN notes reviewed Mode of arrival: ambulatory Limitations: no limitations - History of Present Illness Initial comments: Patient 32-year-old male presented to the emergency room today with multiple complaints. Patient has met that he injured his right hand 2 days ago when he punched a wall. He also states that he is going through alcohol withdrawal. Does have an appointment for detox program tomorrow in the morning. Patient states he was having some shaking. Patient denies any other complaints or symptoms. Patient denies any recent fever, chills, shortness of breath, chest pain, back pain, abdominal pain, nausea or vomiting, numbness or tingling, headaches or visual changes, or any other complaints. - Related Data Home Medications Medication Instructions Recorded Confirmed QUEtiapine [SEROquel] 50 mg PO HS 03/05/18 05/05/18 Previous Rx's Medication Instructions Recorded Rivaroxaban [Xarelto] 15 mg PO BID-W/MEALS #60 tab 03/13/18 Ondansetron Odt [Zofran ODT] 4 mg PO Q8HR PRN #20 tab 05/05/18 chlordiazePOXIDE HCl [Librium] 25 mg PO DIRECTED #22 capsule 05/05/18 cloNIDine HCL [Catapres] 0.1 mg PO BID #6 tab 05/05/18 Allergies Allergy/AdvReac Type Severity Reaction Status Date / Time No Known Allergies Allergy Verified 05/05/18 16:03 Review of Systems ROS Statement: Those systems with pertinent positive or pertinent negative responses have been documented in the HPI. ROS Other: All systems not noted in ROS Statement are negative. Past Medical History Past Medical History: GERD/Reflux, Pulmonary Embolus (PE) Additional Past Medical History / Comment(s): etoh History of Any Multi-Drug Resistant Organisms: MRSA Date of last positivie culture/infection: 2009 MDRO Source:: right knee Past Surgical History: No Surgical Hx Reported Additional Past Surgical History / Comment(s): 07/08/17 had 3 teeth extracted- post procedure pain worsened and pt went back to dr on had a 2nd procedure done for an exposed nerve. Past Anesthesia/Blood Transfusion Reactions: No Reported Reaction Past Psychological History: Anxiety, Depression, PTSD Smoking Status: Former smoker Past Alcohol Use History: Abuse, Daily, Heavy Past Drug Use History: None Reported - Past Family History Father Additional Family Medical History / Comment(s): anxiety Mother Family Medical History: Cancer, Hyperlipidemia, Hypertension, Thyroid Disorder Additional Family Medical History / Comment(s): breast cancer, shingles, osteoporosis, anxiety General Exam - General Exam Comments Initial Comments: General: The patient is awake and alert, in no distress, and does not appear acutely ill. Eye: Pupils are equal, round and reactive to light, extra-ocular movements are intact. No nystagmus. There is normal conjunctiva bilaterally. No signs of icterus. Ears, nose, mouth and throat: There are moist mucous membranes and no oral lesions. Neck: The neck is supple, there is no tenderness or JVD. Musculoskeletal: Normal ROM. Patient does have tenderness over the fourth and fifth distal metacarpal and MCP joint. Strength 5/5. Sensation intact. Pulses equal bilaterally 2+. Neurological: A&O x 3. CN II-XII intact, There are no obvious motor or sensory deficits. Coordination appears grossly intact. Speech is normal. Skin: Skin is warm and dry and no rashes or lesions are noted. Psychiatric: Cooperative, appropriate mood & affect, normal judgment. Limitations: no limitations Course Vital Signs 05/05/18 15:56 Temperature 99.5 F Pulse Rate 104 H Respiratory 18 Rate Blood Pressure 148/93 O2 Sat by Pulse 97 Oximetry Medical Decision Making - Medical Decision Making Patient's x-ray reviewed and shows no acute fracture dislocation. Results were discussed with the patient. Patient given Ativan here in the emergency room. He is doing well at this time. No complaints. Patient does have an appointment with detox tomorrow. His mother is coming to pick him up. Patient will be discharged home with prescription for Librium, clonidine, Zofran. Advised to follow-up tomorrow with scheduled appointment. Disposition Clinical Impression: Alcohol withdrawal, Hand contusion Disposition: HOME SELF-CARE Condition: Good Instructions: Alcohol Withdrawal (ED) Additional Instructions: Please use medication as discussed. Please follow-up with family doctor in the next 2 days of symptoms have not improved. Please return to emergency room if the symptoms increase or worsen or for any other concerns. Prescriptions: chlordiazePOXIDE HCl [Librium] 25 mg PO DIRECTED #22 capsule cloNIDine HCL [Catapres] 0.1 mg PO BID #6 tab Ondansetron Odt [Zofran ODT] 4 mg PO Q8HR PRN #20 tab PRN Reason: Nausea Is patient prescribed a controlled substance at d/c from ED?: No Referrals: Clarence Feliz DO [Primary Care Provider] - 1-2 days Time of Disposition: 17:34
--- NOTE | 2018-05-05 17:30 | XR ---
EXAMINATION TYPE: XR hand complete RT DATE OF EXAM: 05/05/2018 COMPARISON: NONE HISTORY: Pain TECHNIQUE: Three views are submitted. FINDINGS: The osseous structures are intact. The joint spaces are preserved and there is no acute fracture or dislocation. Chronic deformity of the fifth metacarpal suggest remote trauma IMPRESSION: 1. No definite acute fracture or dislocation if symptoms persist, follow-up study in 7 to 10 days wo uld be suggested
[2018-05-05] MEDS ORDERED: ONDANSETRON ODT 4 MG TAB PO STA (17:45)
[2018-05-05 17:56] VITALS: BP 151/87; PULSE 98; TEMP 98.7
== END 2018-05-05 17:56 | disposition home or self-care (01) ==
LOC: EC 15:55
DX: S60.221A Contusion of right hand, initial encounter (principal); F10.230 Alcohol dependence with withdrawal, uncomplicated; F32.9 Major depressive disorder, single episode, unspecified; F43.10 Post-traumatic stress disorder, unspecified; Z86.14 Personal history of Methicillin resistant Staphylococcus aureus infection; Z87.891 Personal history of nicotine dependence; Z79.899 Other long term (current) drug therapy; W22.01XA Walked into wall, initial encounter
CPT/HCPCS: 99284; 96372; 73130; J2060

== ENCOUNTER 2018-05-13 23:57 | Emergency (ER) | payer BC ==
[2018-05-14 00:11] VITALS: BP 126/90; PULSE 97; RESP 20; TEMP 98.6
[2018-05-14] MEDS ORDERED: LORazepam 1 MG TAB PO STA (00:23)
--- NOTE | 2018-05-14 00:25 | ED ---
General Adult HPI - General Chief complaint: Back Pain/Injury Stated complaint: Back Pain Time Seen by Provider: 05/14/18 00:15 Source: patient Mode of arrival: ambulatory Limitations: no limitations - History of Present Illness Initial comments: 32-year-old male presents emergency from for alcohol withdrawal. Patient states that he is here shows approximately 2 days ago and was given prescriptions for Librium though he went to detox next day and a shredded his prescriptions. Patient states that his insurance would not further completes days so he left and started drinking again. Patient states he has not drank a 12 hours and starts shaking at this time. States it is no abdominal pain denies any nausea or constipation. Patient was recently transferred to [facility] for alcohol hepatitis. Patient had elevated liver enzymes in this was found to be from drinking and drug induced. Patient states his liver enzymes had essentially returned normal. Patient is not suicidal or homicidal. - Related Data Home Medications Medication Instructions Recorded Confirmed QUEtiapine [SEROquel] 50 mg PO HS 03/05/18 05/05/18 Previous Rx's Medication Instructions Recorded Rivaroxaban [Xarelto] 15 mg PO BID-W/MEALS #60 tab 03/13/18 cloNIDine HCL [Catapres] 0.1 mg PO BID #6 tab 05/05/18 Ondansetron Odt [Zofran ODT] 4 mg PO Q8HR PRN #20 tab 05/14/18 chlordiazePOXIDE HCl [Librium] 25 mg PO DIRECTED #22 capsule 05/14/18 Allergies Allergy/AdvReac Type Severity Reaction Status Date / Time No Known Allergies Allergy Verified 05/14/18 00:11 Review of Systems ROS Statement: Those systems with pertinent positive or pertinent negative responses have been documented in the HPI. ROS Other: All systems not noted in ROS Statement are negative. Past Medical History Past Medical History: GERD/Reflux, Pulmonary Embolus (PE) Additional Past Medical History / Comment(s): etoh History of Any Multi-Drug Resistant Organisms: MRSA Date of last positivie culture/infection: 2009 MDRO Source:: right knee Past Surgical History: No Surgical Hx Reported Additional Past Surgical History / Comment(s): 07/08/17 had 3 teeth extracted- post procedure pain worsened and pt went back to dr on had a 2nd procedure done for an exposed nerve. Past Anesthesia/Blood Transfusion Reactions: No Reported Reaction Past Psychological History: Anxiety, Depression, PTSD Smoking Status: Former smoker Past Alcohol Use History: Abuse, Daily, Heavy Past Drug Use History: None Reported - Past Family History Father Additional Family Medical History / Comment(s): anxiety Mother Family Medical History: Cancer, Hyperlipidemia, Hypertension, Thyroid Disorder Additional Family Medical History / Comment(s): breast cancer, shingles, osteoporosis, anxiety General Exam Limitations: no limitations General appearance: alert, in no apparent distress Head exam: Present: atraumatic, normocephalic, normal inspection Respiratory exam: Present: normal lung sounds bilaterally. Absent: respiratory distress, wheezes, rales, rhonchi, stridor Cardiovascular Exam: Present: regular rate, normal rhythm, normal heart sounds. Absent: systolic murmur, diastolic murmur, rubs, gallop, clicks GI/Abdominal exam: Present: soft, normal bowel sounds. Absent: distended, tenderness, guarding, rebound, rigid Skin exam: Present: warm, dry, intact, normal color. Absent: rash Course Vital Signs 05/14/18 00:07 Temperature 98.6 F Pulse Rate 97 Respiratory 20 Rate Blood Pressure 126/90 O2 Sat by Pulse 98 Oximetry Medical Decision Making - Medical Decision Making 32-year-old male presents from for alcohol withdrawal. Maps was reviewed he did not fill a limited prescription. Patient be discharged with Librium and follow-up. Return parameters were discussed. Disposition Clinical Impression: Alcohol withdrawal, ETOH abuse Disposition: HOME SELF-CARE Condition: Stable Instructions: Alcohol Withdrawal (ED) Additional Instructions: Please return to the Emergency Department if symptoms worsen or any other concerns. Prescriptions: chlordiazePOXIDE HCl [Librium] 25 mg PO DIRECTED #22 capsule Ondansetron Odt [Zofran ODT] 4 mg PO Q8HR PRN #20 tab PRN Reason: Nausea Is patient prescribed a controlled substance at d/c from ED?: Yes When asked, does pt state using other controlled substances?: No If prescribed controlled substance>3 days was MAPS reviewed?: Yes Referrals: Clarence Feliz DO [Primary Care Provider] - 1-2 days Time of Disposition: 00:24
== END 2018-05-14 00:34 | disposition home or self-care (01) ==
LOC: EC 23:57
DX: F10.230 Alcohol dependence with withdrawal, uncomplicated (principal); M54.9 Dorsalgia, unspecified; F41.9 Anxiety disorder, unspecified; F32.9 Major depressive disorder, single episode, unspecified; Z86.14 Personal history of Methicillin resistant Staphylococcus aureus infection; Z87.891 Personal history of nicotine dependence; Z79.899 Other long term (current) drug therapy
CPT/HCPCS: 99283

== ENCOUNTER → 2018-05-17 | Outpatient (CLI) | payer BC ==
--- NOTE | 2018-05-17 15:58 | XR ---
EXAMINATION TYPE: XR scoliosis survey DATE OF EXAM: 05/17/2018 COMPARISON: NONE HISTORY: Abnormal clinical findings TECHNIQUE: Frontal and lateral views of the thoracic and lumbar spine the upright view. FINDINGS: There is a scoliosis of the lumbar spine with a convexity to the right centered at approxim ately L2. As measured between T12 and L4 degree of scoliosis is 14 degrees. IMPRESSION: 1. 14 degrees scoliosis within the lumbar spine.
== END | disposition home or self-care (01) ==
LOC: RADXRMAIN 13:52
PROVIDERS: ATTEND Family Medicine
DX: M41.86 Other forms of scoliosis, lumbar region (principal)
CPT/HCPCS: 72082

== ENCOUNTER 2018-07-19 12:33 | Emergency (ER) | payer BC ==
[2018-07-19 12:50] VITALS: BP 135/105; PULSE 104; RESP 18; TEMP 98.4
[2018-07-19] MEDS ORDERED: SODIUM CHLORIDE 0.9% 1,000 ML IV ONE (13:59)
[2018-07-19] MEDS ORDERED: chlordiazePOXIDE 25 MG CAP PO STA (14:00)
[2018-07-19] MEDS ORDERED: THIAMINE 100 MG/ML 2 ML VIAL IM STA (14:01)
[2018-07-19] MEDS ORDERED: LORazepam 2 MG/ML INJ IV PRN ×3 (14:01)
[2018-07-19 14:33] LABS: Basophils % (A) 0 %; Eosinophils # (A) 0.1 k/uL (0-0.7); Eosinophils % (A) 1 %; HCT 49.8 % (39.0-53.0); HGB 17.3 gm/dL (13.0-17.5); Lymphocytes # (A) 0.7 k/uL (1.0-4.8); Lymphocytes % (A) 8 %; MCH 33.4 pg (25.0-35.0); MCHC 34.8 g/dL (31.0-37.0); MCV 96.2 fL (80.0-100.0); Monocytes # (A) 0.5 k/uL (0-1.0); Monocytes % (A) 7 %; Neutrophils # (A) 6.4 k/uL (1.3-7.7); Neutrophils % (A) 81 %; Platelet Count 249 k/uL (150-450); RBC 5.17 m/uL (4.30-5.90); RDW 12.4 % (11.5-15.5); WBC 7.9 k/uL (3.8-10.6)
[2018-07-19 14:45] LABS: ALT 41 U/L (21-72); AST 49 U/L (17-59); Albumin 4.3 g/dL (3.5-5.0); Alkaline Phosphatase 53 U/L (38-126); Anion Gap 14 mmol/L; Blood Urea Nitrogen 24 mg/dL (9-20); Calcium 9.7 mg/dL (8.4-10.2); Carbon Dioxide 24 mmol/L (22-30); Chloride 99 mmol/L (98-107); Glucose 123 mg/dL (74-99); Magnesium 1.5 mg/dL (1.6-2.3); Potassium 4.4 mmol/L (3.5-5.1); Sodium 137 mmol/L (137-145); Total Bilirubin 0.7 mg/dL (0.2-1.3); Total Protein 7.2 g/dL (6.3-8.2)
[2018-07-19] MEDS ORDERED: diphenhydrAMINE 50 MG/ML 1 ML VIAL IVP STA (14:49)
[2018-07-19] MEDS ORDERED: methylPREDNISolone SOD SUCCI 125 MG/2 ML VIAL IV STA (14:49)
--- NOTE | 2018-07-19 14:49 | ED ---
Alcohol HPI - General Chief Complaint: Alcohol Stated Complaint: ALCOHOL WITHDRAWALS Time Seen by Provider: 07/19/18 13:07 Source: patient, RN notes reviewed, old records reviewed Mode of arrival: ambulatory Limitations: no limitations - History of Present Illness Initial Comments: Patient is a 32 year old male Emergency departments plane of alcohol with drawls. Patient also has a rash over his chest trunk and legs he. He reports that he is had this rash before when he was going to withdrawals. Patient reports it is. It. He states he's had no new contacts. His last drink was yesterday evening at midnight. - Related Data Home Medications Medication Instructions Recorded Confirmed QUEtiapine [SEROquel] 50 mg PO HS 03/05/18 07/19/18 Buprenorphine [Butrans 20 MCG/HOUR] 1 patch TRANSDERM FR 07/19/18 07/19/18 Previous Rx's Medication Instructions Recorded chlordiazePOXIDE HCl [Librium] 25 mg PO DIRECTED #10 capsule 07/19/18 methylPREDNISolone Dose Pack 4 mg PO DIRECTED #21 package 07/19/18 [Medrol Dose Pack] Allergies Allergy/AdvReac Type Severity Reaction Status Date / Time No Known Allergies Allergy Verified 07/19/18 13:14 Review of Systems ROS Statement: Those systems with pertinent positive or pertinent negative responses have been documented in the HPI. ROS Other: All systems not noted in ROS Statement are negative. Past Medical History Past Medical History: GERD/Reflux, Pulmonary Embolus (PE) Additional Past Medical History / Comment(s): etoh History of Any Multi-Drug Resistant Organisms: MRSA Date of last positivie culture/infection: 2009 MDRO Source:: right knee Past Surgical History: No Surgical Hx Reported Additional Past Surgical History / Comment(s): 07/08/17 had 3 teeth extracted- post procedure pain worsened and pt went back to dr on had a 2nd procedure done for an exposed nerve. Past Anesthesia/Blood Transfusion Reactions: No Reported Reaction Past Psychological History: Anxiety, Depression, PTSD Smoking Status: Former smoker Past Alcohol Use History: Abuse, Daily, Heavy Past Drug Use History: None Reported - Past Family History Father Additional Family Medical History / Comment(s): anxiety Mother Family Medical History: Cancer, Hyperlipidemia, Hypertension, Thyroid Disorder Additional Family Medical History / Comment(s): breast cancer, shingles, osteoporosis, anxiety General Exam - General Exam Comments Initial Comments: 32 year old male, no acute distress. Shaking. Limitations: no limitations General appearance: alert, in no apparent distress Head exam: Present: atraumatic, normocephalic, normal inspection Eye exam: Present: normal appearance, PERRL, EOMI. Absent: scleral icterus, conjunctival injection, periorbital swelling ENT exam: Present: normal exam, mucous membranes moist. Absent: normal oropharynx ([place]), mucous membranes dry Respiratory exam: Present: normal lung sounds bilaterally. Absent: respiratory distress, wheezes, rales, rhonchi, stridor Cardiovascular Exam: Present: regular rate, normal rhythm, normal heart sounds. Absent: systolic murmur, diastolic murmur, rubs, gallop, clicks GI/Abdominal exam: Present: soft, normal bowel sounds. Absent: distended, tenderness, guarding, rebound, rigid Extremities exam: Present: normal inspection, full ROM, normal capillary refill. Absent: tenderness, pedal edema, joint swelling, calf tenderness Back exam: Present: normal inspection Neurological exam: Present: alert, oriented X3, CN II-XII intact Psychiatric exam: Present: normal affect, normal mood Skin exam: Present: warm, dry, intact, normal color, rash (erythematous raised maular rash over trunk, leg, and back. ) Course Vital Signs 07/19/18 12:46 Temperature 98.4 F Pulse Rate 104 H Respiratory 18 Rate Blood Pressure 135/105 O2 Sat by Pulse 98 Oximetry Medical Decision Making - Medical Decision Making This is a 32 year old male presents for alcohol withdrawal, as well as rash over abdomen and trunk. At this time patient labs reviewed and negative for acute process. He has a sore throat as well, and with rash I checked for rapid strep. This is negative. Patient given 1L of fluids, ativan, and steriods. Patient rahs appears to be contact dermatitis. Will start patient on steriods. Discussed using libirum for withdrawals. Patient plans to go to AA. - Lab Data Result diagrams: 07/19/18 14:05 07/19/18 14:05 Lab Results 07/19/18 07/19/18 07/19/18 Range/Units 14:05 14:05 14:05 WBC 7.9 (3.8-10.6) k/uL RBC 5.17 (4.30-5.90) m/uL Hgb 17.3 (13.0-17.5) gm/dL Hct 49.8 (39.0-53.0) % MCV 96.2 (80.0-100.0) fL MCH 33.4 (25.0-35.0) pg MCHC 34.8 (31.0-37.0) g/dL RDW 12.4 (11.5-15.5) % Plt Count 249 (150-450) k/uL Neutrophils % 81 % Lymphocytes % 8 % Monocytes % 7 % Eosinophils % 1 % Basophils % 0 % Neutrophils # 6.4 (1.3-7.7) k/uL Lymphocytes # 0.7 L (1.0-4.8) k/uL Monocytes # 0.5 (0-1.0) k/uL Eosinophils # 0.1 (0-0.7) k/uL Basophils # 0.0 (0-0.2) k/uL Sodium 137 (137-145) mmol/L Potassium 4.4 (3.5-5.1) mmol/L Chloride 99 (98-107) mmol/L Carbon Dioxide 24 (22-30) mmol/L Anion Gap 14 mmol/L BUN 24 H (9-20) mg/dL Creatinine 0.90 (0.66-1.25) mg/dL Est GFR (CKD-EPI)AfAm >90 (>60 ml/min/1.73 sqM) Est GFR (CKD-EPI)NonAf >90 (>60 ml/min/1.73 sqM) Glucose 123 H (74-99) mg/dL Calcium 9.7 (8.4-10.2) mg/dL Magnesium 1.5 L (1.6-2.3) mg/dL Total Bilirubin 0.7 (0.2-1.3) mg/dL AST 49 (17-59) U/L ALT 41 (21-72) U/L Alkaline Phosphatase 53 (38-126) U/L Total Protein 7.2 (6.3-8.2) g/dL Albumin 4.3 (3.5-5.0) g/dL Urine Color Urine Appearance (Clear) Urine pH (5.0-8.0) Ur Specific [place] (1.001-1.035) Urine Protein (Negative) Urine Glucose (UA) (Negative) Urine Ketones (Negative) Urine Blood (Negative) Urine Nitrite (Negative) Urine Bilirubin (Negative) Urine Urobilinogen (<2.0) mg/dL Ur Leukocyte Esterase (Negative) Urine Opiates Screen (NotDetected) Ur Oxycodone Screen (NotDetected) Urine Methadone Screen (NotDetected) Ur Propoxyphene Screen (NotDetected) Ur Barbiturates Screen (NotDetected) U Tricyclic Antidepress (NotDetected) Ur Phencyclidine Scrn (NotDetected) Ur Amphetamines Screen (NotDetected) U Methamphetamines Scrn (NotDetected) U Benzodiazepines Scrn (NotDetected) Urine Cocaine Screen (NotDetected) U Marijuana (THC) Screen (NotDetected) Group A Strep Rapid Negative (Negative) 07/19/18 Range/Units Unknown WBC (3.8-10.6) k/uL RBC (4.30-5.90) m/uL Hgb (13.0-17.5) gm/dL Hct (39.0-53.0) % MCV (80.0-100.0) fL MCH (25.0-35.0) pg MCHC (31.0-37.0) g/dL RDW (11.5-15.5) % Plt Count (150-450) k/uL Neutrophils % % Lymphocytes % % Monocytes % % Eosinophils % % Basophils % % Neutrophils # (1.3-7.7) k/uL Lymphocytes # (1.0-4.8) k/uL Monocytes # (0-1.0) k/uL Eosinophils # (0-0.7) k/uL Basophils # (0-0.2) k/uL Sodium (137-145) mmol/L Potassium (3.5-5.1) mmol/L Chloride (98-107) mmol/L Carbon Dioxide (22-30) mmol/L Anion Gap mmol/L BUN (9-20) mg/dL Creatinine (0.66-1.25) mg/dL Est GFR (CKD-EPI)AfAm (>60 ml/min/1.73 sqM) Est GFR (CKD-EPI)NonAf (>60 ml/min/1.73 sqM) Glucose (74-99) mg/dL Calcium (8.4-10.2) mg/dL Magnesium (1.6-2.3) mg/dL Total Bilirubin (0.2-1.3) mg/dL AST (17-59) U/L ALT (21-72) U/L Alkaline Phosphatase (38-126) U/L Total Protein (6.3-8.2) g/dL Albumin (3.5-5.0) g/dL Urine Color Yellow Urine Appearance Clear (Clear) Urine pH 7.0 (5.0-8.0) Ur Specific [place] 1.020 (1.001-1.035) Urine Protein Trace H (Negative) Urine Glucose (UA) Negative (Negative) Urine Ketones Negative (Negative) Urine Blood Negative (Negative) Urine Nitrite Negative (Negative) Urine Bilirubin 1+ H (Negative) Urine Urobilinogen <2.0 (<2.0) mg/dL Ur Leukocyte Esterase Negative (Negative) Urine Opiates Screen Not Detected (NotDetected) Ur Oxycodone Screen Not Detected (NotDetected) Urine Methadone Screen Not Detected (NotDetected) Ur Propoxyphene Screen Not Detected (NotDetected) Ur Barbiturates Screen Not Detected (NotDetected) U Tricyclic Antidepress Detected H (NotDetected) Ur Phencyclidine Scrn Not Detected (NotDetected) Ur Amphetamines Screen Not Detected (NotDetected) U Methamphetamines Scrn Not Detected (NotDetected) U Benzodiazepines Scrn Not Detected (NotDetected) Urine Cocaine Screen Not Detected (NotDetected) U Marijuana (THC) Screen Not Detected (NotDetected) Group A Strep Rapid (Negative) Disposition Clinical Impression: Alcohol withdrawal, Dermatitis Disposition: HOME SELF-CARE Condition: Good Instructions: Alcohol Withdrawal (ED) Additional Instructions: Patient advised follow-up with primary care physician. Return to emergency department if any alarming signs or symptoms occur. Prescriptions: chlordiazePOXIDE HCl [Librium] 25 mg PO DIRECTED #10 capsule methylPREDNISolone Dose Pack [Medrol Dose Pack] 4 mg PO DIRECTED #21 package Is patient prescribed a controlled substance at d/c from ED?: Yes When asked, does pt state using other controlled substances?: No If prescribed controlled substance>3 days was MAPS reviewed?: Prescribed <3 Days If opioid is for acute pain is fill amount 7 days or less?: Yes If Rx opioid, was Start Talking consent form obtained?: Yes Referrals: Chiki Moss MD [Primary Care Provider] - 1-2 days Time of Disposition: 15:39
[2018-07-19 15:16] LABS: Appearance,Urine Clear (Clear); Bilirubin,Urine 1+ (Negative); Blood,Urine Negative (Negative); Color,Urine Yellow; Glucose,Urine (UA) Negative (Negative); Ketones,Urine Negative (Negative); Leukocyte Esterase,Urine Negative (Negative); Nitrite,Urine Negative (Negative); Protein,Urine Trace (Negative); Urobilinogen,Urine <2.0 mg/dL (<2.0)
[2018-07-19 15:26] LABS: Amphetamine Screen,Urine Not Detected (NotDetected); Barbiturate Screen,Urine Not Detected (NotDetected); Benzodiazepines Screen,Urine Not Detected (NotDetected); Cocaine Screen,Urine Not Detected (NotDetected); Methadone Screen, Urine Not Detected (NotDetected); Opiate Screen,Urine Not Detected (NotDetected); Oxycodone Screen, Urine Not Detected (NotDetected); Phencyclidine Screen,Urine Not Detected (NotDetected); Tricyclic Antidepressant,Urine Detected (NotDetected); Urn Cannabinoid Scrn Not Detected (NotDetected)
[2018-07-19] MEDS ORDERED: THIAMINE 100 MG TAB PO SCH (17:00)
== END 2018-07-19 15:53 | disposition home or self-care (01) ==
LOC: EC 12:33
DX: F10.239 Alcohol dependence with withdrawal, unspecified (principal); L30.9 Dermatitis, unspecified; J02.9 Acute pharyngitis, unspecified; F32.9 Major depressive disorder, single episode, unspecified; Z87.891 Personal history of nicotine dependence; Z79.899 Other long term (current) drug therapy; Z86.14 Personal history of Methicillin resistant Staphylococcus aureus infection
CPT/HCPCS: 36415; 80053; 83735; 85025; 81003; 80306; 87081; 87430; 99285; 96374; 96375 ×2; 96361; 96372; J2060; J1200; J2930; J3411

== ENCOUNTER 2018-08-23 21:13 | Emergency (ER) | payer BC ==
--- NOTE | 2018-08-23 22:34 | ED ---
General Adult HPI - General Source: patient, police, RN notes reviewed, old records reviewed Mode of arrival: ambulatory Limitations: no limitations <Xiang Almaraz - Last Filed: 08/23/18 22:34> <Lupis Osei - Last Filed: 08/24/18 04:53> - General Chief complaint: Psychiatric Symptoms Stated complaint: mental health Time Seen by Provider: 08/23/18 22:15 - History of Present Illness Initial comments: This is a 32-year-old male the ER for evaluation of psychiatric illness. Patient coming in with alcohol intoxication feeling suicidal and wanting to Kill himself. (Xiang Almaraz) - Related Data Home Medications Medication Instructions Recorded Confirmed QUEtiapine [SEROquel] 50 mg PO HS 03/05/18 08/23/18 Acamprosate Calcium [Campral] 333 mg PO TID 08/23/18 08/23/18 Prazosin [Minipress] 1 mg PO HS 08/23/18 08/23/18 busPIRone HCL 15 mg PO QID 08/23/18 08/23/18 Allergies Allergy/AdvReac Type Severity Reaction Status Date / Time No Known Allergies Allergy Verified 08/23/18 21:44 Review of Systems ROS Other: All systems not noted in ROS Statement are negative. <Xiang Almaraz - Last Filed: 08/23/18 22:34> ROS Other: All systems not noted in ROS Statement are negative. <Lupis Osei - Last Filed: 08/24/18 04:53> ROS Statement: Those systems with pertinent positive or pertinent negative responses have been documented in the HPI. Past Medical History Past Medical History: GERD/Reflux, Pulmonary Embolus (PE) Additional Past Medical History / Comment(s): etoh History of Any Multi-Drug Resistant Organisms: MRSA Date of last positivie culture/infection: 2009 MDRO Source:: right knee Past Surgical History: No Surgical Hx Reported Additional Past Surgical History / Comment(s): 07/08/17 had 3 teeth extracted- post procedure pain worsened and pt went back to dr on had a 2nd procedure done for an exposed nerve. Past Anesthesia/Blood Transfusion Reactions: No Reported Reaction Past Psychological History: Anxiety, Depression, PTSD Smoking Status: Former smoker Past Alcohol Use History: Abuse, Daily, Heavy Past Drug Use History: None Reported - Past Family History Father Additional Family Medical History / Comment(s): anxiety Mother Family Medical History: Cancer, Hyperlipidemia, Hypertension, Thyroid Disorder Additional Family Medical History / Comment(s): breast cancer, shingles, osteoporosis, anxiety <Xiang Almaraz Last Filed: 08/23/18 22:34> General Exam Limitations: no limitations General appearance: alert, in no apparent distress, appears intoxicated Head exam: Present: atraumatic, normocephalic, normal inspection Eye exam: Present: normal appearance, PERRL, EOMI. Absent: scleral icterus, conjunctival injection, periorbital swelling ENT exam: Present: normal exam, mucous membranes moist Neck exam: Present: normal inspection. Absent: tenderness, meningismus, lymphadenopathy Respiratory exam: Present: normal lung sounds bilaterally. Absent: respiratory distress, wheezes, rales, rhonchi, stridor Cardiovascular Exam: Present: regular rate, normal rhythm, normal heart sounds. Absent: systolic murmur, diastolic murmur, rubs, gallop, clicks GI/Abdominal exam: Present: soft, normal bowel sounds. Absent: distended, tenderness, guarding, rebound, rigid Extremities exam: Present: normal inspection, full ROM, normal capillary refill. Absent: tenderness, pedal edema, joint swelling, calf tenderness Back exam: Present: normal inspection Neurological exam: Present: alert, oriented X3, CN II-XII intact Psychiatric exam: Present: normal affect, normal mood Skin exam: Present: warm, dry, intact, normal color. Absent: rash <Xiang Almaraz - Last Filed: 08/23/18 22:34> Vital Signs 08/23/18 08/24/18 08/24/18 21:17 00:00 01:00 Temperature 98.3 F Pulse Rate 107 H Respiratory 18 16 14 Rate Blood Pressure 140/80 O2 Sat by Pulse 98 Oximetry 08/24/18 01:55 Temperature Pulse Rate Respiratory 16 Rate Blood Pressure O2 Sat by Pulse Oximetry - Lab Data Lab Results 08/24/18 Range/Units 02:28 Urine Opiates Screen Not Detected (NotDetected) Ur Oxycodone Screen Not Detected (NotDetected) Urine Methadone Screen Not Detected (NotDetected) Ur Propoxyphene Screen Not Detected (NotDetected) Ur Barbiturates Screen Detected H (NotDetected) U Tricyclic Antidepress Not Detected (NotDetected) Ur Phencyclidine Scrn Not Detected (NotDetected) Ur Amphetamines Screen Not Detected (NotDetected) U Methamphetamines Scrn Not Detected (NotDetected) U Benzodiazepines Scrn Detected H (NotDetected) Urine Cocaine Screen Not Detected (NotDetected) U Marijuana (THC) Screen Not Detected (NotDetected) Disposition <Xiang Almaraz B - Last Filed: 08/23/18 22:34> Is patient prescribed a controlled substance at d/c from ED?: No <Lupis Osei P - Last Filed: 08/24/18 04:53> Clinical Impression: Depression Disposition: HOME SELF-CARE Condition: Stable Instructions: Abuse of Alcohol (ED) Referrals: None,Stated [Primary Care Provider] - 1-2 days
[2018-08-24 01:56] VITALS: RESP 16
[2018-08-24 03:00] LABS: Amphetamine Screen,Urine Not Detected (NotDetected); Barbiturate Screen,Urine Detected (NotDetected); Benzodiazepines Screen,Urine Detected (NotDetected); Cocaine Screen,Urine Not Detected (NotDetected); Methadone Screen, Urine Not Detected (NotDetected); Opiate Screen,Urine Not Detected (NotDetected); Oxycodone Screen, Urine Not Detected (NotDetected); Phencyclidine Screen,Urine Not Detected (NotDetected); Tricyclic Antidepressant,Urine Not Detected (NotDetected); Urn Cannabinoid Scrn Not Detected (NotDetected)
[2018-08-24 05:05] VITALS: BP 162/81; PULSE 76; TEMP 98.5
== END 2018-08-24 05:02 | disposition home or self-care (01) ==
LOC: EC 21:13
DX: F32.9 Major depressive disorder, single episode, unspecified (principal); R45.851 Suicidal ideations; F10.129 Alcohol abuse with intoxication, unspecified; F41.9 Anxiety disorder, unspecified; F43.10 Post-traumatic stress disorder, unspecified; Z86.14 Personal history of Methicillin resistant Staphylococcus aureus infection; Z87.891 Personal history of nicotine dependence; Z79.899 Other long term (current) drug therapy
CPT/HCPCS: 80306; 99285

== ENCOUNTER 2018-09-03 01:27 | Inpatient (IN) | payer BC ==
[2018-09-03 02:39] LABS: Amphetamine Screen,Urine Not Detected (NotDetected); Barbiturate Screen,Urine Not Detected (NotDetected); Benzodiazepines Screen,Urine Detected (NotDetected); Cocaine Screen,Urine Not Detected (NotDetected); Methadone Screen, Urine Not Detected (NotDetected); Opiate Screen,Urine Not Detected (NotDetected); Oxycodone Screen, Urine Not Detected (NotDetected); Phencyclidine Screen,Urine Not Detected (NotDetected); Tricyclic Antidepressant,Urine Not Detected (NotDetected); Urn Cannabinoid Scrn Not Detected (NotDetected)
[2018-09-03] MEDS ORDERED: LORazepam 1 MG TAB PO STA (02:57)
[2018-09-03] MEDS ORDERED: LORazepam 2 MG/ML INJ IV PRN ×3 (03:43)
--- NOTE | 2018-09-03 03:44 | ED ---
Psych HPI - General Source: patient, RN notes reviewed Mode of arrival: ambulatory Limitations: no limitations <Renetta Gaston - Last Filed: 09/03/18 03:39> <Karan Morgan - Last Filed: 09/03/18 16:29> - General Chief Complaint: Psychiatric Symptoms Stated Complaint: mental health Time Seen by Provider: 09/03/18 01:44 - History of Present Illness Initial Comments: This is a 33-year-old male who presents to the emergency department for mental health evaluation. Patient states that he is a recovering alcoholic. He states that he recently relapsed. Patient states that he drank a pint and a half this afternoon. He states that he was in contact with his ex-fianc throughout the day which made him feel very depressed. Patient began having suicidal ideation. Patient's ex-fianc contacted the [place] [employer] who brought patient to the emergency department. Patient reports suicidal ideation but denies plan. Denies homicidal ideation. Denies auditory or visual hallucinations. Denies illicit drug use. States he has no medical issues and takes medication for depression, anxiety and PTSD. Patient states he was hospitalized for alcohol withdrawal last week for 4 days. Denies any recent illnesses or infections. Denies fevers or chills, chest pain or shortness of breath, abdominal pain, nausea or vomiting. (Renetta Gaston) - Related Data Home Medications Medication Instructions Recorded Confirmed Folic Acid 1 mg PO DAILY 09/03/18 09/03/18 Gabapentin [Neurontin] 100 mg PO TID 09/03/18 09/03/18 Magnesium Oxide 400 mg PO DAILY 09/03/18 09/03/18 Multivitamins, Thera [Multivitamin 1 tab PO DAILY 09/03/18 09/03/18 (formulary)] QUEtiapine [SEROquel] 200 mg PO HS 09/03/18 09/03/18 Thiamine [Vitamin B-1] 100 mg PO DAILY 09/03/18 09/03/18 Venlafaxine HCl ER [Effexor Xr] 37.5 mg PO DAILY 09/03/18 09/03/18 chlordiazePOXIDE HCl [Librium] 10 mg PO BID 09/03/18 09/03/18 Allergies Allergy/AdvReac Type Severity Reaction Status Date / Time No Known Allergies Allergy Verified 09/03/18 08:08 Review of Systems ROS Other: All systems not noted in ROS Statement are negative. <Renetta Gaston - Last Filed: 09/03/18 03:39> ROS Other: All systems not noted in ROS Statement are negative. <Karan Morgan - Last Filed: 09/03/18 16:29> ROS Statement: Those systems with pertinent positive or pertinent negative responses have been documented in the HPI. Past Medical History Past Medical History: GERD/Reflux, Pulmonary Embolus (PE) Additional Past Medical History / Comment(s): etoh History of Any Multi-Drug Resistant Organisms: MRSA Date of last positivie culture/infection: 2009 MDRO Source:: right knee Past Surgical History: No Surgical Hx Reported Additional Past Surgical History / Comment(s): 07/08/17 had 3 teeth extracted- post procedure pain worsened and pt went back to dr on had a 2nd procedure done for an exposed nerve. Past Anesthesia/Blood Transfusion Reactions: No Reported Reaction Past Psychological History: Anxiety, Depression, PTSD Smoking Status: Former smoker Past Alcohol Use History: Abuse, Daily, Heavy Past Drug Use History: None Reported - Past Family History Father Additional Family Medical History / Comment(s): anxiety Mother Family Medical History: Cancer, Hyperlipidemia, Hypertension, Thyroid Disorder Additional Family Medical History / Comment(s): breast cancer, shingles, osteoporosis, anxiety <Renetta Gaston - Last Filed: 09/03/18 03:39> General Exam Limitations: no limitations <Renetta Gaston - Last Filed: 09/03/18 03:39> <Karan Morgan - Last Filed: 09/03/18 16:29> - General Exam Comments Initial Comments: General: Awake and alert, well-developed; in no apparent distress. HEENT: Head atraumatic, normocephalic. Pupils are equal, round and reactive to light. Extraocular movements intact. Oropharynx moist without erythema or exudate. Neck: Supple. Normal ROM. Cardiovascular: Regular rate and rhythm. No murmurs, rubs or gallops. Chest symmetrical. Respiratory: Lungs clear to auscultation bilaterally. No wheezes, rales or rhonchi. Normal respiratory effort with no use of accessory muscles. Musculoskeletal: Normal ROM, no tenderness bilateral upper and lower extremities. Ambulating normally. Skin: [place], warm and dry without rashes or lesions. Neurological: Alert and oriented x3. CN II-XII grossly intact. Speech is fluent and answers are appropriate. No focal neuro deficits. Psychiatric: Pleasant, calm and cooperative. (Renetta Gaston) Vital Signs 09/03/18 09/03/18 01:31 13:52 Temperature 98.0 F 97.8 F Pulse Rate 100 98 Respiratory 18 18 Rate Blood Pressure 132/83 119/84 O2 Sat by Pulse 98 99 Oximetry Medical Decision Making <Renetta Gaston - Last Filed: 09/03/18 03:39> <Karan Mrogan - Last Filed: 09/03/18 16:29> - Medical Decision Making Patient was seen by mental health services with plan for admission. (Karan Morgan) - Lab Data Lab Results 09/03/18 Range/Units 01:51 Urine Opiates Screen Not Detected (NotDetected) Ur Oxycodone Screen Not Detected (NotDetected) Urine Methadone Screen Not Detected (NotDetected) Ur Propoxyphene Screen Not Detected (NotDetected) Ur Barbiturates Screen Not Detected (NotDetected) U Tricyclic Antidepress Not Detected (NotDetected) Ur Phencyclidine Scrn Not Detected (NotDetected) Ur Amphetamines Screen Not Detected (NotDetected) U Methamphetamines Scrn Not Detected (NotDetected) U Benzodiazepines Scrn Detected H (NotDetected) Urine Cocaine Screen Not Detected (NotDetected) U Marijuana (THC) Screen Not Detected (NotDetected) Disposition <Renetta Gaston - Last Filed: 09/03/18 03:39> <Karan Morgan - Last Filed: 09/03/18 16:29> Clinical Impression: Depression Disposition: TRANSFER TO PSYCH HOSP/UNIT
[2018-09-03] MEDS ORDERED: LORazepam 2 MG/ML INJ IM STA ×2 (05:40→16:28)
[2018-09-03] MEDS ORDERED: NICOTINE 21MG/24HR PATCH TRANSDERM STA (05:54)
[2018-09-03] MEDS: THIAMINE 100 MG TAB PO SCH ×2 (15:00→16:32)
[2018-09-03] MEDS ORDERED: MAG HYDROX/AL HYDROX/SIMETH 30 ML CUP PO PRN (16:28)
[2018-09-03] MEDS ORDERED: ACETAMINOPHEN TAB 325 MG TAB PO PRN (16:28)
[2018-09-03] MEDS ORDERED: MAGNESIUM HYDROXIDE 2,400 MG/10 ML CUP PO PRN (16:28)
[2018-09-03] MEDS ORDERED: HYDROCORTISONE 1% OINT 28.35 GM TUBE TOPICAL PRN (18:15)
--- NOTE | 2018-09-03 18:29 | P.HPMEDMHU ---
History of Present Illness H&P Date: 09/03/18 Chief Complaint: depression Patient is a 33-year-old male past medical history of GERD, pulmonary embolism status post treatment, alcoholic hepatitis, and pancreatitis who presented to the ER with complaints of depression and suicidal ideation. He has subsequently been admitted to the mental health unit and we are asked to evaluate him for medical H&P. He reports that he has been drinking heavily for the last 3 days. Yesterday he drank just shy of 2 fifths. Prior to the last 3 days he was hospitalized at [facility] for 5 days secondary to severe intoxication. He reports that he did not have any medical problems such as severely elevated Liver enzymes or pancreatitis at that point in time. Just prior to this he had been at the [facility] [place] for 5 days. He currently is at a [facility]- quarter house. He reports that after he returned home from [place] he found that his fiance was cheating on him and then she therefore moved out. That is when he started drinking heavily again and having increased depression. He reports one episode of vomiting. He has had decreased appetite secondary to alcohol He has had flaking on the skin around his face for the last several weeks which happens when he drinks heavily. He denies any recent cough, cold, fever, flu, diarrhea, constipation, or dysuria. He has no other complaints currently. He states his liver enzymes are typically in the 200s. Review of Systems Pertinent positives and negatives as discussed in HPI, a complete review of systems was performed and all other systems are negative. Past Medical History Past Medical History: GERD/Reflux, Pulmonary Embolus (PE) Additional Past Medical History / Comment(s): etoh abuse, alcoholic hepatitis History of Any Multi-Drug Resistant Organisms: MRSA Date of last positivie culture/infection: 2009 MDRO Source:: right knee Past Surgical History: No Surgical Hx Reported Additional Past Surgical History / Comment(s): had 3 teeth extracted-post procedure pain worsened and had a 2nd procedure done for an exposed nerve. Past Anesthesia/Blood Transfusion Reactions: No Reported Reaction Past Psychological History: Anxiety, Depression, PTSD Smoking Status: Former smoker Past Alcohol Use History: Abuse, Daily, Heavy Past Drug Use History: None Reported Additional History: Uses chew, drinking heavily on a daily basis, no street drugs - Past Family History Father Additional Family Medical History / Comment(s): anxiety Mother Family Medical History: Cancer, Hyperlipidemia, Hypertension, Thyroid Disorder Additional Family Medical History / Comment(s): breast cancer, shingles, osteoporosis, anxiety Medications and Allergies Home Medications Medication Instructions Recorded Confirmed Type Folic Acid 1 mg PO DAILY 09/03/18 09/03/18 History Gabapentin [Neurontin] 100 mg PO TID 09/03/18 09/03/18 History Magnesium Oxide 400 mg PO DAILY 09/03/18 09/03/18 History Multivitamins, Thera [Multivitamin 1 tab PO DAILY 09/03/18 09/03/18 History (formulary)] QUEtiapine [SEROquel] 200 mg PO HS 09/03/18 09/03/18 History Thiamine [Vitamin B-1] 100 mg PO DAILY 09/03/18 09/03/18 History Venlafaxine HCl ER [Effexor Xr] 37.5 mg PO DAILY 09/03/18 09/03/18 History chlordiazePOXIDE HCl [Librium] 10 mg PO BID 09/03/18 09/03/18 History Allergies Allergy/AdvReac Type Severity Reaction Status Date / Time No Known Allergies Allergy Verified 09/03/18 08:08 Physical Exam Osteopathic Statement: *. No significant issues noted on an osteopathic structural exam other than those noted in the History and Physical/Consult. Vitals: Vital Signs Temp Pulse Resp BP Pulse Ox 09/03/18 13:52 97.8 F 98 18 119/84 99 09/03/18 01:31 98.0 F 100 18 132/83 98 Intake and Output 09/03/18 09/03/18 09/03/18 06:59 14:59 22:59 Other: Weight 90.718 kg General: non toxic, no distress, appears at stated age, normal weight Derm: Multiple tattoos, flaking skin around the mouth with baseline erythema no unusual rashes/lesions no unusual ecchymoses, warm, dry Head: atraumatic, normocephalic, symmetric Eyes: EOMI, no lid lag, anicteric sclera, pupils equal round reactive to light ENT: Nose and ears atraumatic, no thrush, no pharyngeal erythema Neck: No thyromegaly, no cervical lymphadenopathy, trachea midline, supple Mouth: no lip lesion, mucus membranes moist Cardiovascular: S1S2 reg, no murmur, positive posterior tibial pulse bilateral, no edema, capillary refill less than 2 seconds Lungs: CTA bilateral, no rhonchi, no rales , no accessory muscle use Abdominal: soft, nontender to palpation, no guarding, no appreciable organomegaly, normal bowel sounds Ext: no gross muscle atrophy, muscle strength 5 out of 5 in all 4 extremities grossly, no contractures, Neuro: CN II-XI grossly intact, light touch intact all 4 extremities, finger to nose within normal limits, Psych: Alert, oriented, appropriate affect Cranial Nerve Examination - Cranial Nerves Cranial Nerve II- Optic: Intact Cranial Nerve III- Oculomotor: Intact Cranial Nerve IV- Trochlear: Intact Cranial Nerve V- Trigeminal: Intact Cranial Nerve - Abducens: Intact Cranial Nerve VII- Facial: Intact Cranial Nerve VIII- Auditory: Intact Cranial Nerve IX- Glossopharyngeal: Intact Cranial Nerve X- Vagus: Intact Cranial Nerve XI- Accessory: Intact Cranial Nerve XII- Hypoglossal: Intact Results Labs: Abnormal Lab Results - Last 24 Hours (Table) 09/03/18 Range/Units 01:51 U Benzodiazepines Scrn Detected H (NotDetected) Thrombosis Risk Factor Assmnt - DVT/VTE Prophylaxis DVT/VTE Prophylaxis: Low risk, early ambulation encouraged Assessment and Plan Assessment: Eczema, perioral -Hydrocortisone cream Alcohol abuse -Placed on Librium by Dr. Fang -Thiamine and folic acid -Cessation recommended Tobacco abuse -Nicotine replacement -Cessation recommended History of alcohol hepatitis with continually elevated liver enzymes -Check CMP in a.m. -Baseline and AST/ ALT is 200s per patient History of pulmonary embolism -Completed therapy for provoked pulmonary embolism per patient Depression with suicidal ideation -Your psych management Thank you for allowing us to participate in the care of this patient. We will follow peripherally. Do not hesitate to contact us with questions. Someone can be reached from the [facility] hospitalist group at all hours of the day at [phone].
[2018-09-03] MEDS: QUEtiapine 50 MG TAB PO SCH (20:23)
[2018-09-03] MEDS ORDERED: VENLAFAXINE HCL ER 75 MG CAP PO SCH (21:00)
[2018-09-03] MEDS: chlordiazePOXIDE 25 MG CAP PO SCH (21:40)
[2018-09-04] MEDS: chlordiazePOXIDE 25 MG CAP PO SCH (07:55)
[2018-09-04] MEDS: NICOTINE 21MG/24HR PATCH TRANSDERM SCH (07:55)
[2018-09-04] MEDS: VENLAFAXINE HCL ER 37.5 MG CAP PO SCH (09:47)
[2018-09-04] MEDS ORDERED: LORazepam 1 MG TAB PO PRN (10:52)
[2018-09-04 11:16] LABS: HCT 49.3 % (39.0-53.0); HGB 16.3 gm/dL (13.0-17.5); MCH 32.8 pg (25.0-35.0); MCV 99.3 fL (80.0-100.0); Macrocytosis Slight; Mean Platelet Volume 7.6; Platelet Count 172 k/uL (150-450); RBC 4.96 m/uL (4.30-5.90); RDW 15.2 % (11.5-15.5); WBC 6.3 k/uL (3.8-10.6)
[2018-09-04] MEDS: FOLIC ACID 1 MG TAB PO SCH (11:39)
[2018-09-04] MEDS: THIAMINE 100 MG TAB PO SCH (11:39)
[2018-09-04 11:45] LABS: Metamyelocytes # (M) 0.06 k/uL (0); Metamyelocytes % 1 %; Nucleated Red Blood Cells 0 /100 WBC (0-0)
[2018-09-04 11:47] LABS: Eosinophils # (M) 0.06 k/uL (0-0.7); Lymphocytes # (M) 1.45 k/uL (1.0-4.8); Monocytes # (M) 0.88 k/uL (0-1.0); Neutrophils # (M) 3.91 k/uL (1.3-7.7); Neutrophils % (M) 62 %; Total Cells Counted 200
[2018-09-04 14:27] LABS: ALT 451 U/L (21-72); AST 192 U/L (17-59); Albumin 4.2 g/dL (3.5-5.0); Alkaline Phosphatase 69 U/L (38-126); Anion Gap 13 mmol/L; Blood Urea Nitrogen 16 mg/dL (9-20); Carbon Dioxide 28 mmol/L (22-30); Chloride 98 mmol/L (98-107); Cholesterol 191 mg/dL (<200); Glucose 85 mg/dL (74-99); HDL Cholesterol 70 mg/dL (40-60); LDL Cholesterol,Calculated 103 mg/dL (0-99); Potassium 4.4 mmol/L (3.5-5.1); Sodium 139 mmol/L (137-145); Total Protein 7.1 g/dL (6.3-8.2); Triglycerides 91 mg/dL (<150)
--- NOTE | 2018-09-04 14:48 | P.HP ---
Psychiatric H&P - . History & Physical: Allergies Allergy/AdvReac Type Severity Reaction Status Date / Time No Known Allergies Allergy Verified 09/03/18 08:08 Vital Signs Temp 98.1 F 09/04/18 06:29 Pulse 65 09/04/18 10:57 Resp 20 09/04/18 10:57 BP 160/99 09/04/18 10:57 Pulse Ox 99 09/03/18 16:25 Intake & Output 09/03/18 09/04/18 09/04/18 18:59 06:59 18:59 Weight 88.7 kg Laboratory Last Values WBC 6.3 k/uL (3.8-10.6) 09/04/18 10:01 RBC 4.96 m/uL (4.30-5.90) 09/04/18 10:01 Hgb 16.3 gm/dL (13.0-17.5) 09/04/18 10:01 Hct 49.3 % (39.0-53.0) 09/04/18 10:01 MCV 99.3 fL (80.0-100.0) 09/04/18 10:01 MCH 32.8 pg (25.0-35.0) 09/04/18 10:01 MCHC 33.0 g/dL (31.0-37.0) 09/04/18 10:01 RDW 15.2 % (11.5-15.5) 09/04/18 10:01 Plt Count 172 k/uL (150-450) 09/04/18 10:01 Neutrophils % (Manual) 62 % 09/04/18 10:01 Lymphocytes % (Manual) 23 % 09/04/18 10:01 Monocytes % (Manual) 14 % 09/04/18 10:01 Eosinophils % (Manual) 1 % 09/04/18 10:01 Metamyelocytes % 1 % 09/04/18 10:01 Neutrophils # (Manual) 3.91 k/uL (1.3-7.7) 09/04/18 10:01 Lymphocytes # (Manual) 1.45 k/uL (1.0-4.8) 09/04/18 10:01 Monocytes # (Manual) 0.88 k/uL (0-1.0) 09/04/18 10:01 Eosinophils # (Manual) 0.06 k/uL (0-0.7) 09/04/18 10:01 Metamyelocytes # (Man) 0.06 k/uL (0) H 09/04/18 10:01 Nucleated RBCs 0 /100 WBC (0-0) 09/04/18 10:01 Manual Slide Review Performed 09/04/18 10:01 Macrocytosis Slight 09/04/18 10:01 Sodium 139 mmol/L (137-145) 09/04/18 10:01 Potassium 4.4 mmol/L (3.5-5.1) 09/04/18 10:01 Chloride 98 mmol/L (98-107) 09/04/18 10:01 Carbon Dioxide 28 mmol/L (22-30) 09/04/18 10:01 Anion Gap 13 mmol/L 09/04/18 10:01 BUN 16 mg/dL (9-20) 09/04/18 10:01 Creatinine 1.03 mg/dL (0.66-1.25) 09/04/18 10:01 Est GFR (CKD-EPI)AfAm >90 (>60 ml/min/1.73 sqM) 09/04/18 10:01 Est GFR (CKD-EPI)NonAf >90 (>60 ml/min/1.73 sqM) 09/04/18 10:01 Glucose 85 mg/dL (74-99) 09/04/18 10:01 Calcium 10.0 mg/dL (8.4-10.2) 09/04/18 10:01 Total Bilirubin 1.0 mg/dL (0.2-1.3) 09/04/18 10:01 AST 192 U/L (17-59) H 09/04/18 10:01 ALT 451 U/L (21-72) H 09/04/18 10:01 Alkaline Phosphatase 69 U/L (38-126) 09/04/18 10:01 Total Protein 7.1 g/dL (6.3-8.2) 09/04/18 10:01 Albumin 4.2 g/dL (3.5-5.0) 09/04/18 10:01 Triglycerides 91 mg/dL (<150) 09/04/18 10:01 Cholesterol 191 mg/dL (<200) 09/04/18 10:01 LDL Cholesterol, Calc 103 mg/dL (0-99) H 09/04/18 10:01 HDL Cholesterol 70 mg/dL (40-60) H 09/04/18 10:01 TSH 0.880 mIU/L (0.465-4.680) 09/04/18 10:01 Urine Opiates Screen Not Detected (NotDetected) 09/03/18 01:51 Ur Oxycodone Screen Not Detected (NotDetected) 09/03/18 01:51 Urine Methadone Screen Not Detected (NotDetected) 09/03/18 01:51 Ur Propoxyphene Screen Not Detected (NotDetected) 09/03/18 01:51 Ur Barbiturates Screen Not Detected (NotDetected) 09/03/18 01:51 U Tricyclic Antidepress Not Detected (NotDetected) 09/03/18 01:51 Ur Phencyclidine Scrn Not Detected (NotDetected) 09/03/18 01:51 Ur Amphetamines Screen Not Detected (NotDetected) 09/03/18 01:51 U Methamphetamines Scrn Not Detected (NotDetected) 09/03/18 01:51 U Benzodiazepines Scrn Detected (NotDetected) H 09/03/18 01:51 Urine Cocaine Screen Not Detected (NotDetected) 09/03/18 01:51 U Marijuana (THC) Screen Not Detected (NotDetected) 09/03/18 01:51 Serum Alcohol <10 mg/dL 09/03/18 17:58 09/04/18 14:38 IDENTIFYING DATA: This patient is a 33-year-old single male who was admitted to the mental health unit through the emergency room for suicidal ideation. HPI: The patient was petition by law enforcement after receiving a call from the patient's former girlfriend. Apparently the patient had text did her saying he just wanted to . The patient had consumed an excessive amount of alcohol in a short period of time and his alcohol level was 273. The patient had stated that he had gestured with a firearm just 2 months ago again while intoxicated. He states that when he is not drinking he does have a mild depression and symptoms of anxiety. He states when he sober his mood is better. He states his sleep has been reduced appetite is stable energy level is lower. He describes anxiety in one-on-one situations and some social situations. He admits to struggling with alcohol use for 14 years. His longest sobriety was 1.5 years. He states during that time his mood was noticeably better. The termination of the relationship with his fiance has been very difficult to overcome especially since she has found another boyfriend. He is reporting no homicidal ideation. He reports no auditory or visual hallucinations or any specific delusions. He endorses no history of hypomanic or manic episodes. The patient reports no ongoing nightmares flashbacks or other evidence of PTSD at this time. PAST PSYCHIATRIC HISTORY: This is the patient's first psychiatric admission. He states he's had no history of suicide attempts. When he gestured with a firearm he states he knew was unloaded and does not consider that a suicide attempt. He states in 2007 he did cut his arm once in terms of self-injurious behavior. He previously has tried Lexapro Wellbutrin camp all and naltrexone. He states Lexapro had no effect Wellbutrin had adverse side effects. He is not sure if Campral helped and naltrexone did not help with cravings for alcohol he is currently on Seroquel 200 mg at bedtime Effexor XR 37.5 mg daily. He states he was started on the Seroquel 6 months ago at 25 mg and during a recent hospitalization it was increased to 200. He prefers this dose is lower. He states he was given the Effexor XR in the hospital recently but did not comply with it afterwards. PMH: Was admitted to [facility] for several days to detoxify from alcohol. ALLERGIES: NO KNOWN DRUG ALLERGIES MEDICATIONS: Above CHEMICAL DEPENDENCY HISTORY: The patient has an established alcohol use disorder. He has been drinking heavily recently. He has a history of using alcohol abusively for 14 years. He reports no use of marijuana or any other illicit drugs. He has been in rehab for alcohol use 8 times the last one was several months ago at [facility]. FAMILY PSYCHIATRIC HISTORY: Mother and several family members known to have depression no suicides in the family although a sister was known to cut herself frequently FAMILY CHEMICAL DEPENDENCY HISTORY: "Everyone" regarding use of alcohol SOCIAL HISTORY: The patient is 33 years old she single he has no children. He has been residing in a sober living facility. 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 He graduated high school with some college credits. He was in the [employer] for 5-1/2 years. 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 in [place]. 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 Legal history 2 DU and 2008, abuse history unknown. MENTAL STATUS EXAM: The patient is a male appearing his stated age. He is dressed in his own clothing. Eye contact is appropriate speech is fluent spontaneous nonpressured. He has numerous tattoos covering his upper extremities. He reports that his mood is good today he states that his suicidal thoughts resolved when he is no longer intoxicated. He endorses some mild anxiety. He reports no homicidal ideation intent or plan. He endorses no auditory or visual hallucinations or any specific delusions. There is no observed evidence of psychosis. He does not appear hypomanic or manic. Thought process is linear he demonstrates no tangential thinking loose associations or flight of ideas. Insight and judgment limited. He is oriented to person place and date. He is able to spell world backwards. He demonstrates no verbal or physical aggressiveness he demonstrates no abnormal repetitive involuntary movements. STRENGTHS/WEAKNESSES: Housing, employment, willingness to receive voluntary care weaknesses: Alcohol use disorder INTELLECTUAL FUNCTIONING: Average IMPRESSIONS: [] 1. Major depressive disorder recurrent, anxiety unspecified, alcohol use disorder PLAN: The patient has been admitted to the mental health unit he has signed in voluntarily. We reviewed his presenting symptoms and treatment options. We will continue the Effexor XR and we'll titrate the dose to a therapeutic level. We will continue Seroquel 50 mg at bedtime. His blood pressure has been elevated we will provide Ativan as needed to prevent alcohol withdrawal symptoms. Vital signs are being checked regularly. He will be seen by internal medicine for routine history and physical exam. Social work will meet with the patient to complete a psychosocial assessment. He indicates he does not wish to participate in inpatient chemical dependency treatment.
[2018-09-04] MEDS: LORazepam 1 MG TAB PO SCH ×2 (15:30→20:56)
[2018-09-04] MEDS: QUEtiapine 50 MG TAB PO SCH (20:56)
[2018-09-05 05:14] LABS: Hemoglobin A1C 4.9 % (4.0-6.0)
[2018-09-05 06:44] VITALS: BP 139/77; PULSE 67; RESP 16; TEMP 98.2
[2018-09-05] MEDS: NICOTINE 21MG/24HR PATCH TRANSDERM SCH (07:37)
[2018-09-05] MEDS: LORazepam 1 MG TAB PO SCH (07:37)
[2018-09-05] MEDS: VENLAFAXINE HCL ER 37.5 MG CAP PO SCH (07:37)
--- NOTE | 2018-09-05 09:43 | P.DS ---
Providers Date of admission: 09/03/18 16:25 Expected date of discharge: 09/05/18 Attending physician: Ramin Gonzalez Consults: 09/03/18 16:28 Consult Physician Routine Consulting Provider: Lakisha Reardon Consult Reason/Comments: Medical management Do you want consulting provider notified?: Yes Primary care physician: Stated None - Discharge Diagnosis(es) (1) Depression Current Visit: Yes Status: Acute Priority: High (2) Anxiety Current Visit: Yes Status: Acute Priority: High (3) Alcohol use disorder Current Visit: Yes Status: Acute Priority: High Hospital Course: Brief summary of admission note: This patient is a 33-year-old single male who was admitted to the mental health unit through the emergency room for suicidal ideation. The patient was brought in after he had made statements of wanting to while he was intoxicated with alcohol. The patient does have a long-standing alcohol use disorder and he states he does not do well when he is drinking. He states that just 2 months ago he had gestured with an unloaded firearm in front of his ex-girlfriend. He describes a history of mild depression and anxiety. He reports that with sustained sobriety his mood is stable. For full details please refer to my psychiatric evaluation dated 2017. Summary of hospital course: The patient was admitted to the mental health unit he did sign in voluntarily. We reviewed his presenting symptoms and treatment options. We continued Effexor XR with a plan of titrating it to a therapeutic dose, Seroquel was continued 50 mg at bedtime. The patient was seen by internal medicine for routine history and physical exam. Social work met with the patient to complete a psychosocial assessment and to begin discharge planning. The patient states that he has no friends or family that he wants involved in his care and indicates that family does not live locally. We discussed potentially going to inpatient chemical dependency treatment upon discharge that he does not feel that is necessary. He did not want naltrexone prescribed as it was ineffective in the past. He states he plans on attending NA meetings and will leave residing in a sober living facility through [facility]. The patient's been pleasant and cooperative on the mental health unit. He is demonstrated no agitated behavior. He is verbalize no suicidal ideation. He states that any suicidal thoughts completely resolved once he was sober. He is able to meet his activities of daily living. Mental status exam: The patient is alert he is dressed in his own clothing hygiene grooming are good. He is dressed in his own clothing. His upper extremities are extensively covered with tattoos. Eye contact is appropriate speech is fluent spontaneous nonpressured. He reports no suicidal or homicidal ideation intent or plan. He is reporting no auditory or visual hallucinations or any specific delusions. There is no observable evidence of psychosis. Thought process is linear he demonstrates no tangential thinking loose associations or flight of ideas. He demonstrates no evidence of hypomania or nargis. Affect is appropriately expressive. He demonstrates no verbal or physical aggressiveness he demonstrates no abnormal involuntary movements. He remains oriented to person place and date. Impressions 1. Depression unspecified rule out major depressive disorder, anxiety unspecified, alcohol use disorder Plan: The patient will be discharged mental health unit today. He plans on returning to his sober living residence. Social work will arrange his outpatient mental health follow-up. He will continue on Effexor XR at 75 mg daily and Seroquel 50 mg at bedtime. He declines inpatient chemical dependency treatment. He reports he will address his substance use issues as an outpatient with individual therapy. He plans on attending AA meetings. There is no imminent safety risk at this time he is appropriate for transition outpatient care. He is instructed to return to the hospital with any acute safety concerns. He reports that all of his firearms are now at his parents home. Patient Condition at Discharge: Stable Plan - Discharge Summary New Discharge Prescriptions: New LORazepam [Ativan] 1 mg PO BID #4 tab Nicotine 21Mg/24Hr Patch [Habitrol] 1 patch TRANSDERM DAILY #10 patch QUEtiapine [SEROquel] 50 mg PO HS #30 tab Venlafaxine HCl ER [Effexor XR] 75 mg PO DAILY #30 cap.er.24h Continue Multivitamins, Thera [Multivitamin (formulary)] 1 tab PO DAILY Discontinued chlordiazePOXIDE HCl [Librium] 10 mg PO BID Venlafaxine HCl ER [Effexor Xr] 37.5 mg PO DAILY Thiamine [Vitamin B-1] 100 mg PO DAILY QUEtiapine [SEROquel] 200 mg PO HS Magnesium Oxide 400 mg PO DAILY Gabapentin [Neurontin] 100 mg PO TID Folic Acid 1 mg PO DAILY Discharge Medication List Multivitamins, Thera [Multivitamin (formulary)] 1 tab PO DAILY 09/03/18 [History ] LORazepam [Ativan] 1 mg PO BID #4 tab 09/05/18 [Rx] Nicotine 21Mg/24Hr Patch [Habitrol] 1 patch TRANSDERM DAILY #10 patch 09/05/18 [ Rx] QUEtiapine [SEROquel] 50 mg PO HS #30 tab 09/05/18 [Rx] Venlafaxine HCl ER [Effexor XR] 75 mg PO DAILY #30 cap.er.24h 09/05/18 [Rx] Follow up Appointment(s)/Referral(s): None,Stated [Primary Care Provider] - 1-2 days
[2018-09-05] MEDS: THIAMINE 100 MG TAB PO SCH (11:10)
[2018-09-05] MEDS: FOLIC ACID 1 MG TAB PO SCH (11:10)
[2018-09-06] MEDS ORDERED: VENLAFAXINE HCL ER 75 MG CAP PO SCH (09:00)
== END 2018-09-05 13:48 | disposition home or self-care (01) | DRG 885 ==
LOC: EC 01:27 → 3MHU 16:25
PROVIDERS: ADMIT Psychiatry & Neurology Psychiatry; ATTEND Psychiatry & Neurology Psychiatry
DX: F33.9 Major depressive disorder, recurrent, unspecified (principal); R45.851 Suicidal ideations; F43.10 Post-traumatic stress disorder, unspecified; K21.9 Gastro-esophageal reflux disease without esophagitis; F10.229 Alcohol dependence with intoxication, unspecified; Y90.8 Blood alcohol level of 240 mg/100 ml or more; Z80.3 Family history of malignant neoplasm of breast; Z81.8 Family history of other mental and behavioral disorders; Z82.49 Family history of ischemic heart disease and other diseases of the circulatory system; Z82.62 Family history of osteoporosis; Z86.711 Personal history of pulmonary embolism; Z71.6 Tobacco abuse counseling; F17.220 Nicotine dependence, chewing tobacco, uncomplicated; Z71.41 Alcohol abuse counseling and surveillance of alcoholic; Z63.0 Problems in relationship with spouse or partner; F41.9 Anxiety disorder, unspecified; L30.9 Dermatitis, unspecified
CPT/HCPCS: 80053; 80061; 80306; 80320; 82075; 83036; 84443; 85025; 96372; 99285

== ENCOUNTER 2018-09-09 15:52 | Inpatient (IN) | payer BC ==
[2018-09-09] MEDS ORDERED: LORazepam 2 MG/ML INJ IV STA (17:02)
[2018-09-09] MEDS ORDERED: THIAMINE 100 MG/ML 2 ML VIAL IM STA (17:02)
[2018-09-09] MEDS ORDERED: SODIUM CHLORIDE 0.9% 1,000 ML IV STA (17:02)
[2018-09-09 18:06] LABS: ALT 193 U/L (21-72); AST 73 U/L (17-59); Albumin 4.6 g/dL (3.5-5.0); Alkaline Phosphatase 88 U/L (38-126); Anion Gap 18 mmol/L; Blood Urea Nitrogen 14 mg/dL (9-20); Calcium 9.5 mg/dL (8.4-10.2); Carbon Dioxide 25 mmol/L (22-30); Chloride 100 mmol/L (98-107); Glucose 97 mg/dL (74-99); Lipase 213 U/L (23-300); Magnesium 1.9 mg/dL (1.6-2.3); Potassium 4.6 mmol/L (3.5-5.1); Sodium 143 mmol/L (137-145); Total Bilirubin 0.7 mg/dL (0.2-1.3)
[2018-09-09 18:08] LABS: MCH 33.6 pg (25.0-35.0); MCHC 34.2 g/dL (31.0-37.0); MCV 98.2 fL (80.0-100.0); Mean Platelet Volume 6.4; Platelet Count 367 k/uL (150-450); RBC 5.75 m/uL (4.30-5.90); RDW 15.1 % (11.5-15.5); WBC 6.9 k/uL (3.8-10.6)
[2018-09-09 18:12] LABS: HCT 56.4 % (39.0-53.0)
[2018-09-09 18:14] LABS: HGB 19.3 gm/dL (13.0-17.5)
[2018-09-09 18:18] LABS: Alcohol 331 mg/dL
[2018-09-09 18:39] LABS: Band Neutrophils % 1 %; Lymphocytes # (M) 1.31 k/uL (1.0-4.8); Monocytes # (M) 0.41 k/uL (0-1.0); Neutrophils % (M) 74 %; Nucleated Red Blood Cells 0 /100 WBC (0-0); Total Cells Counted 100
[2018-09-09] MEDS ORDERED: NALOXONE 0.4 MG/ML 1 ML VIAL IV PRN (18:55)
--- NOTE | 2018-09-09 19:02 | ED ---
General Adult HPI - General Chief complaint: Alcohol Stated complaint: Detox Time Seen by Provider: 09/09/18 16:19 Source: patient, RN notes reviewed, old records reviewed Mode of arrival: wheelchair Limitations: no limitations - History of Present Illness Initial comments: 34-year-old male history of alcohol abuse and depression presenting with tremor and agitation. Patient feels he is going through alcohol withdrawal. He admits to drinking earlier this morning. He normally drinks 1-1/2 pint of liquor daily. He was admitted for psychiatric evaluation and suicidal ideation within the past several weeks. Patient answers slowly when asked about suicidal ideation. He may have a component of suicidal ideation at this time. His mother is in the room at the time my initial evaluation. - Related Data Home Medications Medication Instructions Recorded Confirmed Multivitamins, Thera [Multivitamin 1 tab PO DAILY 09/03/18 09/09/18 (formulary)] Previous Rx's Medication Instructions Recorded LORazepam [Ativan] 1 mg PO BID #4 tab 09/05/18 Nicotine 21Mg/24Hr Patch [Habitrol] 1 patch TRANSDERM DAILY #10 patch 09/05/18 QUEtiapine [SEROquel] 50 mg PO HS #30 tab 09/05/18 Venlafaxine HCl ER [Effexor XR] 75 mg PO DAILY #30 cap.er.24h 09/05/18 Allergies Allergy/AdvReac Type Severity Reaction Status Date / Time No Known Allergies Allergy Verified 09/09/18 16:31 Review of Systems ROS Statement: Those systems with pertinent positive or pertinent negative responses have been documented in the HPI. ROS Other: All systems not noted in ROS Statement are negative. Past Medical History Past Medical History: GERD/Reflux, Pulmonary Embolus (PE) Additional Past Medical History / Comment(s): etoh abuse, alcoholic hepatitis History of Any Multi-Drug Resistant Organisms: MRSA Date of last positivie culture/infection: 2009 MDRO Source:: right knee Past Surgical History: No Surgical Hx Reported Additional Past Surgical History / Comment(s): had 3 teeth extracted-post procedure pain worsened and had a 2nd procedure done for an exposed nerve. Past Anesthesia/Blood Transfusion Reactions: No Reported Reaction Past Psychological History: Anxiety, Depression, PTSD Smoking Status: Former smoker Past Alcohol Use History: Abuse, Daily, Heavy Past Drug Use History: None Reported - Past Family History Father Additional Family Medical History / Comment(s): anxiety Mother Family Medical History: Cancer, Hyperlipidemia, Hypertension, Thyroid Disorder Additional Family Medical History / Comment(s): breast cancer, shingles, osteoporosis, anxiety General Exam Limitations: no limitations General appearance: alert, anxious, other (Tremulous) Head exam: Present: atraumatic, normocephalic Eye exam: Present: normal appearance, PERRL, EOMI ENT exam: Present: mucous membranes dry Neck exam: Present: normal inspection. Absent: tenderness, meningismus Respiratory exam: Present: normal lung sounds bilaterally. Absent: respiratory distress Cardiovascular Exam: Present: regular rate, normal rhythm GI/Abdominal exam: Present: soft. Absent: distended, tenderness, guarding Extremities exam: Present: normal inspection, normal capillary refill. Absent: pedal edema Neurological exam: Present: alert, oriented X3 Psychiatric exam: Present: depressed, anxious Skin exam: Present: warm, dry, intact Course Vital Signs 09/09/18 16:04 Temperature 98.7 F Pulse Rate 105 H Respiratory 20 Rate Blood Pressure 124/89 O2 Sat by Pulse 97 Oximetry Medical Decision Making - Medical Decision Making 34-year-old male presenting with alcohol withdrawal. Patient is tremulous, appears profoundly dehydrated on exam. Laboratory studies obtained, patient has normal white blood cell count, hemoglobin 19.3 likely secondary to dehydration. Mildly elevated AST and ALT. Patient's alcohol is 3:30. He is having alcohol withdrawal symptoms at a high level of alcohol. He will be admitted for benzodiazepines and treatment of alcohol withdrawal. Although the patient denies suicidal ideation, I will have suicidal sitter and psych consult because I feel this may be a component of his issue. Case discussed with admitting physician who will accept. Please call patient's mother prior to discharge. - Lab Data Result diagrams: 09/09/18 17:23 09/09/18 17:23 Lab Results 09/09/18 09/09/18 Range/Units 17:23 17:23 WBC 6.9 (3.8-10.6) k/uL RBC 5.75 (4.30-5.90) m/uL Hgb 19.3 H* D (13.0-17.5) gm/dL Hct 56.4 H (39.0-53.0) % MCV 98.2 (80.0-100.0) fL MCH 33.6 (25.0-35.0) pg MCHC 34.2 (31.0-37.0) g/dL RDW 15.1 (11.5-15.5) % Plt Count 367 D (150-450) k/uL Neutrophils % (Manual) 74 % Band Neutrophils % 1 % Lymphocytes % (Manual) 19 % Monocytes % (Manual) 6 % Neutrophils # (Manual) 5.10 (1.3-7.7) k/uL Lymphocytes # (Manual) 1.31 (1.0-4.8) k/uL Monocytes # (Manual) 0.41 (0-1.0) k/uL Nucleated RBCs 0 (0-0) /100 WBC Manual Slide Review Performed Sodium 143 (137-145) mmol/L Potassium 4.6 (3.5-5.1) mmol/L Chloride 100 (98-107) mmol/L Carbon Dioxide 25 (22-30) mmol/L Anion Gap 18 mmol/L BUN 14 (9-20) mg/dL Creatinine 1.07 (0.66-1.25) mg/dL Est GFR (CKD-EPI)AfAm >90 (>60 ml/min/1.73 sqM) Est GFR (CKD-EPI)NonAf >90 (>60 ml/min/1.73 sqM) Glucose 97 (74-99) mg/dL Calcium 9.5 (8.4-10.2) mg/dL Magnesium 1.9 (1.6-2.3) mg/dL Total Bilirubin 0.7 (0.2-1.3) mg/dL AST 73 H (17-59) U/L ALT 193 H (21-72) U/L Alkaline Phosphatase 88 (38-126) U/L Total Protein 8.0 (6.3-8.2) g/dL Albumin 4.6 (3.5-5.0) g/dL Lipase 213 (23-300) U/L Serum Alcohol 331 H* mg/dL Disposition Clinical Impression: Alcohol withdrawal delirium, Acute alcoholic hepatitis, Depression, History of ETOH abuse Disposition: ADMITTED IP TO THIS [facility] Condition: Stable Is patient prescribed a controlled substance at d/c from ED?: No Referrals: None,Stated [Primary Care Provider] - 1-2 days Decision to Admit Reason: Admit from EC Decision Date: 09/09/18 Decision Time: 19:02
[2018-09-09] MEDS: THIAMINE 100 MG TAB PO SCH (19:07)
[2018-09-09 21:25] VITALS: BMI 26.4
[2018-09-09] MEDS: LORazepam 2 MG/ML INJ IV PRN ×3 (21:41→23:18)
[2018-09-09] MEDS ORDERED: DIAZEPAM 5 MG TAB PO SCH (22:00)
[2018-09-09] MEDS ORDERED: NICOTINE 14MG/24HR PATCH TRANSDERM STA (23:43)
[2018-09-09] MEDS ORDERED: QUEtiapine 50 MG TAB PO SCH (23:45)
[2018-09-09] MEDS: SODIUM CHLORIDE 0.9% 1,000 ML IV SCH (23:59)
[2018-09-10] MEDS: ACETAMINOPHEN TAB 325 MG TAB PO PRN ×2 (00:27→06:00)
[2018-09-10] MEDS: HEPARIN SODIUM,PORCINE 5,000 UNIT/ML 1 ML VIAL SQ SCH ×3 (00:28→15:57)
[2018-09-10] MEDS: LORazepam 2 MG/ML INJ IV PRN ×8 (00:48→22:34)
[2018-09-10] MEDS: DIAZEPAM 5 MG TAB PO SCH ×3 (02:24→18:18)
[2018-09-10] MEDS: VENLAFAXINE HCL ER 75 MG CAP PO SCH (08:54)
[2018-09-10] MEDS: NICOTINE 14MG/24HR PATCH TRANSDERM SCH (08:54)
[2018-09-10 11:09] LABS: Anion Gap 9 mmol/L; Blood Urea Nitrogen 15 mg/dL (9-20); Calcium 8.5 mg/dL (8.4-10.2); Carbon Dioxide 26 mmol/L (22-30); Chloride 104 mmol/L (98-107); Glucose 96 mg/dL (74-99); Potassium 3.4 mmol/L (3.5-5.1); Sodium 139 mmol/L (137-145)
[2018-09-10 11:12] LABS: Basophils % (A) 1 %; Eosinophils # (A) 0.1 k/uL (0-0.7); Eosinophils % (A) 1 %; HCT 42.2 % (39.0-53.0); Lymphocytes # (A) 1.3 k/uL (1.0-4.8); Lymphocytes % (A) 34 %; MCH 33.2 pg (25.0-35.0); MCV 97.8 fL (80.0-100.0); Mean Platelet Volume 6.8; Monocytes # (A) 0.3 k/uL (0-1.0); Monocytes % (A) 8 %; Neutrophils % (A) 52 %; Platelet Count 255 k/uL (150-450); RBC 4.32 m/uL (4.30-5.90); RDW 14.9 % (11.5-15.5); WBC 3.9 k/uL (3.8-10.6)
[2018-09-10 11:15] LABS: HGB 14.3 gm/dL (13.0-17.5)
[2018-09-10] MEDS: SODIUM CHLORIDE 0.9% 1,000 ML IV SCH ×2 (11:25→18:59)
[2018-09-10] MEDS: THIAMINE 100 MG TAB PO SCH ×2 (11:25→15:57)
--- NOTE | 2018-09-10 14:22 | P.HPIM ---
History of Present Illness 34-year-old male history of alcohol abuse and depression presenting with tremor and agitation. Patient feels he is going through alcohol withdrawal. He admits to drinking earlier this morning. He normally drinks 1-1/2 pint of liquor daily. He was admitted for psychiatric evaluation and suicidal ideation within the past several weeks. Patient answers slowly when asked about suicidal ideation. She does have suicidal ideation. His mother is in the room at the time my initial evaluation. Denied any abdominal pain is comparing of nausea. Patient has a one-on-one sitter because of suicidal ideation psychiatric was consulted patient is on Ativan CIWA protocol at this time. Review of Systems REVIEW OF SYSTEMS: CONSTITUTIONAL: No fever, no malaise, no fatigue. HEENT: No recent visual problems or hearing problems. Denied any sore throat. CARDIOVASCULAR: No chest pain, orthopnea, PND, no palpitations, no syncope. PULMONARY: No shortness of breath, no cough, no hemoptysis. GASTROINTESTINAL: No diarrhea, no vomiting, no abdominal pain. Normoactive bowel sounds. NEUROLOGICAL: No headaches, no weakness, no numbness. HEMATOLOGICAL: Denies any bleeding or petechiae. GENITOURINARY: Denies any burning micturition, frequency, or urgency. MUSCULOSKELETAL/RHEUMATOLOGICAL: Denies any joint pain, swelling, or any muscle pain. ENDOCRINE: Denies any polyuria or polydipsia. The rest of the 14-point review of systems is negative. 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 Past Anesthesia/Blood Transfusion Reactions: No Reported Reaction Past Psychological History: Anxiety, Depression, PTSD Additional Psychological History / Comment(s): been to rehab before, sober living house right now and plan to return his old appt has to move out by tommorow, drinks way over a fifth of liquor, fiancee cheting on him at this time big reason for relapse Smoking Status: Former smoker Past Alcohol Use History: Abuse, Daily, Heavy Additional Past Alcohol Use History / Comment(s): started smoking at age 18 and quit cigaretts in 2016 now chews Past Drug Use History: None Reported - Past Family History Father Additional Family Medical History / Comment(s): anxiety Mother Family Medical History: Cancer, Hyperlipidemia, Hypertension, Thyroid Disorder Additional Family Medical History / Comment(s): breast cancer, shingles, osteoporosis, anxiety Medications and Allergies Home Medications Medication Instructions Recorded Confirmed Type Multivitamins, Thera [Multivitamin 1 tab PO DAILY 09/03/18 09/09/18 History (formulary)] LORazepam [Ativan] 1 mg PO BID #4 tab 09/05/18 09/09/18 Rx Nicotine 21Mg/24Hr Patch [Habitrol] 1 patch TRANSDERM DAILY #10 patch 09/05/18 09/09/18 Rx QUEtiapine [SEROquel] 50 mg PO HS #30 tab 09/05/18 09/09/18 Rx Venlafaxine HCl ER [Effexor XR] 75 mg PO DAILY #30 cap.er.24h 09/05/18 09/09/18 Rx Allergies Allergy/AdvReac Type Severity Reaction Status Date / Time No Known Allergies Allergy Verified 09/09/18 16:31 Physical Exam Vitals: Vital Signs Temp Pulse Pulse Resp BP BP Pulse Ox 09/10/18 07:00 98.8 F 88 17 110/62 94 L 09/10/18 02:18 98.7 F 108 H 24 135/60 98 09/10/18 00:37 99 F 114 H 20 113/79 98 09/09/18 22:27 105 H 16 160/82 97 09/09/18 22:00 122 H 18 146/79 98 09/09/18 21:37 99.3 F 120 H 18 142/109 98 09/09/18 16:04 98.7 F 105 H 20 124/89 97 Intake and Output 09/09/18 09/10/18 09/10/18 22:59 06:59 14:59 Intake Total 500 1500 Balance 500 1500 Intake: Intake, IV Titration 500 Amount Sodium Chloride 0.9% 1, 500 000 ml @ 100 mls/hr IV . Q10H MARY Rx#:[id number] Oral 500 1000 Other: Voiding Method Toilet Toilet # Voids 1 Weight 90.718 kg 90.718 kg PHYSICAL EXAMINATION: GENERAL: The patient is alert and oriented x3, not in any acute distress. Well developed, well nourished. Mild tremors HEENT: Pupils are round and equally reacting to light. EOMI. No scleral icterus. No conjunctival pallor. Normocephalic, atraumatic. No pharyngeal erythema. No thyromegaly. CARDIOVASCULAR: S1 and S2 present. No murmurs, rubs, or gallops. PULMONARY: Chest is clear to auscultation, no wheezing or crackles. ABDOMEN: Soft, nontender, nondistended, normoactive bowel sounds. No palpable organomegaly. MUSCULOSKELETAL: No joint swelling or deformity. EXTREMITIES: No cyanosis, clubbing, or pedal edema. NEUROLOGICAL: Gross neurological examination did not reveal any focal deficits. SKIN: No rashes. Results CBC & Chem 7: 09/10/18 09:01 09/10/18 09:01 Labs: Abnormal Lab Results - Last 24 Hours (Table) 09/09/18 09/09/18 09/10/18 Range/Units 17:23 17:23 09:01 Hgb 19.3 H* D (13.0-17.5) gm/dL Hct 56.4 H (39.0-53.0) % Potassium 3.4 L (3.5-5.1) mmol/L AST 73 H (17-59) U/L ALT 193 H (21-72) U/L Serum Alcohol 331 H* mg/dL Thrombosis Risk Factor Assmnt - Choose All That Apply Any of the Below Risk Factors Present?: Yes Each Factor Represents 1 point: Obesity (BMI >25) Other Risk Factors: Yes Each Risk Factor Represents 3 Points: History of DVT/PE Other congenital or acquired thrombophilia - If yes, enter type in comment: No Thrombosis Risk Factor Assessment Total Risk Factor Score: 4 Thrombosis Risk Factor Assessment Level: Moderate Risk Assessment and Plan Plan: -Alcohol withdrawal: Patient is on Ativan CW protocol patient tachycardia is secondary to alcohol withdrawal which is improving at this time. Patient is willing to quit alcohol -Alcoholic gastritis: Patient was started on Protonix IV fluids -Suicidal ideation: One-on-one sitter psychiatric consultation -Hypokalemia: Natriuretic hypokalemia from IV fluids will replace magnesium level is within normal limits -Mild alcoholic hepatitis expected to improve with quitting alcohol -Elevated hematocrit: Secondary to hemoconcentration from dehydration from chronic alcoholism, improved now
[2018-09-10 15:29] VITALS: RESP 16
[2018-09-10] MEDS: PANTOPRAZOLE 40 MG/10 ML VIAL IVP SCH (15:55)
[2018-09-10] MEDS ORDERED: QUEtiapine 50 MG TAB PO SCH (21:00)
[2018-09-11] MEDS: HEPARIN SODIUM,PORCINE 5,000 UNIT/ML 1 ML VIAL SQ SCH ×2 (00:31→09:27)
[2018-09-11] MEDS: LORazepam 2 MG/ML INJ IV PRN ×2 (00:39→05:04)
[2018-09-11] MEDS: DIAZEPAM 5 MG TAB PO SCH ×2 (02:48→10:25)
[2018-09-11] MEDS: SODIUM CHLORIDE 0.9% 1,000 ML IV SCH (05:13)
[2018-09-11 07:25] VITALS: BP 144/84; PULSE 55; TEMP 98.3
[2018-09-11] MEDS: NICOTINE 14MG/24HR PATCH TRANSDERM SCH (09:28)
[2018-09-11] MEDS: PANTOPRAZOLE 40 MG/10 ML VIAL IVP SCH (09:28)
[2018-09-11] MEDS: VENLAFAXINE HCL ER 75 MG CAP PO SCH (09:28)
[2018-09-11 09:29] LABS: HCT 44.5 % (39.0-53.0); HGB 15.2 gm/dL (13.0-17.5); MCH 34.2 pg (25.0-35.0); MCHC 34.1 g/dL (31.0-37.0); MCV 100.1 fL (80.0-100.0); Macrocytosis Slight; Mean Platelet Volume 6.8; Platelet Count 249 k/uL (150-450); RBC 4.44 m/uL (4.30-5.90); RDW 14.4 % (11.5-15.5); WBC 4.8 k/uL (3.8-10.6)
[2018-09-11 09:39] LABS: Anion Gap 6 mmol/L; Blood Urea Nitrogen 7 mg/dL (9-20); Calcium 9.1 mg/dL (8.4-10.2); Carbon Dioxide 28 mmol/L (22-30); Chloride 104 mmol/L (98-107); Glucose 117 mg/dL (74-99); Potassium 3.9 mmol/L (3.5-5.1); Sodium 138 mmol/L (137-145)
[2018-09-11] MEDS: THIAMINE 100 MG TAB PO SCH (12:03)
--- NOTE | 2018-09-11 13:43 | P.CN ---
Psychiatric Consult - . Consult date: 09/11/18 Consult:: 09/11/18 12:05 Question suicidal ideation and acute alcohol intoxication Assessment and Plan Assessment: History of Present Illness 34-year-old male history of alcohol abuse and depression presenting with tremor and agitation. Patient feels he is going through alcohol withdrawal. He admits to drinking earlier this morning. He normally drinks 1-1/2 pint of liquor daily. He was admitted for psychiatric evaluation and suicidal ideation within the past several weeks. Patient answers slowly when asked about suicidal ideation. She does have suicidal ideation. His mother is in the room at the time my initial evaluation. Denied any abdominal pain is comparing of nausea. Mental status exam: The patient is alert he is dressed in his own clothing hygiene grooming are good. He is dressed in his own clothing. His upper extremities are extensively covered with tattoos. Eye contact is appropriate speech is fluent spontaneous nonpressured. He reports no suicidal or homicidal ideation intent or plan. He is reporting no auditory or visual hallucinations or any specific delusions. There is no observable evidence of psychosis. Thought process is linear he demonstrates no tangential thinking loose associations or flight of ideas. He demonstrates no evidence of hypomania or nargis. Affect is appropriately expressive. He demonstrates no verbal or physical aggressiveness he demonstrates no abnormal involuntary movements. He remains oriented to person place and date. Impressions 1. Depression unspecified rule out major depressive disorder, anxiety unspecified, alcohol use disorder (1) Alcohol use disorder Current Visit: No Status: Acute Priority: High Code(s): GVI3066 - SNOMED Code(s): 25014813 (2) Anxiety Current Visit: No Status: Acute Priority: High Code(s): F41.9 - ANXIETY DISORDER, UNSPECIFIED SNOMED Code(s): 75661594 Plan: Recommendations: discharge and stop sitter Time with Patient: Less than 30
--- NOTE | 2018-09-11 14:50 | P.DS ---
Providers Date of admission: 09/09/18 19:02 Attending physician: Hattie Swanson Consults: 09/09/18 23:54 Consult Physician Routine Consulting Provider: Ben Fang Consult Reason/Comments: alcohol withdrawal, question for suicidal Do you want consulting provider notified?: Yes, Notify in am Primary care physician: Stated None Hospital Course: Patient doesn't have any significant withdrawals and cleared by psychiatric. Patient will be discharged today patient doesn't have any suicidal ideations at this time. Patient is willing to quit smoking PHYSICAL EXAMINATION: GENERAL: The patient is alert and oriented x3, not in any acute distress. Well developed, well nourished. HEENT: Pupils are round and equally reacting to light. EOMI. No scleral icterus. No conjunctival pallor. Normocephalic, atraumatic. No pharyngeal erythema. No thyromegaly. CARDIOVASCULAR: S1 and S2 present. No murmurs, rubs, or gallops. PULMONARY: Chest is clear to auscultation, no wheezing or crackles. ABDOMEN: Soft, nontender, nondistended, normoactive bowel sounds. No palpable organomegaly. MUSCULOSKELETAL: No joint swelling or deformity. EXTREMITIES: No cyanosis, clubbing, or pedal edema. NEUROLOGICAL: Gross neurological examination did not reveal any focal deficits. SKIN: No rashes. Assessment and Plan Plan: -Alcohol withdrawal: -Alcoholic gastritis: -Suicidal ideation: -Hypokalemia: Natriuretic hypokalemia improved after supplementation -Mild alcoholic hepatitis expected to improve with quitting alcohol -Elevated hematocrit: Secondary to hemoconcentration from dehydration from chronic alcoholism, improved now Patient Condition at Discharge: Stable Plan - Discharge Summary New Discharge Prescriptions: No Action Multivitamins, Thera [Multivitamin (formulary)] 1 tab PO DAILY LORazepam [Ativan] 1 mg PO BID #4 tab Nicotine 21Mg/24Hr Patch [Habitrol] 1 patch TRANSDERM DAILY #10 patch QUEtiapine [SEROquel] 50 mg PO HS #30 tab Venlafaxine HCl ER [Effexor XR] 75 mg PO DAILY #30 cap.er.24h Discharge Medication List Multivitamins, Thera [Multivitamin (formulary)] 1 tab PO DAILY 09/03/18 [History ] LORazepam [Ativan] 1 mg PO BID #4 tab 09/05/18 [Rx] Nicotine 21Mg/24Hr Patch [Habitrol] 1 patch TRANSDERM DAILY #10 patch 09/05/18 [ Rx] QUEtiapine [SEROquel] 50 mg PO HS #30 tab 09/05/18 [Rx] Venlafaxine HCl ER [Effexor XR] 75 mg PO DAILY #30 cap.er.24h 09/05/18 [Rx] Follow up Appointment(s)/Referral(s): None,Stated [Primary Care Provider] - 1-2 days
[2018-09-12] MEDS ORDERED: PANTOPRAZOLE 40 MG TABLET PO SCH (09:00)
== END 2018-09-11 13:35 | disposition home or self-care (01) | DRG 897 ==
LOC: EC 15:52 → 4SSUR 19:02
PROVIDERS: ADMIT Hospitalist; ATTEND Hospitalist
DX: F10.231 Alcohol dependence with withdrawal delirium (principal); R45.851 Suicidal ideations; F17.220 Nicotine dependence, chewing tobacco, uncomplicated; E86.0 Dehydration; E87.6 Hypokalemia; F32.9 Major depressive disorder, single episode, unspecified; F43.10 Post-traumatic stress disorder, unspecified; K21.9 Gastro-esophageal reflux disease without esophagitis; K29.20 Alcoholic gastritis without bleeding; K70.10 Alcoholic hepatitis without ascites; M41.9 Scoliosis, unspecified; Z80.3 Family history of malignant neoplasm of breast; Z82.49 Family history of ischemic heart disease and other diseases of the circulatory system; Z82.62 Family history of osteoporosis; Z81.8 Family history of other mental and behavioral disorders; Z86.711 Personal history of pulmonary embolism; F41.9 Anxiety disorder, unspecified; Z86.14 Personal history of Methicillin resistant Staphylococcus aureus infection; R71.8 Other abnormality of red blood cells; Z79.899 Other long term (current) drug therapy
CPT/HCPCS: 36415; 80048; 80053; 80320; 83690; 83735; 85025; 85027; 96361; 96372; 96374; 99285

== ENCOUNTER 2018-12-24 09:05 | Emergency (ER) | payer BC, OTHER ==
[2018-12-24 09:15] VITALS: RESP 16
--- NOTE | 2018-12-24 09:46 | ED ---
General Adult HPI - General Chief complaint: Fall Stated complaint: Fall-ETOH Time Seen by Provider: 12/24/18 09:20 Source: patient, RN notes reviewed Limitations: no limitations - History of Present Illness Initial comments: Patient is a 33-year-old male presented to the emergency room today with a chief complaint of alcohol withdrawal. Patient does admit to being a daily drinker. States last drink was 8 hours ago. Patient states that he did have a fall 3 days ago. Patient states that [place] He states he does not believe that he lost consciousness. He does admit that he's had a headache. Does admit some pain in the left side of the neck. Also admits to some pain to his tailbone. Denies any bowel or bladder incontinence retention. Denies any saddle anesthesia. Patient denies any other complaints currently. Patient denies any recent fever, chills, shortness of breath, chest pain, abdominal pain, nausea or vomiting, numbness or tingling, visual changes, or any other complaints. - Related Data Home Medications Medication Instructions Recorded Confirmed Multivitamins, Thera [Multivitamin 1 tab PO DAILY 09/03/18 12/24/18 (formulary)] Previous Rx's Medication Instructions Recorded QUEtiapine [SEROquel] 50 mg PO HS #30 tab 09/05/18 Ondansetron Odt [Zofran ODT] 4 mg PO Q8HR PRN #20 tab 12/24/18 chlordiazePOXIDE HCl [Librium] 25 mg PO DIRECTED #22 capsule 12/24/18 cloNIDine HCL [Catapres] 0.1 mg PO BID #6 tab 12/24/18 Allergies Allergy/AdvReac Type Severity Reaction Status Date / Time No Known Allergies Allergy Verified 12/24/18 09:47 Review of Systems ROS Statement: Those systems with pertinent positive or pertinent negative responses have been documented in the HPI. ROS Other: All systems not noted in ROS Statement are negative. 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 Past Anesthesia/Blood Transfusion Reactions: No Reported Reaction Past Psychological History: Anxiety, Depression, PTSD Smoking Status: Former smoker Past Alcohol Use History: Abuse, Daily, Heavy Past Drug Use History: None Reported - Past Family History Father Additional Family Medical History / Comment(s): anxiety Mother Family Medical History: Cancer, Hyperlipidemia, Hypertension, Thyroid Disorder Additional Family Medical History / Comment(s): breast cancer, shingles, osteoporosis, anxiety General Exam - General Exam Comments Initial Comments: General: The patient is awake and alert, in no distress, and does not appear acutely ill. Eye: Pupils are equal, round and reactive to light, extra-ocular movements are intact. No nystagmus. There is normal conjunctiva bilaterally. No signs of icterus. Ears, nose, mouth and throat: There are moist mucous membranes and no oral lesions. Neck: The neck is supple, there is no tenderness or JVD. Cardiovascular: There is a regular rate and rhythm. No murmur, rub or gallop is appreciated. Respiratory: Lungs are clear to auscultation, respirations are non-labored, breath sounds are equal. No wheezes, stridor, rales, or rhonchi. Gastrointestinal: Abdomen soft nontender. Musculoskeletal: Normal ROM, no tenderness. Strength 5/5. Sensation intact. Pulses equal bilaterally 2+. Neurological: A&O x 3. CN II-XII intact, There are no obvious motor or sensory deficits. Coordination appears grossly intact. Speech is normal. Skin: Skin is warm and dry and no rashes or lesions are noted. Psychiatric: Cooperative, appropriate mood & affect, normal judgment. Limitations: no limitations Course Vital Signs 12/24/18 09:10 Temperature 98.6 F Pulse Rate 97 Respiratory 16 Rate Blood Pressure 145/94 O2 Sat by Pulse 96 Oximetry Medical Decision Making - Medical Decision Making X-rays of the lumbar spine are negative for any acute abnormality. Patient does admit to being a daily alcoholic is trying to stop drinking. Is looking into finding a rehab facility. Patient did have fall 3 days ago. X-ray of the back negative. CT of the head is unremarkable. CT of the C-spine shows grade 1 retrolisthesis at C5-C6 with a tiny ossific density anterior to C5 superior endplate. Chronic changes are suspected given the lack of any paravertebral soft tissue swelling. Patient does admit to pain to the left side of the neck area no tenderness midline. Patient shows full range of motion. Strength tested with flexion and extension and rotation of the cervical spine and is 5/5 in all areas. Patient resting comfortably at this time. Patient states that he does want to stop drinking. Will be given medications of Zofran, clonidine, Librium. Given information for rehab facilities. Patient does have mother here at bedside that will take him home. Patient will follow-up. He is advised return for any other concerns. Disposition Clinical Impression: Fall, Alcohol abuse Disposition: HOME SELF-CARE Condition: Good Instructions (If sedation given, give patient instructions): Abuse of Alcohol ( ED) Additional Instructions: Please use medication as discussed. Please follow-up with family doctor in the next 2 days. Please return to emergency room if the symptoms increase or worsen or for any other concerns. Prescriptions: chlordiazePOXIDE HCl [Librium] 25 mg PO DIRECTED #22 capsule cloNIDine HCL [Catapres] 0.1 mg PO BID #6 tab Ondansetron Odt [Zofran ODT] 4 mg PO Q8HR PRN #20 tab PRN Reason: Nausea Is patient prescribed a controlled substance at d/c from ED?: No Referrals: Mary Mims MD [Primary Care Provider] - 1-2 days Time of Disposition: 11:11
--- NOTE | 2018-12-24 10:04 | CT ---
EXAMINATION TYPE: CT brain dora wo con DATE OF EXAM: 12/24/2018 COMPARISON: Brain 03/26/2018 HISTORY: 33-year-old male with pain after Fall CT DLP: 1476.2 mGycm Automated exposure control for dose reduction was used. Technique: Examination of the head was done in axial plane without intravenous contrast. Coronal and sagittal reconstructions performed. CT of the cervical spine was obtained in axial plane without intravenous injection of contrast mater ial. Coronal and sagittal reformatted images were obtained from the axial views for evaluation of f ractures, spinal alignment and canal. FINDINGS: Head: Patient's head is tilted in the gantry. There is no evidence of acute intracranial hemorrhage, acute ischemic changes, mass, mass-effect, or extra-axial fluid collection. There is no effacement of cerebral sulci or basal subarachnoid cister ns. There is no hydrocephalus. There is no midline shift. Laughlin-white matter distinction is preserv ed. No calvarial fracture. Paranasal sinuses and mastoid air cells well pneumatized. Orbits and globes ar e intact. Cervical spine: Dental caries involving left posterior mandibular molar and right posterior maxillary molar. No craniocervical junction abnormality, predental space widening, or prevertebral soft tissue swellin g. Trace grade 1 retrolisthesis at C5-C6 with tiny ossific density anterior to the C5 superior endplate. Suspect chronic etiology given lack of any prevertebral soft tissue swelling. Otherwise, alignment is maintained. Assessment of the spinal canal from C6-C7 and below is limited due to artifact from the patient's isael ulders. No large focal disc herniation seen along the visualized levels. No acute fracture seen. Sagittal and coronal reformatted images confirm above findings. COMBINED IMPRESSION: 1. No acute intracranial abnormality seen. 2. Trace grade 1 retrolisthesis at C5-C6 with a tiny ossific density anterior to the C5 superior endp late. Chronic changes are suspected given the lack of any prevertebral soft tissue swelling. If clini yo concern for more acute ligamentous injury, MRI with the addition of a sagittal STIR sequence can be performed. 3. Otherwise, no acute fracture or malalignment seen.
--- NOTE | 2018-12-24 10:11 | XR ---
EXAMINATION TYPE: XR lumbosacral spine min 4V DATE OF EXAM: 12/24/2018 COMPARISON: NONE HISTORY: 33-year-old male with pain after fall TECHNIQUE: 5 views FINDINGS: Rightward truncal shift. 5 lumbar type vertebral bodies. No pars interarticularis defect. Vertebral b hilario heights are preserved and alignment is maintained. IMPRESSION: No vertebral compression collapse or malalignment.
[2018-12-24 11:20] VITALS: BP 156/90; PULSE 102; TEMP 98.1
== END 2018-12-24 11:48 | disposition home or self-care (01) ==
LOC: EC 09:05
DX: F10.10 Alcohol abuse, uncomplicated (principal); R51 Headache; M54.2 Cervicalgia; M53.3 Sacrococcygeal disorders, not elsewhere classified; Z86.14 Personal history of Methicillin resistant Staphylococcus aureus infection; Z87.891 Personal history of nicotine dependence; W10.9XXA Fall (on) (from) unspecified stairs and steps, initial encounter; Y92.009 Unspecified place in unspecified non-institutional (private) residence as the place of occurrence of the external cause
CPT/HCPCS: 70450; 72110; 72125; 99284

== ENCOUNTER 2019-02-01 11:13 | Emergency (ER) | payer OTHER ==
[2019-02-01 11:18] VITALS: RESP 18
--- NOTE | 2019-02-01 11:36 | ED ---
General Adult HPI - General Chief complaint: Seizure Stated complaint: Seizure Time Seen by Provider: 02/01/19 11:13 Source: patient, EMS, RN notes reviewed Mode of arrival: EMS Limitations: no limitations - History of Present Illness Initial comments: This is a 33-year-old male who presents emergency department [facility] Patient states he has been there since January 24 for alcohol abuse. Patient states 2 days ago. Stopped his Ativan. Patient states she's never had a seizure before. Patient has some tenderness under the left eye and the left side of his forehead where there is a hematoma and there is a small laceration on the left side of the forehead. Patient also complains of right hand pain and states there is a little pain in his right knee but it feels like an abrasion has full range of motion of that knee. Patient has no other areas of tenderness. Patient has full range of motion of the upper extremities patient has no chest pain or back pain. Patient denies any difficulty breathing shortness breath per patient denies any abdominal pain. - Related Data Home Medications Medication Instructions Recorded Confirmed Multivitamins, Thera [Multivitamin 1 tab PO DAILY 09/03/18 02/01/19 (formulary)] Acetaminophen Tab [Tylenol Tab] 1,000 mg PO Q6HR PRN 02/01/19 02/01/19 Calcium/Magnesium/Zinc 1 tab PO DAILY 02/01/19 02/01/19 [Jlmdvam-Gmqxzhxsi-Wjft Tablet] Ctm 1 tab PO DAILY 02/01/19 02/01/19 Ibuprofen [Motrin Ib] 400 mg PO Q6H PRN 02/01/19 02/01/19 Previous Rx's Medication Instructions Recorded QUEtiapine [SEROquel] 50 mg PO HS #30 tab 09/05/18 Allergies Allergy/AdvReac Type Severity Reaction Status Date / Time No Known Allergies Allergy Verified 02/01/19 12:17 Review of Systems ROS Statement: Those systems with pertinent positive or pertinent negative responses have been documented in the HPI. ROS Other: All systems not noted in ROS Statement are negative. 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 Past Anesthesia/Blood Transfusion Reactions: No Reported Reaction Past Psychological History: Anxiety, Depression, PTSD Smoking Status: Former smoker Past Alcohol Use History: Abuse, Daily, Heavy Past Drug Use History: None Reported - Past Family History Father Additional Family Medical History / Comment(s): anxiety Mother Family Medical History: Cancer, Hyperlipidemia, Hypertension, Thyroid Disorder Additional Family Medical History / Comment(s): breast cancer, shingles, osteoporosis, anxiety General Exam - General Exam Comments Initial Comments: GENERAL: Patient is well-developed and well-nourished. Patient is nontoxic and well- hydrated and is in mild distress. ENT: Neck is soft and supple. No significant lymphadenopathy is noted. Oropharynx is clear. Moist mucous membranes. Neck has full range of motion without eliciting any pain. EYES: The sclera were anicteric and conjunctiva were pink and moist. Extraocular movements were intact and pupils were equal round and reactive to light. Eyelids were unremarkable. Patient has tenderness on the inferior left orbit PULMONARY: Unlabored respirations. Good breath sounds bilaterally. No audible rales rhonchi or wheezing was noted. CARDIOVASCULAR: There is a regular rate and rhythm without any murmurs gallops or rubs. ABDOMEN: Soft and nontender with normal bowel sounds. No palpable organomegaly was not ed. There is no palpable pulsatile mass. SKIN: Patient has a small laceration to the left side of the forehead. Patient also has a hematoma left side of the forehead. Patient has ecchymosis beneath the left eye NEUROLOGIC: Patient is alert and oriented x3. Cranial nerves II through XII are grossly intact. Motor and sensory are also intact. Normal speech, volume and content. Symmetrical smile. MUSCULOSKELETAL: Patient has some tenderness to the second MCP joint and there is a little abrasion over that joint. LYMPHATICS: No significant lymphadenopathy is noted PSYCHIATRIC: Normal psychiatric evaluation. Limitations: no limitations Course Vital Signs 02/01/19 02/01/19 02/01/19 11:15 13:47 14:56 Temperature 98.5 F 99.7 F H Pulse Rate 97 109 H 105 H Respiratory 18 18 18 Rate Blood Pressure 139/81 144/97 118/95 O2 Sat by Pulse 99 99 96 Oximetry Procedures - Laceration Laceration #1 Consent Obtained: verbal consent Indication: laceration Site: other (Forehead) Size (cm): 1 Description: linear Type of Sutures: other (Dermabond) Patient Tolerated Procedure: well Medical Decision Making - Medical Decision Making EKG is of poor quality EKG but it does show normal sinus rhythm at 96 bpm TX in terval 256 QRS is 78 QT interval 358 QTC is 452. No ST segment elevation or depression is noted. CT of the head and neck show no acute abnormality. CT of the facial bones shows a zygomatic arch fracture on the left with slight displacement. X-ray of the hand shows no acute abnormality. I used Dermabond to close the wound on the forehead. Patient did get an Ativan while in the emergency department because he started to feel as though he might have a seizure. Nursing will contact [facility] and let them know that the patient is going to need to continue on Ativan for 5 more days. - Lab Data Result diagrams: 02/01/19 11:27 02/01/19 11:27 Lab Results 02/01/19 02/01/19 02/01/19 Range/Units 11:27 11:27 11:27 WBC 8.1 (3.8-10.6) k/uL RBC 4.45 (4.30-5.90) m/uL Hgb 14.8 (13.0-17.5) gm/dL Hct 45.2 (39.0-53.0) % MCV 101.4 H (80.0-100.0) fL MCH 33.2 (25.0-35.0) pg MCHC 32.7 (31.0-37.0) g/dL RDW 16.6 H (11.5-15.5) % Plt Count 203 (150-450) k/uL Neutrophils % 73 % Lymphocytes % 10 % Monocytes % 9 % Eosinophils % 1 % Basophils % 1 % Neutrophils # 5.9 (1.3-7.7) k/uL Lymphocytes # 0.8 L (1.0-4.8) k/uL Monocytes # 0.8 (0-1.0) k/uL Eosinophils # 0.1 (0-0.7) k/uL Basophils # 0.0 (0-0.2) k/uL Anisocytosis Slight Macrocytosis Slight Sodium 137 (137-145) mmol/L Potassium 4.1 (3.5-5.1) mmol/L Chloride 103 (98-107) mmol/L Carbon Dioxide 24 (22-30) mmol/L Anion Gap 10 mmol/L BUN 15 (9-20) mg/dL Creatinine 0.98 (0.66-1.25) mg/dL Est GFR (CKD-EPI)AfAm >90 (>60 ml/min/1.73 sqM) Est GFR (CKD-EPI)NonAf >90 (>60 ml/min/1.73 sqM) Glucose 107 H (74-99) mg/dL Calcium 9.7 (8.4-10.2) mg/dL Magnesium 2.4 H (1.6-2.3) mg/dL Total Bilirubin 0.6 (0.2-1.3) mg/dL AST 44 (17-59) U/L ALT 62 (21-72) U/L Alkaline Phosphatase 74 (38-126) U/L Total Protein 7.1 (6.3-8.2) g/dL Albumin 4.3 (3.5-5.0) g/dL Urine Opiates Screen (NotDetected) Ur Oxycodone Screen (NotDetected) Urine Methadone Screen (NotDetected) Ur Propoxyphene Screen (NotDetected) Ur Barbiturates Screen (NotDetected) U Tricyclic Antidepress (NotDetected) Ur Phencyclidine Scrn (NotDetected) Ur Amphetamines Screen (NotDetected) U Methamphetamines Scrn (NotDetected) U Benzodiazepines Scrn (NotDetected) Urine Cocaine Screen (NotDetected) U Marijuana (THC) Screen (NotDetected) 02/01/19 Range/Units 13:00 WBC (3.8-10.6) k/uL RBC (4.30-5.90) m/uL Hgb (13.0-17.5) gm/dL Hct (39.0-53.0) % MCV (80.0-100.0) fL MCH (25.0-35.0) pg MCHC (31.0-37.0) g/dL RDW (11.5-15.5) % Plt Count (150-450) k/uL Neutrophils % % Lymphocytes % % Monocytes % % Eosinophils % % Basophils % % Neutrophils # (1.3-7.7) k/uL Lymphocytes # (1.0-4.8) k/uL Monocytes # (0-1.0) k/uL Eosinophils # (0-0.7) k/uL Basophils # (0-0.2) k/uL Anisocytosis Macrocytosis Sodium (137-145) mmol/L Potassium (3.5-5.1) mmol/L Chloride (98-107) mmol/L Carbon Dioxide (22-30) mmol/L Anion Gap mmol/L BUN (9-20) mg/dL Creatinine (0.66-1.25) mg/dL Est GFR (CKD-EPI)AfAm (>60 ml/min/1.73 sqM) Est GFR (CKD-EPI)NonAf (>60 ml/min/1.73 sqM) Glucose (74-99) mg/dL Calcium (8.4-10.2) mg/dL Magnesium (1.6-2.3) mg/dL Total Bilirubin (0.2-1.3) mg/dL AST (17-59) U/L ALT (21-72) U/L Alkaline Phosphatase (38-126) U/L Total Protein (6.3-8.2) g/dL Albumin (3.5-5.0) g/dL Urine Opiates Screen Not Detected (NotDetected) Ur Oxycodone Screen Not Detected (NotDetected) Urine Methadone Screen Not Detected (NotDetected) Ur Propoxyphene Screen Not Detected (NotDetected) Ur Barbiturates Screen Not Detected (NotDetected) U Tricyclic Antidepress Not Detected (NotDetected) Ur Phencyclidine Scrn Not Detected (NotDetected) Ur Amphetamines Screen Not Detected (NotDetected) U Methamphetamines Scrn Not Detected (NotDetected) U Benzodiazepines Scrn Not Detected (NotDetected) Urine Cocaine Screen Not Detected (NotDetected) U Marijuana (THC) Screen Not Detected (NotDetected) Disposition Clinical Impression: Withdrawal seizures, Zygomatic arch fracture Disposition: OTHER INSTITUTION NOT DEFINED Instructions (If sedation given, give patient instructions): Alcohol Withdrawal (ED), New-Onset Seizure in Adults (ED) Additional Instructions: Patient cannot drive until he is cleared by neurologist. Patient will need to go back to [facility] where they can monitor this patient. Is patient prescribed a controlled substance at d/c from ED?: No Referrals: Mary Mims MD [Primary Care Provider] - 1-2 days Time of Disposition: 15:16 - Out of Hospital Transfer - Req. Specs Out of Hospital Transfer - Requested Specifics: Other Non-Acute ([facility] [place])
[2019-02-01 11:41] LABS: Anisocytosis Slight; Basophils % (A) 1 %; Eosinophils # (A) 0.1 k/uL (0-0.7); Eosinophils % (A) 1 %; HCT 45.2 % (39.0-53.0); HGB 14.8 gm/dL (13.0-17.5); Lymphocytes # (A) 0.8 k/uL (1.0-4.8); Lymphocytes % (A) 10 %; MCH 33.2 pg (25.0-35.0); MCHC 32.7 g/dL (31.0-37.0); MCV 101.4 fL (80.0-100.0); Macrocytosis Slight; Monocytes # (A) 0.8 k/uL (0-1.0); Monocytes % (A) 9 %; Neutrophils # (A) 5.9 k/uL (1.3-7.7); Neutrophils % (A) 73 %; Platelet Count 203 k/uL (150-450); RBC 4.45 m/uL (4.30-5.90); RDW 16.6 % (11.5-15.5); WBC 8.1 k/uL (3.8-10.6)
--- NOTE | 2019-02-01 12:29 | CT ---
EXAMINATION TYPE: CT facial bones wo con DATE OF EXAM: 02/01/2019 COMPARISON: None HISTORY: Seizure,large hematoma with small laceration on his left upper forehead CT DLP: 1134.3 (brain, cervical, facial) mGycm Automated exposure control for dose reduction was used. TECHNIQUE: CT scan of the sinuses is performed without contrast, axial images are obtained, coronal r eformatted images are also reviewed. FINDINGS: Mild mucosal thickening compatible with mild chronic sinusitis. There is a defect along the left zygomatic arch compatible with fracture. There is adjacent soft tissue edema and hematoma. Orbi ts are intact. Subcutaneous emphysema overlying the left frontal bone with soft tissue edema or hemat momo. The ostiomeatal complex is patent bilaterally on the coronal images. Nasal septal deviation note d. Visualized portion of mastoid air cells show no abnormal opacification. The globes are intact bilate rally. IMPRESSION: 1. Mildly displaced fracture left sided zygomatic arch with associated soft tissue edema or hematoma. 2. Large soft tissue hematoma overlying the left frontal bone with a small amount of subcutaneous emp hysema correlate for laceration.
--- NOTE | 2019-02-01 12:32 | CT ---
EXAMINATION TYPE: CT brain dora willoughby con DATE OF EXAM: 02/01/2019 COMPARISON: NONE HISTORY: Seizure,large hematoma with small laceration on his left upper forehead CT DLP: 1134.3 (brain, cervical and facial) mGycm. Automated Exposure Control for Dose Reduction was Utilized. TECHNIQUE: CT scan of the head and cervical spine are performed without contrast. FINDINGS: There is a heterogenous left frontoparietal scalp hematoma measuring 8 mm in greatest thick ness with foci of high density indicative of acute edema and overlying scalp contusion. There are als o foci of subcutaneous emphysema relating to the patient's known laceration. There is no acute intrac ranial hemorrhage, mass effect, or midline shift identified. The ventricles and sulci are within nor mal limits in size. The globes are intact. There is a noncomminuted mildly displaced acute fracture of the left-sided diaphragmatic arch. Mild mucosal thickening is seen within the left maxillary sinus and ethmoid sinuses. Cervical spine is visualized in its entirety from C1 through upper thoracic levels and demonstrates s atisfactory alignment without evidence of acute fracture or dislocation. Prevertebral soft tissue ap pears within normal limits. The C1-C2 articulation is unremarkable. IMPRESSION: 1. Left frontoparietal scalp hematoma measuring 8 mm in greatest thickness with foci of acute hemorrh age and foci of subcutaneous emphysema representing the patient's known underlying laceration. No und erlying calvarial fracture or intracranial hemorrhage. 2. Noncomminuted fracture of the left zygomatic arch is acute mildly displaced. 3. No acute fracture or dislocation evident in the cervical spine.
--- NOTE | 2019-02-01 12:39 | XR ---
EXAMINATION TYPE: XR hand complete LT DATE OF EXAM: 02/01/2019 CLINICAL HISTORY: Left hand pain with fifth digit numbness TECHNIQUE: Frontal, lateral and oblique images of the left hand are obtained. COMPARISON: None. FINDINGS: There is no acute fracture/dislocation evident in the left hand. The joint spaces in the l eft hand appear within normal limits. The overlying soft tissue appears unremarkable. IMPRESSION: There is no acute fracture or dislocation in the left hand.
[2019-02-01 14:05] LABS: Amphetamine Screen,Urine Not Detected (NotDetected); Barbiturate Screen,Urine Not Detected (NotDetected); Benzodiazepines Screen,Urine Not Detected (NotDetected); Cocaine Screen,Urine Not Detected (NotDetected); Methadone Screen, Urine Not Detected (NotDetected); Opiate Screen,Urine Not Detected (NotDetected); Oxycodone Screen, Urine Not Detected (NotDetected); Phencyclidine Screen,Urine Not Detected (NotDetected); Tricyclic Antidepressant,Urine Not Detected (NotDetected); Urn Cannabinoid Scrn Not Detected (NotDetected)
[2019-02-01] MEDS ORDERED: LORazepam 2 MG/ML INJ IV STA ×2 (14:29→16:38)
[2019-02-01] MEDS ORDERED: TOPICAL SKIN ADHESIVE 1 EACH AMP TOPICAL ONE (14:29)
[2019-02-01 14:58] VITALS: BP 118/95; PULSE 105; TEMP 99.7
[2019-02-01 15:01] LABS: ALT 62 U/L (21-72); AST 44 U/L (17-59); Albumin 4.3 g/dL (3.5-5.0); Alkaline Phosphatase 74 U/L (38-126); Anion Gap 10 mmol/L; Blood Urea Nitrogen 15 mg/dL (9-20); Calcium 9.7 mg/dL (8.4-10.2); Carbon Dioxide 24 mmol/L (22-30); Chloride 103 mmol/L (98-107); Glucose 107 mg/dL (74-99); Potassium 4.1 mmol/L (3.5-5.1); Sodium 137 mmol/L (137-145); Total Bilirubin 0.6 mg/dL (0.2-1.3); Total Protein 7.1 g/dL (6.3-8.2)
== END 2019-02-01 15:33 | disposition other institution (70) ==
LOC: EC 11:13
DX: S02.40FA Zygomatic fracture, left side, initial encounter for closed fracture (principal); S01.81XA Laceration without foreign body of other part of head, initial encounter; S80.211A Abrasion, right knee, initial encounter; R56.9 Unspecified convulsions; Z86.14 Personal history of Methicillin resistant Staphylococcus aureus infection; Z86.711 Personal history of pulmonary embolism; Z87.891 Personal history of nicotine dependence; Z79.899 Other long term (current) drug therapy; W22.8XXA Striking against or struck by other objects, initial encounter
CPT/HCPCS: 99285 ×2; 12011 ×2; 96374 ×2; 96376 ×2; 36415; 93005; 80053; 83735; 85025; 80306; 73130; 72125; 70486; 70450; J2060

== ENCOUNTER 2019-02-22 09:46 | Inpatient (IN) | payer MEDICAID, OTHER ==
[2019-02-22] MEDS ORDERED: THIAMINE 100 MG/ML 2 ML VIAL IM STA (10:13)
[2019-02-22] MEDS ORDERED: SODIUM CHLORIDE 0.9% 1,000 ML IV STA (10:13)
[2019-02-22] MEDS ORDERED: FOLIC ACID 1 MG TAB PO STA (10:13)
[2019-02-22] MEDS ORDERED: LORazepam 2 MG/ML INJ IV STA ×2 (10:13→13:49)
--- NOTE | 2019-02-22 10:19 | ED ---
Alcohol HPI - General Source: patient, RN notes reviewed, old records reviewed Mode of arrival: ambulatory Limitations: no limitations <Carolyn Mo - Last Filed: 02/22/19 19:41> <Alonso Salazar - Last Filed: 02/22/19 20:40> - General Chief Complaint: Alcohol Stated Complaint: Alcohol Withdrawl Time Seen by Provider: 02/22/19 09:53 - History of Present Illness Initial Comments: Patient is a 33-year-old male well-known to emergency department today for alcohol abuse. Patient presents today stating that he is searching for help to go Cipro through withdrawals. He drinks daily approximately 1/5 daily. Patient states he has had nausea vomiting diarrhea. He states that he stopped drinking at 7 AM this morning. He is starting to go through withdrawals at this time. Patient reports that he's had no fevers or chills. He states that when he goes through withdrawals he starts to have suicidal thoughts. Denies any specific plan at this time. (Carolyn Mo) - Related Data Previous Rx's Medication Instructions Recorded QUEtiapine [SEROquel] 50 mg PO HS #30 tab 09/05/18 Allergies Allergy/AdvReac Type Severity Reaction Status Date / Time No Known Allergies Allergy Verified 02/22/19 10:23 Review of Systems ROS Other: All systems not noted in ROS Statement are negative. <Carolyn Mo - Last Filed: 02/22/19 19:41> ROS Other: All systems not noted in ROS Statement are negative. <Alonso Salazar - Last Filed: 02/22/19 20:40> ROS Statement: Those systems with pertinent positive or pertinent negative responses have been documented in the HPI. 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 Past Anesthesia/Blood Transfusion Reactions: No Reported Reaction Past Psychological History: Anxiety, Depression, PTSD Smoking Status: Former smoker Past Alcohol Use History: Abuse, Daily, Heavy Past Drug Use History: None Reported - Past Family History Father Additional Family Medical History / Comment(s): anxiety Mother Family Medical History: Cancer, Hyperlipidemia, Hypertension, Thyroid Disorder Additional Family Medical History / Comment(s): breast cancer, shingles, osteoporosis, anxiety <Carolyn Mo - Last Filed: 02/22/19 19:41> General Exam Limitations: no limitations General appearance: alert, in no apparent distress, appears intoxicated Head exam: Present: atraumatic, normocephalic, normal inspection Eye exam: Present: normal appearance ENT exam: Present: normal exam, mucous membranes moist Neck exam: Present: normal inspection. Absent: tenderness, meningismus, lymphadenopathy Respiratory exam: Present: normal lung sounds bilaterally. Absent: respiratory distress, wheezes, rales, rhonchi, stridor Cardiovascular Exam: Present: regular rate, normal rhythm, normal heart sounds. Absent: systolic murmur, diastolic murmur, rubs, gallop, clicks GI/Abdominal exam: Present: soft, normal bowel sounds. Absent: distended, tenderness, guarding, rebound, rigid Extremities exam: Present: normal inspection, full ROM, normal capillary refill. Absent: tenderness, pedal edema, joint swelling, calf tenderness Back exam: Present: normal inspection Neurological exam: Present: alert Psychiatric exam: Present: normal affect Skin exam: Present: warm, dry, intact, normal color. Absent: rash <Carolyn Mo - Last Filed: 02/22/19 19:41> - General Exam Comments Initial Comments: This is a 33-year-old male. Alert and oriented. No distress. Patient appears intoxicated. (Carolyn Mo) Course Vital Signs 02/22/19 02/22/19 09:47 13:07 Temperature 98.6 F Pulse Rate 118 H 78 Respiratory 18 18 Rate Blood Pressure 110/68 129/95 O2 Sat by Pulse 99 98 Oximetry Medical Decision Making - Lab Data Result diagrams: 02/22/19 10:47 02/22/19 10:47 <Carolyn Mo - Last Filed: 02/22/19 19:41> - Lab Data Result diagrams: 02/22/19 10:47 02/22/19 10:47 <Alonso Salazar - Last Filed: 02/22/19 20:40> - Medical Decision Making 33-year-old male with history of alcohol abuse presents today with acute intoxication and suicidal thoughts. Patient reports that he needs to be admitte d at this time for psych reasons. He states he suicidal. Patient denies a specific plan. Patient was medically clear after spending 9 hours in the ER while sobering up. Patient's case transferred to Dr. Salazar at 7:45 PM. (Carolyn Mo) Patient presenting with alcohol intoxication, suicidal ideation. Patient is medically cleared in the emergency department. He is evaluated by EPS, will be admitted for further psychiatric evaluation and treatment. (Alonso Salazar) - Lab Data Lab Results 02/22/19 02/22/19 02/22/19 Range/Units 10:47 10:47 10:47 WBC 5.5 (3.8-10.6) k/uL RBC 5.12 (4.30-5.90) m/uL Hgb 16.7 (13.0-17.5) gm/dL Hct 49.3 (39.0-53.0) % MCV 96.3 D (80.0-100.0) fL MCH 32.5 (25.0-35.0) pg MCHC 33.8 (31.0-37.0) g/dL RDW 16.4 H (11.5-15.5) % Plt Count 94 L D (150-450) k/uL Neutrophils % 68 % Lymphocytes % 22 % Monocytes % 6 % Eosinophils % 1 % Basophils % 0 % Neutrophils # 3.7 (1.3-7.7) k/uL Lymphocytes # 1.2 (1.0-4.8) k/uL Monocytes # 0.4 (0-1.0) k/uL Eosinophils # 0.0 (0-0.7) k/uL Basophils # 0.0 (0-0.2) k/uL Manual Slide Review Performed Anisocytosis Slight Sodium 142 (137-145) mmol/L Potassium 3.7 (3.5-5.1) mmol/L Chloride 102 (98-107) mmol/L Carbon Dioxide 26 (22-30) mmol/L Anion Gap 14 mmol/L BUN 15 (9-20) mg/dL Creatinine 0.94 (0.66-1.25) mg/dL Est GFR (CKD-EPI)AfAm >90 (>60 ml/min/1.73 sqM) Est GFR (CKD-EPI)NonAf >90 (>60 ml/min/1.73 sqM) Glucose 101 H (74-99) mg/dL Calcium 8.7 (8.4-10.2) mg/dL Magnesium 1.8 (1.6-2.3) mg/dL Total Bilirubin 0.7 (0.2-1.3) mg/dL AST 67 H (17-59) U/L ALT 41 (21-72) U/L Alkaline Phosphatase 96 (38-126) U/L Total Protein 7.1 (6.3-8.2) g/dL Albumin 4.1 (3.5-5.0) g/dL Amylase 103 (30-110) U/L Lipase 402 H (23-300) U/L Urine Color Yellow Urine Appearance Clear (Clear) Urine pH 6.5 (5.0-8.0) Ur Specific [place] 1.006 (1.001-1.035) Urine Protein Trace H (Negative) Urine Glucose (UA) Negative (Negative) Urine Ketones Negative (Negative) Urine Blood Trace H (Negative) Urine Nitrite Negative (Negative) Urine Bilirubin Negative (Negative) Urine Urobilinogen <2.0 (<2.0) mg/dL Ur Leukocyte Esterase Negative (Negative) Urine RBC 1 (0-5) /hpf Urine WBC 1 (0-5) /hpf Hyaline Casts 1 (0-2) /lpf Urine Mucus Rare H (None) /hpf Urine Opiates Screen Not Detected (NotDetected) Ur Oxycodone Screen Not Detected (NotDetected) Urine Methadone Screen Not Detected (NotDetected) Ur Propoxyphene Screen Not Detected (NotDetected) Ur Barbiturates Screen Not Detected (NotDetected) U Tricyclic Antidepress Not Detected (NotDetected) Ur Phencyclidine Scrn Not Detected (NotDetected) Ur Amphetamines Screen Not Detected (NotDetected) U Methamphetamines Scrn Not Detected (NotDetected) U Benzodiazepines Scrn Detected H (NotDetected) Urine Cocaine Screen Not Detected (NotDetected) U Marijuana (THC) Screen Not Detected (NotDetected) Serum Alcohol mg/dL 02/22/19 Range/Units 12:27 WBC (3.8-10.6) k/uL RBC (4.30-5.90) m/uL Hgb (13.0-17.5) gm/dL Hct (39.0-53.0) % MCV (80.0-100.0) fL MCH (25.0-35.0) pg MCHC (31.0-37.0) g/dL RDW (11.5-15.5) % Plt Count (150-450) k/uL Neutrophils % % Lymphocytes % % Monocytes % % Eosinophils % % Basophils % % Neutrophils # (1.3-7.7) k/uL Lymphocytes # (1.0-4.8) k/uL Monocytes # (0-1.0) k/uL Eosinophils # (0-0.7) k/uL Basophils # (0-0.2) k/uL Manual Slide Review Anisocytosis Sodium (137-145) mmol/L Potassium (3.5-5.1) mmol/L Chloride (98-107) mmol/L Carbon Dioxide (22-30) mmol/L Anion Gap mmol/L BUN (9-20) mg/dL Creatinine (0.66-1.25) mg/dL Est GFR (CKD-EPI)AfAm (>60 ml/min/1.73 sqM) Est GFR (CKD-EPI)NonAf (>60 ml/min/1.73 sqM) Glucose (74-99) mg/dL Calcium (8.4-10.2) mg/dL Magnesium (1.6-2.3) mg/dL Total Bilirubin (0.2-1.3) mg/dL AST (17-59) U/L ALT (21-72) U/L Alkaline Phosphatase (38-126) U/L Total Protein (6.3-8.2) g/dL Albumin (3.5-5.0) g/dL Amylase (30-110) U/L Lipase (23-300) U/L Urine Color Urine Appearance (Clear) Urine pH (5.0-8.0) Ur Specific [place] (1.001-1.035) Urine Protein (Negative) Urine Glucose (UA) (Negative) Urine Ketones (Negative) Urine Blood (Negative) Urine Nitrite (Negative) Urine Bilirubin (Negative) Urine Urobilinogen (<2.0) mg/dL Ur Leukocyte Esterase (Negative) Urine RBC (0-5) /hpf Urine WBC (0-5) /hpf Hyaline Casts (0-2) /lpf Urine Mucus (None) /hpf Urine Opiates Screen (NotDetected) Ur Oxycodone Screen (NotDetected) Urine Methadone Screen (NotDetected) Ur Propoxyphene Screen (NotDetected) Ur Barbiturates Screen (NotDetected) U Tricyclic Antidepress (NotDetected) Ur Phencyclidine Scrn (NotDetected) Ur Amphetamines Screen (NotDetected) U Methamphetamines Scrn (NotDetected) U Benzodiazepines Scrn (NotDetected) Urine Cocaine Screen (NotDetected) U Marijuana (THC) Screen (NotDetected) Serum Alcohol 244 H* mg/dL Disposition <Carolyn Mo - Last Filed: 02/22/19 19:41> Is patient prescribed a controlled substance at d/c from ED?: No Decision to Admit Reason: Admit from EC Decision Date: 02/22/19 Decision Time: 20:40 <Alonso Salazar - Last Filed: 02/22/19 20:40> Clinical Impression: History of ETOH abuse, Depression Disposition: ADMITTED IP TO THIS [facility] Condition: Stable Referrals: Mary Mims MD [Primary Care Provider] - 1-2 days
[2019-02-22] MEDS ORDERED: ONDANSETRON 4 MG/2 ML VIAL IVP STA (11:01)
[2019-02-22 11:04] LABS: Appearance,Urine Clear (Clear); Bilirubin,Urine Negative (Negative); Blood,Urine Trace (Negative); Color,Urine Yellow; Glucose,Urine (UA) Negative (Negative); Hyaline Casts,Urine 1 /lpf (0-2); Ketones,Urine Negative (Negative); Leukocyte Esterase,Urine Negative (Negative); Mucus,Urine Rare /hpf; Nitrite,Urine Negative (Negative); PH, Urine 6.5 (5.0-8.0); Protein,Urine Trace (Negative); RBC,Urine 1 /hpf (0-5); Specific Gravity,Urine 1.006 (1.001-1.035); Urobilinogen,Urine <2.0 mg/dL (<2.0); WBC,Urine 1 /hpf (0-5)
[2019-02-22 11:07] LABS: ALT 41 U/L (21-72); AST 67 U/L (17-59); Albumin 4.1 g/dL (3.5-5.0); Alkaline Phosphatase 96 U/L (38-126); Amylase 103 U/L (30-110); Anion Gap 14 mmol/L; Blood Urea Nitrogen 15 mg/dL (9-20); Calcium 8.7 mg/dL (8.4-10.2); Carbon Dioxide 26 mmol/L (22-30); Chloride 102 mmol/L (98-107); Glucose 101 mg/dL (74-99); Lipase 402 U/L (23-300); Magnesium 1.8 mg/dL (1.6-2.3); Potassium 3.7 mmol/L (3.5-5.1); Sodium 142 mmol/L (137-145); Total Bilirubin 0.7 mg/dL (0.2-1.3); Total Protein 7.1 g/dL (6.3-8.2)
[2019-02-22 11:09] LABS: Amphetamine Screen,Urine Not Detected (NotDetected); Barbiturate Screen,Urine Not Detected (NotDetected); Benzodiazepines Screen,Urine Detected (NotDetected); Cocaine Screen,Urine Not Detected (NotDetected); Methadone Screen, Urine Not Detected (NotDetected); Opiate Screen,Urine Not Detected (NotDetected); Oxycodone Screen, Urine Not Detected (NotDetected); Phencyclidine Screen,Urine Not Detected (NotDetected); Tricyclic Antidepressant,Urine Not Detected (NotDetected); Urn Cannabinoid Scrn Not Detected (NotDetected)
[2019-02-22 11:16] LABS: Anisocytosis Slight; Basophils % (A) 0 %; Eosinophils % (A) 1 %; HCT 49.3 % (39.0-53.0); HGB 16.7 gm/dL (13.0-17.5); Lymphocytes # (A) 1.2 k/uL (1.0-4.8); Lymphocytes % (A) 22 %; MCH 32.5 pg (25.0-35.0); MCHC 33.8 g/dL (31.0-37.0); Mean Platelet Volume 7.9; Monocytes # (A) 0.4 k/uL (0-1.0); Monocytes % (A) 6 %; Neutrophils # (A) 3.7 k/uL (1.3-7.7); Neutrophils % (A) 68 %; RBC 5.12 m/uL (4.30-5.90); RDW 16.4 % (11.5-15.5); WBC 5.5 k/uL (3.8-10.6)
[2019-02-22 11:23] LABS: MCV 96.3 fL (80.0-100.0)
[2019-02-22 11:43] LABS: Platelet Count 94 k/uL (150-450)
[2019-02-22] MEDS ORDERED: SODIUM CHLORIDE 0.9% 1,000 ML with MVI, ADULT NO.4 WITH VIT K 10 ML, THIAMINE 100 MG, F... IV ONE ×4 (13:15)
[2019-02-22] MEDS ORDERED: LORazepam 1 MG TAB PO STA (20:37)
[2019-02-22] MEDS ORDERED: MAG HYDROX/AL HYDROX/SIMETH 30 ML CUP PO PRN (21:00)
[2019-02-22] MEDS ORDERED: ACETAMINOPHEN TAB 325 MG TAB PO PRN (21:00)
[2019-02-22] MEDS ORDERED: MAGNESIUM HYDROXIDE 2,400 MG/10 ML CUP PO PRN (21:00)
[2019-02-22] MEDS ORDERED: LORazepam 1 MG TAB PO PRN (21:00)
[2019-02-22] MEDS ORDERED: ZIPRASIDONE 20 MG VIAL IM PRN (21:00)
[2019-02-22] MEDS: QUEtiapine 50 MG TAB PO SCH (21:46)
[2019-02-22 22:06] VITALS: BMI 24.3
[2019-02-22] MEDS ORDERED: LORazepam 2 MG/ML INJ IM PRN (22:16)
[2019-02-22] MEDS: chlordiazePOXIDE 25 MG CAP PO SCH (22:48)
[2019-02-23] MEDS: chlordiazePOXIDE 25 MG CAP PO SCH ×3 (08:05→21:25)
[2019-02-23] MEDS: LORazepam 1 MG TAB PO PRN ×4 (09:24→21:26)
[2019-02-23 11:22] LABS: Basophils % (A) 0 %; Eosinophils # (A) 0.1 k/uL (0-0.7); Eosinophils % (A) 1 %; HCT 40.6 % (39.0-53.0); HGB 13.8 gm/dL (13.0-17.5); Lymphocytes % (A) 18 %; MCH 32.8 pg (25.0-35.0); MCHC 33.9 g/dL (31.0-37.0); MCV 96.9 fL (80.0-100.0); Mean Platelet Volume 7.9; Monocytes # (A) 0.4 k/uL (0-1.0); Monocytes % (A) 7 %; Neutrophils # (A) 3.7 k/uL (1.3-7.7); Neutrophils % (A) 69 %; RBC 4.19 m/uL (4.30-5.90); RDW 15.4 % (11.5-15.5); WBC 5.4 k/uL (3.8-10.6)
[2019-02-23 11:28] LABS: ALT 34 U/L (21-72); AST 56 U/L (17-59); Albumin 3.3 g/dL (3.5-5.0); Alkaline Phosphatase 67 U/L (38-126); Anion Gap 8 mmol/L; Blood Urea Nitrogen 15 mg/dL (9-20); Calcium 9.2 mg/dL (8.4-10.2); Carbon Dioxide 30 mmol/L (22-30); Chloride 100 mmol/L (98-107); Cholesterol 167 mg/dL (<200); Glucose 86 mg/dL (74-99); HDL Cholesterol 66 mg/dL (40-60); LDL Cholesterol,Calculated 88 mg/dL (0-99); Potassium 3.4 mmol/L (3.5-5.1); Sodium 138 mmol/L (137-145); Total Bilirubin 1.1 mg/dL (0.2-1.3); Total Protein 5.9 g/dL (6.3-8.2); Triglycerides 63 mg/dL (<150)
[2019-02-23] MEDS ORDERED: POTASSIUM CHLORIDE ER 20 MEQ TAB.ER PO STA (12:29)
[2019-02-23 12:32] LABS: Platelet Count 65 k/uL (150-450)
--- NOTE | 2019-02-23 17:58 | P.CONS ---
History of Present Illness - History of Present Illness this is a pleasant 53 years old male with past medical history of alcohol abuse, pulmonary embolism not an anticoagulation as per patient, he is admitted this time for alcohol abuse and withdrawal. Patient has recent history of gastroenteritis-like picture however is resolved now. Medical consult has been asked by the primary psychiatric team for medical management.Patient denies chest pain or dyspnea. No change in urine or bowel habits. No fever. No abdominal pain. No nausea vomiting. He tolerates diet well. patient looks a little drowsy. However he answers questions appropriately.he is fully awake and oriented and he knows why he is in the hospital. Review of Systems CONSTITUTIONAL: No fever, no malaise, no fatigue. HEENT: No recent visual problems or hearing problems. Denied any sore throat. CARDIOVASCULAR: No orthopnea, PND, no palpitations, no syncope. PULMONARY: No shortness of breath, no cough, no hemoptysis. GASTROINTESTINAL: No diarrhea, no nausea, no vomiting, no abdominal pain. Normoactive bowel sounds. NEUROLOGICAL: No headaches, no weakness, no numbness. HEMATOLOGICAL: Denies any bleeding or petechiae. GENITOURINARY: Denies any burning micturition, frequency, or urgency. MUSCULOSKELETAL/RHEUMATOLOGICAL: Denies any joint pain, swelling, or any muscle pain. ENDOCRINE: Denies any polyuria or polydipsia. Past Medical History Past Medical History: GERD/Reflux, Pulmonary Embolus (PE) Additional Past Medical History / Comment(s): etoh abuse, alcoholic hepatitis, scoliosis, liver failure before r/t alcohol use, History of Any Multi-Drug Resistant Organisms: MRSA Year Discovered:: 2009 MDRO Source:: right knee Past Surgical History: No Surgical Hx Reported Additional Past Surgical History / Comment(s): had 3 teeth extracted-post procedure pain worsened and had a 2nd procedure done for an exposed nerve. Past Anesthesia/Blood Transfusion Reactions: No Reported Reaction Past Psychological History: Anxiety, Depression, PTSD Additional Psychological History / Comment(s): been to rehab before, sober living house right now and plan to return his old appt has to move out by tommorow, drinks way over a fifth of liquor, fiancee cheting on him at this time big reason for relapse Smoking Status: Former smoker Past Alcohol Use History: Abuse, Daily, Heavy Additional Past Alcohol Use History / Comment(s): started smoking at age 18 and quit cigaretts in 2016 now chews Past Drug Use History: None Reported - Past Family History Father Additional Family Medical History / Comment(s): anxiety Mother Family Medical History: Cancer, Hyperlipidemia, Hypertension, Thyroid Disorder Additional Family Medical History / Comment(s): breast cancer, shingles, osteoporosis, anxiety Medications and Allergies Home Medications Medication Instructions Recorded Confirmed Type QUEtiapine [SEROquel] 50 mg PO HS #30 tab 09/05/18 02/23/19 Rx Allergies Allergy/AdvReac Type Severity Reaction Status Date / Time No Known Allergies Allergy Verified 02/22/19 21:55 Physical Exam Vitals: Vital Signs Temp Pulse Pulse Pulse Resp BP BP 02/23/19 11:39 77 130/75 02/23/19 06:10 98.8 F 61 15 128/82 02/22/19 21:57 98.4 F 93 18 02/22/19 20:48 98.7 F 97 18 120/87 BP Pulse Ox 02/23/19 11:39 02/23/19 06:10 02/22/19 21:57 132/92 02/22/19 20:48 97 GENERAL: The patient is alert and oriented x3, not in any acute distress. Well developed, well nourished. HEENT: Pupils are round and equally reacting to light. EOMI. No scleral icterus. No conjunctival pallor. Normocephalic, atraumatic. No pharyngeal erythema. No thyromegaly. CARDIOVASCULAR: S1 and S2 present. No murmurs, rubs, or gallops. PULMONARY: Chest is clear to auscultation, no wheezing or crackles. ABDOMEN: Soft, nontender, nondistended, normoactive bowel sounds. No palpable organomegaly. MUSCULOSKELETAL: No joint swelling or deformity. EXTREMITIES: No cyanosis, clubbing, or pedal edema. NEUROLOGICAL: Gross neurological examination did not reveal any focal deficits. SKIN: No rashes. Results CBC & Chem 7: 02/23/19 10:38 02/23/19 10:38 Labs: Abnormal Lab Results - Last 24 Hours (Table) 02/23/19 02/23/19 Range/Units 10:38 10:38 RBC 4.19 L (4.30-5.90) m/uL Plt Count 65 L (150-450) k/uL Potassium 3.4 L (3.5-5.1) mmol/L Total Protein 5.9 L (6.3-8.2) g/dL Albumin 3.3 L (3.5-5.0) g/dL HDL Cholesterol 66 H (40-60) mg/dL Assessment and Plan Assessment: Perla dilatation, management as per primary psychiatric team Alcohol abuse and withdrawal h/o pulmonary embolism, patient states that he was off anticoagulation for more than a year History of GERD History of recent Gastrografin trancelike picture. Resolved Mild hypokalemia replaced Plan: this is a pleasant 53 years old male who presents with alcohol abuse and suicidal ideation. Primary office cycles illnesses as per primary sac team. Replace electrolytes. Labs and medication were reviewed.. Continue same treatment. Continue with symptomatic treatment. Resume home medication. Monitor lytes and vitals. DVT and GI prophylaxis. Further recommendations of the clinical course of the patient Prognosis is guarded thank you for consulting us
--- NOTE | 2019-02-23 19:31 | P.HP ---
Psychiatric H&P - . H&P Date: 02/23/19 History & Physical: Allergies Allergy/AdvReac Type Severity Reaction Status Date / Time No Known Allergies Allergy Verified 02/22/19 21:55 Vital Signs Temp 98.8 F 02/23/19 06:10 Pulse 77 02/23/19 11:39 Resp 15 02/23/19 06:10 BP 130/75 02/23/19 11:39 Pulse Ox 97 02/22/19 20:48 Laboratory Last Values WBC 5.4 k/uL (3.8-10.6) 02/23/19 10:38 RBC 4.19 m/uL (4.30-5.90) L 02/23/19 10:38 Hgb 13.8 gm/dL (13.0-17.5) 02/23/19 10:38 Hct 40.6 % (39.0-53.0) 02/23/19 10:38 MCV 96.9 fL (80.0-100.0) 02/23/19 10:38 MCH 32.8 pg (25.0-35.0) 02/23/19 10:38 MCHC 33.9 g/dL (31.0-37.0) 02/23/19 10:38 RDW 15.4 % (11.5-15.5) 02/23/19 10:38 Plt Count 65 k/uL (150-450) L 02/23/19 10:38 Neutrophils % 69 % 02/23/19 10:38 Lymphocytes % 18 % 02/23/19 10:38 Monocytes % 7 % 02/23/19 10:38 Eosinophils % 1 % 02/23/19 10:38 Basophils % 0 % 02/23/19 10:38 Neutrophils # 3.7 k/uL (1.3-7.7) 02/23/19 10:38 Lymphocytes # 1.0 k/uL (1.0-4.8) 02/23/19 10:38 Monocytes # 0.4 k/uL (0-1.0) 02/23/19 10:38 Eosinophils # 0.1 k/uL (0-0.7) 02/23/19 10:38 Basophils # 0.0 k/uL (0-0.2) 02/23/19 10:38 Manual Slide Review Performed 02/22/19 10:47 Anisocytosis Slight 02/22/19 10:47 Sodium 138 mmol/L (137-145) 02/23/19 10:38 Potassium 3.4 mmol/L (3.5-5.1) L 02/23/19 10:38 Chloride 100 mmol/L (98-107) 02/23/19 10:38 Carbon Dioxide 30 mmol/L (22-30) 02/23/19 10:38 Anion Gap 8 mmol/L 02/23/19 10:38 BUN 15 mg/dL (9-20) 02/23/19 10:38 Creatinine 0.92 mg/dL (0.66-1.25) 02/23/19 10:38 Est GFR (CKD-EPI)AfAm >90 (>60 ml/min/1.73 sqM) 02/23/19 10:38 Est GFR (CKD-EPI)NonAf >90 (>60 ml/min/1.73 sqM) 02/23/19 10:38 Glucose 86 mg/dL (74-99) 02/23/19 10:38 Calcium 9.2 mg/dL (8.4-10.2) 02/23/19 10:38 Magnesium 1.8 mg/dL (1.6-2.3) 02/22/19 10:47 Total Bilirubin 1.1 mg/dL (0.2-1.3) 02/23/19 10:38 AST 56 U/L (17-59) 02/23/19 10:38 ALT 34 U/L (21-72) 02/23/19 10:38 Alkaline Phosphatase 67 U/L (38-126) 02/23/19 10:38 Total Protein 5.9 g/dL (6.3-8.2) L 02/23/19 10:38 Albumin 3.3 g/dL (3.5-5.0) L 02/23/19 10:38 Triglycerides 63 mg/dL (<150) 02/23/19 10:38 Cholesterol 167 mg/dL (<200) 02/23/19 10:38 LDL Cholesterol, Calc 88 mg/dL (0-99) 02/23/19 10:38 HDL Cholesterol 66 mg/dL (40-60) H 02/23/19 10:38 Amylase 103 U/L (30-110) 02/22/19 10:47 Lipase 402 U/L (23-300) H 02/22/19 10:47 TSH 2.620 mIU/L (0.465-4.680) 02/23/19 10:38 Urine Color Yellow 02/22/19 10:47 Urine Appearance Clear (Clear) 02/22/19 10:47 Urine pH 6.5 (5.0-8.0) 02/22/19 10:47 Ur Specific [place] 1.006 (1.001-1.035) 02/22/19 10:47 Urine Protein Trace (Negative) H 02/22/19 10:47 Urine Glucose (UA) Negative (Negative) 02/22/19 10:47 Urine Ketones Negative (Negative) 02/22/19 10:47 Urine Blood Trace (Negative) H 02/22/19 10:47 Urine Nitrite Negative (Negative) 02/22/19 10:47 Urine Bilirubin Negative (Negative) 02/22/19 10:47 Urine Urobilinogen <2.0 mg/dL (<2.0) 02/22/19 10:47 Ur Leukocyte Esterase Negative (Negative) 02/22/19 10:47 Urine RBC 1 /hpf (0-5) 02/22/19 10:47 Urine WBC 1 /hpf (0-5) 02/22/19 10:47 Hyaline Casts 1 /lpf (0-2) 02/22/19 10:47 Urine Mucus Rare /hpf (None) H 02/22/19 10:47 Urine Opiates Screen Not Detected (NotDetected) 02/22/19 10:47 Ur Oxycodone Screen Not Detected (NotDetected) 02/22/19 10:47 Urine Methadone Screen Not Detected (NotDetected) 02/22/19 10:47 Ur Propoxyphene Screen Not Detected (NotDetected) 02/22/19 10:47 Ur Barbiturates Screen Not Detected (NotDetected) 02/22/19 10:47 U Tricyclic Antidepress Not Detected (NotDetected) 02/22/19 10:47 Ur Phencyclidine Scrn Not Detected (NotDetected) 02/22/19 10:47 Ur Amphetamines Screen Not Detected (NotDetected) 02/22/19 10:47 U Methamphetamines Scrn Not Detected (NotDetected) 02/22/19 10:47 U Benzodiazepines Scrn Detected (NotDetected) H 02/22/19 10:47 Urine Cocaine Screen Not Detected (NotDetected) 02/22/19 10:47 U Marijuana (THC) Screen Not Detected (NotDetected) 02/22/19 10:47 Serum Alcohol 244 mg/dL H* 02/22/19 12:27 02/23/19 19:27 Chief Complaint : Suicidal ideation HPI : Mr. Moya is 33 yo single Male with long h/o Alcohol Use and depression admitted here secondary to worsening depression and suicidal ideation. He has been struggling with alcoholism for last many years. He has been to rehab but each time he relapsed. He has been drinking heavy lately. He used to be on vivitrol in past which did help him. Denies symptoms of psychoses, mood swings to me. 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 MSE : Alert, awake, Oriented x 4. Fair eye contact. Speech soft tone, Mood depressed and anxious . Affect mood congruent Has suicidal ideation. No psychoses. Attention fair. Intellect average. Insight/Judgment poor A/P: Major Depressive Disorder, severe recurrent Alcohol Withdrawals Will start trial of Wellbutrin XL 150 mg po qam and start Alcohol withdrawal protcol. Thiamine and Folic acid. Supportive therapy provided.
[2019-02-23 20:30] LABS: Hemoglobin A1C 5.8 % (4.0-6.0)
[2019-02-23] MEDS: QUEtiapine 50 MG TAB PO SCH (21:25)
[2019-02-24] MEDS: LORazepam 1 MG TAB PO PRN ×4 (02:53→20:37)
[2019-02-24] MEDS ORDERED: LOPERAMIDE 2 MG CAP PO PRN (02:57)
[2019-02-24] MEDS: buPROPion XL 150 MG TAB.ER.24H PO SCH (07:50)
[2019-02-24] MEDS: chlordiazePOXIDE 25 MG CAP PO SCH ×3 (07:50→20:37)
--- NOTE | 2019-02-24 12:14 | P.PN ---
Subjective Progress Note Date: 02/24/19 Principal diagnosis: Major Depression Found him in better mood. Has fewer withdrawals. His mood has been improving. Offered Vivitrol Option and he agreed to have this tomorrow. MSE : Alert, awake, Oriented x 4. Fair eye contact. Speech soft tone, Mood depressed and anxious . Affect mood congruent Has suicidal ideation. No psychoses. Attention fair. Intellect average. Insight/Judgment poor A/P: Major Depressive Disorder, severe recurrent Alcohol Withdrawals Will increase Seroquel to 100 mg po qhs and add Natrexone 50 mg po qdaily and will give vivitrol IM tomorrow. Supportive therapy provided. Objective - Vital Signs Vital signs: Vital Signs Temp 98.5 F 02/24/19 02:52 Pulse 117 H 02/24/19 08:16 Resp 18 02/24/19 08:16 BP 129/90 02/24/19 08:16 Pulse Ox 97 02/22/19 20:48 Intake & Output 02/23/19 02/24/19 02/24/19 18:59 06:59 18:59 Weight 83.022 kg - Labs CBC & Chem 7: 02/23/19 10:38 02/23/19 10:38 Labs: Abnormal Lab Results - Last 24 Hours (Table) 02/23/19 Range/Units 10:38 RBC 4.19 L (4.30-5.90) m/uL Plt Count 65 L (150-450) k/uL
[2019-02-24] MEDS: NALTREXONE HCL 50 MG TAB PO SCH (12:45)
[2019-02-24] MEDS ORDERED: QUEtiapine 100 MG TAB PO SCH (21:00)
[2019-02-25 06:59] VITALS: BP 119/70; PULSE 80; RESP 16; TEMP 97.8
[2019-02-25] MEDS: NALTREXONE HCL 50 MG TAB PO SCH (08:14)
[2019-02-25] MEDS: chlordiazePOXIDE 25 MG CAP PO SCH (08:14)
[2019-02-25] MEDS: buPROPion XL 150 MG TAB.ER.24H PO SCH (08:14)
--- NOTE | 2019-02-25 13:21 | P.DS ---
Providers Date of admission: 02/22/19 20:53 Expected date of discharge: 02/25/19 Attending physician: Ben Fang DO Consults: 02/22/19 21:00 Consult Physician Routine Consulting Provider: Hattie Swanson Consult Reason/Comments: medical management Do you want consulting provider notified?: Yes, Notify in am Primary care physician: Prasanna Hernandez - Discharge Diagnosis(es) (1) Depression Allergies Allergy/AdvReac Type Severity Reaction Status Date / Time No Known Allergies Allergy Verified 02/22/19 21:55 Vital Signs Temp 98.8 F 02/23/19 06:10 Pulse 77 02/23/19 11:39 Resp 15 02/23/19 06:10 BP 130/75 02/23/19 11:39 Pulse Ox 97 02/22/19 20:48 Laboratory Last Values WBC 5.4 k/uL (3.8-10.6) 02/23/19 10:38 RBC 4.19 m/uL (4.30-5.90) L 02/23/19 10:38 Hgb 13.8 gm/dL (13.0-17.5) 02/23/19 10:38 Hct 40.6 % (39.0-53.0) 02/23/19 10:38 MCV 96.9 fL (80.0-100.0) 02/23/19 10:38 MCH 32.8 pg (25.0-35.0) 02/23/19 10:38 MCHC 33.9 g/dL (31.0-37.0) 02/23/19 10:38 RDW 15.4 % (11.5-15.5) 02/23/19 10:38 Plt Count 65 k/uL (150-450) L 02/23/19 10:38 Neutrophils % 69 % 02/23/19 10:38 Lymphocytes % 18 % 02/23/19 10:38 Monocytes % 7 % 02/23/19 10:38 Eosinophils % 1 % 02/23/19 10:38 Basophils % 0 % 02/23/19 10:38 Neutrophils # 3.7 k/uL (1.3-7.7) 02/23/19 10:38 Lymphocytes # 1.0 k/uL (1.0-4.8) 02/23/19 10:38 Monocytes # 0.4 k/uL (0-1.0) 02/23/19 10:38 Eosinophils # 0.1 k/uL (0-0.7) 02/23/19 10:38 Basophils # 0.0 k/uL (0-0.2) 02/23/19 10:38 Manual Slide Review Performed 02/22/19 10:47 Anisocytosis Slight 02/22/19 10:47 Sodium 138 mmol/L (137-145) 02/23/19 10:38 Potassium 3.4 mmol/L (3.5-5.1) L 02/23/19 10:38 Chloride 100 mmol/L (98-107) 02/23/19 10:38 Carbon Dioxide 30 mmol/L (22-30) 02/23/19 10:38 Anion Gap 8 mmol/L 02/23/19 10:38 BUN 15 mg/dL (9-20) 02/23/19 10:38 Creatinine 0.92 mg/dL (0.66-1.25) 02/23/19 10:38 Est GFR (CKD-EPI)AfAm >90 (>60 ml/min/1.73 sqM) 02/23/19 10:38 Est GFR (CKD-EPI)NonAf >90 (>60 ml/min/1.73 sqM) 02/23/19 10:38 Glucose 86 mg/dL (74-99) 02/23/19 10:38 Calcium 9.2 mg/dL (8.4-10.2) 02/23/19 10:38 Magnesium 1.8 mg/dL (1.6-2.3) 02/22/19 10:47 Total Bilirubin 1.1 mg/dL (0.2-1.3) 02/23/19 10:38 AST 56 U/L (17-59) 02/23/19 10:38 ALT 34 U/L (21-72) 02/23/19 10:38 Alkaline Phosphatase 67 U/L (38-126) 02/23/19 10:38 Total Protein 5.9 g/dL (6.3-8.2) L 02/23/19 10:38 Albumin 3.3 g/dL (3.5-5.0) L 02/23/19 10:38 Triglycerides 63 mg/dL (<150) 02/23/19 10:38 Cholesterol 167 mg/dL (<200) 02/23/19 10:38 LDL Cholesterol, Calc 88 mg/dL (0-99) 02/23/19 10:38 HDL Cholesterol 66 mg/dL (40-60) H 02/23/19 10:38 Amylase 103 U/L (30-110) 02/22/19 10:47 Lipase 402 U/L (23-300) H 02/22/19 10:47 TSH 2.620 mIU/L (0.465-4.680) 02/23/19 10:38 Urine Color Yellow 02/22/19 10:47 Urine Appearance Clear (Clear) 02/22/19 10:47 Urine pH 6.5 (5.0-8.0) 02/22/19 10:47 Ur Specific [place] 1.006 (1.001-1.035) 02/22/19 10:47 Urine Protein Trace (Negative) H 02/22/19 10:47 Urine Glucose (UA) Negative (Negative) 02/22/19 10:47 Urine Ketones Negative (Negative) 02/22/19 10:47 Urine Blood Trace (Negative) H 02/22/19 10:47 Urine Nitrite Negative (Negative) 02/22/19 10:47 Urine Bilirubin Negative (Negative) 02/22/19 10:47 Urine Urobilinogen <2.0 mg/dL (<2.0) 02/22/19 10:47 Ur Leukocyte Esterase Negative (Negative) 02/22/19 10:47 Urine RBC 1 /hpf (0-5) 02/22/19 10:47 Urine WBC 1 /hpf (0-5) 02/22/19 10:47 Hyaline Casts 1 /lpf (0-2) 02/22/19 10:47 Urine Mucus Rare /hpf (None) H 02/22/19 10:47 Urine Opiates Screen Not Detected (NotDetected) 02/22/19 10:47 Ur Oxycodone Screen Not Detected (NotDetected) 02/22/19 10:47 Urine Methadone Screen Not Detected (NotDetected) 02/22/19 10:47 Ur Propoxyphene Screen Not Detected (NotDetected) 02/22/19 10:47 Ur Barbiturates Screen Not Detected (NotDetected) 02/22/19 10:47 U Tricyclic Antidepress Not Detected (NotDetected) 02/22/19 10:47 Ur Phencyclidine Scrn Not Detected (NotDetected) 02/22/19 10:47 Ur Amphetamines Screen Not Detected (NotDetected) 02/22/19 10:47 U Methamphetamines Scrn Not Detected (NotDetected) 02/22/19 10:47 U Benzodiazepines Scrn Detected (NotDetected) H 02/22/19 10:47 Urine Cocaine Screen Not Detected (NotDetected) 02/22/19 10:47 U Marijuana (THC) Screen Not Detected (NotDetected) 02/22/19 10:47 Serum Alcohol 244 mg/dL H* 02/22/19 12:27 02/23/19 19:27 Chief Complaint : Suicidal ideation HPI : Mr. Moya is 33 yo single Male with long h/o Alcohol Use and depression admitted here secondary to worsening depression and suicidal ideation. He has been struggling with alcoholism for last many years. He has been to rehab but each time he relapsed. He has been drinking heavy lately. He used to be on vivitrol in past which did help him. Denies symptoms of psychoses, mood swings to me. 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 MSE : Alert, awake, Oriented x 4. Fair eye contact. Speech soft tone, Mood depressed and anxious . Affect mood congruent Has suicidal ideation. No psychoses. Attention fair. Intellect average. Insight/Judgment poor Current Visit: Yes Status: Acute Priority: Low (2) Alcohol withdrawal Current Visit: No Status: Acute Priority: Low Hospital Course: patient was admitted on 02/22/2019 for alcohol withdrawal stating that it was suicidal which in fact he was not. He was detoxed over the weekend and see no reason why he came Go home now. He needs long-term residential treatment with Vivitrol every month, AA meetings 90 meetings in 90 days, and he was started on ReVia and continued on his Seroquel 100 mg by mouth daily at bedtime. I explained to the patient that Seroquel is not a sleeping agent but he likes that and it helps him sleep. He is a well known alcoholic and needs a sponsor for AA. Mental status examination time of discharge:The patient presents alert, pleasan t, and cooperative. There calmly seated without any agitated behavior. [he] reports that [his] mood is good. Affect is congruent and euthymic. [he] deny having any suicidal or homicidal ideation intent or plan. [he] denies any auditory or visual hallucinations. There is no evidence of any delusional thought content. [his] thought process is linear and goal-directed. [his] speech is fluent and nonpressured. [his] memory and concentration is grossly intact for the purposes of this session. Patient Condition at Discharge: Stable Plan - Discharge Summary Discharge Rx Participant: Yes New Discharge Prescriptions: New Naltrexone HCl [Revia] 50 mg PO DAILY 30 Days #30 tab QUEtiapine [SEROquel] 100 mg PO HS 30 Days #30 tab buPROPion XL [Wellbutrin XL] 150 mg PO DAILY 30 Days #30 tab.er.24h Discontinued QUEtiapine [SEROquel] 50 mg PO HS #30 tab Discharge Medication List Naltrexone HCl [Revia] 50 mg PO DAILY 30 Days #30 tab 02/25/19 [Rx] QUEtiapine [SEROquel] 100 mg PO HS 30 Days #30 tab 02/25/19 [Rx] buPROPion XL [Wellbutrin XL] 150 mg PO DAILY 30 Days #30 tab.er.24h 02/25/19 [Rx] Follow up Appointment(s)/Referral(s): Mary Mims MD [Primary Care Provider] - 1-2 days Discharge Disposition: HOME SELF-CARE
== END 2019-02-25 15:22 | disposition home or self-care (01) | DRG 885 ==
LOC: EC 09:46 → 3MHU 20:53
PROVIDERS: ADMIT Psychiatry & Neurology Psychiatry; ATTEND Psychiatry & Neurology Psychiatry
DX: F33.2 Major depressive disorder, recurrent severe without psychotic features (principal); F10.239 Alcohol dependence with withdrawal, unspecified; R45.851 Suicidal ideations; F10.229 Alcohol dependence with intoxication, unspecified; Y90.8 Blood alcohol level of 240 mg/100 ml or more; F41.0 Panic disorder [episodic paroxysmal anxiety]; F43.10 Post-traumatic stress disorder, unspecified; K21.9 Gastro-esophageal reflux disease without esophagitis; M41.9 Scoliosis, unspecified; Z79.899 Other long term (current) drug therapy; Z80.3 Family history of malignant neoplasm of breast; Z82.49 Family history of ischemic heart disease and other diseases of the circulatory system; Z82.62 Family history of osteoporosis; Z86.711 Personal history of pulmonary embolism; F17.220 Nicotine dependence, chewing tobacco, uncomplicated; Z60.2 Problems related to living alone; E87.6 Hypokalemia; Z81.8 Family history of other mental and behavioral disorders
CPT/HCPCS: 36415; 80053; 80061; 80306; 80320; 81001; 82075; 82150; 83036; 83690; 83735; 84443; 85025; 96361; 96365; 96366; 96372; 96375; 96376; 99285

== ENCOUNTER 2019-04-29 21:51 | Emergency (ER) | payer OTHER ==
[2019-04-29] MEDS ORDERED: chlordiazePOXIDE 25 MG CAP PO STA (23:13)
[2019-04-29] MEDS ORDERED: ONDANSETRON ODT 4 MG TAB PO STA (23:13)
[2019-04-29] MEDS ORDERED: LORazepam 1 MG TAB PO STA (23:13)
[2019-04-29] MEDS ORDERED: MAG HYDROX/AL HYDROX/SIMETH 30 ML, HYOSCYAMINE ELIXIR 10 ML, CIMETIDINE HCL 300 MG, LID... PO STA ×4 (23:13)
--- NOTE | 2019-04-29 23:40 | ED ---
Alcohol HPI - General Source: patient Mode of arrival: ambulatory Limitations: no limitations - History of Present Illness MD Complaint: alcohol withdrawal, desires rehab Last Drink: just [facility] Recent Trauma: No Associated Symptoms: nausea Treatments Prior to Arrival: none Chronic Alcohol Use: Yes <Dwight Dotson - Last Filed: 04/29/19 23:39> <Karan Morgan - Last Filed: 04/30/19 08:28> - General Chief Complaint: Alcohol Stated Complaint: ETOH Time Seen by Provider: 04/29/19 22:08 - Related Data Home Medications Medication Instructions Recorded Confirmed Prazosin [Minipress] 5 mg PO HS 04/29/19 04/29/19 Previous Rx's Medication Instructions Recorded QUEtiapine [SEROquel] 100 mg PO HS 30 Days #30 tab 02/25/19 Allergies Allergy/AdvReac Type Severity Reaction Status Date / Time No Known Allergies Allergy Verified 04/29/19 22:25 Review of Systems ROS Other: All systems not noted in ROS Statement are negative. Constitutional: Denies: fever, chills Respiratory: Denies: cough, dyspnea Cardiovascular: Denies: chest pain, palpitations, edema Gastrointestinal: Reports: nausea. Denies: abdominal pain, vomiting, diarrhea, constipation Genitourinary: Denies: dysuria Musculoskeletal: Denies: back pain Skin: Denies: rash Neurological: Denies: headache, weakness, numbness <Dwight Dotson - Last Filed: 04/29/19 23:39> ROS Other: All systems not noted in ROS Statement are negative. <Karan Morgan - Last Filed: 04/30/19 08:28> ROS Statement: Those systems with pertinent positive or pertinent negative responses have been documented in the HPI. 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 Past Anesthesia/Blood Transfusion Reactions: No Reported Reaction Past Psychological History: Anxiety, Depression, PTSD Smoking Status: Former smoker Past Alcohol Use History: Abuse, Daily, Heavy Past Drug Use History: None Reported - Past Family History Father Additional Family Medical History / Comment(s): anxiety Mother Family Medical History: Cancer, Hyperlipidemia, Hypertension, Thyroid Disorder Additional Family Medical History / Comment(s): breast cancer, shingles, osteoporosis, anxiety <MauriDwight - Last Filed: 04/29/19 23:39> General Exam Limitations: no limitations General appearance: alert, anxious Head exam: Present: atraumatic, normocephalic Eye exam: Present: normal appearance. Absent: scleral icterus, conjunctival injection ENT exam: Present: mucous membranes dry Neck exam: Present: normal inspection Respiratory exam: Present: normal lung sounds bilaterally. Absent: respiratory distress, wheezes, rales, rhonchi, stridor Cardiovascular Exam: Present: regular rate, normal rhythm, normal heart sounds. Absent: systolic murmur, diastolic murmur, rubs, gallop GI/Abdominal exam: Present: soft. Absent: distended, tenderness, guarding, rebound, rigid, mass Back exam: Present: normal inspection. Absent: CVA tenderness (R), CVA tenderness (L) Neurological exam: Present: alert Psychiatric exam: Present: anxious. Absent: agitated, flat affect, manic, homicidal ideation, suicidal ideation Skin exam: Present: warm, dry, intact, normal color <Dwight Dotson - Last Filed: 04/29/19 23:39> Course Vital Signs 04/29/19 04/30/19 04/30/19 22:00 01:46 06:44 Temperature 99.4 F 97.8 F Pulse Rate 110 H 106 H 93 Respiratory 18 16 16 Rate Blood Pressure 152/92 128/76 109/51 O2 Sat by Pulse 97 94 L 95 Oximetry Medical Decision Making <Karan Morgan - Last Filed: 04/30/19 08:28> - Medical Decision Making Patient reevaluated by myself, Dr. Morgan. Patient is resting comfortably in bed. Patient denies suicidal ideation. Patient is comfortable with discharge home. Patient is agreeable to rehab. (Karan Morgan) Disposition <Dwight Dotson - Last Filed: 04/29/19 23:39> Is patient prescribed a controlled substance at d/c from ED?: No Time of Disposition: 08:28 <Karan Morgan - Last Filed: 04/30/19 08:28> Clinical Impression: Alcoholic intoxication Disposition: HOME SELF-CARE Condition: Stable Instructions (If sedation given, give patient instructions): Alcohol Intoxication (ED), Alcohol Withdrawal (ED) Additional Instructions: Please note a rehab, list provided. Please follow-up with primary care physician in the next couple days for recheck. Discontinue alcohol use. Referrals: Mary Mims MD [REFERRING] - 1-2 days
[2019-04-30 01:47] VITALS: RESP 16
[2019-04-30 08:57] VITALS: BP 157/92; PULSE 105; TEMP 98.4
== END 2019-04-30 08:57 | disposition home or self-care (01) ==
LOC: EC 21:51
DX: F10.129 Alcohol abuse with intoxication, unspecified (principal); Z87.891 Personal history of nicotine dependence; Z79.899 Other long term (current) drug therapy; Z86.14 Personal history of Methicillin resistant Staphylococcus aureus infection
CPT/HCPCS: 82075; 99284

== ENCOUNTER 2019-05-08 20:22 | Inpatient (IN) | payer OTHER ==
[2019-05-08] MEDS ORDERED: PANTOPRAZOLE 40 MG/10 ML VIAL IVP STA (21:27)
[2019-05-08] MEDS ORDERED: LORazepam 2 MG/ML INJ IV PRN (21:27)
[2019-05-08] MEDS ORDERED: THIAMINE 100 MG/ML 2 ML VIAL IM STA (21:27)
[2019-05-08] MEDS ORDERED: SODIUM CHLORIDE 0.9% 1,000 ML IV STA ×2 (21:27)
[2019-05-08] MEDS ORDERED: DIAZEPAM 5 MG/ML 2 ML INJ IVP STA (21:27)
[2019-05-08] MEDS ORDERED: ONDANSETRON 4 MG/2 ML VIAL IVP STA (21:27)
[2019-05-08] MEDS ORDERED: SODIUM CHLORIDE 0.9% 500 ML 500 ML IV STA (21:27)
[2019-05-08] MEDS ORDERED: LORazepam 2 MG/ML INJ IV STA (21:27)
[2019-05-08 21:41] LABS: Basophils % (A) 0 %; Eosinophils % (A) 0 %; HCT 52.2 % (39.0-53.0); HGB 17.6 gm/dL (13.0-17.5); Lymphocytes # (A) 0.7 k/uL (1.0-4.8); Lymphocytes % (A) 5 %; MCH 32.8 pg (25.0-35.0); MCHC 33.8 g/dL (31.0-37.0); MCV 97.2 fL (80.0-100.0); Mean Platelet Volume 6.9; Monocytes # (A) 0.7 k/uL (0-1.0); Monocytes % (A) 5 %; Neutrophils # (A) 12.8 k/uL (1.3-7.7); Neutrophils % (A) 89 %; Platelet Count 139 k/uL (150-450); RBC 5.37 m/uL (4.30-5.90); RDW 13.4 % (11.5-15.5); WBC 14.4 k/uL (3.8-10.6)
[2019-05-08 21:51] LABS: ALT 54 U/L (21-72); AST 120 U/L (17-59); African American GFR (CKD) >90 (>60 ml/min/1.73 sqM); Albumin 4.9 g/dL (3.5-5.0); Alkaline Phosphatase 92 U/L (38-126); Anion Gap 23 mmol/L; Blood Urea Nitrogen 18 mg/dL (9-20); Calcium 9.6 mg/dL (8.4-10.2); Carbon Dioxide 22 mmol/L (22-30); Chloride 97 mmol/L (98-107); Glucose 173 mg/dL (74-99); Lipase 189 U/L (23-300); Magnesium 1.7 mg/dL (1.6-2.3); Phosphorus 4.2 mg/dL (2.5-4.5); Potassium 4.1 mmol/L (3.5-5.1); Sodium 142 mmol/L (137-145); Total Bilirubin 0.6 mg/dL (0.2-1.3); Total Protein 8.1 g/dL (6.3-8.2)
[2019-05-08 21:54] LABS: Alcohol 282 mg/dL
[2019-05-08] MEDS ORDERED: DIAZEPAM 5 MG/ML 2 ML INJ IVP SCH (22:00)
[2019-05-08 22:05] VITALS: RESP 18
--- NOTE | 2019-05-08 22:10 | ED ---
Alcohol HPI - General Chief Complaint: Alcohol Stated Complaint: Withdrawls Time Seen by Provider: 05/08/19 20:39 Source: patient, RN notes reviewed, old records reviewed Mode of arrival: ambulatory Limitations: no limitations - History of Present Illness Initial Comments: This is a 31-year-old male the ER for evaluation. Patient is both oxalate alcoholic intoxication as well as having alcohol withdrawal. Patient's shaking profusely, patient states he does not feel well vomiting maybe vomiting blood but not bright red is dark in nature. Patient denies any pain. Does feel very weak feels very shaky, patient feels confused MD Complaint: alcohol intoxication, alcohol withdrawal, alcohol dependence Last Drink: unknown -: hour(s) Previous Visits for Alcohol Intoxication?: Yes Recent Trauma: No Associated Symptoms: nausea, vomiting, diaphoresis, tremors Treatments Prior to Arrival: none Chronic Alcohol Use: Yes - Related Data Home Medications Medication Instructions Recorded Confirmed Prazosin [Minipress] 5 mg PO HS 04/29/19 05/08/19 Previous Rx's Medication Instructions Recorded QUEtiapine [SEROquel] 100 mg PO HS 30 Days #30 tab 02/25/19 Allergies Allergy/AdvReac Type Severity Reaction Status Date / Time No Known Allergies Allergy Verified 05/08/19 20:57 Review of Systems ROS Statement: Those systems with pertinent positive or pertinent negative responses have been documented in the HPI. ROS Other: All systems not noted in ROS Statement are negative. 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 Past Anesthesia/Blood Transfusion Reactions: No Reported Reaction Past Psychological History: Anxiety, Depression, PTSD Smoking Status: Former smoker Past Alcohol Use History: Abuse, Daily, Heavy Past Drug Use History: None Reported - Past Family History Father Additional Family Medical History / Comment(s): anxiety Mother Family Medical History: Cancer, Hyperlipidemia, Hypertension, Thyroid Disorder Additional Family Medical History / Comment(s): breast cancer, shingles, osteoporosis, anxiety General Exam Limitations: no limitations General appearance: alert, appears intoxicated, anxious, in distress Head exam: Present: atraumatic, normocephalic, normal inspection Eye exam: Present: normal appearance, PERRL, EOMI. Absent: scleral icterus, conjunctival injection, periorbital swelling ENT exam: Present: normal exam, mucous membranes moist Neck exam: Present: normal inspection. Absent: tenderness, meningismus, lymphadenopathy Respiratory exam: Present: normal lung sounds bilaterally. Absent: respiratory distress, wheezes, rales, rhonchi, stridor Cardiovascular Exam: Present: regular rate, normal rhythm, normal heart sounds. Absent: systolic murmur, diastolic murmur, rubs, gallop, clicks GI/Abdominal exam: Present: soft, normal bowel sounds. Absent: distended, tenderness, guarding, rebound, rigid Extremities exam: Present: normal inspection, full ROM, normal capillary refill. Absent: tenderness, pedal edema, joint swelling, calf tenderness Back exam: Present: normal inspection Neurological exam: Present: alert, oriented X3, CN II-XII intact Psychiatric exam: Present: normal affect, normal mood Skin exam: Present: warm, dry, intact, normal color. Absent: rash Course Vital Signs 05/08/19 05/08/19 05/08/19 20:40 20:41 20:50 Temperature 99 F Pulse Rate 129 H Respiratory 19 Rate Blood Pressure 133/87 151/100 133/87 O2 Sat by Pulse 96 96 94 L Oximetry 05/08/19 05/08/19 21:30 22:00 Temperature Pulse Rate 131 H 135 H Respiratory 18 18 Rate Blood Pressure 137/107 145/116 O2 Sat by Pulse 92 L Oximetry - Reevaluation(s) Reevaluation #1: 05/08/19 22:07 Medical record is reviewed Reevaluation #2: 05/08/19 22:07 Patient does appear to go through active DTs or shaking elevated heart rate elevated blood pressure and confusion Reevaluation #3: 05/08/19 22:07 symptoms improved Medical Decision Making - Medical Decision Making 33-year-old male to ER for evaluation. Patient presents today for evaluation with regards to his impending alcohol withdrawal pending DVTs history of seizures or alcohol withdrawal. Patient be admitted for monitoring of hemodynamic stability - Lab Data Result diagrams: 05/08/19 21:32 05/08/19 21:32 Lab Results 05/08/19 05/08/19 Range/Units 21:32 21:32 WBC 14.4 H (3.8-10.6) k/uL RBC 5.37 (4.30-5.90) m/uL Hgb 17.6 H (13.0-17.5) gm/dL Hct 52.2 (39.0-53.0) % MCV 97.2 (80.0-100.0) fL MCH 32.8 (25.0-35.0) pg MCHC 33.8 (31.0-37.0) g/dL RDW 13.4 (11.5-15.5) % Plt Count 139 L (150-450) k/uL Neutrophils % 89 % Lymphocytes % 5 % Monocytes % 5 % Eosinophils % 0 % Basophils % 0 % Neutrophils # 12.8 H (1.3-7.7) k/uL Lymphocytes # 0.7 L (1.0-4.8) k/uL Monocytes # 0.7 (0-1.0) k/uL Eosinophils # 0.0 (0-0.7) k/uL Basophils # 0.0 (0-0.2) k/uL Sodium 142 (137-145) mmol/L Potassium 4.1 (3.5-5.1) mmol/L Chloride 97 L (98-107) mmol/L Carbon Dioxide 22 (22-30) mmol/L Anion Gap 23 mmol/L BUN 18 (9-20) mg/dL Creatinine 1.18 (0.66-1.25) mg/dL Est GFR (CKD-EPI)AfAm >90 (>60 ml/min/1.73 sqM) Est GFR (CKD-EPI)NonAf 81 (>60 ml/min/1.73 sqM) Glucose 173 H (74-99) mg/dL Calcium 9.6 (8.4-10.2) mg/dL Phosphorus 4.2 (2.5-4.5) mg/dL Magnesium 1.7 (1.6-2.3) mg/dL Total Bilirubin 0.6 (0.2-1.3) mg/dL AST 120 H (17-59) U/L ALT 54 (21-72) U/L Alkaline Phosphatase 92 (38-126) U/L Total Protein 8.1 (6.3-8.2) g/dL Albumin 4.9 (3.5-5.0) g/dL Lipase 189 (23-300) U/L Serum Alcohol 282 H* mg/dL Critical Care Time Critical Care Time: Yes Total Critical Care Time: 31 Disposition Clinical Impression: Alcoholic hepatitis, Alcohol withdrawal seizure, Hypomagnesemia, History of ETOH abuse, Acute alcoholic hepatitis Disposition: ADMITTED IP TO THIS [facility] Condition: Serious Is patient prescribed a controlled substance at d/c from ED?: No Referrals: None,Stated [Primary Care Provider] - 1-2 days
[2019-05-08] MEDS ORDERED: DEXTROSE 5%-0.45% NACL 1,000 ML IV ONE (22:19)
[2019-05-08] MEDS: LORazepam 2 MG/ML INJ IV PRN (22:37)
[2019-05-08] MEDS: THIAMINE 100 MG TAB PO SCH (22:47)
[2019-05-09] MEDS: ONDANSETRON 4 MG/2 ML VIAL IVP PRN ×2 (04:05→22:48)
[2019-05-09] MEDS: LORazepam 2 MG/ML INJ IV PRN ×4 (04:06→22:48)
[2019-05-09] MEDS: DIAZEPAM 5 MG/ML (10 ML MDV) IVP SCH ×4 (07:16→18:28)
[2019-05-09] MEDS ORDERED: PANTOPRAZOLE 40 MG/10 ML VIAL IVP SCH (09:00)
[2019-05-09] MEDS: THIAMINE 100 MG TAB PO SCH ×2 (09:32→18:28)
[2019-05-10] MEDS: DIAZEPAM 5 MG/ML (10 ML MDV) IVP SCH (00:23)
[2019-05-10 00:59] VITALS: BP 144/90; PULSE 72; TEMP 97.2
[2019-05-10] MEDS ORDERED: PANTOPRAZOLE 40 MG TABLET PO SCH (09:00)
== END 2019-05-10 01:40 | disposition left against medical advice (07) | DRG 894 ==
LOC: EC 20:22 → 3SCARD 22:19
PROVIDERS: ADMIT Hospitalist; ATTEND Hospitalist
DX: F10.229 Alcohol dependence with intoxication, unspecified (principal); F10.239 Alcohol dependence with withdrawal, unspecified; E83.42 Hypomagnesemia; F43.10 Post-traumatic stress disorder, unspecified; K21.9 Gastro-esophageal reflux disease without esophagitis; K70.10 Alcoholic hepatitis without ascites; M41.9 Scoliosis, unspecified; R56.9 Unspecified convulsions; Z80.3 Family history of malignant neoplasm of breast; Z82.49 Family history of ischemic heart disease and other diseases of the circulatory system; Z82.62 Family history of osteoporosis; Z86.711 Personal history of pulmonary embolism; Z87.891 Personal history of nicotine dependence; Z81.8 Family history of other mental and behavioral disorders; Y90.8 Blood alcohol level of 240 mg/100 ml or more; Z82.0 Family history of epilepsy and other diseases of the nervous system; Z86.14 Personal history of Methicillin resistant Staphylococcus aureus infection
CPT/HCPCS: 36415; 80053; 80320; 82075; 83690; 83735; 84100; 85025; 96361; 96372; 96374; 96375; 96376; 99285

== ENCOUNTER 2019-05-24 13:17 | Emergency (ER) | payer OTHER ==
[2019-05-24 14:23] VITALS: BP 135/82; RESP 20; TEMP 98.2
[2019-05-24] MEDS ORDERED: LORazepam 2 MG/ML INJ IV PRN ×3 (15:12)
[2019-05-24] MEDS ORDERED: SODIUM CHLORIDE 0.9% 1,000 ML IV STA (15:12)
[2019-05-24] MEDS ORDERED: THIAMINE 100 MG/ML 2 ML VIAL IM STA (15:12)
[2019-05-24 15:47] LABS: Basophils % (A) 1 %; Eosinophils # (A) 0.1 k/uL (0-0.7); Eosinophils % (A) 1 %; HCT 40.6 % (39.0-53.0); Lymphocytes # (A) 0.8 k/uL (1.0-4.8); Lymphocytes % (A) 12 %; MCH 33.9 pg (25.0-35.0); MCHC 35.5 g/dL (31.0-37.0); MCV 95.3 fL (80.0-100.0); Mean Platelet Volume 7.2; Monocytes # (A) 0.3 k/uL (0-1.0); Monocytes % (A) 5 %; Neutrophils # (A) 5.3 k/uL (1.3-7.7); Neutrophils % (A) 78 %; Platelet Count 132 k/uL (150-450); RBC 4.26 m/uL (4.30-5.90); RDW 15.1 % (11.5-15.5); WBC 6.8 k/uL (3.8-10.6)
[2019-05-24 15:48] LABS: HGB 14.4 gm/dL (13.0-17.5)
[2019-05-24 15:49] LABS: ALT 45 U/L (21-72); AST 104 U/L (17-59); African American GFR (CKD) >90 (>60 ml/min/1.73 sqM); Albumin 4.1 g/dL (3.5-5.0); Alkaline Phosphatase 68 U/L (38-126); Anion Gap 16 mmol/L; Blood Urea Nitrogen 21 mg/dL (9-20); Carbon Dioxide 26 mmol/L (22-30); Chloride 91 mmol/L (98-107); Glucose 129 mg/dL (74-99); Magnesium 1.7 mg/dL (1.6-2.3); Potassium 3.5 mmol/L (3.5-5.1); Sodium 133 mmol/L (137-145); Total Bilirubin 0.5 mg/dL (0.2-1.3); Total Protein 6.7 g/dL (6.3-8.2)
[2019-05-24 15:51] LABS: Appearance,Urine Clear (Clear); Bilirubin,Urine Negative (Negative); Blood,Urine Negative (Negative); Color,Urine Yellow; Glucose,Urine (UA) Negative (Negative); Ketones,Urine 1+ (Negative); Leukocyte Esterase,Urine Negative (Negative); Nitrite,Urine Negative (Negative); PH, Urine 5.5 (5.0-8.0); Protein,Urine Trace (Negative); Specific Gravity,Urine 1.028 (1.001-1.035); Urobilinogen,Urine <2.0 mg/dL (<2.0)
[2019-05-24 16:05] LABS: Alcohol 143 mg/dL
[2019-05-24 16:11] LABS: Amphetamine Screen,Urine Not Detected (NotDetected); Barbiturate Screen,Urine Detected (NotDetected); Benzodiazepines Screen,Urine Detected (NotDetected); Cocaine Screen,Urine Not Detected (NotDetected); Methadone Screen, Urine Not Detected (NotDetected); Opiate Screen,Urine Not Detected (NotDetected); Oxycodone Screen, Urine Not Detected (NotDetected); Phencyclidine Screen,Urine Not Detected (NotDetected); Tricyclic Antidepressant,Urine Detected (NotDetected); Urn Cannabinoid Scrn Not Detected (NotDetected)
--- NOTE | 2019-05-24 16:59 | ED ---
General Adult HPI - General Chief complaint: Alcohol Stated complaint: Alcohol withdrawal Time Seen by Provider: 05/24/19 14:43 Source: patient, RN notes reviewed Mode of arrival: ambulatory Limitations: no limitations - History of Present Illness Initial comments: 33-year-old male with a past medical history of GERD, PE, alcohol abuse, alcoholic hepatitis presents to the emergency department for a chief complaint of alcohol withdrawals. Patient states he is trying to quit drinking. States that he is detoxing since quitting last night. States he normally drinks a gallon of vodka per day. States he had a seizure last in December. States he has not had any since that time. States he feels shaky today. Admits to nausea as well. Patient denying any suicidal complaints or thoughts of harming himself whatsoever. States he is trying to quit drinking better his life. Denies any thoughts of harming anyone else. Patient has no other complaints at this time including shortness of breath, chest pain, abdominal pain,headache, or visual changes. - Related Data Home Medications Medication Instructions Recorded Confirmed Prazosin [Minipress] 5 mg PO HS 04/29/19 05/24/19 Previous Rx's Medication Instructions Recorded QUEtiapine [SEROquel] 100 mg PO HS 30 Days #30 tab 02/25/19 chlordiazePOXIDE HCl [Librium] 25 mg PO DIRECTED #25 capsule 05/24/19 Allergies Allergy/AdvReac Type Severity Reaction Status Date / Time No Known Allergies Allergy Verified 05/24/19 14:54 Review of Systems ROS Statement: Those systems with pertinent positive or pertinent negative responses have been documented in the HPI. ROS Other: All systems not noted in ROS Statement are negative. 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 Past Anesthesia/Blood Transfusion Reactions: No Reported Reaction Past Psychological History: Anxiety, Depression, PTSD Smoking Status: Former smoker Past Alcohol Use History: Abuse, Daily, Heavy Past Drug Use History: None Reported - Past Family History Father Additional Family Medical History / Comment(s): anxiety Mother Family Medical History: Cancer, Hyperlipidemia, Hypertension, Thyroid Disorder Additional Family Medical History / Comment(s): breast cancer, shingles, osteoporosis, anxiety General Exam Limitations: no limitations General appearance: anxious (Patient is noted to be having mild tremors.) Head exam: Present: atraumatic, normocephalic, normal inspection Eye exam: Present: normal appearance, PERRL, EOMI. Absent: scleral icterus, conjunctival injection, periorbital swelling ENT exam: Present: normal exam, mucous membranes moist Neck exam: Present: normal inspection, full ROM. Absent: tenderness, meningismus, lymphadenopathy Respiratory exam: Present: normal lung sounds bilaterally. Absent: respiratory distress, wheezes, rales, rhonchi, stridor Cardiovascular Exam: Present: regular rate, normal rhythm, normal heart sounds. Absent: systolic murmur, diastolic murmur, rubs, gallop, clicks GI/Abdominal exam: Present: soft, normal bowel sounds. Absent: distended, tenderness, guarding, rebound, rigid Neurological exam: Present: alert, oriented X3, CN II-XII intact Psychiatric exam: Present: normal affect, normal mood. Absent: homicidal ideation, suicidal ideation Course Vital Signs 05/24/19 14:19 Temperature 98.2 F Pulse Rate 117 H Respiratory 20 Rate Blood Pressure 135/82 O2 Sat by Pulse 97 Oximetry Procedures - [place] Protocol (Time Out) Nurse: Meme Llanes Medical Decision Making - Medical Decision Making 33-year-old male with past medical history of chronic alcoholism presents to the emergency department for a chief complaint of alcohol withdrawal. Patient states he quit drinking last night. States he normally drinks a gallon a day. Patient apparently had an alcohol withdrawal seizure several months ago, no seizure activity since that time. Patient is denying any suicidal thoughts or thoughts of harming himself whatsoever, actually states he is trying to better his life by quitting drinking. On exam patient has mild tremor noted. Otherwise well-appearing. CBC unremarkable. CMP shows mild hyponatremia with a sodium of 133, IV fluids.. Urine tox shows barbiturates, tricyclic antidepre ssants and benzodiazepines. Serum alcohol 143. Patient was started on a similar protocol here in the emergency room. Reevaluate, patient well- appearing, resting comfortably, no tremors noted. Patient was admitted for similar complaints 2 weeks ago. Patient agrees to Librium outpatient. Patient will follow up with primary care once 2 days and return if he has any worsening symptoms. - Lab Data Result diagrams: 05/24/19 15:24 05/24/19 15:24 Lab Results 05/24/19 05/24/19 05/24/19 Range/Units 15:24 15:24 15:24 WBC 6.8 (3.8-10.6) k/uL RBC 4.26 L (4.30-5.90) m/uL Hgb 14.4 D (13.0-17.5) gm/dL Hct 40.6 (39.0-53.0) % MCV 95.3 (80.0-100.0) fL MCH 33.9 (25.0-35.0) pg MCHC 35.5 (31.0-37.0) g/dL RDW 15.1 (11.5-15.5) % Plt Count 132 L (150-450) k/uL Neutrophils % 78 % Lymphocytes % 12 % Monocytes % 5 % Eosinophils % 1 % Basophils % 1 % Neutrophils # 5.3 (1.3-7.7) k/uL Lymphocytes # 0.8 L (1.0-4.8) k/uL Monocytes # 0.3 (0-1.0) k/uL Eosinophils # 0.1 (0-0.7) k/uL Basophils # 0.0 (0-0.2) k/uL Sodium 133 L (137-145) mmol/L Potassium 3.5 (3.5-5.1) mmol/L Chloride 91 L (98-107) mmol/L Carbon Dioxide 26 (22-30) mmol/L Anion Gap 16 mmol/L BUN 21 H (9-20) mg/dL Creatinine 1.01 (0.66-1.25) mg/dL Est GFR (CKD-EPI)AfAm >90 (>60 ml/min/1.73 sqM) Est GFR (CKD-EPI)NonAf >90 (>60 ml/min/1.73 sqM) Glucose 129 H (74-99) mg/dL Calcium 9.0 (8.4-10.2) mg/dL Magnesium 1.7 (1.6-2.3) mg/dL Total Bilirubin 0.5 (0.2-1.3) mg/dL AST 104 H (17-59) U/L ALT 45 (21-72) U/L Alkaline Phosphatase 68 (38-126) U/L Total Protein 6.7 (6.3-8.2) g/dL Albumin 4.1 (3.5-5.0) g/dL Urine Color Yellow Urine Appearance Clear (Clear) Urine pH 5.5 (5.0-8.0) Ur Specific [place] 1.028 (1.001-1.035) Urine Protein Trace H (Negative) Urine Glucose (UA) Negative (Negative) Urine Ketones 1+ H (Negative) Urine Blood Negative (Negative) Urine Nitrite Negative (Negative) Urine Bilirubin Negative (Negative) Urine Urobilinogen <2.0 (<2.0) mg/dL Ur Leukocyte Esterase Negative (Negative) Urine Opiates Screen Not Detected (NotDetected) Ur Oxycodone Screen Not Detected (NotDetected) Urine Methadone Screen Not Detected (NotDetected) Ur Propoxyphene Screen Not Detected (NotDetected) Ur Barbiturates Screen Detected H (NotDetected) U Tricyclic Antidepress Detected H (NotDetected) Ur Phencyclidine Scrn Not Detected (NotDetected) Ur Amphetamines Screen Not Detected (NotDetected) U Methamphetamines Scrn Not Detected (NotDetected) U Benzodiazepines Scrn Detected H (NotDetected) Urine Cocaine Screen Not Detected (NotDetected) U Marijuana (THC) Screen Not Detected (NotDetected) Serum Alcohol 143 mg/dL Disposition Clinical Impression: History of ETOH abuse, Alcohol withdrawal Disposition: HOME SELF-CARE Condition: Good Instructions (If sedation given, give patient instructions): Alcohol Withdrawal (ED) Additional Instructions: Please take Librium as directed. Please follow-up with primary care in 1-2 days. If you're having worsening symptoms then return here to the emergency department. Prescriptions: chlordiazePOXIDE HCl [Librium] 25 mg PO DIRECTED #25 capsule Is patient prescribed a controlled substance at d/c from ED?: No Referrals: Mary Mims MD [REFERRING] - 1-2 days Time of Disposition: 17:11
[2019-05-24] MEDS ORDERED: chlordiazePOXIDE 25 MG CAP PO STA (17:06)
[2019-05-24 17:19] VITALS: PULSE 104
[2019-05-24] MEDS ORDERED: THIAMINE 100 MG TAB PO SCH (17:30)
== END 2019-05-24 17:37 | disposition home or self-care (01) ==
LOC: EC 13:17
DX: F10.239 Alcohol dependence with withdrawal, unspecified (principal); R11.0 Nausea; Z87.898 Personal history of other specified conditions; Z86.711 Personal history of pulmonary embolism; Z86.14 Personal history of Methicillin resistant Staphylococcus aureus infection; Z87.891 Personal history of nicotine dependence; Z79.899 Other long term (current) drug therapy
CPT/HCPCS: 36415; 80053; 83735; 85025; 81003; 80306; 99284; 96374; 96361; 96372; G0480; J2060; J3411; 80320

== ENCOUNTER 2019-06-04 20:43 | Observation (INO) | payer OTHER ==
[2019-06-04] MEDS ORDERED: THIAMINE 100 MG/ML 2 ML VIAL IM STA (21:13)
[2019-06-04] MEDS ORDERED: LORazepam 2 MG/ML INJ IV PRN (21:13)
[2019-06-04] MEDS ORDERED: LORazepam 2 MG/ML INJ IV STA ×2 (21:14→21:43)
[2019-06-04] MEDS: THIAMINE 100 MG TAB PO SCH (21:25)
[2019-06-04 21:34] LABS: ALT 59 U/L (21-72); AST 106 U/L (17-59); African American GFR (CKD) >90 (>60 ml/min/1.73 sqM); Albumin 4.5 g/dL (3.5-5.0); Alkaline Phosphatase 88 U/L (38-126); Anion Gap 19 mmol/L; Blood Urea Nitrogen 13 mg/dL (9-20); Calcium 9.4 mg/dL (8.4-10.2); Carbon Dioxide 27 mmol/L (22-30); Chloride 90 mmol/L (98-107); Glucose 164 mg/dL (74-99); Potassium 3.2 mmol/L (3.5-5.1); Sodium 136 mmol/L (137-145); Total Bilirubin 0.5 mg/dL (0.2-1.3); Total Protein 7.3 g/dL (6.3-8.2)
[2019-06-04 21:39] LABS: Alcohol 109 mg/dL
[2019-06-04 21:41] LABS: Anisocytosis Slight; Basophils % (A) 0 %; Eosinophils % (A) 0 %; HGB 15.6 gm/dL (13.0-17.5); Lymphocytes # (A) 0.5 k/uL (1.0-4.8); Lymphocytes % (A) 6 %; MCH 34.1 pg (25.0-35.0); MCHC 35.4 g/dL (31.0-37.0); MCV 96.5 fL (80.0-100.0); Mean Platelet Volume 7.4; Monocytes # (A) 0.6 k/uL (0-1.0); Monocytes % (A) 7 %; Neutrophils # (A) 7.2 k/uL (1.3-7.7); Neutrophils % (A) 82 %; Platelet Count 162 k/uL (150-450); RBC 4.56 m/uL (4.30-5.90); RDW 16.6 % (11.5-15.5); WBC 8.7 k/uL (3.8-10.6)
[2019-06-04] MEDS ORDERED: SODIUM CHLORIDE 0.9% 1,000 ML IV STA (21:43)
[2019-06-04] MEDS: LORazepam 2 MG/ML INJ IV PRN (21:51)
[2019-06-04] MEDS ORDERED: ONDANSETRON 4 MG/2 ML VIAL IVP STA (22:10)
--- NOTE | 2019-06-04 23:16 | ED ---
General Adult HPI - General Chief complaint: Recheck/Abnormal Lab/Rx Stated complaint: Withdrawal Time Seen by Provider: 06/04/19 21:09 Source: patient, RN notes reviewed, old records reviewed Mode of arrival: ambulatory Limitations: no limitations - History of Present Illness Initial comments: 33-year-old male patient past medical history of alcoholic abuse since ED for withdrawal. Patient was a normally drinks 1 gallon of liquor per day. Patient reports that he has only drank about 1 pint today. Patient states that he may have had a seizure earlier today this morning. Patient states that he remembers sitting on the couch and then waking up on the floor. Patient denies any other complaints since. Patient is feeling tremulous, however denies any current complaints. Denies any head or neck pain, chest pain, nausea vomiting diarrhea. Systemic: Pt denies fatigue, fever/chills, rash. Pt denies weakness, night sweats, weight loss. Neuro: Pt denies headache, visual disturbances, syncope or pre-syncope. HEENT: Pt denies ocular discharge or irritation, otalgia, rhinorrhea, pharyngitis or notable lymphadenopathy. Cardiopulmonary: Pt denies chest pain, SOB, heart palpitations, dyspnea on exertion. Abdominal/GI: Pt denies abdominal pain, n/v/d. : Pt denies dysuria, burning w/ urination, frequency/urgency. Denies new onset urinary or bowel incontinence. MSK: Pt denies myalgia, loss of strength or function in extremities. Neuro: Pt denies new onset weakness, paresthesias. - Related Data Home Medications Medication Instructions Recorded Confirmed Prazosin [Minipress] 5 mg PO HS 04/29/19 05/24/19 Previous Rx's Medication Instructions Recorded QUEtiapine [SEROquel] 100 mg PO HS 30 Days #30 tab 02/25/19 chlordiazePOXIDE HCl [Librium] 25 mg PO DIRECTED #25 capsule 05/24/19 Allergies Allergy/AdvReac Type Severity Reaction Status Date / Time No Known Allergies Allergy Verified 06/04/19 20:50 Review of Systems ROS Statement: Those systems with pertinent positive or pertinent negative responses have been documented in the HPI. ROS Other: All systems not noted in ROS Statement are negative. 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 Past Anesthesia/Blood Transfusion Reactions: No Reported Reaction Past Psychological History: Anxiety, Depression, PTSD Smoking Status: Former smoker Past Alcohol Use History: Abuse, Daily, Heavy Past Drug Use History: None Reported - Past Family History Father Additional Family Medical History / Comment(s): anxiety Mother Family Medical History: Cancer, Hyperlipidemia, Hypertension, Thyroid Disorder Additional Family Medical History / Comment(s): breast cancer, shingles, osteopo rosis, anxiety General Exam - General Exam Comments Initial Comments: Constitutional: NAD, AOX3, tremulous. HEENT: NC/AT, trachea midline, neck supple, no lymphadenopathy. Posterior pharynx non erythematous, without exudates. External ears appear normal, without discharge. Mucous membranes moist. Eyes PERRLA, EOM intact. There is no scleral icterus. No pallor noted. Cardiopulmonary: RRR, no murmurs, rubs or gallops, no JVD noted. Lungs CTAB in anterior and posterior todd. No peripheral edema. Abdominal exam: Abdomen soft and non-distended. Abdomen non-tender to palpation in all 4 quadrants. Bowel sounds active in LLQ. No hepatosplenomegaly. No ecchymosis Neuro: CN II-XII intact. No nuchal rigidity. No raccon eyes, no capellan sign, no hemotympanum. No cervical spinal tenderness. MSK: No posterior calf tenderness bilaterally, homans sign negative bilaterally. Posterior tibialis and radial pulse +2 bilaterally. Sensation intact in upper and lower extremities. Full active ROM in upper and lower extremities, 5/5 stregnth. Limitations: no limitations Course Vital Signs 06/04/19 06/04/19 20:46 23:15 Temperature 98.8 F Pulse Rate 141 H 105 H Respiratory 24 18 Rate Blood Pressure 145/88 140/88 O2 Sat by Pulse 95 100 Oximetry Medical Decision Making - Medical Decision Making 33-year-old male patient past medical history of alcoholic abuse since ED for withdrawal. Patient was a normally drinks 1 gallon of liquor per day. Patient reports that he has only drank about 1 pint today. Patient states that he may have had a seizure earlier today this morning. Patient states that he remembers sitting on the couch and then waking up on the floor. Patient denies any other complaints since. Patient is feeling tremulous, however denies any current complaints. Denies any head or neck pain, chest pain, nausea vomiting diarrhea. Patient vital signs initially display tachycardia, improved with IV fluid administration. Physical exam displayed tremulous appearance. Neurologic exam within normal limits. Laboratory investigations revealed non-impressive CBC. CMP revealed bilateral abnormalities. Lactic acid 3.7. Alcohol 109. Patient initiated on CIWA protocol. Mg2+ and K+ supplemented. Patient will be admitted for alcohol withdrawal. Case discussed with Dr. Valente. - Lab Data Result diagrams: 06/04/19 21:08 06/04/19 21:08 Lab Results 06/04/19 06/04/19 06/04/19 Range/Units 21:08 21:08 21:08 WBC 8.7 (3.8-10.6) k/uL RBC 4.56 (4.30-5.90) m/uL Hgb 15.6 (13.0-17.5) gm/dL Hct 44.0 (39.0-53.0) % MCV 96.5 (80.0-100.0) fL MCH 34.1 (25.0-35.0) pg MCHC 35.4 (31.0-37.0) g/dL RDW 16.6 H (11.5-15.5) % Plt Count 162 (150-450) k/uL Neutrophils % 82 % Lymphocytes % 6 % Monocytes % 7 % Eosinophils % 0 % Basophils % 0 % Neutrophils # 7.2 (1.3-7.7) k/uL Lymphocytes # 0.5 L (1.0-4.8) k/uL Monocytes # 0.6 (0-1.0) k/uL Eosinophils # 0.0 (0-0.7) k/uL Basophils # 0.0 (0-0.2) k/uL Anisocytosis Slight Sodium 136 L (137-145) mmol/L Potassium 3.2 L (3.5-5.1) mmol/L Chloride 90 L (98-107) mmol/L Carbon Dioxide 27 (22-30) mmol/L Anion Gap 19 mmol/L BUN 13 (9-20) mg/dL Creatinine 1.01 (0.66-1.25) mg/dL Est GFR (CKD-EPI)AfAm >90 (>60 ml/min/1.73 sqM) Est GFR (CKD-EPI)NonAf >90 (>60 ml/min/1.73 sqM) Glucose 164 H (74-99) mg/dL Plasma Lactic Acid Chun (0.7-2.0) mmol/L Calcium 9.4 (8.4-10.2) mg/dL Magnesium 1.4 L (1.6-2.3) mg/dL Total Bilirubin 0.5 (0.2-1.3) mg/dL AST 106 H (17-59) U/L ALT 59 (21-72) U/L Alkaline Phosphatase 88 (38-126) U/L Total Protein 7.3 (6.3-8.2) g/dL Albumin 4.5 (3.5-5.0) g/dL Serum Alcohol 109 mg/dL 06/04/19 Range/Units 23:21 WBC (3.8-10.6) k/uL RBC (4.30-5.90) m/uL Hgb (13.0-17.5) gm/dL Hct (39.0-53.0) % MCV (80.0-100.0) fL MCH (25.0-35.0) pg MCHC (31.0-37.0) g/dL RDW (11.5-15.5) % Plt Count (150-450) k/uL Neutrophils % % Lymphocytes % % Monocytes % % Eosinophils % % Basophils % % Neutrophils # (1.3-7.7) k/uL Lymphocytes # (1.0-4.8) k/uL Monocytes # (0-1.0) k/uL Eosinophils # (0-0.7) k/uL Basophils # (0-0.2) k/uL Anisocytosis Sodium (137-145) mmol/L Potassium (3.5-5.1) mmol/L Chloride (98-107) mmol/L Carbon Dioxide (22-30) mmol/L Anion Gap mmol/L BUN (9-20) mg/dL Creatinine (0.66-1.25) mg/dL Est GFR (CKD-EPI)AfAm (>60 ml/min/1.73 sqM) Est GFR (CKD-EPI)NonAf (>60 ml/min/1.73 sqM) Glucose (74-99) mg/dL Plasma Lactic Acid Chun 3.7 H* (0.7-2.0) mmol/L Calcium (8.4-10.2) mg/dL Magnesium (1.6-2.3) mg/dL Total Bilirubin (0.2-1.3) mg/dL AST (17-59) U/L ALT (21-72) U/L Alkaline Phosphatase (38-126) U/L Total Protein (6.3-8.2) g/dL Albumin (3.5-5.0) g/dL Serum Alcohol mg/dL Disposition Clinical Impression: Alcohol withdrawal Disposition: ADMITTED IP TO THIS HOSP Condition: Serious Is patient prescribed a controlled substance at d/c from ED?: No Referrals: None,Stated [Primary Care Provider] - 1-2 days
[2019-06-05] MEDS ORDERED: SODIUM CHLORIDE 0.9% 1,000 ML IV STA (00:01)
[2019-06-05] MEDS ORDERED: MAGNESIUM OXIDE 400 MG TAB PO STA (01:39)
[2019-06-05] MEDS ORDERED: NALOXONE 0.4 MG/ML 1 ML VIAL IV PRN (01:43)
[2019-06-05] MEDS: SODIUM CHLORIDE 0.9% 1,000 ML IV SCH ×3 (02:37→20:18)
[2019-06-05] MEDS: LORazepam 2 MG/ML INJ IV PRN ×8 (02:38→20:17)
[2019-06-05 08:09] LABS: Amphetamine Screen,Urine Not Detected (NotDetected); Barbiturate Screen,Urine Detected (NotDetected); Benzodiazepines Screen,Urine Detected (NotDetected); Cocaine Screen,Urine Not Detected (NotDetected); Methadone Screen, Urine Not Detected (NotDetected); Opiate Screen,Urine Not Detected (NotDetected); Oxycodone Screen, Urine Not Detected (NotDetected); Phencyclidine Screen,Urine Not Detected (NotDetected); Tricyclic Antidepressant,Urine Detected (NotDetected); Urn Cannabinoid Scrn Not Detected (NotDetected)
[2019-06-05 08:17] LABS: Appearance,Urine Clear (Clear); Bilirubin,Urine Negative (Negative); Blood,Urine Negative (Negative); Color,Urine Yellow; Glucose,Urine (UA) Negative (Negative); Ketones,Urine Trace (Negative); Leukocyte Esterase,Urine Negative (Negative); Mucus,Urine Occasional /hpf; Nitrite,Urine Negative (Negative); PH, Urine 8.5 (5.0-8.0); Protein,Urine 1+ (Negative); RBC,Urine 1 /hpf (0-5); Specific Gravity,Urine 1.024 (1.001-1.035); WBC,Urine <1 /hpf (0-5)
[2019-06-05] MEDS ORDERED: POTASSIUM CHLORIDE ER 20 MEQ TAB.ER PO STA (09:08)
[2019-06-05] MEDS ORDERED: chlordiazePOXIDE 25 MG CAP PO STA (09:10)
[2019-06-05] MEDS: MAGNESIUM SULFATE-D5W PMX 1 GM in DEXTROSE/WATER 1 100ML.BAG IVPB SCH ×2 (09:45→11:08)
[2019-06-05 09:47] VITALS: BMI 27.1
--- NOTE | 2019-06-05 10:02 | P.HPIM ---
History of Present Illness H&P Date: 06/05/19 Chief Complaint: Alcohol withdrawal The patient is a 33-year-old male with a past medical history of chronic alcohol dependence that presented to the ER with complaints that he is going through alcohol withdrawals and had a seizure earlier this a.m. apparently the patient passed out on his couch and woke up shaking thinking that he had a seizure and subsequently presented here. 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 The patient reports that he's drinking about a pint a day of liquor. He report he has been to several inpatient treatment facilities for alcoholism most recently at [facility] in January of this year he also has been to [facility]. Patient denies any nausea vomiting abdominal pain. The patient denies any suicidal or homicidal ideation In the ER the patient had a conference and workup UDS was positive for barbiturates and TCAs and benzodiazepines, serum potassium was 3.2, lactic acid was elevated at 3.7 magnesium was 1.4, AST 106. 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 History of Any Multi-Drug Resistant Organisms: MRSA Date of last positivie culture/infection: 2008 MDRO Source:: right knee Past Surgical History: No Surgical Hx Reported Additional Past Surgical History / Comment(s): had 3 teeth extracted-post procedure pain worsened and had a 2nd procedure done for an exposed nerve. Past Anesthesia/Blood Transfusion Reactions: No Reported Reaction Smoking Status: Current every day smoker - Past Family History Father Additional Family Medical History / Comment(s): anxiety Mother Family Medical History: Cancer, Hyperlipidemia, Hypertension, Thyroid Disorder Additional Family Medical History / Comment(s): breast cancer, shingles, ost eoporosis, anxiety Medications and Allergies Home Medications Medication Instructions Recorded Confirmed Type QUEtiapine [SEROquel] 200 mg PO HS 06/05/19 06/05/19 History Allergies Allergy/AdvReac Type Severity Reaction Status Date / Time No Known Allergies Allergy Verified 06/05/19 07:22 Physical Exam Vitals: Vital Signs Temp Pulse Pulse Resp BP BP Pulse Ox 06/05/19 09:28 98.5 F 79 16 130/87 97 06/05/19 01:43 98.8 F 98 18 138/90 100 06/04/19 23:15 105 H 18 140/88 100 06/04/19 20:46 98.8 F 141 H 24 145/88 95 Intake and Output 06/04/19 06/05/19 06/05/19 22:59 06:59 14:59 Intake Total 2500 Balance 2500 Intake: Amount of Fluid Infused ( 2500 ml) Other: Weight 90.718 kg Constitutional: Anxious tremulous upper extremities jittery Eyes: Anicteric sclerae, moist conjunctiva, no lid-lag, PERRLA ENMT: NC/AT,Oropharynx clear, no erythema, exudates Neck:Supple, FROM, no masses, or JVD, No carotid bruits; No thyromegaly Lungs: Clear to auscultation, Clear to percussion, Normal respiratory effort, no accessory muscle use Cardiovascular: Heart regular in rate and rhythm, No murmurs, gallops, or rubs no peripheral edema Abdominal: Soft Nontender, nom distended, no guarding, no rebound or rigidity, Normoactive bowel sounds No hepatomegaly, No splenomegaly, No palpable mass No abdominal wall hernia noted Skin: Normal temperature, tone, texture, turgor, No induration No subcutaneous nodules, No rash, lesions, No ulcers Extremities:No digital cyanosis No clubbing, Pedal pulses intact and symmetrical Radial pulses intact and symmetrical Normal gait and station, No calf tenderness Psychiatric: Flat affect, denies any suicidal or homicidal ideation, appears anxious, mild psychomotor agitation Neuro: Muscles Strength 5/5 in all 4 extremities, Sensation to light touch grossly present throughout, Cranial nerves II-XII grossly intact. No focal sensory deficits Results CBC & Chem 7: 06/05/19 14:46 06/05/19 16:09 Labs: Abnormal Lab Results - Last 24 Hours (Table) 06/04/19 06/04/1906/04/19 Range/Units 21:08 21:08 21:08 RDW 16.6 H (11.5-15.5) % Lymphocytes # 0.5 L (1.0-4.8) k/uL Sodium 136 L (137-145) mmol/L Potassium 3.2 L (3.5-5.1) mmol/L Chloride 90 L (98-107) mmol/L Glucose 164 H (74-99) mg/dL Plasma Lactic Acid Chun (0.7-2.0) mmol/L Magnesium 1.4 L (1.6-2.3) mg/dL AST 106 H (17-59) U/L Urine pH (5.0-8.0) Urine Protein (Negative) Urine Ketones (Negative) Urine Mucus (None) /hpf 06/04/19 06/05/19 Range/Units 23:21 07:48 RDW (11.5-15.5) % Lymphocytes # (1.0-4.8) k/uL Sodium (137-145) mmol/L Potassium (3.5-5.1) mmol/L Chloride (98-107) mmol/L Glucose (74-99) mg/dL Plasma Lactic Acid Chun 3.7 H* (0.7-2.0) mmol/L Magnesium (1.6-2.3) mg/dL AST (17-59) U/L Urine pH 8.5 H (5.0-8.0) Urine Protein 1+ H (Negative) Urine Ketones Trace H (Negative) Urine Mucus Occasional H (None) /hpf Thrombosis Risk Factor Assmnt - Choose All That Apply Any of the Below Risk Factors Present?: Yes Each Factor Represents 1 point: Obesity (BMI >25) Other Risk Factors: Yes Each Risk Factor Represents 3 Points: History of DVT/PE Other congenital or acquired thrombophilia - If yes, enter type in comment: No Thrombosis Risk Factor Assessment Total Risk Factor Score: 4 Thrombosis Risk Factor Assessment Level: Moderate Risk Assessment and Plan (1) Alcohol withdrawal Current Visit: Yes Status: Acute Priority: Low Code(s): F10.239 - ALCOHOL DEPENDENCE WITH WITHDRAWAL, UNSPECIFIED SNOMED Code(s): 143345860 (2) Chronic alcohol dependence, continuous Current Visit: Yes Status: Acute Code(s): F10.20 - ALCOHOL DEPENDENCE, UNCOMPLICATED SNOMED Code(s): 986726704 (3) Hypokalemia Current Visit: Yes Status: Acute Code(s): E87.6 - HYPOKALEMIA SNOMED Code(s): 02826734 (4) Hypomagnesemia Current Visit: No Status: Acute Code(s): E83.42 - HYPOMAGNESEMIA SNOMED Code(s): 481549608 (5) Depression Current Visit: No Status: Acute Priority: Low Code(s): F32.9 - MAJOR DEPRESSIVE DISORDER, SINGLE EPISODE, UNSPECIFIED SNOMED Code(s): 05449551 (6) Alcohol withdrawal seizure Current Visit: No Status: Acute Code(s): F10.239 - ALCOHOL DEPENDENCE WITH WITHDRAWAL, UNSPECIFIED; R56.9 - UNSPECIFIED CONVULSIONS SNOMED Code(s): 210984354 Plan: The patient's patient observation anticipate a less than 2 midnight stay with alcohol withdrawal with concern for delirium tremens. The patient has noted electrolyte abnormalities including hypokalemia and hyponatremia this will be repleted and addressed accordingly. He is placed on CIWA symptom triggered withdrawal protocol and is also started on Librium scheduled every 8 hours. Given patient's reports of seizure will order EEG and consult neurology for further recommendation, no need to initiate a EGD at this time. Continue on seizure precautions, we'll also consult psychiatry for further recommendations regarding the patient's depression PTSD and insomnia. CODE STATUS: Full code Anticipated discharge: 1-2 days Prophylaxis: SCDs
[2019-06-05 15:01] LABS: HGB 13.3 gm/dL (13.0-17.5); MCH 33.7 pg (25.0-35.0); MCHC 34.1 g/dL (31.0-37.0); Macrocytosis Slight; Platelet Count 124 k/uL (150-450); RBC 3.94 m/uL (4.30-5.90); RDW 15.4 % (11.5-15.5); WBC 5.2 k/uL (3.8-10.6)
--- NOTE | 2019-06-05 15:12 | P.CN ---
Psychiatric Consult - . Consult date: 06/05/19 Consult:: 06/05/19 14:59 Identification: Patient is a 33-year-old male who presented to the emergency room complaining of alcohol withdrawal and a seizure. Reason for Consult: Depression History of Present Illness: Patient's chart was reviewed the patient was seen and interviewed in his room no family members were present. Patient states that since December 16 of this year he has been drinking a gallon of liquor a day. He states he's been using alcohol since the age of 19 and began using at a fifth a day. Patient states that he is unable to stop drinking once he starts. Patient was at [facility] in January of this year and had a withdrawal seizure while he was there in their alcohol rehab program. Patient was also on the inpatient psychiatric unit in February of this year and states that he was also in [facility] a detox program in April of this year. He reports being in rehab at least 20 times in the past. Patient states he's been attending AA meetings and has a sponsor but does not go daily and does not call his sponsor. After his discharge here in February 2019 he said he went to [facility] and they didn't take his insurance. Patient states he discontinued the Wellbutrin he was taking due to side effects. Patient states he's continued on Seroquel 200 mg at bedtime to assist with his sleep prescribed by his primary care physician. Patient states he's had withdrawal seizures in the past when withdrawing from alcohol, has had DTs in the past and blackouts. Patient states he is currently feeling sweaty and shaky and states he didn't eat for 3 days prior to coming into the hospital because he was drinking. He states that he also threw up some blood at home and this scared him. Patient states he is depressed because he can't stop drinking, feels physically ill and denies any current suicidal ideation. Patient states that he is never attempted suicide, denies any psychotic symptoms, denies any manic symptoms and denies any anxiety symptoms. Patient complains that he has trouble sleeping and this is why Seroquel was been prescribed for him. Past Psychiatric History: Patient has 2 prior psychiatric inpatient stays here, he states he has had at least 20 inpatient alcohol rehab stays his most recent being at [facility] in January of this year and he was in a detox only unit, [facility] in April of this year. Patient's been taking Seroquel 200 mg at bedtime to assist with sleep. Past Medical/Surgical History: Patient has GERD, status post pulmonary embolism, and has had alcohol withdrawal seizures. Patient also states he has scoliosis and problems with his back. Family History: Patient states that alcohol use disorder is on both sides of his family, his mother is been treated for depression and anxiety and there are no completed suicides in the family Social History: Patient was born and raised in [place] to parents who are both alive and he has one sister. Patient completed high school and he states that he wanted to enlist in the but his mother blocked that he began working at multiple jobs. 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 Patient lives alone and has never been and has no children. He states he has financial difficulties at this time and is facing eviction from his home. He states he is being supported financially on workman's disability? Substance Use History: Patient states he began using alcohol at the age of 19 see above for details. Patient denies any drug use history currently or in the past. Legal History: Patient has 2 DUIs Mental status: Appearance/Attitude: Patient is in a hospital gown, lying in a bed in no acute distress, makes good eye contact and was cooperative Behavior: Patient does not exhibit any psychomotor agitation or retardation. Speech/Language: Patient's speech is spontaneous and normal volume and rhythm and he is coherent Thought Process: Patient is goal-directed there is no evidence of loose association or flight of ideas Thought Content: Patient denies any auditory or visual hallucinations and no delusions or paranoid ideation or elicited. Patient reports that he's not been able to eat much today, states he hadn't eaten for 3 days prior to coming into the hospital and states he is not feeling sweaty or shaky at this time. Patient states that he hasn't been sleeping well. Patient reports feeling physically ill prior to coming to the hospital Suicidal/Homicidal Ideation: Patient denies any current suicidal or homicidal ideation Sensorium/Cognition: Patient is alert and oriented to person, place, and time and his recent and remote memory are grossly intact Mood/Affect: Patient's mood is bland and his affect is restricted Insight/Judgment: Patient's insight and judgment are fair Assessment: Patient presents with a long history of alcohol use, multiple inpatient rehab programs, he states that he has not been calling his AA sponsor nor been attending AA meetings daily. He's been using a gallon of alcohol daily is November of this year. Patient has been taking Seroquel for sleep, he has no history of suicide attempts, he does not endorse a history of manic symptoms, psychotic symptoms or anxiety symptoms. Patient reports that he is currently unable to stop drinking, physically feeling ill, has had blackouts, withdrawal seizures and DTs in the past. Diagnosis: Alcohol withdrawal, alcohol use disorder, severe Plan: Patient does not require transfer to the inpatient psychiatric unit and he and I discussed inpatient alcohol rehab and consideration of sober housing after release from that program. Patient and I had a long discussion regarding the health complications of continued alcohol use. I also discussed with the patient that Seroquel at 200 mg at bedtime should not be continued on an ongoing basis for sleep difficulties that are most likely due to his alcohol use and will resolve once the patient is sober for an extended period of time. I spoke with social work regarding referrals for inpatient alcohol rehab and again encouraged the patient to consider placement in a sober living facility after he completes the inpatient rehab. I will not start any antidepressants at this time, patient can be assessed for this once he is sober for an extended period of time. Patient was encouraged to follow-up with inpatient rehab. I will sign off the case if there are any further questions or concerns please don't hesitate to call me 06/05/19 15:05
[2019-06-05] MEDS: chlordiazePOXIDE 25 MG CAP PO SCH ×2 (15:25→21:43)
[2019-06-05 15:37] LABS: Eosinophils # (M) 0.05 k/uL (0-0.7); Lymphocytes # (M) 0.78 k/uL (1.0-4.8); Monocytes # (M) 0.42 k/uL (0-1.0); Neutrophils # (M) 3.95 k/uL (1.3-7.7); Neutrophils % (M) 76 %; Nucleated Red Blood Cells 0 /100 WBC (0-0); Stomatocytes Present; Total Cells Counted 100
[2019-06-05 15:39] LABS: Hypochromasia (M) Present
[2019-06-05 16:35] LABS: African American GFR (CKD) >90 (>60 ml/min/1.73 sqM); Anion Gap 7 mmol/L; Blood Urea Nitrogen 10 mg/dL (9-20); Calcium 8.7 mg/dL (8.4-10.2); Carbon Dioxide 28 mmol/L (22-30); Chloride 99 mmol/L (98-107); Glucose 108 mg/dL (74-99); Magnesium 2.2 mg/dL (1.6-2.3); Potassium 3.7 mmol/L (3.5-5.1); Sodium 134 mmol/L (137-145)
[2019-06-05] MEDS: THIAMINE 100 MG TAB PO SCH (17:16)
--- NOTE | 2019-06-05 18:53 | CT ---
EXAMINATION TYPE: CT brain wo/w con DATE OF EXAM: 06/05/2019 COMPARISON: CT brain 02/01/2019 HISTORY: Seizure. PT going through withdrawl CT DLP: 2144.60 mGycm Automated exposure control for dose reduction was used. CONTRAST: Performed with IV Contrast, patient injected with 100 mL of Isovue 300. FINDINGS: There is some cerebral cortical atrophy. There is no mass effect nor midline shift. There is no sign of intracranial hemorrhage. Contrast images show no pathologic enhancement. There is normal contrast opacification of the venous sinuses. IMPRESSION: MILD ATROPHY. NO ACUTE INTRACRANIAL ABNORMALITY. THERE IS CLEARING OF THE LEFT SIDE SOFT TISSUE SWELL ING COMPARED TO OLD EXAM.
--- NOTE | 2019-06-05 19:14 | CONS ---
CONSULTATION DATE OF SERVICE: 06/05/2019 HISTORY OF PRESENT ILLNESS: Thank you for allowing me to evaluate Alonso Moya, who is a 33-year-old right-handed white male who states that he presented to [facility] on 06/05/2019 for "alcohol withdrawal." The patient states that he drinks up to a gallon of liquor per day and stopped drinking yesterday. He states he stopped drinking because he was "done." He subsequently became tremulous and sweaty and states he has not eaten over the past 3 days. He had an incident where he was on the couch, then woke up on the floor, and believes this may have represented a seizure. This episode was unwitnessed, and he is not sure how well he was lying on the floor. There was no associated urine/stool incontinence or tongue-biting, although the patient states he was confused following the event. After he woke up on the floor, the patient states he started drinking again but later walked to [facility] and was subsequently admitted. Alcohol level on presentation was 0.109. The patient was previously admitted to [facility] between 02/22 and 02/25/2019 for alcohol withdrawal and suicidal ideation. The patient states earlier in January 2019 he was at [facility] detox program and apparently had a witnessed grand mal seizure where he bit his tongue and was transferred to [facility] for workup. He apparently had diagnostic testing completed and was not placed on anticonvulsant medication. The patient was also evaluated by Dr. Clemens of Neurology during his hospitalization of 03/26/2018 for alcohol withdrawal, at which time the patient was tremulous. He had an EEG completed on 03/26/2018 which was normal. The patient is currently on Ativan, delirium tremens protocol. ALLERGIES: NO KNOWN DRUG ALLERGIES. HOME MEDICATIONS: Seroquel 200 mg at bedtime. PAST MEDICAL HISTORY: 1. ETOH abuse. 2. Alcohol-related seizure. 3. Depression. 4. Anxiety. 5. Insomnia. 6. Pulmonary emboli (previously on Xarelto). 7. GERD. 8. Chronic low back pain. PAST SURGICAL HISTORY: Denies. SOCIAL HISTORY: The patient smokes half a pack per day and has smoked for a total of 12 years on and off. The patient has a long history of EtOH abuse, which began at 19 years of age. The patient has been in at least 20 rehab programs in the past and had 2 DUIs. The patient lives in an apartment by himself. He has never been and has no children. He denied illicit drug use. FAMILY HISTORY: The patient's parents are alive. Father has hypertension and mother had breast cancer. There is no family history of seizures. REVIEW OF SYSTEMS: Fourteen systems are reviewed, and no additional complaints are identified. The review of systems is documented in the history and physical. PHYSICAL EXAMINATION: Upon my arrival in the patient's room, he was lying in bed, receptive to the examiner. Affect is flat. He is an accurate historian and appears of stated age. VITAL SIGNS: Blood pressure is 134/87, pulse of 82, respiratory rate 18, temperature 98.8. Weight is 90.7 kg on a 6-foot 0-inch frame. SKIN AND EXTREMITIES: The patient has multiple upper extremity tattoos as well as one over the left lower extremity. HEAD AND NECK: No signs of trauma. Neck is supple without meningeal signs. Arteries are nontender and without bruits. Burk sign is negative. HEART: Regular rate and rhythm. HIGHER CORTICAL FUNCTION: MENTAL STATUS: The patient was alert and oriented to self. He knew he was at "[facility]." He knew the floor, floors. He knew the floor, stated the year was "2008." He knew the month, day of week and could name the current president. Speech was fluent and he followed commands readily. There was no right/left disorientation, finger-nose extinction to double simultaneous stimulation or dysarthria. He was able to name, repeat and read. CRANIAL NERVES II THROUGH XII: II: Pupils are equal and reactive to light symmetrically. No afferent pupillary defect. Visual todd are intact to confrontation. III, IV, : No ptosis. Extraocular movements are full. No nystagmus. V: Pinprick, light touch intact in all 3 divisions. Motor 5 intact. VII: No facial asymmetry or weakness. Acuity intact to finger rub. IX, X: Palate jayce in the midline. XI: Trapezius strength intact. XII: Tongue protruded midline without fasciculation or atrophy. There was no tongue bite. MOTOR EXAMINATION: There is no pronator drift. Normal bulk and tone is noted in all major muscle groups. The patient is tremulous in the upper extremities but no myoclonus/asterixis was present. Strength is at least 4+/5 in a non-focal fashion, although the patient provides brief and unsustained effort. Sensory intact to pinprick and light touch in all extremities. Reflexes, right side listed first: biceps 2,2; brachioradialis 2,2; triceps 2,2; patella 0,0; ankle 0,0. Plantar response is flexor bilaterally. Rosa's is absent. COORDINATION: There is some intentional tremor noted with bilateral yfxmad-wd-vgnt movements. Ahrh-wf-aphs movements are intact. Rapid alternating movements are symmetric with finger tapping. DIAGNOSTIC TESTING: The patient had CT scans of the brain completed on 03/26/2018 and 02/01/2019, both demonstrating no acute pathology. LAB WORK: Lab work demonstrates a white blood cell count of 5.2, hemoglobin of 13.3, platelet count 124. Sodium 136, potassium 3.2, BUN 13 with creatinine 1.0. ALT 59, AST 106, calcium 9.4, magnesium 1.4. Urinalysis revealed negative nitrate and leukocyte esterase. Urine tox screen was positive for barbiturates, tricyclic antidepressant medication and benzodiazepines. Alcohol level on presentation was 0.109. IMPRESSION: 1. Alcohol-related seizure. The patient had one prior event on 02/02/2019 while in an alcohol detox program. 2. Long history of ethanol abuse with multiple prior rehabs. Alcohol level on this presentation was a 0.109. 3. Thrombocytopenia and elevated AST, likely secondary to ethanol abuse. 4. Hypomagnesemia. 5. Hypokalemia. 6. Medical problems, including depression, anxiety, insomnia, chronic low back pain, previous pulmonary embolus (patient was on Xarelto), and gastroesophageal reflux disease. RECOMMENDATIONS: 1. I discussed my impression and plan with the patient and he expressed understanding. I stressed the need for the patient to abstain from alcohol. 2. Will obtain CT of the brain with and without contrast, and EEG is pending at the time of this dictation. 3. The patient has been placed under seizure precautions and Ativan is available on a p.r.n. basis for breakthrough episodes. 4. The patient is currently on an delirium tremens protocol. 5. Psychiatry is on the patient's case. 6. Agree with thiamine supplementation. 7. Electrolyte replacement per primary service. 8. The patient does not drive, although he was reminded of the [place] driving regulations of no driving x6 months following a seizure. 9. Please feel free to contact me if there are further questions from a neurologic standpoint. Thank you for allowing me to participate in the care of your patient. MMEVA / IJN: [id number] /
[2019-06-05] MEDS ORDERED: QUEtiapine 100 MG TAB PO SCH (21:00)
[2019-06-06] MEDS: LORazepam 2 MG/ML INJ IV PRN ×2 (03:16→14:35)
[2019-06-06 07:39] VITALS: RESP 16
[2019-06-06] MEDS: THIAMINE 100 MG TAB PO SCH ×2 (08:00→16:24)
[2019-06-06] MEDS: chlordiazePOXIDE 25 MG CAP PO SCH ×2 (08:00→16:24)
[2019-06-06] MEDS: SODIUM CHLORIDE 0.9% 1,000 ML IV SCH ×2 (11:27→17:47)
[2019-06-06 15:12] VITALS: BP 144/97; PULSE 85; TEMP 98.9
--- NOTE | 2019-06-08 10:13 | EEG ---
ELECTROENCEPHALOGRAM REPORT DATE OF SERVICE: 06/06/2019. CLINICAL HISTORY: This is an 18-channel EEG with one-channel EKG recording on a 33-year-old male who presented to [facility] on 06/05/2019 following an alcohol related seizure. This study is being done for further evaluation. FINDINGS: Wakefulness was obtained during the recording. In the maximal awake state, a moderate voltage 9 hertz posterior dominant background rhythm was demonstrated. This is regulated, sustained, symmetric and reactive to eye opening. Low-voltage faster frequencies were seen diffusely over all head regions. Photic stimulation produced a symmetric driving response to flash frequencies. No sleep architecture was seen. No epileptiform discharges, electrographic seizures, or focal lateralizing features are present. SUMMARY: Normal awake EEG. INTERPRETATION: This EEG is within normal limits for age. No epileptiform discharges or focal lateralized features are present. The excessive beta activity is likely secondary to medication effect (patient is currently on Ativan DT protocol). MMODL / IJN: [id number] /
== END 2019-06-06 17:55 | disposition home or self-care (01) ==
LOC: EC 20:43 → 4MS4W 06-05 05:54
PROVIDERS: ADMIT Internal Medicine; ATTEND Internal Medicine
DX: F10.239 Alcohol dependence with withdrawal, unspecified (principal); F32.9 Major depressive disorder, single episode, unspecified; E87.6 Hypokalemia; E83.42 Hypomagnesemia; G40.409 Other generalized epilepsy and epileptic syndromes, not intractable, without status epilepticus; E87.1 Hypo-osmolality and hyponatremia; F43.10 Post-traumatic stress disorder, unspecified; G47.00 Insomnia, unspecified; F41.9 Anxiety disorder, unspecified; G89.29 Other chronic pain; M54.6 Pain in thoracic spine; M41.9 Scoliosis, unspecified; D69.6 Thrombocytopenia, unspecified; R74.0 Nonspecific elevation of levels of transaminase and lactic acid dehydrogenase [LDH]; M47.816 Spondylosis without myelopathy or radiculopathy, lumbar region; K21.9 Gastro-esophageal reflux disease without esophagitis; F17.210 Nicotine dependence, cigarettes, uncomplicated; E66.9 Obesity, unspecified; Z86.718 Personal history of other venous thrombosis and embolism; Z68.27 Body mass index [BMI] 27.0-27.9, adult; Y90.5 Blood alcohol level of 100-119 mg/100 ml; Z79.899 Other long term (current) drug therapy; Z86.14 Personal history of Methicillin resistant Staphylococcus aureus infection; Z86.711 Personal history of pulmonary embolism; Z80.3 Family history of malignant neoplasm of breast; Z82.62 Family history of osteoporosis; Z81.8 Family history of other mental and behavioral disorders; Z83.1 Family history of other infectious and parasitic diseases; Z83.49 Family history of other endocrine, nutritional and metabolic diseases; Z82.49 Family history of ischemic heart disease and other diseases of the circulatory system; Z81.1 Family history of alcohol abuse and dependence
CPT/HCPCS: 96376 ×4; 96361 ×3; 96372; 96374; 96375; 99285; 36415 ×2; 95816; 80053; 80048; 83605 ×2; 83735 ×2; 85025 ×2; 81001; 80306; 70470; G0378 ×2; G0480; J2060 ×3; J3411; J2405; J3475; Q9967; 80320

== ENCOUNTER 2019-06-11 15:03 | Emergency (ER) | payer OTHER ==
[2019-06-11] MEDS ORDERED: ETOMIDATE 2 MG/ML 10 ML VIAL IVP STA (15:05)
[2019-06-11 15:35] LABS: ALT 86 U/L (21-72); AST 268 U/L (17-59); African American GFR (CKD) >90 (>60 ml/min/1.73 sqM); Albumin 3.2 g/dL (3.5-5.0); Alkaline Phosphatase 51 U/L (38-126); Amylase 97 U/L (30-110); Anion Gap 10 mmol/L; Blood Urea Nitrogen 17 mg/dL (9-20); Calcium 7.7 mg/dL (8.4-10.2); Carbon Dioxide 24 mmol/L (22-30); Chloride 106 mmol/L (98-107); Glucose 111 mg/dL (74-99); Sodium 140 mmol/L (137-145); Total Bilirubin 0.4 mg/dL (0.2-1.3); Total Protein 5.6 g/dL (6.3-8.2)
[2019-06-11] MEDS ORDERED: SUCCINYLCHOLINE CHLORIDE VIAL 200 MG/10 ML VIAL IV STA (15:36)
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
[2019-06-11 15:41] LABS: Alcohol 228 mg/dL
[2019-06-11 15:43] LABS: Basophils % (A) 1 %; Eosinophils % (A) 1 %; HCT 35.4 % (39.0-53.0); HGB 11.7 gm/dL (13.0-17.5); Lymphocytes # (A) 1.1 k/uL (1.0-4.8); Lymphocytes % (A) 35 %; MCH 33.4 pg (25.0-35.0); MCV 101.2 fL (80.0-100.0); Macrocytosis Slight; Mean Platelet Volume 8.3; Monocytes # (A) 0.2 k/uL (0-1.0); Monocytes % (A) 6 %; Neutrophils # (A) 1.7 k/uL (1.3-7.7); Neutrophils % (A) 54 %; Platelet Count 145 k/uL (150-450); RDW 15.8 % (11.5-15.5); WBC 3.2 k/uL (3.8-10.6)
[2019-06-11 15:46] LABS: Creatine Kinase 231 U/L (55-170)
[2019-06-11 15:52] VITALS: BP 138/124; PULSE 117; RESP 119; TEMP 98.6
[2019-06-11 15:52] LABS: INR 0.9 (<1.2); Partial Thromboplastin Time 22.1 sec (22.0-30.0); Prothrombin Time 10.1 sec (9.0-12.0)
[2019-06-11 15:59] LABS: Creatine Kinase MB 1.1 ng/mL (0.0-2.4); Troponin I <0.012 ng/mL (0.000-0.034)
[2019-06-11] MEDS ORDERED: ceFAZolin IN SWFI 2 GM/20 ML SYRINGE IVP ONE (16:07)
[2019-06-11] MEDS ORDERED: DIPH,PERTUS(ACELL)TETVAC-LF 0.5 ML VIAL IM ONE (16:07)
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
[2019-06-11] MEDS ORDERED: SODIUM CHLORIDE 0.9% 3,000 ML IV ONE (16:47)
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
[2019-06-11] MEDS ORDERED: TRANEXAMIC ACID 1,000 MG in SODIUM CHLORIDE 0.9% 100 ML IV STA (17:08)
[2019-06-11] MEDS ORDERED: PROPOFOL 1,000 MG in EMPTY BAG 1 BAG IV ONE (17:09)
[2019-06-11] MEDS ORDERED: VECURONIUM 10 MG VIAL IV STA (17:40)
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
[2019-06-11] MEDS ORDERED: EPINEPHrine 1 MG/ML 1 ML AMP IV STA (19:23)
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
== END 2019-06-11 18:20 | disposition other institution (70) ==
LOC: EC 15:03
DX: S06.5X9A Traumatic subdural hemorrhage with loss of consciousness of unspecified duration, initial encounter (principal); S12.500A Unspecified displaced fracture of sixth cervical vertebra, initial encounter for closed fracture; S82.292B Other fracture of shaft of left tibia, initial encounter for open fracture type I or II; S82.832B Other fracture of upper and lower end of left fibula, initial encounter for open fracture type I or II; S42.212A Unspecified displaced fracture of surgical neck of left humerus, initial encounter for closed fracture; S32.9XXA Fracture of unspecified parts of lumbosacral spine and pelvis, initial encounter for closed fracture; S32.599A Other specified fracture of unspecified pubis, initial encounter for closed fracture; S41.111A Laceration without foreign body of right upper arm, initial encounter; S41.112A Laceration without foreign body of left upper arm, initial encounter; S50.312A Abrasion of left elbow, initial encounter; S50.311A Abrasion of right elbow, initial encounter; S50.812A Abrasion of left forearm, initial encounter; S50.811A Abrasion of right forearm, initial encounter; R57.8 Other shock; R00.0 Tachycardia, unspecified; R74.8 Abnormal levels of other serum enzymes; F10.120 Alcohol abuse with intoxication, uncomplicated; F19.90 Other psychoactive substance use, unspecified, uncomplicated; D64.9 Anemia, unspecified; R41.82 Altered mental status, unspecified; Z23 Encounter for immunization; F17.200 Nicotine dependence, unspecified, uncomplicated; V03.99XA Pedestrian with other conveyance injured in collision with car, pick-up truck or van, unspecified whether traffic or nontraffic accident, initial encounter; Y92.415 Exit ramp or entrance ramp of street or highway as the place of occurrence of the external cause
CPT/HCPCS: 99291; 99292; 31500; 92950; 29515; 96374; 96361; 90471; 36415; 86900; 86901; 80053; 82150; 82550; 82553; 83605; 83690; 84484; 85025; 85610; 85730; 86850; 86920; 73060; 73130; 73090; 72170; 73590; 71045; 72125; 70450; 71260; 74177; 90715; P9016; P9059; G0480; J0171; J0330; J2704; J0690; Q9967; 80320; 94002